=== PATIENT | male | born 1945 | race Hispanic/Latino ===

== ENCOUNTER 2019-01-31 14:12 | Outpatient (CLI) | payer MEDICARE | END 2019-01-31 14:13 | disposition home or self-care (01) | LOC: CARDIO 14:12 ==

== ENCOUNTER 2019-02-06 10:36 | Inpatient (IN) | payer MEDICARE ==
[2019-02-06 10:54] VITALS: BMI 24.0
[2019-02-06 11:20] LABS: BASO # 0.01 K/mm3 (0.0-2.0); BASO % 0.2 % (0.0-3.0); EOS # 0.1 (0.0-0.7); EOS % 1.4 % (1.5-5.0); HEMOGLOBIN 12.9 g/dL (14.0-18.0); LYMPH # 1.9 (1.2-3.4); MEAN CELL VOLUME 92.6 fl (80.0-105.0); MEAN CORPUSCULAR HGB CONC 32.4 g/dl (31.0-37.0); MEAN PLATELET VOLUME 11.6 fl (7.0-11.0); MONO # 0.7 (0.1-0.6); MONO % 11.2 % (1.0-6.0); RBC 4.3 10^6/uL (3.5-6.1); RED CELL DISTRIBUTION WIDTH 14.3 % (11.5-14.5); WHITE BLOOD COUNT 6.6 10^3/uL (4.5-11.0)
--- NOTE | 2019-02-06 11:26 | ED PDOC ---
Arrival/HPI - General Chief Complaint: Shortness Of Breath Historian: Patient - History of Present Illness Narrative History of Present Illness (Text): 02/06/19 11:26 73 y/o M, with past medical history of hypertension, CABG, Carotid endarterectomy s/p stent, and internal defibrillator, presents to the ED for medical evaluation s/p mechanical fall x2 this morning. Patient states he was walking to the bathroom with his walker when he tripped and fell backwards on his head. Patient denies any dizziness prior to the fall. Patient denies any loss of consciousness at the time and is able to recall the episode fully. Patient was later helped by his nephew to get up from the floor and was subsequently brought to the ED for evaluation. Patient denies any apparent trauma or injury but mentions chronic productive cough with yellow sputum ongoing for past 6 months. Patient reports taking Mucinex for the cough with intermittent improvement to symptoms. Patient additionally states intermittent shortness of breath and mild lower extremity swelling for past few weeks. Patient denies any fevers, chills, headache, dizziness, chest pain, shortness of breath, dyspnea on exertion, cough, abdominal pain, nausea, vomiting, diarrhea, back pain, neck pain, or any other complaints. Time/Duration: Prior to Arrival Symptom Onset: Gradual Symptom Course: Unchanged Activities at Onset: Light Context: Home Past Medical History - Provider Review Nursing Documentation Reviewed: Yes - Infectious Disease Hx of Infectious Diseases: None - Tetanus Immunization Tetanus Immunization: Unknown - Cardiac Hx Angina: Yes Hx Cardiac Arrhythmia: Yes Hx Hypertension: Yes Hx Internal Defibrillator: Yes (4 yrs ago) - Pulmonary Hx Respiratory Disorders: No Hx Asthma: No Hx Bronchitis: No Hx Chronic Obstructive Pulmonary Disease (COPD): No Hx Emphysema: No - Neurological Hx Parkinson's Disease: Yes - HEENT Hx HEENT Disorder: Yes (wears glasses) Hx Blind: No Hx Cataracts: No Hx Deafness: No Hx Difficulty Chewing: No Hx Epistaxis: No Hx Glaucoma: No Hx Macular Degeneration: No - Renal Hx Renal Disorder: No Hx Renal Failure: No - Endocrine/Metabolic Hx Diabetes Insipidus: No Hx Hyperthyroidism: No Hx Hypothyroidism: No - Hematological/Oncological Hx Anemia: No Hx Cancer: No Hx Hepatitis A: No Hx Hepatitis B: No Hx Hepatitis C: No - Integumentary Hx Dermatological Disorder: No Other/Comment: HEALING ABRASIONS POST FALL AT HOME. ON HIS RIGHT STALLINGS (2 YEARS AGO - Musculoskeletal/Rheumatological Hx Falls: Yes - Gastrointestinal Hx Gastrointestinal Disorders: No - Genitourinary/Gynecological Hx Genitourinary Disorders: No Hx Hematuria: No Hx Incontinence: No Hx Prostate Problems: No Hx Sexually Transmitted Diseases: No Hx Urinary Tract Infection: No - Psychiatric Hx Psychophysiologic Disorder: Yes Hx Depression: No Hx Emotional Abuse: No Hx Hallucinations: Yes (TO JUMP OER THE WINDOW) Hx Physical Abuse: No Hx Schizophrenia: Yes (DX AT AGE 43 YRS OLD) Hx Sexual Abuse: No Hx Substance Use: No - Surgical History Hx Carotid Endarterectomy: (STENT) Hx Coronary Artery Bypass Graft: Yes - Anesthesia Hx Anesthesia: Yes Hx Anesthesia Reactions: No Hx Malignant Hyperthermia: No - Suicidal Assessment Feels Threatened In Home Enviroment: No Family/Social History - Physician Review Nursing Documentation Reviewed: Yes Family/Social History: Unknown Family HX Smoking Status: Former Smoker Hx Alcohol Use: No Hx Substance Use: No Allergies/Home Meds Allergies/Adverse Reactions: Allergies No Known Allergies Allergy (Verified 10/10/16 13:59) Home Medications: Home Meds Medication Instructions Recorded Confirmed Amiodarone [Cordarone] 200 mg PO DAILY 06/17/14 01/06/17 Cholecalciferol (Vitamin D3) 1,000 unit PO DAILY 06/17/14 01/06/17 [Vitamin D3] Clopidogrel [Plavix] 75 mg PO DAILY 06/17/14 01/06/17 Simvastatin 40 mg PO DAILY 06/17/14 01/06/17 Aspirin [Adult Low Dose Aspirin EC] 81 mg PO DAILY 10/10/16 01/06/17 Benztropine [Cogentin] 1 mg PO BID 10/10/16 01/06/17 Carvedilol [Coreg] 3.125 mg PO BID 10/10/16 01/06/17 Enalapril Maleate [Vasotec] 2.5 mg PO DAILY 10/10/16 01/06/17 Furosemide [Lasix] 20 mg PO BID 10/10/16 01/06/17 Risperidone [Risperdal] 2 mg PO BID 10/10/16 01/06/17 Spironolactone [Aldactone] 25 mg PO DAILY 10/10/16 01/06/17 Zolpidem [Ambien] 10 mg PO HS 10/10/16 01/06/17 Review of Systems - Physician Review All systems were reviewed & negative as marked: Yes - Review of Systems Constitutional: absent: Fevers Eyes: absent: Vision Changes Respiratory: SOB, Cough, Sputum Cardiovascular: absent: Chest Pain, Palpitations Gastrointestinal: absent: Abdominal Pain, Diarrhea, Nausea, Vomiting Genitourinary Male: absent: Dysuria, Urinary Output Changes Musculoskeletal: absent: Back Pain, Neck Pain Skin: absent: Rash Neurological: absent: Headache, Dizziness Endocrine: absent: Diaphoresis Psychiatric: absent: Anxiety Physical Exam Vital Signs Reviewed: Yes Vital Signs Temp Pulse Resp BP Pulse Ox 02/06/19 10:55 97.7 F 68 18 100/67 100 Temperature: Afebrile Blood Pressure: Hypotensive Pulse: Regular Respiratory Rate: Normal Appearance: Positive for: Non-Toxic, Comfortable, Cachectic Pain Distress: None Mental Status: Positive for: Alert and Oriented X 3 - Systems Exam Head: Present: Atraumatic, Normocephalic Pupils: Present: PERRL Extroacular Muscles: Present: EOMI Conjunctiva: Present: Normal Mouth: Present: Dry Neck: Present: Normal Range of Motion. No: MIDLINE TENDERNESS, Paraspinal Tenderness Respiratory/Chest: Present: Clear to Auscultation, Good Air Exchange, Other (Coarse breath sounds bilaterally ). No: Respiratory Distress, Accessory Muscle Use, Tachypneic Cardiovascular: Present: Regular Rate and Rhythm, Normal S1, S2. No: Murmurs Abdomen: No: Tenderness, Distention, Peritoneal Signs Back: Present: Normal Inspection. No: Midline Tenderness, Paraspinal Tenderness Upper Extremity: Present: Normal Inspection. No: Cyanosis, Edema Lower Extremity: Present: Edema (+1 pitting edema bilaterally) Neurological: Present: GCS=15, Speech Normal Skin: Present: Warm, Dry, Normal Color. No: Rashes Psychiatric: Present: Alert, Oriented x 3, Normal Insight, Normal Concentration Medical Decision Making ED Course and Treatment: 02/06/19 11:10 Impression: 73 year old male presents to the ED for medical evaluation s/p mechanical fall this morning. Differential Diagnosis included but are not limited to: -- Intracranial hemorrhage -- Fracture Plan: -- CT of Cervical Spine -- CT of Head -- Labs -- CXR -- Urinalysis -- Reassess and disposition Prior Visits: Notes and results from previous visits were reviewed. Progress Notes: 02/06/19 12:33 Labs reviewed with BNP noted to be 13,500 and negative troponin. Spoke to Dr. Martinez(PCP) who accepts patient onto his service for admission. He requests for Dr. Balbuena(cardiology) to be consulted. - Lab Interpretations Lab Results: 02/06/19 11:07 02/06/19 11:07 Lab Results 02/06/19 11:07: Sodium 137, Potassium 3.5 L, Chloride 104, Carbon Dioxide 26, Anion Gap 11, BUN 13, Creatinine 1.4, Est GFR ( Amer) > 60, Est GFR (Non- Af Amer) 50, Random Glucose 121 H, Calcium 9.7, Magnesium 2.0, Total Bilirubin 1.1, AST 64 H D, ALT 62 H, Alkaline Phosphatase 71, Troponin I 0.06 D, NT-Pro-B Natriuret Pep 88394 H, Total Protein 6.6, Albumin 3.7, Globulin 2.8, Albumin/Globulin Ratio 1.3 02/06/19 11:07: PT 14.5 H, INR 1.28, APTT 42.1 H 02/06/19 11:07: WBC 6.6, RBC 4.30, Hgb 12.9 L, Hct 39.8 L, MCV 92.6, MCH 30.0, MCHC 32.4, RDW 14.3, Plt Count 188, MPV 11.6 H, Neut % (Auto) 58.2, Lymph % (Auto) 29.0, [place] % (Auto) 11.2 H, Eos % (Auto) 1.4 L, Baso % (Auto) 0.2, Lymph # (Auto) 1.9, [place] # (Auto) 0.7 H, Eos # (Auto) 0.1, Baso # (Auto) 0.01, Absolute Neuts (auto) 3.84 I have reviewed the lab results: Yes - RAD Interpretation Radiology Orders: 02/06/19 11:05 CERVICAL SPINE W/O CONTRAST [CT] Stat HEAD W/O CONTRAST [CT] Stat CHEST PORTABLE [RAD] Stat - EKG Interpretation EKG Interpretation (Text): 02/06/19 10:50 EKG reviewed, shows NSR @ 71bpm, LBBB, wide T waves in precordial leads. Interpreted by ED Physician: Yes Type: 12 lead EKG - Medication Orders Current Medication Orders: 02/06/19 12:13 Discontinued Medications Albuterol/Ipratropium (Duoneb 3 Mg/0.5 Mg (3 Ml) Ud) 3 ml IH STAT STA Stop: 02/06/19 11:41 Last Admin: 02/06/19 11:58 Dose: 3 ml Furosemide (Lasix) 60 mg IVP STAT STA Stop: 02/06/19 12:11 Methylprednisolone (Solu-Medrol) 125 mg IVP STAT STA Stop: 02/06/19 11:41 Last Admin: 02/06/19 12:02 Dose: 125 mg IVP Administration Document 02/06/19 12:02 BB (Rec: 02/06/19 12:02 BB [id number]) Charges for Administration # of IVP Administrations 1 - Scribe Statement The provider has reviewed the documentation as recorded by the Scribe Dixon Ramesh. All medical record entries made by the Scribe were at my direction and pe rsonally dictated by me. I have reviewed the chart and agree that the record accurately reflects my personal performance of the history, physical exam, medical decision making, and the department course for this patient. I have also personally directed, reviewed, and agree with the discharge instructions and disposition. Disposition/Present on Arrival - Present on Arrival Any Indicators Present on Arrival: No History of DVT/PE: No History of Uncontrolled Diabetes: No Urinary Catheter: No History of Decub. Ulcer: No History Surgical Site Infection Following: None - Disposition Have Diagnosis and Disposition been Completed?: Yes Diagnosis: CHF (congestive heart failure) Disposition: HOSPITALIZED Disposition Time: 12:35 Patient Plan: Admission Discharge Instructions (ExitCare): Heart Failure (ED) Forms: [employer] ([place])
[2019-02-06 11:28] LABS: INR 1.28; PARTIAL THROMBOPLASTIN TIME 42.1 Seconds (26.9-38.3); PROTHROMBIN TIME 14.5 SECONDS (9.4-12.5)
[2019-02-06 11:32] LABS: ALB/GLOB RATIO 1.3 (1.1-1.8); ALBUMIN 3.7 g/dL (3.0-4.8); ALT/SGPT 62 U/L (7-56); AST/SGOT 64 U/L (17-59); BLOOD UREA NITROGEN 13 mg/dL (7-21); CALCIUM 9.7 mg/dL (8.4-10.5); GFR NON-AFRICAN AMERICAN 50
[2019-02-06] MEDS ORDERED: Albuterol-Ipratrop 3 mg / 0.5 (3 ml) UD IH STA (11:40)
[2019-02-06 11:43] LABS: B-TYPE NATRIURETIC PEPTIDE 13500 pg/mL (0-450); TROPONIN I 0.06 ng/mL
--- NOTE | 2019-02-06 11:56 | CT ---
Date of service: 02/06/2019 PROCEDURE: CT HEAD WITHOUT CONTRAST. HISTORY: headache COMPARISON: 08/02/2014 TECHNIQUE: Axial computed tomography images were obtained through the head/brain without intravenous contrast. Radiation dose: Total exam DLP = 1689.92 mGy-cm. This CT exam was performed using one or more of the following dose reduction techniques: Automated exposure control, adjustment of the mA and/or kV according to patient size, and/or use of iterative reconstruction technique. FINDINGS: HEMORRHAGE: No intracranial hemorrhage. BRAIN: No mass effect or edema. Chronic microvascular changes are seen in the periventricular white matter. Moderate atrophy. VENTRICLES: Unremarkable. No hydrocephalus. CALVARIUM: Unremarkable. PARANASAL SINUSES: Unremarkable as visualized. No significant inflammatory changes. MASTOID AIR CELLS: Unremarkable as visualized. No inflammatory changes. OTHER FINDINGS: None. IMPRESSION: No acute intracranial findings
--- NOTE | 2019-02-06 11:58 | CT ---
Date of service: 02/06/2019 PROCEDURE: CT Cervical Spine without contrast HISTORY: fall COMPARISON: None available. TECHNIQUE: Axial computed tomography images were obtained of the cervical spine without the use of intravenous contrast. Coronal and sagittal reformatted images were created and reviewed. Radiation dose: Total exam DLP = 650.17 mGy-cm. This CT exam was performed using one or more of the following dose reduction techniques: Automated exposure control, adjustment of the mA and/or kV according to patient size, and/or use of iterative reconstruction technique. FINDINGS: VERTEBRAE: No fracture. Normal alignment. No destructive bony lesion. DISCS/SPINAL CANAL/NEURAL FORAMINA: There is multilevel disc degeneration with severe loss of disc height. There is no central stenosis. There is mild foraminal stenosis PARASPINAL SOFT TISSUES: Unremarkable. OTHER FINDINGS: None. IMPRESSION: No acute fracture.
--- NOTE | 2019-02-06 13:02 | RAD ---
Date of service: 02/06/2019 HISTORY: sob COMPARISON: 10/10/2016 FINDINGS: LUNGS: No active pulmonary disease. PLEURA: No significant pleural effusion identified, no pneumothorax apparent. CARDIOVASCULAR: No aortic atherosclerotic calcification present. Normal cardiac size. AICD. Sternotomy wires. No congestive change. OSSEOUS STRUCTURES: No significant abnormalities. VISUALIZED UPPER ABDOMEN: Normal. OTHER FINDINGS: None. IMPRESSION: No acute infiltrate.
--- NOTE | 2019-02-06 21:03 | CARD ---
APPROVED REPORT Date of service: 02/06/2019 EKG Measurement Heart [id number] ND [id number] <Conclusion> Sinus rhythm with 1st degree AV block Left bundle branch block Abnormal ECG
--- NOTE | 2019-02-07 07:29 | CP.PCM.PN ---
Subjective - Date & Time of Evaluation Date of Evaluation: 02/07/19 Time of Evaluation: 06:15 - Subjective Subjective: Awake, alert, mild shortness of breath at rest, on nasal cannula Reason for consultation:Cardiac evaluation of shortness of breath, post fall, history of coronary artery disease post CABG, cardiomyopathy Brief history of present illness: A 73 year old male who was brought to the ER due to mechanical fall at home. He was walking to the bathroom with a walker and tripped and fell. Denies loss of consciousness. He complains of shortness of breath on exertion and coughing. History of coronary artery disease post CABG, cardiomyopathy, carotid endarterectomy with stent, AICD. Seen and examined by me and Dr. Hall Objective - Vital Signs/Intake and Output Vital Signs (last 24 hours): Temp Pulse Resp BP Pulse Ox 98.2 F 69 18 113/74 98 02/06/19 16:24 02/06/19 22:00 02/06/19 16:24 02/06/19 17:31 02/06/19 16:24 Intake and Output: 02/07/19 02/07/19 06:59 18:59 Intake Total 1020 Output Total 450 Balance 570 - Medications Medications: Current Medications Amiodarone HCl (Cordarone) 200 mg PO DAILY [facility] Benztropine Mesylate (Cogentin) 1 mg PO BID [facility] Last Admin: 02/06/19 17:32 Dose: 1 mg Carvedilol (Coreg) 3.125 mg PO BID [facility] Last Admin: 02/06/19 17:31 Dose: 3.125 mg Clopidogrel Bisulfate (Plavix) 75 mg PO DAILY [facility] Risperidone (Risperdal Tab) 2 mg PO BID [facility]; Protocol Spironolactone (Aldactone) 25 mg PO DAILY [facility] Zolpidem Tartrate (Ambien) 5 mg PO HS PRN; Protocol PRN Reason: Insomnia Last Admin: 02/07/19 00:51 Dose: 5 mg - Labs Labs: 02/06/19 11:07 02/06/19 11:07 PT 14.5 SECONDS (9.4-12.5) H 02/06/19 11:07 INR 1.28 02/06/19 11:07 APTT 42.1 Seconds (26.9-38.3) H 02/06/19 11:07 - Constitutional Appears: Non-toxic, No Acute Distress - Head Exam Head Exam: NORMAL INSPECTION, NORMOCEPHALIC - Eye Exam Eye Exam: Normal appearance Pupil Exam: NORMAL ACCOMODATION - Respiratory Exam Respiratory Exam: Decreased Breath Sounds, Clear to Ausculation Bilateral, NORMAL BREATHING PATTERN Additional comments: mild shortness of breath - Cardiovascular Exam Cardiovascular Exam: REGULAR RHYTHM, +S1, +S2 Additional comments: AICD - GI/Abdominal Exam GI & Abdominal Exam: Soft, Normal Bowel Sounds - Extremities Exam Extremities Exam: Full ROM, Normal Capillary Refill - Neurological Exam Neurological Exam: Alert, Awake, Oriented x3 - Psychiatric Exam Psychiatric exam: Normal Affect, Normal Mood - Skin Skin Exam: Dry, Normal Color, Warm
--- NOTE | 2019-02-07 07:31 | CP.PCM.CON ---
History of Present Illness - History of Present Illness History of Present Illness: Awake, alert, mild shortness of breath at rest, on nasal cannula Reason for consultation:Cardiac evaluation of shortness of breath, post fall, history of coronary artery disease post CABG, cardiomyopathy Brief history of present illness: A 73 year old male who was brought to the ER due to mechanical fall at home. He was walking to the bathroom with a walker and tripped and fell. Denies loss of consciousness. He complains of shortness of breath on exertion and coughing. History of coronary artery disease post CABG, status post ventricular tachycardia 9 years ago, post AICD insertion. Lead malfunction of AICD 09/2016 requiring AICD to be changed. cardiomyopathy, COPD, Schizophrenia, Seen and examined by me and Dr. Hall Review of Systems - Review of Systems All systems: reviewed and no additional remarkable complaints except Review of Systems: as per HPI Past Patient History - Infectious Disease Hx of Infectious Diseases: None - Tetanus Immunizations Tetanus Immunization: Unknown - Past Social History Smoking Status: Former Smoker - CARDIAC Hx Angina: Yes Hx Cardia Arrhythmia: Yes Hx Hypertension: Yes Hx Internal Defibrillator: Yes (4 yrs ago) - PULMONARY Hx Respiratory Disorders: No Hx Asthma: No Hx Bronchitis: No Hx Chronic Obstructive Pulmonary Disease (COPD): No Hx Emphysema: No - NEUROLOGICAL Hx Parkinson's Disease: Yes - HEENT Hx HEENT Problems: Yes (wears glasses) Hx Blind: No Hx Cataracts: No Hx Deafness: No Hx Difficulty Chewing: No Hx Epistaxis: No Hx Glaucoma: No Hx Macular Degeneration: No - RENAL Hx Chronic Kidney Disease: No Hx Renal Failure: No - ENDOCRINE/METABOLIC Hx Diabetes Insipidus: No Hx Hyperthyroidism: No Hx Hypothyroidism: No - HEMATOLOGICAL/ONCOLOGICAL Hx Anemia: No Hx Cancer: No Hx Hepatitis A: No Hx Hepatitis B: No Hx Hepatitis C: No - INTEGUMENTARY Hx Dermatological Problems: No Other/Comment: HEALING ABRASIONS POST FALL AT HOME. ON HIS RIGHT STALLINGS (2 YEARS AGO - MUSCULOSKELETAL/RHEUMATOLOGICAL Hx Falls: Yes - GASTROINTESTINAL Hx Gastrointestinal Disorders: No - GENITOURINARY/GYNECOLOGICAL Hx Genitourinary Disorders: No Hx Hematuria: No Hx Incontinence: No Hx Prostate Problems: No Hx Sexually Transmitted Disorders: No Hx Urinary Tract Infection: No - PSYCHIATRIC Hx Psychophysiologic Disorder: Yes Hx Depression: No Hx Emotional Abuse: No Hx Hallucinations: Yes (TO JUMP OER THE WINDOW) Hx Physical Abuse: No Hx Schizophrenia: Yes (DX AT AGE 43 YRS OLD) Hx Sexual Abuse: No - SURGICAL HISTORY Hx Amputation: No Hx Appendectomy: Yes Hx Open Heart Surgery: Yes (quadruple bypass 8 yrs ago) Hx Orthopedic Surgery: Yes Other/Comment: AICD 4 yrs ago, left carotid stent 6 yrs go - ANESTHESIA Hx Anesthesia: Yes Hx Anesthesia Reactions: No Hx Malignant Hyperthermia: No Meds Allergies/Adverse Reactions: Allergies Allergy/AdvReac Type Severity Reaction Status Date / Time No Known Allergies Allergy Verified 10/10/16 13:59 - Medications Medications: Current Medications Amiodarone HCl (Cordarone) 200 mg PO DAILY [facility] Benztropine Mesylate (Cogentin) 1 mg PO BID [facility] Last Admin: 02/06/19 17:32 Dose: 1 mg Carvedilol (Coreg) 3.125 mg PO BID [facility] Last Admin: 02/06/19 17:31 Dose: 3.125 mg Clopidogrel Bisulfate (Plavix) 75 mg PO DAILY [facility] Risperidone (Risperdal Tab) 2 mg PO BID [facility]; Protocol Spironolactone (Aldactone) 25 mg PO DAILY [facility] Zolpidem Tartrate (Ambien) 5 mg PO HS PRN; Protocol PRN Reason: Insomnia Last Admin: 02/07/19 00:51 Dose: 5 mg Physical Exam - Constitutional Appears: Non-toxic, No Acute Distress - Head Exam Head Exam: NORMAL INSPECTION, NORMOCEPHALIC - Eye Exam Eye Exam: Normal appearance Pupil Exam: NORMAL ACCOMODATION - ENT Exam ENT Exam: Mucous Membranes Moist, Normal Exam - Respiratory Exam Respiratory Exam: Decreased Breath Sounds, Clear to Auscultation Bilateral, NORMAL BREATHING PATTERN Additional comments: mild shortness of breath - Cardiovascular Exam Cardiovascular Exam: REGULAR RHYTHM, +S1, +S2 Additional comments: AICD - GI/Abdominal Exam GI & Abdominal Exam: Normal Bowel Sounds, Soft - Neurological Exam Neurological exam: Alert, Oriented x3 - Psychiatric Exam Psychiatric exam: Normal Affect, Normal Mood - Skin Skin Exam: Dry, Normal Color, Warm Results - Vital Signs Recent Vital Signs: Last Vital Signs Temp 98.2 F 02/06/19 16:24 Pulse 69 02/06/19 22:00 Resp 18 02/06/19 16:24 BP 113/74 02/06/19 17:31 Pulse Ox 98 02/06/19 16:24 - Labs Result Diagrams: 02/06/19 11:07 02/06/19 11:07 Labs: Laboratory Results - last 24 hr 02/06/19 02/06/19 02/06/19 11:07 11:07 11:07 WBC 6.6 RBC 4.30 Hgb 12.9 L Hct 39.8 L MCV 92.6 MCH 30.0 MCHC 32.4 RDW 14.3 Plt Count 188 MPV 11.6 H Neut % (Auto) 58.2 Lymph % (Auto) 29.0 [place] % (Auto) 11.2 H Eos % (Auto) 1.4 L Baso % (Auto) 0.2 Lymph # (Auto) 1.9 [place] # (Auto) 0.7 H Eos # (Auto) 0.1 Baso # (Auto) 0.01 Absolute Neuts (auto) 3.84 PT 14.5 H INR 1.28 APTT 42.1 H Sodium 137 Potassium 3.5 L Chloride 104 Carbon Dioxide 26 Anion Gap 11 BUN 13 Creatinine 1.4 Est GFR ( Amer) > 60 Est GFR (Non-Af Amer) 50 Random Glucose 121 H Calcium 9.7 Magnesium 2.0 Total Bilirubin 1.1 AST 64 H D ALT 62 H Alkaline Phosphatase 71 Troponin I 0.06 D NT-Pro-B Natriuret Pep 30116 H Total Protein 6.6 Albumin 3.7 Globulin 2.8 Albumin/Globulin Ratio 1.3 Assessment & Plan - Assessment and Plan (Free Text) Assessment: A 73 year old male who was brought to the ER due to mechanical fall at home. He was walking to the bathroom with a walker and tripped and fell. Denies loss of consciousness. He complains of shortness of breath on exertion and coughing. History of coronary artery disease post CABG, post PTCA of the LAD, status post ventricular tachycardia 9 years ago, post AICD insertion. Lead malfunction of AICD 09/2016 requiring AICD to be changed at [facility] decreased LV function, cardiomyopathy, COPD, Schizophrenia. Echo done on showed four chamber dialtation with LVEF of 10-15%, mild to moderate MR/TR, trace to mild AR/PI, RVSP 45 mmHg. He just had a recent Echocardiogram 4 weeks ago in the office and LVEF 15-20%. Stress test on 06/19/14 showed fixed ischemia, septal,apical, inferior defects suggestive of myocardial infarction, severe LV dysfunction LVEF 10%. Refused repeat stress test.Chest X ray normal. CT of head no hemorrhage. Acute on chronic exacerbation of congestive heart failure (cardiomyopathy). Will start on Primacor drip. Plan: Mild shortness of breath Will start Primacor drip heart rate stable Blood pressure stable On Amiodarone 200 mg daily,Coreg 3.125 mg BID, Plavix 75 mg daily, Aldactone 25 mg daily Continue current treatment Continue current medications TSH, HbgA1c, Lipid panel Will follow up Further recommendations during hospital course Plan and treatment discussed with Dr. Hall Thank you Dr. Martinez for the opportunity of taking care of Eduard Gautam - Date & Time Date: 02/07/19 Time: 06:20
[2019-02-07] MEDS ORDERED: Milrinone 20mg/100ml D5W 100 ML IV PRN (08:15)
--- NOTE | 2019-02-07 10:50 | HP ---
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 The patient has a chronically low blood pressure and poor balance because of his Parkinson's disease. He has suffered multiple falls in the last 2 to 3 weeks, eventually falling in his bathroom, complaining of increased shortness of breath, increased dyspnea on exertion and weakness. The patient was brought to the emergency room and had a CT of the neck and head, which were normal and was found to have elevated BNP with evidence on chest x-ray of congestive heart failure. The patient was admitted for acute exacerbation of systolic heart failure on top of chronic systolic diastolic heart failure and multiple falls and exacerbation of Parkinson's disease. SOCIAL HISTORY: The patient is a nonsmoker and nondrinker and no recent travel history. FAMILY HISTORY: Unremarkable. REVIEW OF SYSTEMS: Central Nervous System: Positive for falls and dizziness and poor balance and tremors. The patient denies any loss of consciousness or loss of strength or sensation in the upper or lower extremities, or change in his vision. Cardiac: Positive for shortness of breath, dyspnea on exertion, negative for palpitations, chest pain or diaphoresis. Respiratory: Positive for shortness of breath. Negative for cough, sputum production or hemoptysis. Gastrointestinal: Negative for nausea, vomiting or diarrhea. Genitourinary: Negative for dysuria, hematuria or frequency. PHYSICAL EXAMINATION GENERAL: Well developed, elderly white male lying flat with some dyspnea and increased respiratory rate. There is no peripheral edema. HEART: Regular sinus rhythm with systolic ejection murmur and a positive S3, positive S4 and has minimal JVD. CHEST: Shows some decreased breath sounds, but minimal rales at the base. ABDOMEN: There is a slight positive fluid wave. There is no hepatosplenomegaly. Bowel sounds are normoactive. NEUROLOGIC: Sensation grossly intact except for bradykinesia, some tremor in the upper and lower extremities. Speech is fluent. Cranial nerves II through XII are intact. IMPRESSION AND PLAN: Acute systolic heart failure on top of chronic systolic diastolic heart failure in a patient with known ischemic cardiomyopathy, exacerbation of Parkinson's disease with increased falling and poor balance, possible ascites. Hugo Martinez MD
[2019-02-07] MEDS ORDERED: Potassium Chloride 20 mEq ER Tab PO ONE (11:00)
[2019-02-07] MEDS: Milrinone 20mg/100ml D5W 100 ML IV PRN ×2 (11:49→23:33)
[2019-02-07] MEDS: Cholecalciferol 1,000 INTLU TAB PO SCH (11:51)
[2019-02-07] MEDS: Digoxin 125 mcg (0.125 mg) Tab PO SCH (15:15)
[2019-02-07] MEDS: Albuterol-Ipratrop 3 mg / 0.5 (3 ml) UD IH SCH ×2 (16:18→19:29)
[2019-02-08] MEDS: Albuterol-Ipratrop 3 mg / 0.5 (3 ml) UD IH SCH ×6 (00:56→19:34)
[2019-02-08 07:24] LABS: BASO # 0.01 K/mm3 (0.0-2.0); BASO % 0.1 % (0.0-3.0); EOS % 0.1 % (1.5-5.0); LYMPH # 1.9 (1.2-3.4); LYMPH % 21.2 % (22.0-35.0); MEAN CELL VOLUME 91.8 fl (80.0-105.0); MEAN CORPUSCULAR HEMOGLOBIN 29.9 pg (25.0-35.0); MEAN CORPUSCULAR HGB CONC 32.5 g/dl (31.0-37.0); MEAN PLATELET VOLUME 11.4 fl (7.0-11.0); MONO # 0.9 (0.1-0.6); MONO % 9.8 % (1.0-6.0); RBC 3.68 10^6/uL (3.5-6.1); RED CELL DISTRIBUTION WIDTH 14.4 % (11.5-14.5); WHITE BLOOD COUNT 9.1 10^3/uL (4.5-11.0)
[2019-02-08 07:25] LABS: CALCIUM 9.5 mg/dL (8.4-10.5)
[2019-02-08] MEDS: SACUBITRIL 24mg/VALSARTAN 26mg tab PO SCH ×2 (09:21→17:59)
[2019-02-08] MEDS: Cholecalciferol 1,000 INTLU TAB PO SCH (09:21)
--- NOTE | 2019-02-08 10:11 | CP.PCM.PN ---
Subjective - Date & Time of Evaluation Date of Evaluation: 02/08/19 Time of Evaluation: 06:30 - Subjective Subjective: Awake, alert, no distress, feels okay Reason for consultation and follow up :Cardiac evaluation of shortness of breath, post fall, history of coronary artery disease post CABG, cardiomyopathy Seen and examined by me and Dr. Hall Objective - Vital Signs/Intake and Output Vital Signs (last 24 hours): Temp Pulse Resp BP Pulse Ox 98.2 F 65 20 94/51 L 98 02/08/19 05:45 02/08/19 09:21 02/08/19 05:45 02/08/19 09:21 02/08/19 09:21 Intake and Output: 02/08/19 02/08/19 06:59 18:59 Intake Total 820 Output Total 600 Balance 220 - Medications Medications: Current Medications Albuterol/Ipratropium (Duoneb 3 Mg/0.5 Mg (3 Ml) Ud) 3 ml IH [id number] [facility] Last Admin: 02/08/19 07:37 Dose: 3 ml Aspirin (Ecotrin) 81 mg PO DAILY [facility] Last Admin: 02/08/19 09:21 Dose: 81 mg Atorvastatin Calcium (Lipitor) 40 mg PO DIN [facility] Last Admin: 02/07/19 17:19 Dose: 40 mg Carvedilol (Coreg) 3.125 mg PO BID [facility] Last Admin: 02/08/19 09:21 Dose: 3.125 mg Cholecalciferol (Vitamin D) 1,000 intlu PO DAILY [facility] Last Admin: 02/08/19 09:21 Dose: 1,000 intlu Digoxin (Digoxin) 0.125 mg PO 1400 [facility] Last Admin: 02/07/19 15:15 Dose: 0.125 mg Furosemide (Lasix) 40 mg IV DAILY [facility] Last Admin: 02/08/19 09:21 Dose: 40 mg Milrinone Lactate/Dextrose (Primacor 20mg/100ml D5w) 100 mls @ 4.572 mls/hr IV .[id number] PRN; Protocol PRN Reason: TITRATE PER MD ORDER Last Admin: 02/07/19 23:33 Dose: 0.2 mcg/kg/min, 4.572 mls/hr Sacubitril/Valsartan (Entresto 24 Mg-26 Mg Tablet) 1 each PO BID [facility] Last Admin: 02/08/19 09:21 Dose: 1 each Spironolactone (Aldactone) 25 mg PO DAILY [facility] Last Admin: 02/08/19 09:21 Dose: 25 mg Zolpidem Tartrate (Ambien) 5 mg PO HS PRN; Protocol PRN Reason: Insomnia Last Admin: 02/07/19 23:47 Dose: 5 mg - Labs Labs: 02/08/19 06:50 02/08/19 06:50 PT 14.5 SECONDS (9.4-12.5) H 02/06/19 11:07 INR 1.28 02/06/19 11:07 APTT 42.1 Seconds (26.9-38.3) H 02/06/19 11:07 - Constitutional Appears: Non-toxic, No Acute Distress - Head Exam Head Exam: NORMAL INSPECTION, NORMOCEPHALIC - Eye Exam Eye Exam: Normal appearance Pupil Exam: NORMAL ACCOMODATION - ENT Exam ENT Exam: Mucous Membranes Moist, Normal Exam - Respiratory Exam Respiratory Exam: Decreased Breath Sounds, Clear to Ausculation Bilateral, NORMAL BREATHING PATTERN - Cardiovascular Exam Cardiovascular Exam: REGULAR RHYTHM, +S1, +S2 Additional comments: AICD - GI/Abdominal Exam GI & Abdominal Exam: Soft, Normal Bowel Sounds - Extremities Exam Extremities Exam: Full ROM, Normal Capillary Refill - Neurological Exam Neurological Exam: Alert, Awake, Oriented x3 - Psychiatric Exam Psychiatric exam: Normal Affect, Normal Mood - Skin Skin Exam: Dry, Normal Color, Warm Assessment and Plan - Assessment and Plan (Free Text) Assessment: A 73 year old male who was brought to the ER due to mechanical fall at home. He was walking to the bathroom with a walker and tripped and fell. Denies loss of consciousness. He complains of shortness of breath on exertion and coughing. History of coronary artery disease post CABG, post PTCA of the LAD, status post ventricular tachycardia 9 years ago, post AICD insertion. Lead malfunction of AICD 09/2016 requiring AICD to be changed at [facility], decreased LV function, cardiomyopathy, COPD, Schizophrenia. Echo done on 06/18/2014 showed four chamber dialtation with LVEF of 10-15%, mild to moderate MR/TR, trace to mild AR/PI, RVSP 45 mmHg. He just had a recent Echocardiogram 4 weeks ago in the office and LVEF 15-20%. Stress test on 06/19/14 showed fixed ischemia, septal,apical, inferior defects suggestive of myocardial infarction, severe LV dysfunction LVEF 10%. Refused repeat stress test.Chest X ray normal. CT of head no hemorrhage. Acute on chronic exacerbation of congestive heart failure (cardiomyopathy). Continue Primacor drip. Feels better today, less shortness of breath. Plan: Denies shortness of breath, lying flat in bed Continue Primacor drip for the next 24 hours Heart rate stable Blood pressure stable On Amiodarone 200 mg daily,Coreg 3.125 mg BID, Plavix 75 mg daily, Aldactone 25 mg daily Continue current treatment Continue current medications Discharge planning Will follow up Plan and treatment discussed with Dr. Hall
--- NOTE | 2019-02-08 10:57 | PN ---
DATE: 02/08/2019 SUBJECTIVE: A 73-year-old white male with congestive cardiomyopathy admitted to the hospital with acute congestive heart failure systolic on top of chronic systolic and diastolic heart failure. The patient also has Parkinson's disease, had multiple falls prior to the admission, it was found to be congestive heart failure with shortness of breath and weakness. The patient is doing better. He is on milrinone and seen in consultation by Dr. Hall. Vital signs are stable today. He is tolerating his diet. He had an ultrasound to rule out ascites. He is on physical therapy and occupational therapy, being treated for congestive heart failure. PHYSICAL EXAMINATION: CHEST: Chest shows decreased rales from previous. HEART: Regular sinus rhythm with systolic ejection murmur at the left sternal border . EXTREMITIES: Without cyanosis, clubbing or edema. Hugo Martinez MD
--- NOTE | 2019-02-08 11:29 | US ---
Date of service: 02/07/2019 HISTORY: ascites COMPARISON: None. TECHNIQUE: Sonographic evaluation of the abdomen. FINDINGS: LIVER: Measures cm. Heterogeneous echogenicity of the liver parenchyma. 1.5 centimeter cyst in right hepatic lobe. GALLBLADDER: Gallstones. COMMON BILE DUCT: Measures mm. No stones. No dilatation. PANCREAS: Unremarkable as visualized. No mass. No ductal dilatation. RIGHT KIDNEY: Measures cm. Mildly increased echogenicity. No calculus, mass, or hydronephrosis. LEFT KIDNEY: Measures cm. Normal echogenicity. No calculus, mass, or hydronephrosis. SPLEEN: Normal in size and contour. No mass. AORTA: No aneurysmal dilatation. IVC: Unremarkable. OTHER FINDINGS: Minimal perihepatic fluid. IMPRESSION: Heterogeneous liver suggesting fibrous/fatty infiltration. Minimal perihepatic fluid. Small right hepatic cyst. Mildly echogenic right kidney with bilateral mild cortical thinning. Cholelithiasis.
[2019-02-08] MEDS ORDERED: Potassium Chloride 20 mEq ER Tab PO ONE (12:13)
[2019-02-08] MEDS: Digoxin 125 mcg (0.125 mg) Tab PO SCH (14:25)
[2019-02-08 14:26] VITALS: PULSE 64
--- NOTE | 2019-02-08 16:56 | CP.PCM.PCO ---
Physician Communication Note - Physician Communication Note Physician Communication Note: chf exac,on Primacor drip until 02/09 per card, PT eval pending.
[2019-02-08] MEDS: Milrinone 20mg/100ml D5W 100 ML IV PRN (21:58)
[2019-02-09] MEDS: Albuterol-Ipratrop 3 mg / 0.5 (3 ml) UD IH SCH ×4 (00:14→11:30)
[2019-02-09 06:22] VITALS: RESP 22; TEMP 98; O2SAT 2
[2019-02-09 06:32] LABS: BLOOD UREA NITROGEN 22 mg/dL (7-21); CALCIUM 9.6 mg/dL (8.4-10.5); GFR NON-AFRICAN AMERICAN 50
[2019-02-09 06:36] LABS: BASO # 0.02 K/mm3 (0.0-2.0); BASO % 0.3 % (0.0-3.0); EOS # 0.1 (0.0-0.7); EOS % 1.8 % (1.5-5.0); HEMOGLOBIN 12.3 g/dL (14.0-18.0); LYMPH # 1.7 (1.2-3.4); MEAN CELL VOLUME 93.6 fl (80.0-105.0); MEAN CORPUSCULAR HEMOGLOBIN 30.2 pg (25.0-35.0); MEAN CORPUSCULAR HGB CONC 32.3 g/dl (31.0-37.0); MEAN PLATELET VOLUME 11.4 fl (7.0-11.0); MONO # 0.7 (0.1-0.6); MONO % 9.2 % (1.0-6.0); RBC 4.07 10^6/uL (3.5-6.1); RED CELL DISTRIBUTION WIDTH 14.3 % (11.5-14.5); WHITE BLOOD COUNT 7.7 10^3/uL (4.5-11.0)
--- NOTE | 2019-02-09 07:40 | CP.PCM.PN ---
Subjective - Date & Time of Evaluation Date of Evaluation: 02/09/19 Time of Evaluation: 06:35 - Subjective Subjective: Lying in bed, awake, alert, no distress, feels good Reason for consultation and follow up :Cardiac evaluation of shortness of breath, post fall, history of coronary artery disease post CABG, cardiomyopathy Seen and examined by me and Dr. Hall Objective - Vital Signs/Intake and Output Vital Signs (last 24 hours): Temp Pulse Resp BP Pulse Ox 98 F 72 22 113/64 2 L 02/09/19 06:00 02/09/19 06:00 02/09/19 06:00 02/09/19 06:00 02/09/19 06:00 Intake and Output: 02/09/19 02/09/19 06:59 18:59 Intake Total 774 Output Total 540 Balance 234 - Medications Medications: Current Medications Albuterol/Ipratropium (Duoneb 3 Mg/0.5 Mg (3 Ml) Ud) 3 ml IH [id number] [facility] Last Admin: 02/09/19 03:19 Dose: 3 ml Aspirin (Ecotrin) 81 mg PO DAILY [facility] Last Admin: 02/08/19 09:21 Dose: 81 mg Atorvastatin Calcium (Lipitor) 40 mg PO DIN [facility] Last Admin: 02/08/19 17:59 Dose: 40 mg Carvedilol (Coreg) 3.125 mg PO BID [facility] Last Admin: 02/08/19 17:59 Dose: 3.125 mg Cholecalciferol (Vitamin D) 1,000 intlu PO DAILY [facility] Last Admin: 02/08/19 09:21 Dose: 1,000 intlu Digoxin (Digoxin) 0.125 mg PO 1400 [facility] Last Admin: 02/08/19 14:25 Dose: 0.125 mg Furosemide (Lasix) 40 mg IV DAILY [facility] Last Admin: 02/08/19 09:21 Dose: 40 mg Sacubitril/Valsartan (Entresto 24 Mg-26 Mg Tablet) 1 each PO BID [facility] Last Admin: 02/08/19 17:59 Dose: 1 each Spironolactone (Aldactone) 25 mg PO DAILY [facility] Last Admin: 02/08/19 09:21 Dose: 25 mg Zolpidem Tartrate (Ambien) 5 mg PO HS PRN; Protocol PRN Reason: Insomnia Last Admin: 02/08/19 21:55 Dose: 5 mg - Labs Labs: 02/09/19 06:00 02/09/19 06:00 PT 14.5 SECONDS (9.4-12.5) H 02/06/19 11:07 INR 1.28 02/06/19 11:07 APTT 42.1 Seconds (26.9-38.3) H 02/06/19 11:07 - Constitutional Appears: Non-toxic, No Acute Distress - Head Exam Head Exam: NORMAL INSPECTION, NORMOCEPHALIC - Eye Exam Eye Exam: Normal appearance Pupil Exam: NORMAL ACCOMODATION - ENT Exam ENT Exam: Mucous Membranes Moist, Normal Exam - Respiratory Exam Respiratory Exam: Decreased Breath Sounds, Clear to Ausculation Bilateral, NORMAL BREATHING PATTERN - Cardiovascular Exam Cardiovascular Exam: REGULAR RHYTHM, +S1, +S2 Additional comments: AICD - GI/Abdominal Exam GI & Abdominal Exam: Soft, Normal Bowel Sounds - Extremities Exam Extremities Exam: Full ROM, Normal Capillary Refill - Neurological Exam Neurological Exam: Alert, Awake, Oriented x3 - Psychiatric Exam Psychiatric exam: Normal Affect, Normal Mood - Skin Skin Exam: Normal Color, Warm Assessment and Plan - Assessment and Plan (Free Text) Assessment: A 73 year old male who was brought to the ER due to mechanical fall at home. He was walking to the bathroom with a walker and tripped and fell. Denies loss of consciousness. He complains of shortness of breath on exertion and coughing. History of coronary artery disease post CABG, post PTCA of the LAD, status post ventricular tachycardia 9 years ago, post AICD insertion. Lead malfunction of AICD 09/2016 requiring AICD to be changed at [facility], decreased LV function, cardiomyopathy, COPD, Schizophrenia. Echo done on 05/22 showed four chamber dialtation with LVEF of 10-15%, mild to moderate MR/TR, trace to mild AR/PI, RVSP 45 mmHg. He just had a recent Echocardiogram 4 weeks ago in the office and LVEF 15-20%. Stress test on 06/19/14 showed fixed ischemia, septal,apical, inferior defects suggestive of myocardial infarction, severe LV dysfunction LVEF 10%. Refused repeat stress test.Chest X ray normal. CT of head no hemorrhage. Acute on chronic exacerbation of congestive heart failure (cardiomyopathy). On Primacor drip. Denies shortness of breath. Clinically improved. Will discontinue Primacor today. Discharge planning. Plan: Denies shortness of breath, lying flat in bed Discontinue Primacor drip today Heart rate stable Blood pressure stable Cardiac status stable Clinically improved Will discontinue telemetry On Amiodarone 200 mg daily,Coreg 3.125 mg BID, Plavix 75 mg daily, Aldactone 25 mg daily Continue current treatment Continue current medications May discharge from cardiac standpoint Discharge planning Will follow up Plan and treatment discussed with Dr. Hall
--- NOTE | 2019-02-09 07:59 | CP.PCM.PN ---
Subjective - Date & Time of Evaluation Date of Evaluation: 02/09/19 Time of Evaluation: 08:20 - Subjective Subjective: Aiden Cesar- Internal Medicine Resident- Progress Note on Behalf of Dr. Jose Subjective: Patient seen and examined at bedside. No acute events overnight. States baseline SOB has improved relative to baseline. Further denies fever, chills, abdominal pain, nausea, vomiting, diarrhea, and urinary symptoms. 12 point ROS negative except as indicated in the HPI Physical Examination: - Constitutional Appears: Non-toxic, No Acute Distress - Head Exam Head Exam: ATRAUMATIC, NORMOCEPHALIC - Eye Exam Eye Exam: EOMI - ENT Exam ENT Exam: Mucous Membranes Moist - Neck Exam Neck exam: Positive for: Full Rom - Respiratory Exam Respiratory Exam: CTA bilaterally - Cardiovascular Exam Cardiovascular Exam: +S1, +S2, absent: Systolic Murmur - GI/Abdominal Exam GI & Abdominal Exam: Normal Bowel Sounds, Soft. absent: Distended, Firm, Guarding, Organomegaly, Rebound, Tenderness - Extremities Exam Extremities exam: left and right hand spasm- cannot fully open; no clubbing, no cyanosis, no edema - Neurological Exam Neurological exam: Alert, Oriented x3 - Psychiatric Exam Psychiatric exam: Normal Affect, Normal Mood - Skin Skin Exam: Dry, Warm Assessment and Plan: Acute on chronic systolic congestive heart failure- Ischemic Cardiomyopathy Coronary Artery Disease Parkinsons Disease Fall Patient is s/p primacor drip treatment for 2days. Continue aspirin, statin, coreg,, entresto for managment of his CAD. Continue IV lasix and PO aldactone for treatment of his acute on chronic CHF exacerbation. Cardiology is consulted- appreciate recommendations. PT recommends TCU. TCU eval to be placed. Patient case reviewed with and plan approved by attending physician, Dr. Estela dupont. Objective - Vital Signs/Intake and Output Vital Signs (last 24 hours): Temp Pulse Resp BP Pulse Ox 98 F 72 22 113/64 2 L 02/09/19 06:00 02/09/19 06:00 02/09/19 06:00 02/09/19 06:00 02/09/19 06:00 Intake and Output: 02/09/19 02/09/19 06:59 18:59 Intake Total 774 Output Total 540 Balance 234 - Medications Medications: Current Medications Albuterol/Ipratropium (Duoneb 3 Mg/0.5 Mg (3 Ml) Ud) 3 ml IH [id number] [facility] Last Admin: 02/09/19 07:41 Dose: 3 ml Aspirin (Ecotrin) 81 mg PO DAILY [facility] Last Admin: 02/08/19 09:21 Dose: 81 mg Atorvastatin Calcium (Lipitor) 40 mg PO DIN [facility] Last Admin: 02/08/19 17:59 Dose: 40 mg Carvedilol (Coreg) 3.125 mg PO BID [facility] Last Admin: 02/08/19 17:59 Dose: 3.125 mg Cholecalciferol (Vitamin D) 1,000 intlu PO DAILY [facility] Last Admin: 02/08/19 09:21 Dose: 1,000 intlu Digoxin (Digoxin) 0.125 mg PO 1400 [facility] Last Admin: 02/08/19 14:25 Dose: 0.125 mg Furosemide (Lasix) 40 mg IV DAILY [facility] Last Admin: 02/08/19 09:21 Dose: 40 mg Sacubitril/Valsartan (Entresto 24 Mg-26 Mg Tablet) 1 each PO BID [facility] Last Admin: 02/08/19 17:59 Dose: 1 each Spironolactone (Aldactone) 25 mg PO DAILY [facility] Last Admin: 02/08/19 09:21 Dose: 25 mg Zolpidem Tartrate (Ambien) 5 mg PO HS PRN; Protocol PRN Reason: Insomnia Last Admin: 02/08/19 21:55 Dose: 5 mg - Labs Labs: 02/09/19 06:00 02/09/19 06:00 PT 14.5 SECONDS (9.4-12.5) H 02/06/19 11:07 INR 1.28 02/06/19 11:07 APTT 42.1 Seconds (26.9-38.3) H 02/06/19 11:07
[2019-02-09] MEDS: SACUBITRIL 24mg/VALSARTAN 26mg tab PO SCH (09:53)
[2019-02-09] MEDS: Cholecalciferol 1,000 INTLU TAB PO SCH (09:53)
[2019-02-09 09:56] VITALS: BP 122/78; PULSE 78
--- NOTE | 2019-02-09 11:04 | CP.PCM.DIS ---
<Aiden Cesar - Last Filed: 02/09/19 11:19> Provider - Provider Date of Admission: 02/06/19 12:32 Attending physician: Hugo Martinez MD Consults: 02/06/19 12:41 Cardiology Consult Stat Comment: Consulting Provider: Joanna Taylor Consulting Physician: Joanna Taylor Reason for Consult: cardiomyopathy 02/06/19 15:11 Social Work Referral Routine Comment: Needs assistance at home Physician Instructions: Reason For Exam: Needs assistance at home 02/06/19 15:15 Transition In Care/Readmission Reduction Routine Comment: Physician Instructions: Reason For Exam: CHF Time Spent in preparation of Discharge (in minutes): 45 Hospital Course - Lab Results Lab Results: Most Recent Lab Values WBC 7.7 10^3/uL (4.5-11.0) 02/09/19 06:00 RBC 4.07 10^6/uL (3.5-6.1) 02/09/19 06:00 Hgb 12.3 g/dL (14.0-18.0) L 02/09/19 06:00 Hct 38.1 % (42.0-52.0) L 02/09/19 06:00 MCV 93.6 fl (80.0-105.0) 02/09/19 06:00 MCH 30.2 pg (25.0-35.0) 02/09/19 06:00 MCHC 32.3 g/dl (31.0-37.0) 02/09/19 06:00 RDW 14.3 % (11.5-14.5) 02/09/19 06:00 Plt Count 177 10^3/uL (120.0-450.0) 02/09/19 06:00 MPV 11.4 fl (7.0-11.0) H 02/09/19 06:00 Neut % (Auto) 66.7 % (50.0-68.0) 02/09/19 06:00 Lymph % (Auto) 22.0 % (22.0-35.0) 02/09/19 06:00 Haakon % (Auto) 9.2 % (1.0-6.0) H 02/09/19 06:00 Eos % (Auto) 1.8 % (1.5-5.0) 02/09/19 06:00 Baso % (Auto) 0.3 % (0.0-3.0) 02/09/19 06:00 Lymph # (Auto) 1.7 (1.2-3.4) 02/09/19 06:00 Haakon # (Auto) 0.7 (0.1-0.6) H 02/09/19 06:00 Eos # (Auto) 0.1 (0.0-0.7) 02/09/19 06:00 Baso # (Auto) 0.02 K/mm3 (0.0-2.0) 02/09/19 06:00 Absolute Neuts (auto) 5.13 (1.4-6.5) 02/09/19 06:00 PT 14.5 SECONDS (9.4-12.5) H 02/06/19 11:07 INR 1.28 02/06/19 11:07 APTT 42.1 Seconds (26.9-38.3) H 02/06/19 11:07 Sodium 139 mmol/L (132-148) 02/09/19 06:00 Potassium 4.1 mmol/L (3.6-5.0) 02/09/19 06:00 Chloride 103 mmol/L (98-107) 02/09/19 06:00 Carbon Dioxide 30 mmol/L (21-33) 02/09/19 06:00 Anion Gap 10 (10-20) 02/09/19 06:00 BUN 22 mg/dL (7-21) H 02/09/19 06:00 Creatinine 1.4 mg/dl (0.8-1.5) 02/09/19 06:00 Est GFR ( Amer) > 60 02/09/19 06:00 Est GFR (Non-Af Amer) 50 02/09/19 06:00 Random Glucose 100 mg/dL (70-110) 02/09/19 06:00 Hemoglobin A1c 5.7 % (4.2-6.5) 02/08/19 06:50 Calcium 9.6 mg/dL (8.4-10.5) 02/09/19 06:00 Phosphorus 3.0 mg/dL (2.5-4.5) 02/09/19 06:00 Magnesium 2.3 mg/dL (1.7-2.2) H 02/09/19 06:00 Total Bilirubin 1.1 mg/dL (0.2-1.3) 02/06/19 11:07 AST 64 U/L (17-59) H D 02/06/19 11:07 ALT 62 U/L (7-56) H 02/06/19 11:07 Alkaline Phosphatase 71 U/L (38-126) 02/06/19 11:07 Troponin I 0.06 ng/mL D 02/06/19 11:07 NT-Pro-B Natriuret Pep 16476 pg/mL (0-450) H 02/06/19 11:07 Total Protein 6.6 g/dL (5.8-8.3) 02/06/19 11:07 Albumin 3.7 g/dL (3.0-4.8) 02/06/19 11:07 Globulin 2.8 gm/dL 02/06/19 11:07 Albumin/Globulin Ratio 1.3 (1.1-1.8) 02/06/19 11:07 Triglycerides 84 mg/dL (35-160) 02/08/19 06:50 Cholesterol 110 mg/dL (130-200) L 02/08/19 06:50 LDL Cholesterol Direct 64 mg/dL (0-129) 02/08/19 06:50 HDL Cholesterol 37 mg/dL (29-60) 02/08/19 06:50 TSH 3rd Generation 1.87 mIU/mL (0.46-4.68) 02/08/19 06:50 - Hospital Course Hospital Course: Patient is a 73 year old male with a past medical history of chronic systolic congestive heart failure, ischemic cardiomyopathy, coronary artery disease, parkinsons disease who was admitted for evaluation and treatment of increased shortness of breath and a fall. With the use of physical examinations, lab work, and imaging the patient was diagnosed with and treated for an acute exacerbation of his chronic systolic congestive heart failure, along with the patients chronic medical conditions.During their hospital stay the patient was seen by cardiology, whose recommendations were both appreciated and utilized in the care for this patient. Dr. Hall recommended completing a two day course of p rimacor. During their hospital stay the patient underwent a CT of the head without contrast, chest xray, cervical spine CT, and abdominal ultrasound which were reviewed, appreciated, and utilized in the management of the patients clinical course. The findings are listed below. Patient was treated with aspirin, statin, coreg,, entresto for management of his CAD, IV lasix and PO aldactone. At this time the patient is medically stable for discharge. Patient understands and appreciates discharge plan. Patient instructed to follow up with primary care physicians and referrals within three to five days from discharge. Furthermore, the patient is instructed to take medications as prescribed and to return to emergency room for evaluation of new or worsening symptoms including but limited to intractable headache, fever, chills, dizziness, chest pain, shortness of breath, abdominal pain, nausea, vomiting, diarrhea, constipation, and urinary symptoms. This is a brief summary of the patients hospital course. Please see patient chart for full details. Discharge Diagnoses: Acute on chronic systolic congestive heart failure Ischemic Cardiomyopathy Coronary Artery Disease Parkinsons Disease Mechanical Fall Heterogeneous liver Cervical spinemultilevel disc degeneration Small right hepatic cyst Mildly echogenic right kidney Imaging Studies: CT Cervical Spine without contrast- There is multilevel disc degeneration with severe loss of disc height. There is no central stenosis. There is mild foraminal stenosis. No acute fracture. CT of the head without contrast- No acute intracranial findings Abdominal Ultrasound- Heterogeneous liver suggesting fibrous/fatty infiltration. Minimal perihepatic fluid. Small right hepatic cyst. Mildly echogenic right kidney with bilateral mild cortical thinning. Cholelithiasis. Discharge Medications: Aspirin [Adult Low Dose Aspirin EC] 81 mg by mouth DAILY Atorvastatin [Lipitor] 40 mg by mouth daily at dinner time Carvedilol [Coreg] 3.125 mg by mouth twice daily Cholecalciferol [Vitamin D 1000 IU] 1,000 iu by mouth DAILY Digoxin 0.125 mg P by mouthO daily Furosemide [Lasix] 40 mg by mouth twice daily Sacubitril/Valsartan [Entresto 24 mg-26 mg Tablet] 1 each by mouth twice daily Spironolactone [Aldactone] 25 mg by mouth DAILY Discharge Exam - Head Exam Head Exam: NORMAL INSPECTION, NORMOCEPHALIC Discharge Plan - Discharge Medications Prescriptions: Aspirin [Adult Low Dose Aspirin EC] 81 mg PO DAILY #30 tablet. Atorvastatin [Lipitor] 40 mg PO DIN #30 tab Carvedilol [Coreg] 3.125 mg PO BID #60 tab Cholecalciferol [Vitamin D 1000 IU] 1,000 iu PO DAILY #30 tab Digoxin 0.125 mg PO 1400 #30 tab Furosemide [Lasix] 40 mg PO BID #60 tab Sacubitril/Valsartan [Entresto 24 mg-26 mg Tablet] 1 each PO BID #30 tablet Spironolactone [Aldactone] 25 mg PO DAILY #30 tab - Follow Up Plan Condition: GOOD Disposition: HOME/ ROUTINE Additional Instructions: Patient Instructions: 1. Please take the following medications at home: Aspirin [Adult Low Dose Aspirin EC] 81 mg by mouth DAILY Atorvastatin [Lipitor] 40 mg by mouth daily at dinner time Carvedilol [Coreg] 3.125 mg by mouth twice daily Cholecalciferol [Vitamin D 1000 IU] 1,000 iu by mouth DAILY Digoxin 0.125 mg P by mouthO daily Furosemide [Lasix] 40 mg by mouth twice daily Sacubitril/Valsartan [Entresto 24 mg-26 mg Tablet] 1 each by mouth twice daily Spironolactone [Aldactone] 25 mg by mouth DAILY 2. Follow up with Dr. Martinez and Dr. Hall within three to five days from discharge. 3. Please go to the nearest emergency room for evaluation of new or worsening symptoms including but limited to intractable headache, fever, chills, dizziness, chest pain, shortness of breath, abdominal pain, nausea, vomiting, diarrhea, constipation, and urinary symptoms. Referrals: Joanna Hall MD [Staff Provider] - <Clif Jose S - Last Filed: 02/09/19 12:32> Provider - Provider Date of Admission: 02/06/19 12:32 Attending physician: Hugo Martinez MD Consults: 02/06/19 12:41 Cardiology Consult Stat Comment: Consulting Provider: Joanna Taylor Consulting Physician: Joanna Taylor Reason for Consult: cardiomyopathy 02/06/19 15:11 Social Work Referral Routine Comment: Needs assistance at home Physician Instructions: Reason For Exam: Needs assistance at home 02/06/19 15:15 Transition In Care/Readmission Reduction Routine Comment: Physician Instructions: Reason For Exam: CHF Hospital Course - Lab Results Lab Results: Most Recent Lab Values WBC 7.7 10^3/uL (4.5-11.0) 02/09/19 06:00 RBC 4.07 10^6/uL (3.5-6.1) 02/09/19 06:00 Hgb 12.3 g/dL (14.0-18.0) L 02/09/19 06:00 Hct 38.1 % (42.0-52.0) L 02/09/19 06:00 MCV 93.6 fl (80.0-105.0) 02/09/19 06:00 MCH 30.2 pg (25.0-35.0) 02/09/19 06:00 MCHC 32.3 g/dl (31.0-37.0) 02/09/19 06:00 RDW 14.3 % (11.5-14.5) 02/09/19 06:00 Plt Count 177 10^3/uL (120.0-450.0) 02/09/19 06:00 MPV 11.4 fl (7.0-11.0) H 02/09/19 06:00 Neut % (Auto) 66.7 % (50.0-68.0) 02/09/19 06:00 Lymph % (Auto) 22.0 % (22.0-35.0) 02/09/19 06:00 Haakon % (Auto) 9.2 % (1.0-6.0) H 02/09/19 06:00 Eos % (Auto) 1.8 % (1.5-5.0) 02/09/19 06:00 Baso % (Auto) 0.3 % (0.0-3.0) 02/09/19 06:00 Lymph # (Auto) 1.7 (1.2-3.4) 02/09/19 06:00 Haakon # (Auto) 0.7 (0.1-0.6) H 02/09/19 06:00 Eos # (Auto) 0.1 (0.0-0.7) 02/09/19 06:00 Baso # (Auto) 0.02 K/mm3 (0.0-2.0) 02/09/19 06:00 Absolute Neuts (auto) 5.13 (1.4-6.5) 02/09/19 06:00 PT 14.5 SECONDS (9.4-12.5) H 02/06/19 11:07 INR 1.28 02/06/19 11:07 APTT 42.1 Seconds (26.9-38.3) H 02/06/19 11:07 Sodium 139 mmol/L (132-148) 02/09/19 06:00 Potassium 4.1 mmol/L (3.6-5.0) 02/09/19 06:00 Chloride 103 mmol/L (98-107) 02/09/19 06:00 Carbon Dioxide 30 mmol/L (21-33) 02/09/19 06:00 Anion Gap 10 (10-20) 02/09/19 06:00 BUN 22 mg/dL (7-21) H 02/09/19 06:00 Creatinine 1.4 mg/dl (0.8-1.5) 02/09/19 06:00 Est GFR ( Amer) > 60 02/09/19 06:00 Est GFR (Non-Af Amer) 50 02/09/19 06:00 Random Glucose 100 mg/dL (70-110) 02/09/19 06:00 Hemoglobin A1c 5.7 % (4.2-6.5) 02/08/19 06:50 Calcium 9.6 mg/dL (8.4-10.5) 02/09/19 06:00 Phosphorus 3.0 mg/dL (2.5-4.5) 02/09/19 06:00 Magnesium 2.3 mg/dL (1.7-2.2) H 02/09/19 06:00 Total Bilirubin 1.1 mg/dL (0.2-1.3) 02/06/19 11:07 AST 64 U/L (17-59) H D 02/06/19 11:07 ALT 62 U/L (7-56) H 02/06/19 11:07 Alkaline Phosphatase 71 U/L (38-126) 02/06/19 11:07 Troponin I 0.06 ng/mL D 02/06/19 11:07 NT-Pro-B Natriuret Pep 76644 pg/mL (0-450) H 02/06/19 11:07 Total Protein 6.6 g/dL (5.8-8.3) 02/06/19 11:07 Albumin 3.7 g/dL (3.0-4.8) 02/06/19 11:07 Globulin 2.8 gm/dL 02/06/19 11:07 Albumin/Globulin Ratio 1.3 (1.1-1.8) 02/06/19 11:07 Triglycerides 84 mg/dL (35-160) 02/08/19 06:50 Cholesterol 110 mg/dL (130-200) L 02/08/19 06:50 LDL Cholesterol Direct 64 mg/dL (0-129) 02/08/19 06:50 HDL Cholesterol 37 mg/dL (29-60) 02/08/19 06:50 TSH 3rd Generation 1.87 mIU/mL (0.46-4.68) 02/08/19 06:50 - Hospital Course Hospital Course: Pt seen and examined by me. I have reviewed the note of the medical physics professor and I agree with it. I have discussed the assessment and plan with the resident. I have reviewed the medications and the last labs.
--- NOTE | 2019-02-10 02:06 | DS ---
HOSPITAL COURSE: The patient was seen and examined. I do agree with the note of the biomedical equipment specialist. I was part of the plan of care. The patient was admitted to the hospital because of acute CHF secondary to systolic dysfunction from ischemic cardiomyopathy. The patient has coronary artery disease. He also has degenerative changes in his neck that cause neck pain. He had a fall. He was advised to go to the transitional care unit. Initially had agreed,but then decided that is better that he goes home. He said he is going to follow with his primary care doctor, Dr. Martinez. The patient is going to continue with Lipitor for dyslipidemia. He is on aspirin for his ischemic cardiomyopathy. He is on Lasix twice a day that he is going to be discharged home on. He is on Aldactone for his heart failure as well. He said he is not short of breath while sitting, but does get short of breath when he exerts himself. CONDITION: Stable. ACTIVITIES: Increase as tolerated. Follow up with Dr. Martinez in 1 to 2 weeks. Clif Jose MD
== END 2019-02-09 13:24 | disposition home or self-care (01) | DRG 293 ==
LOC: ED 10:36 → ERH 12:32 → 3RNO 14:57 → 2RSO 02-07 10:18
PROVIDERS: ADMIT Internal Medicine; ATTEND Internal Medicine
PROC: 3E0F7GC Introduction of Other Therapeutic Substance into Respiratory Tract, Via Natural or Artificial Opening (ICD-10-PCS; principal; 2019-02-07)
DX: I11.0 Hypertensive heart disease with heart failure (principal); I50.43 Acute on chronic combined systolic (congestive) and diastolic (congestive) heart failure; I25.5 Ischemic cardiomyopathy; I25.10 Atherosclerotic heart disease of native coronary artery without angina pectoris; G20 Parkinson's disease; F20.9 Schizophrenia, unspecified; J44.9 Chronic obstructive pulmonary disease, unspecified; E78.5 Hyperlipidemia, unspecified; I44.7 Left bundle-branch block, unspecified; R29.6 Repeated falls; Z91.81 History of falling; Z79.02 Long term (current) use of antithrombotics/antiplatelets; Z79.82 Long term (current) use of aspirin; Z95.1 Presence of aortocoronary bypass graft; Z79.899 Other long term (current) drug therapy; Z95.810 Presence of automatic (implantable) cardiac defibrillator; Z87.891 Personal history of nicotine dependence

== ENCOUNTER 2019-03-31 01:43 | Emergency (ER) | payer MEDICARE ==
[2019-03-31 01:44] VITALS: PULSE 64
[2019-03-31 02:01] VITALS: BMI 22.9
--- NOTE | 2019-03-31 02:53 | ED PDOC ---
Arrival/HPI - General Chief Complaint: Medical Clearance Historian: Patient, Family - History of Present Illness Narrative History of Present Illness (Text): 03/31/19 02:54 A 73 year old male, whose past medical history includes , presents to the emergency department complaining of trouble sleeping for the past 31 days. Patient reports he received multiple pills for sleep, one of which has proven to provided mild relief, Ambien. Per sister, patient received congentin from his bedridden sister and felt disoriented. Sister states she was afraid to carry the patient if he attempted to rise and called EMS. Patient states he just wants to rest. Patient denies any fever, chills, shortness of breath, chest pain, diarrhea, nausea, vomiting, urinary symptoms, back pain, neck pain, headache, dizziness, or any other complaints. PMD: Dr. Martinez Time/Duration: Other (earlier tonight) Symptom Onset: Gradual Symptom Course: Unchanged Activities at Onset: Light Context: Home Past Medical History - Provider Review Nursing Documentation Reviewed: Yes - Infectious Disease Hx of Infectious Diseases: None - Tetanus Immunization Tetanus Immunization: Unknown - Cardiac Hx Angina: Yes Hx Cardiac Arrhythmia: Yes Hx Hypertension: Yes Hx Internal Defibrillator: Yes (4 yrs ago) - Pulmonary Hx Respiratory Disorders: No Hx Asthma: No Hx Bronchitis: No Hx Chronic Obstructive Pulmonary Disease (COPD): No Hx Emphysema: No - Neurological Hx Parkinson's Disease: Yes - HEENT Hx HEENT Disorder: Yes (wears glasses) Hx Blind: No Hx Cataracts: No Hx Deafness: No Hx Difficulty Chewing: No Hx Epistaxis: No Hx Glaucoma: No Hx Macular Degeneration: No - Renal Hx Renal Disorder: No Hx Renal Failure: No - Endocrine/Metabolic Hx Diabetes Insipidus: No Hx Hyperthyroidism: No Hx Hypothyroidism: No - Hematological/Oncological Hx Anemia: No Hx Cancer: No Hx Hepatitis A: No Hx Hepatitis B: No Hx Hepatitis C: No - Integumentary Hx Dermatological Disorder: No Other/Comment: HEALING ABRASIONS POST FALL AT HOME. ON HIS RIGHT STALLINGS (2 YEARS AGO - Musculoskeletal/Rheumatological Hx Falls: Yes - Gastrointestinal Hx Gastrointestinal Disorders: No - Genitourinary/Gynecological Hx Genitourinary Disorders: No Hx Hematuria: No Hx Incontinence: No Hx Prostate Problems: No Hx Sexually Transmitted Diseases: No Hx Urinary Tract Infection: No - Psychiatric Hx Psychophysiologic Disorder: Yes Hx Depression: No Hx Emotional Abuse: No Hx Hallucinations: Yes Hx Physical Abuse: No Hx Schizophrenia: Yes (DX AT AGE 43 YRS OLD) Hx Sexual Abuse: No Hx Substance Use: No - Surgical History Hx Carotid Endarterectomy: (STENT) Hx Coronary Artery Bypass Graft: Yes - Anesthesia Hx Anesthesia: Yes Hx Anesthesia Reactions: No Hx Malignant Hyperthermia: No - Suicidal Assessment Feels Threatened In Home Enviroment: No Family/Social History - Physician Review Nursing Documentation Reviewed: Yes Family/Social History: No Known Family HX Smoking Status: Former Smoker Hx Alcohol Use: No Hx Substance Use: No Allergies/Home Meds Allergies/Adverse Reactions: Allergies No Known Allergies Allergy (Verified 10/10/16 13:59) Physical Exam Vital Signs Reviewed: Yes Vital Signs Temp Pulse Resp BP Pulse Ox 03/31/19 02:00 97.6 F 90 18 114/74 95 Temperature: Afebrile Blood Pressure: Normal Pulse: Regular Respiratory Rate: Normal Medical Decision Making ED Course and Treatment: 03/31/19 02:54 Impression: 73 year old male presenting to the emergency department complaining of trouble sleeping. Plan: --Ativan -- Reassess and disposition Prior Visits: Notes and results from previous visits were reviewed. Progress Notes: 03/31/19 06:21 Patient noted to be restless the entire duration of his stay in the ED, unchanged even after receiving Ativan. He vocalizes no complaints at this time, aside for insomnia. Ambulance called to transport patient back home. Disposition/Present on Arrival - Present on Arrival Any Indicators Present on Arrival: No History of DVT/PE: No History of Uncontrolled Diabetes: No Urinary Catheter: No History of Decub. Ulcer: No History Surgical Site Infection Following: None - Disposition Have Diagnosis and Disposition been Completed?: Yes Diagnosis: Insomnia Disposition: HOME/ ROUTINE Disposition Time: 06:23 Patient Plan: Discharge Condition: STABLE Discharge Instructions (ExitCare): Insomnia (DC), Tips for Getting Better Sleep Print Language: GAMBIAN Additional Instructions: All medical record entries made by the Scribe were at my direction and personally dictated by me. I have reviewed the chart and agree that the record accurately reflects my personal performance of the history, physical exam, medical decision making, and the department course for this patient. I have also personally directed, reviewed, and agree with the discharge instructions and disposition. Please follow up with your physician Forms: [employer] (Tongan)
[2019-03-31 07:53] VITALS: TEMP 98; O2SAT 96
[2019-03-31 08:30] VITALS: BP 122/59; PULSE 85; RESP 18
== END 2019-03-31 08:29 | disposition home or self-care (01) ==
LOC: ED 01:43
DX: G47.00 Insomnia, unspecified (principal); I10 Essential (primary) hypertension; Z87.891 Personal history of nicotine dependence
CPT/HCPCS: 96372; 99283; J2060

== ENCOUNTER 2019-04-01 10:18 | Inpatient (IN) | payer MEDICARE ==
[2019-04-01 10:19] VITALS: PULSE 64
[2019-04-01 10:30] VITALS: BMI 28.0
--- NOTE | 2019-04-01 10:46 | ED PDOC ---
Arrival/HPI - General Historian: Patient - History of Present Illness Narrative History of Present Illness (Text): 04/01/19 10:45 Pt is a 73 yo male with a PMH of HTN, CABG, Carotid endarterectomy s/p stenting, and AICD who presents to the ED with AMS, pt is unable to report history/ poor historian, he is able to follow only very simple commands. Time/Duration: 24 hours <Fabián Chavez - Last Filed: 04/01/19 15:28> <Jericho Zimmerman - Last Filed: 04/01/19 18:42> - General Chief Complaint: Altered Mental Status Time Seen by Provider: 04/01/19 10:22 Past Medical History - Infectious Disease Hx of Infectious Diseases: None - Tetanus Immunization Tetanus Immunization: Unknown - Cardiac Hx Angina: Yes Hx Cardiac Arrhythmia: Yes Hx Hypertension: Yes Hx Internal Defibrillator: Yes (4 yrs ago) - Pulmonary Hx Respiratory Disorders: No Hx Asthma: No Hx Bronchitis: No Hx Chronic Obstructive Pulmonary Disease (COPD): No Hx Emphysema: No - Neurological Hx Parkinson's Disease: Yes - HEENT Hx HEENT Disorder: Yes (wears glasses) Hx Blind: No Hx Cataracts: No Hx Deafness: No Hx Difficulty Chewing: No Hx Epistaxis: No Hx Glaucoma: No Hx Macular Degeneration: No - Renal Hx Renal Disorder: No Hx Renal Failure: No - Endocrine/Metabolic Hx Diabetes Insipidus: No Hx Hyperthyroidism: No Hx Hypothyroidism: No - Hematological/Oncological Hx Anemia: No Hx Cancer: No Hx Hepatitis A: No Hx Hepatitis B: No Hx Hepatitis C: No - Integumentary Hx Dermatological Disorder: No Other/Comment: HEALING ABRASIONS POST FALL AT HOME. ON HIS RIGHT STALLINGS (2 YEARS AGO - Musculoskeletal/Rheumatological Hx Falls: Yes - Gastrointestinal Hx Gastrointestinal Disorders: No - Genitourinary/Gynecological Hx Genitourinary Disorders: No Hx Hematuria: No Hx Incontinence: No Hx Prostate Problems: No Hx Sexually Transmitted Diseases: No Hx Urinary Tract Infection: No - Psychiatric Hx Psychophysiologic Disorder: Yes Hx Depression: No Hx Emotional Abuse: No Hx Hallucinations: Yes Hx Physical Abuse: No Hx Schizophrenia: Yes (DX AT AGE 43 YRS OLD) Hx Sexual Abuse: No Hx Substance Use: No - Surgical History Hx Carotid Endarterectomy: (STENT) Hx Coronary Artery Bypass Graft: Yes - Anesthesia Hx Anesthesia: Yes Hx Anesthesia Reactions: No Hx Malignant Hyperthermia: No - Suicidal Assessment Feels Threatened In Home Enviroment: No <Jess Chavezne Milad - Last Filed: 04/01/19 15:28> Family/Social History Family/Social History: Unknown Family HX Smoking Status: Former Smoker Hx Alcohol Use: No Hx Substance Use: No <Jess Chaveznela Petersonron - Last Filed: 04/01/19 15:28> Allergies/Home Meds <Jess Chavezne Milad - Last Filed: 04/01/19 15:28> <Jericho Zimmerman - Last Filed: 04/01/19 18:42> Allergies/Adverse Reactions: Allergies No Known Allergies Allergy (Verified 10/10/16 13:59) Home Medications: Home Meds Medication Instructions Recorded Confirmed Benztropine [Benztropine Mesylate] 1 mg PO BID 04/01/19 04/01/19 Carvedilol [Coreg] 3.125 mg PO BID 04/01/19 04/01/19 Clopidogrel [Plavix] 75 mg PO DAILY 04/01/19 04/01/19 Furosemide [Lasix] 20 mg PO BID 04/01/19 04/01/19 Sacubitril/Valsartan [Entresto 24 24 - 26 mg PO BID 04/01/19 04/01/19 mg-26 mg] Simvastatin [Zocor] 40 mg PO DAILY 04/01/19 04/01/19 Spironolactone [Aldactone] 25 mg PO DAILY 04/01/19 04/01/19 Zolpidem [Ambien] 10 mg PO PRN PRN 04/01/19 04/01/19 risperiDONE [RisperDAL] 2 mg PO BID 04/01/19 04/01/19 Review of Systems - Review of Systems Systems not reviewed;Unavailable: Altered Mental Status <Jess Chavezne Milad - Last Filed: 04/01/19 15:28> Physical Exam Vital Signs Reviewed: Yes Vital Signs Temp Pulse Resp BP Pulse Ox 04/01/19 10:19 97.5 F L 83 18 111/68 100 Temperature: Afebrile Blood Pressure: Normal Pulse: Regular Respiratory Rate: Normal Appearance: Positive for: Comfortable, Other (AMS) Mental Status: Positive for: other (AMS) - Systems Exam Head: Present: Atraumatic, Normocephalic Pupils: Present: PERRL Extroacular Muscles: Present: EOMI Mouth: Present: Moist Mucous Membranes. No: Normal Teeth Neck: Present: Normal Range of Motion Respiratory/Chest: Present: Clear to Auscultation, Good Air Exchange. No: Respiratory Distress, Accessory Muscle Use Cardiovascular: Present: Regular Rate and Rhythm, Normal S1, S2 Abdomen: Present: Normal Bowel Sounds. No: Tenderness, Distention Upper Extremity: Present: Normal Inspection Lower Extremity: Present: Normal Inspection Skin: Present: Warm, Dry, Normal Color Psychiatric: No: Alert, Oriented x 3, Agitated <Fabián Chavez - Last Filed: 04/01/19 15:28> Vital Signs Temp Pulse Resp BP Pulse Ox 04/01/19 12:47 91 H 21 128/71 100 04/01/19 10:19 97.5 F L 83 18 111/68 100 <Jericho Zimmerman - Last Filed: 04/01/19 18:42> Medical Decision Making ED Course and Treatment: 04/01/19 10:57 CMP T bili 3.3, [id number], [id number] CBC digoxin <0.4 Salicylates 1 VBG lactate 7.5 mg 2.3 phos 5.5 BNP 67572 Troponin 0.08 PT/PTT CXR shows no active pulmonary disease EKG NSR, no signs of ST or T wave abnormality straight cath [facility] consulted, Lynn Spoke with Dr Jose, accepts admission Pt seen, examined, assessment and plan discussed with Dr Erasmo Chavez PGY1 - RAD Interpretation Radiology Orders: 04/01/19 10:39 CHEST PORTABLE [RAD] Stat <Fabián Chavez - Last Filed: 04/01/19 15:28> ED Course and Treatment: 04/01/19 13:58 Patient Seen with Resident: In agreement with resident note which contains more details about the patient. Patient seen and evaluated with resident. Came up with plan and treatment together. PROCEDURE: INTUBATION Performed by the emergency provider Time: see nursing note for details Consent: Discussion of the risks, benefits, and alternatives to the procedure, along with implied emergent conset was precluded by the urgency of the procedure and the patient condition. Timeout: A timeout to verify the correct patient, procedure, and site was performed. Indication: airway protection and expected clinical decline Pre-oxygenation: [id number] Medications: . See MAR for details. ETT Size: 7-0 Confirmation: Cords directly visualized as tube passed, good bilateral breath sounds, positive CO2 detector color change, tube fogging, adequate chest rise, improving pulse oximetry reading, improved skin color, and absence of gastric sounds,. ETT Secured: The cuff was inflated and the tube was secured appropriately at a distance of 22 cm at the lip. Post-Procedure: There were no immediate complications. CXR Confirmation: yes 04/01/19 18:38 - Critical Care Critical Care Minutes: 60 minutes - Lab Interpretations Lab Results: pO2 55 mm/Hg (30-55) 04/01/19 11:00 VBG pH 7.28 (7.32-7.43) L 04/01/19 11:00 VBG pCO2 41.0 (40-60) 04/01/19 11:00 VBG HCO3 19.3 mmol/l (21-28) L 04/01/19 11:00 VBG Total CO2 20.6 mmol.L (22-28) L 04/01/19 11:00 VBG O2 Sat (Calc) 85.7 % (40-65) H 04/01/19 11:00 VBG Base Excess -7.1 mmol/L (0.0-2.0) L 04/01/19 11:00 VBG Potassium 4.6 mmol/L (3.6-5.2) 04/01/19 11:00 Sodium 137.0 mmol/L (132-148) 04/01/19 11:00 Chloride 103.0 mmol/L (98-107) 04/01/19 11:00 Glucose 123 mg/dl (75-110) H 04/01/19 11:00 Lactate 7.5 mmol/L (0.7-2.1) H* 04/01/19 11:00 FiO2 21.0 % 04/01/19 11:00 Crit Value Called To Gloria 04/01/19 11:00 Crit Value Called By 04/01/19 11:00 Blood Gas Notified Time 1120 04/01/19 11:00 PT 30.6 SECONDS (9.4-12.5) H 04/01/19 11:00 INR 2.71 04/01/19 11:00 APTT 44.9 Seconds (26.9-38.3) H 04/01/19 11:00 Troponin I 0.08 ng/mL D 04/01/19 11:00 NT-Pro-B Natriuret Pep 36083 pg/mL (0-450) H 04/01/19 11:00 Total Bilirubin 3.3 mg/dL (0.2-1.3) H 04/01/19 11:00 AST 1322 U/L (17-59) H 04/01/19 11:00 ALT 993 U/L (7-56) H 04/01/19 11:00 Alkaline Phosphatase 85 U/L (38-126) 04/01/19 11:00 Total Protein 6.5 g/dL (5.8-8.3) 04/01/19 11:00 Albumin 3.6 g/dL (3.0-4.8) 04/01/19 11:00 Globulin 2.9 gm/dL 04/01/19 11:00 Albumin/Globulin Ratio 1.3 (1.1-1.8) 04/01/19 11:00 Urine Color Dark yellow (YELLOW) 04/01/19 11:50 Urine Appearance Clear (CLEAR) 04/01/19 11:50 Urine pH 5.5 (4.7-8.0) 04/01/19 11:50 Ur Specific [place] >= 1.030 (1.005-1.035) 04/01/19 11:50 Urine Protein Trace mg/dL (<30 mg/dL) H 04/01/19 11:50 Urine Glucose (UA) Negative mg/dL (NEGATIVE) 04/01/19 11:50 Urine Ketones Trace mg/dL (NEGATIVE) H 04/01/19 11:50 Urine Blood Moderate (NEGATIVE) H 04/01/19 11:50 Urine Nitrate Negative (NEGATIVE) 04/01/19 11:50 Urine Bilirubin Small (NEGATIVE) H 04/01/19 11:50 Urine Urobilinogen 2.0 E.U./dL (<1 E.U./dL) H 04/01/19 11:50 Ur Leukocyte Esterase Negative Breanna/uL (NEGATIVE) 04/01/19 11:50 Urine RBC 2 - 5 /hpf (0-2) H 04/01/19 11:50 Urine WBC 0 - 2 /hpf (0-6) 04/01/19 11:50 Ur Epithelial Cells 0 - 2 /hpf (0-5) 04/01/19 11:50 Amorphous Sediment Few /hpf (NONE) 04/01/19 11:50 Urine Bacteria Small /hpf (NONE) 04/01/19 11:50 Coarse Granular Casts Trace /hpf (NONE) 04/01/19 11:50 - RAD Interpretation Radiology Orders: 04/01/19 10:39 CHEST PORTABLE [RAD] Stat 04/01/19 11:50 ABDOMEN COMPLETE [US] Stat - EKG Interpretation EKG Interpretation (Text): 04/01/19 12:51 ekg my read: sinus rhuthm at 83 bpm, 1st degree av block, nonspecific intraventricular conduction delay, nonspecific t wave abn Interpreted by ED Physician: Yes - Medication Orders Current Medication Orders: Sodium Chloride (Sodium Chloride 0.9%) 2,600 mls @ 500 mls/hr IV .Q5H12M AFSANEH Last Admin: 04/01/19 12:49 Dose: 500 mls/hr eMAR Start Stop Document 04/01/19 12:49 BB (Rec: 04/01/19 12:50 BB [id number]) Intravenous Solution Start Date 04/01/19 Start Time 12:50 <Jericho Zimmerman - Last Filed: 04/01/19 18:42> Procedures - Time-Out Type of Procedure: endotracheal intubation Correct Patient (with visual ID + MR# on ID Band): Yes Physician Name: balbina - Intubation Time of Intubation: 17:09 Intubation Method: orotracheal Tube Size (cm): 7.0 Medications: Succinylcholine (and etomidate) Breath Sounds after Intubation: equal Intubation Complications: no complications Post Intubation Xray: Yes <Jericho Zimmerman - Last Filed: 04/01/19 18:42> Disposition/Present on Arrival - Present on Arrival History of DVT/PE: No History of Uncontrolled Diabetes: No Urinary Catheter: No History of Decub. Ulcer: No History Surgical Site Infection Following: None <Fabián Chavez - Last Filed: 04/01/19 15:28> - Present on Arrival Any Indicators Present on Arrival: No - Disposition Have Diagnosis and Disposition been Completed?: Yes Disposition Time: 11:00 Patient Plan: Admission, ICU <Jericho Zimmerman - Last Filed: 04/01/19 18:42> - Disposition Diagnosis: Transaminasemia, Shock Disposition: HOSPITALIZED Patient Problems: Current Active Problems Problem Status Onset Transaminasemia Acute Condition: CRITICAL
[2019-04-01 11:20] LABS: VENOUS BLOOD GAS BASE EXCESS -7.1 mmol/L (0.0-2.0); VENOUS BLOOD GAS PO2 55 mm/Hg (30-55); VENOUS BLOOD PH 7.28 (7.32-7.43)
--- NOTE | 2019-04-01 11:20 | RAD ---
Date of service: 04/01/2019 HISTORY: CHF COMPARISON: 02/06/2019 FINDINGS: LUNGS: The lungs are well inflated. There is moderate pulmonary venous congestion. PLEURA: No pleural effusions or pneumothorax. CARDIOVASCULAR: There is moderate cardiomegaly and prominent central vasculature. Status post CABG. There is stable position of left-sided permanent pacing device. There are aortic atherosclerotic calcifications present. OSSEOUS STRUCTURES: Within normal limits for the patient's age. VISUALIZED UPPER ABDOMEN: Normal. OTHER FINDINGS: None. IMPRESSION: No active pulmonary disease. Moderate pulmonary venous congestion.
[2019-04-01 11:34] LABS: ALB/GLOB RATIO 1.3 (1.1-1.8); ALBUMIN 3.6 g/dL (3.0-4.8); CALCIUM 9.8 mg/dL (8.4-10.5)
[2019-04-01 11:38] LABS: ACETAMINOPHEN < 10.0 ug/ml (10.0-20.0); SALICYLATE 1 mg/dL (2.0-20.0)
[2019-04-01 11:45] LABS: TROPONIN I 0.08 ng/mL
[2019-04-01 12:03] LABS: BASO # 0.01 K/mm3 (0.0-2.0); BASO % 0.1 % (0.0-3.0); HEMOGLOBIN 13.6 g/dL (14.0-18.0); LYMPH # 1.6 (1.2-3.4); LYMPH % 12.2 % (22.0-35.0); MEAN CELL VOLUME 89.7 fl (80.0-105.0); MEAN CORPUSCULAR HEMOGLOBIN 28.6 pg (25.0-35.0); MEAN CORPUSCULAR HGB CONC 31.9 g/dl (31.0-37.0); MEAN PLATELET VOLUME 12.1 fl (7.0-11.0); MONO # 1.4 (0.1-0.6); MONO % 10.7 % (1.0-6.0); RBC 4.75 10^6/uL (3.5-6.1); WHITE BLOOD COUNT 13.1 10^3/uL (4.5-11.0)
[2019-04-01 12:06] LABS: INR 2.71; PARTIAL THROMBOPLASTIN TIME 44.9 Seconds (26.9-38.3); PROTHROMBIN TIME 30.6 SECONDS (9.4-12.5)
[2019-04-01 12:11] LABS: PH,URINE 5.5 (4.7-8.0); URINE BILIRUBIN SMALL (NEGATIVE); URINE BLOOD MODERATE (NEGATIVE); URINE GLUCOSE (UA) NEGATIVE (NEGATIVE); URINE LEUKOCYTE ESTERASE NEGATIVE Leu/uL (NEGATIVE); URINE PROTEIN TRACE mg/dL (<30 mg/dL)
[2019-04-01 12:12] LABS: URINE APPEARANCE CLEAR (CLEAR); URINE COLOR DARK YELLOW (YELLOW)
[2019-04-01 12:26] LABS: URINE BACTERIA SMALL /hpf; URINE EPITHELIAL CELLS 0 - 2 /hpf (0-5); URINE WBC 0 - 2 /hpf (0-6)
[2019-04-01 12:27] LABS: URINE AMORPHOUS SEDIMENT FEW /hpf; URINE COARSE GRANULAR CAST TRACE /hpf
--- NOTE | 2019-04-01 12:54 | US ---
Date of service: 04/01/2019 HISTORY: elevated LFT COMPARISON: 02/07/2019. TECHNIQUE: Grayscale imaging was performed. FINDINGS: LIVER: Measures 15.5 cm in length. There is diffuse increased echogenicity of the liver parenchyma with coarse echotexture. There is a stable 1.4 cm simple cyst in the right hepatic lobe. No intrahepatic bile duct dilatation. GALLBLADDER: There are multiple gallstones. There is diffuse gallbladder wall thickening. No pericholecystic fluid. The sonographic Xavier's sign is negative. COMMON BILE DUCT: Measures 3.7 in transverse dimension. No stones. No dilatation. PANCREAS: Unremarkable as visualized. No mass. No ductal dilatation. RIGHT KIDNEY: Measures 9.2 cm in length. There is diffuse increased echogenicity with cortical thinning. No calculus, mass, or hydronephrosis. LEFT KIDNEY: Measures 9.4cm. There is diffuse increased echogenicity with cortical thinning. No calculus, mass, or hydronephrosis. SPLEEN: Normal in size and contour. No mass. AORTA: No aneurysmal dilatation. IVC: Unremarkable. OTHER FINDINGS: There is small abdominal ascites IMPRESSION: 1. Cholelithiasis. Diffuse gallbladder wall thickening is likely secondary to systemic disease. 2. Chronic renal parenchymal disease. 3. Diffuse increased echogenicity in the liver with coarse echotexture may reflect hepatic steatosis however parenchymal infectious/ inflammatory etiologies cannot be entirely excluded. Clinical and laboratory correlation is advised.
--- NOTE | 2019-04-01 15:12 | CT ---
Date of service: 04/01/2019 PROCEDURE: CT HEAD WITHOUT CONTRAST. HISTORY: Altered mental status COMPARISON: 02/06/2019. TECHNIQUE: Axial computed tomography images were obtained through the head/brain without intravenous contrast. Radiation dose: Total exam DLP = 1021.32 mGy-cm. This CT exam was performed using one or more of the following dose reduction techniques: Automated exposure control, adjustment of the mA and/or kV according to patient size, and/or use of iterative reconstruction technique. FINDINGS: HEMORRHAGE: No intracranial hemorrhage. BRAIN: There are mild chronic microangiopathic changes. There is no mass, mass effect or abnormal extra-axial fluid collection. There is no territorial infarction. The midline sagittal structures are normal.There are coarse atherosclerotic calcifications in the cavernous carotid arteries. VENTRICLES: There is moderate age-related global parenchymal volume loss and proportionate enlargement of the ventricles and cortical sulci. CALVARIUM: There is no calvarial fracture. There is a small left frontal scalp PARANASAL SINUSES: Predominantly clear. MASTOID AIR CELLS: Predominantly clear. OTHER FINDINGS: None. IMPRESSION: No acute intracranial abnormality. Small left frontal scalp hematoma. Mild chronic microangiopathic changes and moderate age-related global parenchymal volume loss.
[2019-04-01 15:19] LABS: VENOUS BLOOD GAS BASE EXCESS -5.2 mmol/L (0.0-2.0); VENOUS BLOOD GAS PO2 41 mm/Hg (30-55); VENOUS BLOOD PH 7.38 (7.32-7.43)
[2019-04-01] MEDS ORDERED: Sodium Chloride 0.9% 1,000 ML IV STA (16:25)
[2019-04-01] MEDS ORDERED: Cefepime IV 2 gm in NS 2 GM/100 ML BAG IVPB STA (16:27)
[2019-04-01] MEDS ORDERED: Vancomycin 1gm in NS 250ml 1 GM/250 ML BAG IVPB STA (16:47)
[2019-04-01] MEDS ORDERED: WATER IV ONE ×2 (16:48→22:10)
[2019-04-01] MEDS ORDERED: DEXTROSE 5% IV ONE ×2 (16:48→22:10)
[2019-04-01] MEDS ORDERED: ACETYLCYSTEINE IV ONE ×2 (16:48→22:10)
[2019-04-01] MEDS ORDERED: Lactulose 10 gm/15 ml (Rectal Use) PR ONE (16:50)
[2019-04-01] MEDS ORDERED: Phytonadione 10 mg/ml Inj (Adult) SC STA (16:50)
[2019-04-01] MEDS ORDERED: Succinylcholine 200 mg/10 ml Inj IV ONE (16:52)
[2019-04-01] MEDS ORDERED: Etomidate 20 mg/10ml Inj IV ONE (16:53)
--- NOTE | 2019-04-01 16:56 | CP.PCM.CON ---
<Chilo Campbell - Last Filed: 04/01/19 17:10> History of Present Illness - History of Present Illness History of Present Illness: PGY4 GI fellow consult note The following obtained from chart review and hospital staff due to patient clinical condition and no family at bedside. Called phone numbers of family in chart to no avail. 73-year-old white male with a past medical history of ischemic cardiomyopathy (EF in 2014 10-15%, elevated RVSP 45, status post AICD), Parkinson's, COPD, schizophrenia who was brought in by ambulance for altered mental status. [facility] lear who called the ambulance or when patient was at his last known baseline. During my encounter patient was not following commands and moving about in the bed of restlessly upon light tactile stimulation, but was otherwise not interactive. Unable to obtain review of systems due to clinical condition Medical history: See above Surgical history: Carotid endarterectomy, stenting? Medications: Reviewed as listed in chart Family history: Unknown Social history: Negative 3 per previous notes Allergies no known drug allergies Past Patient History - Infectious Disease Hx of Infectious Diseases: None - Tetanus Immunizations Tetanus Immunization: Unknown - Past Social History Smoking Status: Former Smoker - CARDIAC Hx Angina: Yes Hx Cardia Arrhythmia: Yes Hx Hypertension: Yes Hx Internal Defibrillator: Yes (4 yrs ago) - PULMONARY Hx Respiratory Disorders: No Hx Asthma: No Hx Bronchitis: No Hx Chronic Obstructive Pulmonary Disease (COPD): No Hx Emphysema: No - NEUROLOGICAL Hx Parkinson's Disease: Yes - HEENT Hx HEENT Problems: Yes (wears glasses) Hx Blind: No Hx Cataracts: No Hx Deafness: No Hx Difficulty Chewing: No Hx Epistaxis: No Hx Glaucoma: No Hx Macular Degeneration: No - RENAL Hx Chronic Kidney Disease: No Hx Renal Failure: No - ENDOCRINE/METABOLIC Hx Diabetes Insipidus: No Hx Hyperthyroidism: No Hx Hypothyroidism: No - HEMATOLOGICAL/ONCOLOGICAL Hx Anemia: No Hx Cancer: No Hx Hepatitis A: No Hx Hepatitis B: No Hx Hepatitis C: No - INTEGUMENTARY Hx Dermatological Problems: No Other/Comment: HEALING ABRASIONS POST FALL AT HOME. ON HIS RIGHT STALLINGS (2 YEARS AGO - MUSCULOSKELETAL/RHEUMATOLOGICAL Hx Falls: Yes - GASTROINTESTINAL Hx Gastrointestinal Disorders: No - GENITOURINARY/GYNECOLOGICAL Hx Genitourinary Disorders: No Hx Hematuria: No Hx Incontinence: No Hx Prostate Problems: No Hx Sexually Transmitted Disorders: No Hx Urinary Tract Infection: No - PSYCHIATRIC Hx Psychophysiologic Disorder: Yes Hx Depression: No Hx Emotional Abuse: No Hx Hallucinations: Yes Hx Physical Abuse: No Hx Schizophrenia: Yes (DX AT AGE 43 YRS OLD) Hx Sexual Abuse: No Hx Substance Use: No - SURGICAL HISTORY Hx Carotid Endarterectomy: (STENT) Hx Coronary Artery Bypass Graft: Yes - ANESTHESIA Hx Anesthesia: Yes Hx Anesthesia Reactions: No Hx Malignant Hyperthermia: No Meds Allergies/Adverse Reactions: Allergies Allergy/AdvReac Type Severity Reaction Status Date / Time No Known Allergies Allergy Verified 10/10/16 13:59 - Medications Medications: Current Medications Sodium Chloride (Sodium Chloride 0.9%) 2,600 mls @ 500 mls/hr IV .Q5H12M [facility] Last Admin: 04/01/19 12:49 Dose: 500 mls/hr Sodium Chloride (Sodium Chloride 0.9%) 1,000 mls @ 999 mls/hr IV .Q1H1M STA Stop: 04/01/19 17:25 Last Admin: 04/01/19 16:32 Dose: 999 mls/hr Cefepime HCl (Maxipime 2gm) 2 gm in 100 mls @ 100 mls/hr IVPB STAT STA; Protocol Stop: 04/01/19 17:26 Last Admin: 04/01/19 16:33 Dose: 100 mls/hr Vancomycin HCl (Vancomycin 1gm) 1 gm in 250 mls @ 167 mls/hr IVPB STAT STA; Protocol Stop: 04/01/19 18:16 Acetylcysteine 13,000 mg/ (Dextrose) 265 mls @ 200 mls/hr IV .Q1H20M ONE Stop: 04/01/19 18:07 Acetylcysteine 4,300 mg/ (Dextrose) 521.5 mls @ 125 mls/hr IV .Q4H11M ONE Stop: 04/01/19 22:10 Lactulose (Generlac) 200 gm VT ONCE ONE Stop: 04/01/19 16:51 Phytonadione (Vitamin K Inj) 10 mg SC STAT STA Stop: 04/01/19 16:51 Physical Exam - Constitutional Appears: In Acute Distress, Chronically Ill - Head Exam Head Exam: ATRAUMATIC, NORMAL INSPECTION - Eye Exam Eye Exam: Normal appearance. absent: Scleral icterus - ENT Exam ENT Exam: Mucous Membranes Dry. absent: Mucous Membranes Moist - Respiratory Exam Respiratory Exam: Accessory Muscle Use, Wheezes - Cardiovascular Exam Cardiovascular Exam: Tachycardia. absent: Bradycardia, Irregular Rhythm - GI/Abdominal Exam GI & Abdominal Exam: Distended (mildly), Hypoactive Bowel Sounds, Soft. absent: Bruit, Diminished Bowel Sounds, Firm, Guarding, Hernia, Organomegaly, Pulsatile Mass, Tenderness - Neurological Exam Neurological exam: Altered Additional comments: moves about and mumbles to tactile stimulation, but does not follow commands and is nonverbal - Skin Skin Exam: Normal Color, Warm Results - Vital Signs Recent Vital Signs: Last Vital Signs Temp 97.5 F L 04/01/19 10:19 Pulse 91 H 04/01/19 16:27 Resp 18 04/01/19 16:27 BP 95/61 L 04/01/19 16:27 Pulse Ox 96 04/01/19 16:27 - Labs Result Diagrams: 04/01/19 11:00 04/01/19 11:00 Labs: Laboratory Results - last 24 hr 04/01/19 04/01/19 04/01/19 11:00 11:00 11:00 WBC 13.1 H D RBC 4.75 Hgb 13.6 L Hct 42.6 MCV 89.7 D MCH 28.6 MCHC 31.9 RDW 15.0 H Plt Count 191 MPV 12.1 H Neut % (Auto) 77.0 H Lymph % (Auto) 12.2 L Hoke % (Auto) 10.7 H Eos % (Auto) 0.0 L Baso % (Auto) 0.1 Lymph # (Auto) 1.6 Hoke # (Auto) 1.4 H Eos # (Auto) 0.0 Baso # (Auto) 0.01 Absolute Neuts (auto) 10.11 H PT INR APTT pO2 55 VBG pH 7.28 L VBG pCO2 41.0 VBG HCO3 19.3 L VBG Total CO2 20.6 L VBG O2 Sat (Calc) 85.7 H VBG Base Excess -7.1 L VBG Potassium 4.6 Sodium 137.0 139 Chloride 103.0 103 Glucose 123 H Lactate 7.5 H* FiO2 21.0 Crit Value Called To Gloria Crit Value Called By Ab Blood Gas Notified Time 1120 Potassium 4.7 Carbon Dioxide 19 L Anion Gap 21 H BUN 34 H Creatinine 1.8 H Est GFR ( Amer) 45 Est GFR (Non-Af Amer) 37 Random Glucose 123 H Calcium 9.8 Phosphorus 5.5 H Magnesium 2.3 H Total Bilirubin 3.3 H AST 1322 H ALT 993 H Alkaline Phosphatase 85 Lactate Dehydrogenase Troponin I 0.08 D NT-Pro-B Natriuret Pep 81499 H Total Protein 6.5 Albumin 3.6 Globulin 2.9 Albumin/Globulin Ratio 1.3 Venous Blood Potassium 4.6 Urine Color Urine Appearance Urine pH Ur Specific [place] Urine Protein Urine Glucose (UA) Urine Ketones Urine Blood Urine Nitrate Urine Bilirubin Urine Urobilinogen Ur Leukocyte Esterase Urine RBC Urine WBC Ur Epithelial Cells Amorphous Sediment Urine Bacteria Coarse Granular Casts Digoxin Salicylates Acetaminophen 04/01/19 04/01/19 04/01/19 11:00 11:00 11:00 WBC RBC Hgb Hct MCV MCH MCHC RDW Plt Count MPV Neut % (Auto) Lymph % (Auto) Hoke % (Auto) Eos % (Auto) Baso % (Auto) Lymph # (Auto) [place] # (Auto) Eos # (Auto) Baso # (Auto) Absolute Neuts (auto) PT 30.6 H INR 2.71 APTT 44.9 H pO2 VBG pH VBG pCO2 VBG HCO3 VBG Total CO2 VBG O2 Sat (Calc) VBG Base Excess VBG Potassium Sodium Chloride Glucose Lactate FiO2 Crit Value Called To Crit Value Called By Blood Gas Notified Time Potassium Carbon Dioxide Anion Gap BUN Creatinine Est GFR ( Amer) Est GFR (Non-Af Amer) Random Glucose Calcium Phosphorus Magnesium Total Bilirubin AST ALT Alkaline Phosphatase Lactate Dehydrogenase 2966 H Troponin I NT-Pro-B Natriuret Pep Total Protein Albumin Globulin Albumin/Globulin Ratio Venous Blood Potassium Urine Color Urine Appearance Urine pH Ur Specific [place] Urine Protein Urine Glucose (UA) Urine Ketones Urine Blood Urine Nitrate Urine Bilirubin Urine Urobilinogen Ur Leukocyte Esterase Urine RBC Urine WBC Ur Epithelial Cells Amorphous Sediment Urine Bacteria Coarse Granular Casts Digoxin < 0.4 L Salicylates 1 L Acetaminophen < 10.0 L 04/01/19 04/01/19 11:50 15:15 WBC RBC Hgb Hct MCV MCH MCHC RDW Plt Count MPV Neut % (Auto) Lymph % (Auto) Hoke % (Auto) Eos % (Auto) Baso % (Auto) Lymph # (Auto) [place] # (Auto) Eos # (Auto) Baso # (Auto) Absolute Neuts (auto) PT INR APTT pO2 41 VBG pH 7.38 VBG pCO2 32.0 L VBG HCO3 18.9 L VBG Total CO2 19.9 L VBG O2 Sat (Calc) 73.8 H VBG Base Excess -5.2 L VBG Potassium 4.5 Sodium 137.0 Chloride 105.0 Glucose 115 H Lactate 5.3 H* FiO2 21.0 Crit Value Called [place] [address] Blood Gas Notified Time 1519 Potassium Carbon Dioxide Anion Gap BUN Creatinine Est GFR ( Amer) Est GFR (Non-Af Amer) Random Glucose Calcium Phosphorus Magnesium Total Bilirubin AST ALT Alkaline Phosphatase Lactate Dehydrogenase Troponin I NT-Pro-B Natriuret Pep Total Protein Albumin Globulin Albumin/Globulin Ratio Venous Blood Potassium 4.5 Urine Color Dark yellow Urine Appearance Clear Urine pH 5.5 Ur Specific [place] >= 1.030 Urine Protein Trace H Urine Glucose (UA) Negative Urine Ketones Trace H Urine Blood Moderate H Urine Nitrate Negative Urine Bilirubin Small H Urine Urobilinogen 2.0 H Ur Leukocyte Esterase Negative Urine RBC 2 - 5 H Urine WBC 0 - 2 Ur Epithelial Cells 0 - 2 Amorphous Sediment Few Urine Bacteria Small Coarse Granular Casts Trace Digoxin Salicylates Acetaminophen Assessment & Plan - Assessment and Plan (Free Text) Assessment: 73-year-old white male with a past medical history of ischemic cardiomyopathy (EF in 2013 10-15%, elevated RVSP 45, status post AICD), Parkinson's, COPD, schizophrenia who was brought in by ambulance for altered mental status.GI consulted for transaminitis #Transaminitis, acute encephalopathy: Given the degree of transaminitis in the setting of altered mental status and INR elevation to 2.71 from previous values of 1.28 in January 2019, patient meets diagnostic criteria for acute liver failure. MELD-Na 29. unclear what is the precipitating event; however given significant cardiac history suspect ischemia perhaps related to cardiac event or perhaps underlying sepsis given hypotension, elevated white count, tachycardia, tachypnea. Tylenol, salicylates and alcohol level not elevated #GO: Creatinine 1.8 from previous values of 1.4 Plan: start N-acetylcysteine infusion Empiric lactulose treatment, rectal or NG Vitamin K 10 mg IV now Check viral hepatitis, LDH, NH3, urine drug screen Check abdominal Doppler Simpson culture with empiric broad-spectrum antibiotics Recommend ICU admission Spoke with [facility] (Dr. Almonte); no beds available at this time. Plan to update daily. Recommend repeat echocardiogram and cardiology consult Daily CBC, CMP and INR Patient discussed with Dr. Bailey. Please see attestation for further recommendations/changes <Kathie Bailey V - Last Filed: 04/02/19 19:38> Meds - Medications Medications: Current Medications Hydrocortisone Sodium Succinate (Solu-Cortef) 50 mg IVP Q6H [facility] Last Admin: 04/01/19 18:06 Dose: 50 mg Sodium Chloride (Sodium Chloride 0.9%) 2,600 mls @ 500 mls/hr IV .Q5H12M [facility] Last Admin: 04/01/19 17:00 Dose: 500 mls/hr Acetylcysteine 10,000 mg/ (Dextrose) 1,050 mls @ 62.5 mls/hr IV .[id number] ONE Stop: 04/02/19 14:57 Dobutamine HCl/Dextrose (Dobutamine/Dextrose 5% 500mg/250ml) 500 mg in 250 mls @ 6.464 mls/hr IV .Q24H PRN; Protocol PRN Reason: TITRATE PER PROTOCOL Last Admin: 04/01/19 18:03 Dose: 2.5 mcg/kg/min, 6.464 mls/hr NOREPINEPHRINE BIT/0.9 % NACL (Levophed 4 Mg/ 250 Ml Ns Premixed) 4 mg in 250 mls @ 15 mls/hr IV .[id number] PRN; Protocol PRN Reason: TITRATE PER MD ORDER Vasopressin 20 units/ Sodium (Chloride) 101 mls @ 9.09 mls/hr IV .Q11H7M [facility]; Protocol Last Admin: 04/01/19 18:41 Dose: Not Given Propofol (Diprivan) 1,000 mg in 100 mls @ 2.585 mls/hr IV .Q24H PRN; Protocol PRN Reason: TITRATE PER MD ORDER Pantoprazole Sodium (Protonix Inj) 40 mg IVP DAILY [facility] Last Admin: 04/01/19 18:05 Dose: 40 mg Results - Vital Signs Recent Vital Signs: Last Vital Signs Temp 98.6 F 04/01/19 22:15 Pulse 86 04/01/19 22:15 Resp 15 04/01/19 22:15 BP 115/74 04/01/19 22:15 Pulse Ox 100 04/01/19 22:15 - Labs Result Diagrams: 04/02/19 07:00 04/02/19 07:00 Labs: Laboratory Results - last 24 hr 04/01/19 04/01/19 04/01/19 10:38 11:00 11:00 WBC RBC Hgb Hct MCV MCH MCHC RDW Plt Count MPV Neut % (Auto) Lymph % (Auto) Hoke % (Auto) Eos % (Auto) Baso % (Auto) Lymph # (Auto) [place] # (Auto) Eos # (Auto) Baso # (Auto) Absolute Neuts (auto) PT INR APTT pCO2 30 L pO2 167.0 H 55 HCO3 19.0 L ABG pH 7.41 ABG Total CO2 19.9 L ABG O2 Saturation 99.9 H ABG Base Excess -4.5 L ABG Potassium 4.0 VBG pH 7.28 L VBG pCO2 41.0 VBG HCO3 19.3 L VBG Total CO2 20.6 L VBG O2 Sat (Calc) 85.7 H VBG Base Excess -7.1 L VBG Potassium 4.6 Sodium 137.0 137.0 139 Chloride 109.0 H 103.0 103 Glucose 193 H 123 H Lactate 2.2 H 7.5 H* Mechanical Rate 15 FiO2 50.0 21.0 Tidal Volume 450 PEEP 5 Crit Value Called To Gloria Crit Value Called By Ab Blood Gas Notified Time 1120 Potassium 4.7 Carbon Dioxide 19 L Anion Gap 21 H BUN 34 H Creatinine 1.8 H Est GFR ( Amer) 45 Est GFR (Non-Af Amer) 37 Random Glucose 123 H Calcium 9.8 Phosphorus 5.5 H Magnesium 2.3 H Total Bilirubin 3.3 H AST 1322 H ALT 993 H Alkaline Phosphatase 85 Ammonia Lactate Dehydrogenase Troponin I 0.08 D NT-Pro-B Natriuret Pep 90212 H Total Protein 6.5 Albumin 3.6 Globulin 2.9 Albumin/Globulin Ratio 1.3 Arterial Blood Potassium 4.0 Venous Blood Potassium 4.6 Urine Color Urine Appearance Urine pH Ur Specific [place] Urine Protein Urine Glucose (UA) Urine Ketones Urine Blood Urine Nitrate Urine Bilirubin Urine Urobilinogen Ur Leukocyte Esterase Urine RBC Urine WBC Ur Epithelial Cells Amorphous Sediment Urine Bacteria Coarse Granular Casts Digoxin Salicylates Urine Opiates Screen Urine Methadone Screen Acetaminophen Ur Barbiturates Screen Ur Phencyclidine Scrn Ur Amphetamines Screen U Benzodiazepines Scrn U Oth Cocaine Metabols U Cannabinoids Screen 04/01/19 04/01/19 04/01/19 11:00 11:00 11:00 WBC 13.1 H D RBC 4.75 Hgb 13.6 L Hct 42.6 MCV 89.7 D MCH 28.6 MCHC 31.9 RDW 15.0 H Plt Count 191 MPV 12.1 H Neut % (Auto) 77.0 H Lymph % (Auto) 12.2 L Hoke % (Auto) 10.7 H Eos % (Auto) 0.0 L Baso % (Auto) 0.1 Lymph # (Auto) 1.6 Hoke # (Auto) 1.4 H Eos # (Auto) 0.0 Baso # (Auto) 0.01 Absolute Neuts (auto) 10.11 H PT 30.6 H INR 2.71 APTT 44.9 H pCO2 pO2 HCO3 ABG pH ABG Total CO2 ABG O2 Saturation ABG Base Excess ABG Potassium VBG pH VBG pCO2 VBG HCO3 VBG Total CO2 VBG O2 Sat (Calc) VBG Base Excess VBG Potassium Sodium Chloride Glucose Lactate Mechanical Rate FiO2 Tidal Volume PEEP Crit Value Called To Crit Value Called By Blood Gas Notified Time Potassium Carbon Dioxide Anion Gap BUN Creatinine Est GFR ( Amer) Est GFR (Non-Af Amer) Random Glucose Calcium Phosphorus Magnesium Total Bilirubin AST ALT Alkaline Phosphatase Ammonia Lactate Dehydrogenase Troponin I NT-Pro-B Natriuret Pep Total Protein Albumin Globulin Albumin/Globulin Ratio Arterial Blood Potassium Venous Blood Potassium Urine Color Urine Appearance Urine pH Ur Specific [place] Urine Protein Urine Glucose (UA) Urine Ketones Urine Blood Urine Nitrate Urine Bilirubin Urine Urobilinogen Ur Leukocyte Esterase Urine RBC Urine WBC Ur Epithelial Cells Amorphous Sediment Urine Bacteria Coarse Granular Casts Digoxin < 0.4 L Salicylates 1 L Urine Opiates Screen Urine Methadone Screen Acetaminophen < 10.0 L Ur Barbiturates Screen Ur Phencyclidine Scrn Ur Amphetamines Screen U Benzodiazepines Scrn U Oth Cocaine Metabols U Cannabinoids Screen 04/01/19 04/01/19 04/01/19 11:00 11:50 15:15 WBC RBC Hgb Hct MCV MCH MCHC RDW Plt Count MPV Neut % (Auto) Lymph % (Auto) [place] % (Auto) Eos % (Auto) Baso % (Auto) Lymph # (Auto) [place] # (Auto) Eos # (Auto) Baso # (Auto) Absolute Neuts (auto) PT INR APTT pCO2 pO2 41 HCO3 ABG pH ABG Total CO2 ABG O2 Saturation ABG Base Excess ABG Potassium VBG pH 7.38 VBG pCO2 32.0 L VBG HCO3 18.9 L VBG Total CO2 19.9 L VBG O2 Sat (Calc) 73.8 H VBG Base Excess -5.2 L VBG Potassium 4.5 Sodium 137.0 Chloride 105.0 Glucose 115 H Lactate 5.3 H* Mechanical Rate FiO2 21.0 Tidal Volume PEEP Crit Value Called [place] [id number] Blood Gas Notified Time 1519 Potassium Carbon Dioxide Anion Gap BUN Creatinine Est GFR ( Amer) Est GFR (Non-Af Amer) Random Glucose Calcium Phosphorus Magnesium Total Bilirubin AST ALT Alkaline Phosphatase Ammonia Lactate Dehydrogenase 2966 H Troponin I NT-Pro-B Natriuret Pep Total Protein Albumin Globulin Albumin/Globulin Ratio Arterial Blood Potassium Venous Blood Potassium 4.5 Urine Color Dark yellow Urine Appearance Clear Urine pH 5.5 Ur Specific [place] >= 1.030 Urine Protein Trace H Urine Glucose (UA) Negative Urine Ketones Trace H Urine Blood Moderate H Urine Nitrate Negative Urine Bilirubin Small H Urine Urobilinogen 2.0 H Ur Leukocyte Esterase Negative Urine RBC 2 - 5 H Urine WBC 0 - 2 Ur Epithelial Cells 0 - 2 Amorphous Sediment Few Urine Bacteria Small Coarse Granular Casts Trace Digoxin Salicylates Urine Opiates Screen Urine Methadone Screen Acetaminophen Ur Barbiturates Screen Ur Phencyclidine Scrn Ur Amphetamines Screen U Benzodiazepines Scrn U Oth Cocaine Metabols U Cannabinoids Screen 04/01/19 04/01/19 04/01/19 16:37 18:50 20:04 WBC RBC Hgb Hct MCV MCH MCHC RDW Plt Count MPV Neut % (Auto) Lymph % (Auto) [place] % (Auto) Eos % (Auto) Baso % (Auto) Lymph # (Auto) [place] # (Auto) Eos # (Auto) Baso # (Auto) Absolute Neuts (auto) PT INR APTT pCO2 pO2 101 H HCO3 ABG pH ABG Total CO2 ABG O2 Saturation ABG Base Excess ABG Potassium VBG pH 7.02 L* VBG pCO2 17.0 L* VBG HCO3 4.4 L VBG Total CO2 4.9 L VBG O2 Sat (Calc) 99.0 H VBG Base Excess -24.9 L VBG Potassium 0.9 L* Sodium 145.0 Chloride > 170.0 H Glucose 26 L* D Lactate 1.0 Mechanical Rate FiO2 21.0 Tidal Volume PEEP Crit Value Called [place] [id number] Blood Gas Notified Time 185 Potassium Carbon Dioxide Anion Gap BUN Creatinine Est GFR ( Amer) Est GFR (Non-Af Amer) Random Glucose Calcium Phosphorus Magnesium Total Bilirubin AST ALT Alkaline Phosphatase Ammonia 13 Lactate Dehydrogenase Troponin I NT-Pro-B Natriuret Pep Total Protein Albumin Globulin Albumin/Globulin Ratio Arterial Blood Potassium Venous Blood Potassium 0.9 L* Urine Color Urine Appearance Urine pH Ur Specific [place] Urine Protein Urine Glucose (UA) Urine Ketones Urine Blood Urine Nitrate Urine Bilirubin Urine Urobilinogen Ur Leukocyte Esterase Urine RBC Urine WBC Ur Epithelial Cells Amorphous Sediment Urine Bacteria Coarse Granular Casts Digoxin Salicylates Urine Opiates Screen Negative Urine Methadone Screen Negative Acetaminophen Ur Barbiturates Screen Negative Ur Phencyclidine Scrn Negative Ur Amphetamines Screen Negative U Benzodiazepines Scrn Positive H U Oth Cocaine Metabols Negative U Cannabinoids Screen Negative Attending/Attestation - Attestation I have personally seen and examined this patient.: Yes I have fully participated in the care of the patient.: Yes I have reviewed all pertinent clinical information: Yes Notes (Text): This patient was seen and evaluated the earlier this is an addendum to the GI consultation report dictated by the fellow. Significant elevated LFTs with INR elevation change in mental status probably hepatic encephalopathy. Agree with the empirically starting the patient.N-acetylcysteine and lactulose. Requested abdominal ultrasound to evaluate the liver and also Doppler to evaluate the portal vein and hepatic veins. Acute kidney injury with the significant elevated transaminases ischemia also should be considered in the differential diagnosis. Given the [place] liver unit input noted We will continue to closely monitor his case and suggest further recommendations based on the clinical course. Thank you Dr. Pena for allowing us to participate in the care of the patient 04/02/19 00:20 04/02/19 19:36
[2019-04-01] MEDS ORDERED: DOBUTamine 500mg/250ml D5W 500 MG/250 ML BAG IV PRN (16:57)
[2019-04-01] MEDS ORDERED: NOREPINEPHRINE BIT/0.9 % NACL 4 MG/250 ML BAG IV PRN (17:16)
[2019-04-01] MEDS ORDERED: Vasopressin 20 UNITS in Dextrose 5% In Water 100 ML IV SCH (17:30)
--- NOTE | 2019-04-01 17:36 | RAD ---
Date of service: 04/01/2019 HISTORY: Tube placement COMPARISON: 04/01/2019 at 10:44 a.m. FINDINGS: Endotracheal tube terminates in the mid trachea. LUNGS: The lungs are well inflated. There is moderate pulmonary venous congestion and mild interstitial pulmonary edema. No focal consolidation. PLEURA: No pleural effusions or pneumothorax. CARDIOVASCULAR: There is moderate cardiomegaly. Status post CABG. Stable position of left-sided dual lead permanent pacing device. No aortic atherosclerotic calcifications present. OSSEOUS STRUCTURES: Within normal limits for the patient's age. VISUALIZED UPPER ABDOMEN: Normal. OTHER FINDINGS: None. IMPRESSION: Moderate cardiomegaly, mild pulmonary venous congestion and interstitial pulmonary edema.
[2019-04-01] MEDS ORDERED: Midazolam 5 MG/ML ONE ×2 (17:47→19:11)
--- NOTE | 2019-04-01 18:25 | PCM.PROC ---
Procedures Attestation:: I certify that I have explained the specified Operation(s) or Procedure(s), risks, benefits and reasonable alternatives to the Patient and/or other person responsible. The opportunity was given to ask questions and all questions answered - Central Line Placement Left Internal Jugular Triple Lumen Catheter Aseptic technique was employed throughout the procedure: Hand Hygiene done prior to procedure, Full sterile barriers (mask, hair cover, sterile gown, sterile g loves), Full body sterile drape, Chloraprep Antiseptic: 30 second prep for IJ or SC sites CVP Time Out Performed: Yes Pt. Placed on Pulse Ox Monitor: Yes Central Line Prep: Povidone-Iodine 1% Local Anesthesia Used: Lidocaine 1% Ultrasound Used for Placement: Yes Central Line Lumen Inserted: triple Central Line Length: 20 cm Post Procedure: Sutured in Place, Good Blood Return, All Ports Aspirated, Flushed, Capped, Sterile Dressing Applied Secured by: Suture Post procedure dressing: Chlorhexidine disc (Biopatch) Post Procedure X-Ray: Yes Patient Tolerated Procedure: Well Immediate Complications: None
[2019-04-01] MEDS ORDERED: Etomidate 20 mg/10ml Inj IVP STA (18:54)
[2019-04-01] MEDS ORDERED: Succinylcholine 200 mg/10 ml Inj IV STA (18:54)
[2019-04-01 18:57] LABS: VENOUS BLOOD GAS BASE EXCESS -24.9 mmol/L (0.0-2.0); VENOUS BLOOD GAS PO2 101 mm/Hg (30-55); VENOUS BLOOD PH 7.02 (7.32-7.43)
[2019-04-01] MEDS ORDERED: Midazolam 5 MG/ML IVP ONE (19:00)
[2019-04-01] MEDS ORDERED: Midazolam 2 MG/2 ML VIAL IVP ONE (19:45)
[2019-04-01] MEDS ORDERED: Propofol 10 mg/ml 1,000 MG/100 ML VIAL IV PRN (20:10)
[2019-04-01 21:05] LABS: BARBITURATES, UR NEGATIVE (NEGATIVE); BENZODIAZEPINES, UR POSITIVE (NEGATIVE); OPIATES, UR NEGATIVE (NEGATIVE); PHENCYCLIDINE, UR NEGATIVE (NEGATIVE)
--- NOTE | 2019-04-01 22:09 | CP.PCM.PN ---
Subjective - Date & Time of Evaluation Date of Evaluation: 04/01/19 Time of Evaluation: 22:07 - Subjective Subjective: Patient was evaluated in the ER after endorsement. It was requested to insert a NGT. Nasogastric tube was inserted.Position was confirmed with ingestion of air and listening to gurgling. Objective - Vital Signs/Intake and Output Vital Signs (last 24 hours): Temp Pulse Resp BP Pulse Ox 99.1 F 80 15 114/75 100 04/01/19 19:56 04/01/19 21:56 04/01/19 21:56 04/01/19 21:56 04/01/19 21:56 - Medications Medications: Current Medications Hydrocortisone Sodium Succinate (Solu-Cortef) 50 mg IVP Q6H [facility] Last Admin: 04/01/19 18:06 Dose: 50 mg Sodium Chloride (Sodium Chloride 0.9%) 2,600 mls @ 500 mls/hr IV .Q5H12M [facility] Last Admin: 04/01/19 17:00 Dose: 500 mls/hr Acetylcysteine 4,300 mg/ (Dextrose) 521.5 mls @ 125 mls/hr IV .Q4H11M ONE Stop: 04/01/19 22:10 Last Admin: 04/01/19 20:30 Dose: 125 mls/hr Acetylcysteine 10,000 mg/ (Dextrose) 1,050 mls @ 62.5 mls/hr IV .[id number] ONE Stop: 04/02/19 14:57 Dobutamine HCl/Dextrose (Dobutamine/Dextrose 5% 500mg/250ml) 500 mg in 250 mls @ 6.464 mls/hr IV .Q24H PRN; Protocol PRN Reason: TITRATE PER PROTOCOL Last Admin: 04/01/19 18:03 Dose: 2.5 mcg/kg/min, 6.464 mls/hr NOREPINEPHRINE BIT/0.9 % NACL (Levophed 4 Mg/ 250 Ml Ns Premixed) 4 mg in 250 mls @ 15 mls/hr IV .[id number] PRN; Protocol PRN Reason: TITRATE PER MD ORDER Vasopressin 20 units/ Sodium (Chloride) 101 mls @ 9.09 mls/hr IV .Q11H7M [facility]; Protocol Last Admin: 04/01/19 18:41 Dose: Not Given Propofol (Diprivan) 1,000 mg in 100 mls @ 2.585 mls/hr IV .Q24H PRN; Protocol PRN Reason: TITRATE PER MD ORDER Pantoprazole Sodium (Protonix Inj) 40 mg IVP DAILY [facility] Last Admin: 04/01/19 18:05 Dose: 40 mg - Labs Labs: 04/01/19 11:00 04/01/19 11:00 PT 30.6 SECONDS (9.4-12.5) H 04/01/19 11:00 INR 2.71 04/01/19 11:00 APTT 44.9 Seconds (26.9-38.3) H 04/01/19 11:00
--- NOTE | 2019-04-01 22:10 | CP.PCM.PN ---
Subjective - Date & Time of Evaluation Date of Evaluation: 04/01/19 Time of Evaluation: 22:09 - Subjective Subjective: CXR reviewed to confirm the position of nasogastric tube. Tip of NGT is in body of stomach below diaphragm. Objective - Vital Signs/Intake and Output Vital Signs (last 24 hours): Temp Pulse Resp BP Pulse Ox 99.1 F 80 15 114/75 100 04/01/19 19:56 04/01/19 21:56 04/01/19 21:56 04/01/19 21:56 04/01/19 21:56 - Medications Medications: Current Medications Hydrocortisone Sodium Succinate (Solu-Cortef) 50 mg IVP Q6H [facility] Last Admin: 04/01/19 18:06 Dose: 50 mg Sodium Chloride (Sodium Chloride 0.9%) 2,600 mls @ 500 mls/hr IV .Q5H12M [facility] Last Admin: 04/01/19 17:00 Dose: 500 mls/hr Acetylcysteine 4,300 mg/ (Dextrose) 521.5 mls @ 125 mls/hr IV .Q4H11M ONE Stop: 04/01/19 22:10 Last Admin: 04/01/19 20:30 Dose: 125 mls/hr Acetylcysteine 10,000 mg/ (Dextrose) 1,050 mls @ 62.5 mls/hr IV .[id number] ONE Stop: 04/02/19 14:57 Dobutamine HCl/Dextrose (Dobutamine/Dextrose 5% 500mg/250ml) 500 mg in 250 mls @ 6.464 mls/hr IV .Q24H PRN; Protocol PRN Reason: TITRATE PER PROTOCOL Last Admin: 04/01/19 18:03 Dose: 2.5 mcg/kg/min, 6.464 mls/hr NOREPINEPHRINE BIT/0.9 % NACL (Levophed 4 Mg/ 250 Ml Ns Premixed) 4 mg in 250 mls @ 15 mls/hr IV .M30F10M PRN; Protocol PRN Reason: TITRATE PER MD ORDER Vasopressin 20 units/ Sodium (Chloride) 101 mls @ 9.09 mls/hr IV .Q11H7M [facility]; Protocol Last Admin: 04/01/19 18:41 Dose: Not Given Propofol (Diprivan) 1,000 mg in 100 mls @ 2.585 mls/hr IV .Q24H PRN; Protocol PRN Reason: TITRATE PER MD ORDER Pantoprazole Sodium (Protonix Inj) 40 mg IVP DAILY [facility] Last Admin: 04/01/19 18:05 Dose: 40 mg - Labs Labs: 04/01/19 11:00 04/01/19 11:00 PT 30.6 SECONDS (9.4-12.5) H 04/01/19 11:00 INR 2.71 04/01/19 11:00 APTT 44.9 Seconds (26.9-38.3) H 04/01/19 11:00
[2019-04-01 22:42] LABS: ARTERIAL BLOOD GAS O2 SAT 99.9 % (95-98); ARTERIAL BLOOD GAS PCO2 30 mm/Hg (35-45); ARTERIAL BLOOD GAS PH 7.41 (7.35-7.45); ARTERIAL BLOOD GAS TCO2 19.9 mmol.L (22-28)
--- NOTE | 2019-04-02 01:07 | CON ---
DATE: 04/01/2019 HISTORY OF PRESENT ILLNESS: The patient is a 73-year-old male with history of hypertension, CABG, carotid endarterectomy, status post stenting, AICD, who presents to the ED with altered mental status and is unable to provide any history. He is very somnolent and lethargic and was intubated in ER for airway protection. No history of fever, chills, sweats, nausea, vomiting, diarrhea, or constipation. PAST MEDICAL HISTORY: CABG, hypertension, carotid endarterectomy, ischemic cardiomyopathy with ejection fraction of 10%-15%, AICD, Parkinson disease, COPD. SOCIAL HISTORY: The patient is former smoker. No alcohol or illicit drug abuse. MEDICATIONS AT HOME: Coreg, Ambien, spironolactone, Lasix 20 mg p.o. b.i.d., Risperdal, Plavix, Zocor, Entresto. ALLERGIES: NKDA. FAMILY HISTORY: Noncontributory. REVIEW OF SYSTEMS: Review of 12 organ systems other than mentioned in history of present illness is negative. PHYSICAL EXAMINATION: VITAL SIGNS: Temperature 97.5, blood pressure 91/66, heart rate 82, oxygen saturation 100% on 50% FIO2. The patient is on PRVC, 450/15/5/50%. ENT, HEAD AND NECK: Atraumatic. LUNGS: Decreased breath sounds bilaterally. Few crackles bibasilarly. HEART: Regular rate and rhythm. S1, S2 normal. ABDOMEN: Soft, nontender, nondistended. MUSCULOSKELETAL: No C/C/E. NEUROLOGIC: The patient was moving all extremities spontaneously, but not purposefully and not on command. SKIN: Moist. PSYCHIATRIC: The patient is very somnolent and not responding to painful or touch stimuli. LABORATORY DATA: WBC 13.1, hemoglobin 13.6, platelet count 191. Sodium 139, potassium 4.7, chloride 103, carbon dioxide 19, BUN 34, creatinine 1.8 (up from 1.4 during the last admission), glucose 123, ammonia level 13, troponin 0.08, proBNP 47,100, albumin 3.6, total bilirubin 3.3, AST 1322, ALT 993, INR 2.71. ABG showed 7.38. Lactic acid level 5.3, down from 7.5. Digoxin less than 0.4. Salicylates 1. Tylenol level less than 10. Urine is negative for leukocyte esterase and nitrites, small amount of urine bacteria. Coarse granular casts present, amorphous sediment present, wbc's 0-2. Chest x-ray showed no active pulmonary disease, moderate pulmonary venous congestion. Abdominal ultrasound showed cholelithiasis, diffuse gallbladder wall thickening is likely secondary to systemic disease, chronic renal parenchymal disease, diffuse increased echogenicity in the liver with coarse echotexture may reflect hepatic steatosis; however, parenchymal infectious, inflammatory etiologies cannot be entirely excluded. CAT scan of the head showed no acute intracranial abnormalities, small left frontal scalp hematoma, mild chronic micro angiopathic changes and moderate age-related global parenchymal volume loss. ASSESSMENT: This is a 73-year-old gentleman who presented with significantly altered mental status in the setting of multiorgan system failure of unclear etiology. What is known about the patient is that he has severe biventricular failure including left ventricular ejection fraction of 10%-15% and dilated right ventricle as well. In the setting of normal NH3 level, which makes hepatic encephalopathy less likely, h/o chronic biventricular failure, vascular congestion on CXR and pro-BNP>[id number] of acute RV failure with MODS goes on top of differential diagnosis list, which may potentially explain severe transaminitis and synthetic liver dysfunction, GO (renal venous outflow impairment) and encephalopathy. Possibility, however, of acute liver failure due to other etiologies cannot be ruled out and N-acetylcysteine will be started, as benefits of it in my opinion overweigh the risk of it (Alondra Atkinson et al, Clinics and Research in Hepatology and Gastroenterology. 2015). N-acetylcysteine was shown to be beneficial not only in Tylenol overdose/toxicity, but in acute liver failure of other etiology. As ammonia level is low, I will not continue with lactulose and even though it may not perfectly correlate, possibility of hepatic encephalopathy is less likely. The patient's metabolic acidosis substantially improved based on last VBG. We will, however, follow up on ABG and trend lactic acid as well. I will start the patient on empiric antibiotics. We will proceed with septic workup including blood culture, urine culture, and procalcitonin. I will get ID consult. As the patient is somewhat hypothermic and hypotensive, I will start the patient on stress dose steroids. Possibility of acute heart failure with hemodynamic compromise is high in differential list (congestive heart failure, pulmonary congestion, proBNP more than 40,000, known biventricular failure with ejection fraction of 10%-15%). Thus, I will start the patient on dobutamine. Once blood pressure stabilized (which might require hemodynamic support with vasopressors), I will start the patient on diuretics for conservative fluid management. As the patient is intubated in emergency room, we will proceed with protective lung ventilation strategy maintaining plateau pressure less than 30 cm of water, head of bed elevated more than 35 degrees, oral hygiene, conservative fluid and oxygen management. Once underlying diagnosis clarified and treated, we will proceed with daily weaning trials and sedation vacations. The patient does have acute kidney injury, which is most likely secondary to congestive nephropathy versus acute tubular necrosis of other etiology (infection ? other drugs). Conservative fluid management, maintaining mean arterial pressure more than 65, maintaining euvolemia and euglycemia will be indicated as well. We will proceed with stress dose steroids and maintain blood glucose within 140-180 range according to night sugar trial and avoid hypoglycemia. Addendum: discussed with GI fellow who contacted [facility]-->not a candidate for liver transplant. ccm time 40 min Jackson Denney MD [facility]
[2019-04-02] MEDS ORDERED: Propofol 10 mg/ml 1,000 MG/100 ML VIAL IV PRN ×2 (03:10→07:30)
--- NOTE | 2019-04-02 06:04 | CP.PCM.PN ---
Subjective - Date & Time of Evaluation Date of Evaluation: 04/02/19 Time of Evaluation: 06:03 - Subjective Subjective: S:It was requested to cosign the order for restraint. Patient was seen at bedside. He has been intubated. Pertinent medical records reviewed. O:Vital signs stable. HEENT: Intubated. Lungs: Normal breathing pattern A: STATUS POST INTUBATION. Intermittent agitaition 2* to intubation. P:Restraint as ordered. Objective - Vital Signs/Intake and Output Vital Signs (last 24 hours): Temp Pulse Resp BP Pulse Ox 98.6 F 86 15 115/74 100 04/01/19 22:15 04/01/19 22:15 04/01/19 22:15 04/01/19 22:15 04/01/19 22:15 - Medications Medications: Current Medications Hydrocortisone Sodium Succinate (Solu-Cortef) 50 mg IVP Q6H [facility] Last Admin: 04/02/19 01:59 Dose: 50 mg Sodium Chloride (Sodium Chloride 0.9%) 2,600 mls @ 500 mls/hr IV .Q5H12M [facility] Last Admin: 04/01/19 17:00 Dose: 500 mls/hr Acetylcysteine 10,000 mg/ (Dextrose) 1,050 mls @ 62.5 mls/hr IV .[id number] ONE Stop: 04/02/19 14:57 Last Admin: 04/02/19 01:00 Dose: 62.5 mls/hr Dobutamine HCl/Dextrose (Dobutamine/Dextrose 5% 500mg/250ml) 500 mg in 250 mls @ 6.464 mls/hr IV .Q24H PRN; Protocol PRN Reason: TITRATE PER PROTOCOL Last Admin: 04/01/19 18:03 Dose: 2.5 mcg/kg/min, 6.464 mls/hr NOREPINEPHRINE BIT/0.9 % NACL (Levophed 4 Mg/ 250 Ml Ns Premixed) 4 mg in 250 mls @ 15 mls/hr IV .[id number] PRN; Protocol PRN Reason: TITRATE PER MD ORDER Vasopressin 20 units/ Sodium (Chloride) 101 mls @ 9.09 mls/hr IV .Q11H7M [facility]; Protocol Last Admin: 04/01/19 18:41 Dose: Not Given Propofol (Diprivan) 1,000 mg in 100 mls @ 2.585 mls/hr IV .Q24H PRN; Protocol PRN Reason: TITRATE PER MD ORDER Last Admin: 04/02/19 03:00 Dose: 5 mcg/kg/min, 2.585 mls/hr Pantoprazole Sodium (Protonix Inj) 40 mg IVP DAILY [facility] Last Admin: 04/01/19 18:05 Dose: 40 mg - Labs Labs: 04/01/19 11:00 04/01/19 11:00 PT 30.6 SECONDS (9.4-12.5) H 04/01/19 11:00 INR 2.71 04/01/19 11:00 APTT 44.9 Seconds (26.9-38.3) H 04/01/19 11:00
[2019-04-02 06:21] LABS: ARTERIAL BLOOD GAS HCO3 22.1 mmol/L (21-28); ARTERIAL BLOOD GAS HEMOGLOBIN 11.3 g/dL (11.7-17.4); ARTERIAL BLOOD GAS O2 CAPACITY 15.7 mL/dl (16-24); ARTERIAL BLOOD GAS O2 CONTENT 15.7 ML/dl (15-23); ARTERIAL BLOOD GAS O2 SAT 99.9 % (95-98); ARTERIAL BLOOD GAS PCO2 34 mm/Hg (35-45); ARTERIAL BLOOD GAS PH 7.42 (7.35-7.45); ARTERIAL BLOOD GAS TCO2 23.1 mmol.L (22-28)
--- NOTE | 2019-04-02 07:25 | CARD ---
APPROVED REPORT Date of service: 04/01/2019 EKG Measurement Heart [id number] <Conclusion> Sinus rhythm with 1st degree AV block Nonspecific intraventricular block Possible Lateral infarct, age undetermined Abnormal ECG
[2019-04-02 07:29] LABS: BASO # 0.01 K/mm3 (0.0-2.0); BASO % 0.1 % (0.0-3.0); HEMOGLOBIN 12.1 g/dL (14.0-18.0); LYMPH % 8.7 % (22.0-35.0); MEAN CELL VOLUME 88.4 fl (80.0-105.0); MEAN CORPUSCULAR HEMOGLOBIN 28.1 pg (25.0-35.0); MEAN CORPUSCULAR HGB CONC 31.8 g/dl (31.0-37.0); MEAN PLATELET VOLUME 11.3 fl (7.0-11.0); MONO # 0.6 (0.1-0.6); MONO % 5.6 % (1.0-6.0); RBC 4.31 10^6/uL (3.5-6.1); RED CELL DISTRIBUTION WIDTH 15.1 % (11.5-14.5); WHITE BLOOD COUNT 11.3 10^3/uL (4.5-11.0)
[2019-04-02] MEDS: DOBUTamine 500mg/250ml D5W 500 MG/250 ML BAG IV PRN (07:30)
[2019-04-02 07:36] LABS: INR 2.56; PARTIAL THROMBOPLASTIN TIME 42.7 Seconds (26.9-38.3); PROTHROMBIN TIME 28.9 SECONDS (9.4-12.5)
[2019-04-02 07:47] LABS: ALBUMIN 2.8 g/dL (3.0-4.8); BLOOD UREA NITROGEN 40 mg/dL (7-21); CALCIUM 8.8 mg/dL (8.4-10.5); GFR NON-AFRICAN AMERICAN 50
[2019-04-02 07:53] LABS: TROPONIN I 0.09 ng/mL
[2019-04-02 07:57] LABS: ALT/SGPT 1029 U/L (7-56); AST/SGOT 960 U/L (17-59)
[2019-04-02] MEDS ORDERED: Potassium Chloride 40 mEq/30 ml LIQ UD PO STA (08:11)
[2019-04-02 08:17] LABS: HEPATITIS B SURFACE AG Negative (NEGATIVE)
[2019-04-02 08:23] LABS: HEPATITIS A IGM NEGATIVE (NEGATIVE); HEPATITIS B CORE AB NEGATIVE (NEGATIVE)
[2019-04-02 08:34] LABS: HEPATITIS C ANTIBODY NEGATIVE (NEGATIVE)
--- NOTE | 2019-04-02 09:16 | CP.CCUPN ---
CCU Subjective - Physician Review Subjective (Free Text): Tony Uribe, PGY-1 Critical Care Progress Note Patient seen and evaluated at bedside. No acute events reported overnight. Patient currently sedated on Propofol, GCS3T on mechanical ventilation. No response to painful stimuli. CCU Objective - Vital Signs / Intake & Output Vital Signs (Last 4 hours): Vital Signs Temp Pulse BP Pulse Ox 04/02/19 09:00 97.5 F L 71 103/59 L 99 04/02/19 08:50 97.2 F L 80 99 04/02/19 08:40 91.0 F L 82 99 04/02/19 08:30 97.3 F L 76 110/43 L 99 04/02/19 08:20 97.2 F L 70 98 04/02/19 08:10 97.3 F L 72 98 04/02/19 08:00 97.2 F L 73 110/66 98 04/02/19 07:50 97.2 F L 72 97 04/02/19 07:40 97.2 F L 69 96 04/02/19 07:30 97.2 F L 67 98/57 L 96 04/02/19 07:20 97.2 F L 69 96 04/02/19 07:10 97.2 F L 70 97 04/02/19 07:00 97.2 F L 72 103/59 L 97 04/02/19 06:50 97.3 F L 73 97 04/02/19 06:40 97.3 F L 78 97 04/02/19 06:30 97.7 F 85 106/77 99 04/02/19 06:20 97.7 F 88 99 04/02/19 06:10 97.7 F 87 99 04/02/19 06:04 97.7 F 87 114/76 99 04/02/19 06:00 97.5 F L 80 68/25 L 99 04/02/19 05:50 97.5 F L 99 04/02/19 05:40 97.5 F L 73 99 04/02/19 05:30 97.5 F L 71 104/67 98 04/02/19 05:20 97.5 F L 67 97 Intake and Output (Last 8hrs): Intake & Output 04/01/19 04/02/19 04/02/19 22:59 06:59 14:59 Intake Total 825 Output Total 650 Balance 175 Weight 86.183 kg 78.154 kg Intake: IV 825 Left Hand 10 Left Internal Jugular 795 Right Hand 0 Oral 0 Output: Urine 650 Urethral (Eric) 650 Other: # Bowel Movements 2 - Physical Exam Head: Positive for: Atraumatic, Normocephalic Pupils: Positive for: PERRL Extroacular Muscles: Positive for: EOMI Mouth: Positive for: Moist Mucous Membranes, Other (ETT in place). Negative for: Normal Teeth Neck: Positive for: Normal Range of Motion Respiratory/Chest: Positive for: Clear to Auscultation, Good Air Exchange. Negative for: Respiratory Distress, Accessory Muscle Use Cardiovascular: Positive for: Regular Rate and Rhythm, Normal S1, S2 Abdomen: Positive for: Normal Bowel Sounds. Negative for: Tenderness, Distention Upper Extremity: Positive for: Normal Inspection Lower Extremity: Positive for: Normal Inspection Skin: Positive for: Warm, Dry, Normal Color Psychiatric: Negative for: Alert, Oriented x 3, Agitated - Medications Active Medications: Active Medications Generic Name Dose Route Start Last Admin Trade Name Freq PRN Reason Stop Dose Admin Hydrocortisone Sodium Succinate 50 mg 04/01/19 17:30 04/02/19 08:32 Solu-Cortef IVP 50 mg Q6H AFSANEH Administration Sodium Chloride 2,600 mls @ 500 mls/hr 04/01/19 11:30 04/01/19 17:00 Sodium Chloride 0.9% IV 500 mls/hr .[id number] AFSANEH Administration Acetylcysteine 10,000 mg/ 1,050 mls @ 62.5 mls/hr 04/01/19 22:10 04/02/19 01:00 Dextrose IV 04/02/19 14:57 62.5 mls/hr .[id number] ONE Administration Dobutamine HCl/Dextrose 500 mg in 250 mls @ 6.464 mls/hr 04/01/19 16:57 04/01/19 18:03 Dobutamine/Dextrose 5% 500mg/250ml IV 2.5 mcg/kg/min .Q24H PRN 6.464 mls/hr TITRATE PER PROTOCOL Administration Protocol 2.5 MCG/KG/MIN NOREPINEPHRINE BIT/0.9 % NACL 4 mg in 250 mls @ 15 mls/hr 04/01/19 17:16 Levophed 4 Mg/ 250 Ml Ns Premixed IV .[id number] PRN TITRATE PER MD ORDER Protocol 4 MCG/MIN Vasopressin 20 units/ Sodium 101 mls @ 9.09 mls/hr 04/01/19 17:45 04/01/19 18:41 Chloride IV Not Given .[id number] AFSANEH Protocol 0.03 U/MIN Propofol 1,000 mg in 100 mls @ 2.585 mls/hr 04/01/19 20:10 04/02/19 06:00 Diprivan IV 10 mcg/kg/min .Q24H PRN 5.171 mls/hr TITRATE PER MD ORDER Titration Protocol 5 MCG/KG/MIN Pantoprazole Sodium 40 mg 04/01/19 17:00 04/01/19 18:05 Protonix Inj IVP 40 mg DAILY AFSANEH Administration - Patient Studies Lab Studies: Lab Studies 04/02/19 04/02/19 04/02/19 Range/Units 08:32 07:00 07:00 WBC (4.5-11.0) 10^3/uL RBC (3.5-6.1) 10^6/uL Hgb (14.0-18.0) g/dL Hct (42.0-52.0) % MCV (80.0-105.0) fl MCH (25.0-35.0) pg MCHC (31.0-37.0) g/dl RDW (11.5-14.5) % Plt Count (120.0-450.0) 10^3/uL MPV (7.0-11.0) fl Neut % (Auto) (50.0-68.0) % Lymph % (Auto) (22.0-35.0) % Colbert % (Auto) (1.0-6.0) % Eos % (Auto) (1.5-5.0) % Baso % (Auto) (0.0-3.0) % Lymph # (Auto) (1.2-3.4) Colbert # (Auto) (0.1-0.6) Eos # (Auto) (0.0-0.7) Baso # (Auto) (0.0-2.0) K/mm3 Absolute Neuts (auto) (1.4-6.5) PT 28.9 H (9.4-12.5) SECONDS INR 2.56 APTT 42.7 H (26.9-38.3) Seconds pCO2 (35-45) mm/Hg pO2 (80-100) mm/Hg HCO3 (21-28) mmol/L ABG pH (7.35-7.45) ABG Total CO2 (22-28) mmol.L ABG O2 Saturation (95-98) % ABG O2 Content (15-23) ML/dl ABG Base Excess (-2.0-3.0) mmol/L ABG Hemoglobin (11.7-17.4) g/dL ABG Carboxyhemoglobin (0.5-1.5) % POC ABG HHb (Measured) (0-5) % ABG Methemoglobin (0.0-3.0) % ABG O2 Capacity (16-24) mL/dl ABG Potassium (3.6-5.2) mmol/L VBG pH (7.32-7.43) VBG pCO2 (40-60) VBG HCO3 (21-28) mmol/l VBG Total CO2 (22-28) mmol.L VBG O2 Sat (Calc) (40-65) % VBG Base Excess (0.0-2.0) mmol/L VBG Potassium (3.6-5.2) mmol/L Hgb O2 Saturation (95.0-98.0) % Sodium 141 (132-148) mmol/L Chloride 108 H (98-107) mmol/L Glucose (75-110) mg/dl Lactate (0.7-2.1) mmol/L Mechanical Rate FiO2 % Tidal Volume PEEP Crit Value Called To Crit Value Called By Blood Gas Notified Time Potassium 3.5 L (3.6-5.0) mmol/L Carbon Dioxide 27 (21-33) mmol/L Anion Gap 10 (10-20) BUN 40 H (7-21) mg/dL Creatinine 1.4 (0.8-1.5) mg/dl Est GFR ( Amer) > 60 Est GFR (Non-Af Amer) 50 Random Glucose 138 H (70-110) mg/dL Calcium 8.8 (8.4-10.5) mg/dL Phosphorus 2.9 (2.5-4.5) mg/dL Magnesium 2.4 H (1.7-2.2) mg/dL Total Bilirubin 2.6 H (0.2-1.3) mg/dL Direct Bilirubin 1.4 H (0.0-0.4) mg/dL AST 960 H D (17-59) U/L ALT 1029 H (7-56) U/L Alkaline Phosphatase 61 (38-126) U/L Ammonia (9-33) umol/L Lactate Dehydrogenase (333-699) U/L Troponin I 0.09 ng/mL NT-Pro-B Natriuret Pep (0-450) pg/mL Total Protein 5.4 L (5.8-8.3) g/dL Albumin 2.8 L (3.0-4.8) g/dL Globulin 2.7 gm/dL Albumin/Globulin Ratio 1.0 L (1.1-1.8) Arterial Blood Potassium (3.6-5.2) mmol/L Venous Blood Potassium (3.6-5.2) mmol/L Urine Color (YELLOW) Urine Appearance (CLEAR) Urine pH (4.7-8.0) Ur Specific [place] (1.005-1.035) Urine Protein (<30 mg/dL) mg/dL Urine Glucose (UA) (NEGATIVE) mg/dL Urine Ketones (NEGATIVE) mg/dL Urine Blood (NEGATIVE) Urine Nitrate (NEGATIVE) Urine Bilirubin (NEGATIVE) Urine Urobilinogen (<1 E.U./dL) E.U./dL Ur Leukocyte Esterase (NEGATIVE) Breanna/uL Urine RBC (0-2) /hpf Urine WBC (0-6) /hpf Ur Epithelial Cells (0-5) /hpf Amorphous Sediment (NONE) /hpf Urine Bacteria (NONE) /hpf Coarse Granular Casts (NONE) /hpf Digoxin (0.8-2.0) ng/mL Salicylates (2.0-20.0) mg/dL Urine Opiates Screen (NEGATIVE) Urine Methadone Screen (NEGATIVE) Acetaminophen (10.0-20.0) ug/ml Ur Barbiturates Screen (NEGATIVE) Ur Phencyclidine Scrn (NEGATIVE) Ur Amphetamines Screen (NEGATIVE) U Benzodiazepines Scrn (NEGATIVE) U Oth Cocaine Metabols (NEGATIVE) U Cannabinoids Screen (NEGATIVE) Hepatitis A IgM Ab (NEGATIVE) Hep Bs Antigen (NEGATIVE) Hep B Core IgM Ab (NEGATIVE) Hepatitis C Antibody (NEGATIVE) 04/02/19 04/02/19 04/01/19 Range/Units 07:00 06:15 20:04 WBC 11.3 H (4.5-11.0) 10^3/uL RBC 4.31 (3.5-6.1) 10^6/uL Hgb 12.1 L (14.0-18.0) g/dL Hct 38.1 L (42.0-52.0) % MCV 88.4 (80.0-105.0) fl MCH 28.1 (25.0-35.0) pg MCHC 31.8 (31.0-37.0) g/dl RDW 15.1 H (11.5-14.5) % Plt Count 146 (120.0-450.0) 10^3/uL MPV 11.3 H (7.0-11.0) fl Neut % (Auto) 85.6 H (50.0-68.0) % Lymph % (Auto) 8.7 L (22.0-35.0) % Colbert % (Auto) 5.6 (1.0-6.0) % Eos % (Auto) 0.0 L (1.5-5.0) % Baso % (Auto) 0.1 (0.0-3.0) % Lymph # (Auto) 1.0 L (1.2-3.4) Colbert # (Auto) 0.6 (0.1-0.6) Eos # (Auto) 0.0 (0.0-0.7) Baso # (Auto) 0.01 (0.0-2.0) K/mm3 Absolute Neuts (auto) 9.70 H (1.4-6.5) PT (9.4-12.5) SECONDS INR APTT (26.9-38.3) Seconds pCO2 34 L (35-45) mm/Hg pO2 129.0 H (80-100) mm/Hg HCO3 22.1 (21-28) mmol/L ABG pH 7.42 (7.35-7.45) ABG Total CO2 23.1 (22-28) mmol.L ABG O2 Saturation 99.9 H (95-98) % ABG O2 Content 15.7 (15-23) ML/dl ABG Base Excess -1.9 (-2.0-3.0) mmol/L ABG Hemoglobin 11.3 L (11.7-17.4) g/dL ABG Carboxyhemoglobin 1.8 H (0.5-1.5) % POC ABG HHb (Measured) 0.1 (0-5) % ABG Methemoglobin 0.7 (0.0-3.0) % ABG O2 Capacity 15.7 L (16-24) mL/dl ABG Potassium (3.6-5.2) mmol/L VBG pH (7.32-7.43) VBG pCO2 (40-60) VBG HCO3 (21-28) mmol/l VBG Total CO2 (22-28) mmol.L VBG O2 Sat (Calc) (40-65) % VBG Base Excess (0.0-2.0) mmol/L VBG Potassium (3.6-5.2) mmol/L Hgb O2 Saturation 97.4 (95.0-98.0) % Sodium (132-148) mmol/L Chloride (98-107) mmol/L Glucose (75-110) mg/dl Lactate (0.7-2.1) mmol/L Mechanical Rate FiO2 50.0 % Tidal Volume PEEP Crit Value Called To Crit Value Called By Blood Gas Notified Time Potassium (3.6-5.0) mmol/L Carbon Dioxide (21-33) mmol/L Anion Gap (10-20) BUN (7-21) mg/dL Creatinine (0.8-1.5) mg/dl Est GFR ( Amer) Est GFR (Non-Af Amer) Random Glucose (70-110) mg/dL Calcium (8.4-10.5) mg/dL Phosphorus (2.5-4.5) mg/dL Magnesium (1.7-2.2) mg/dL Total Bilirubin (0.2-1.3) mg/dL Direct Bilirubin (0.0-0.4) mg/dL AST (17-59) U/L ALT (7-56) U/L Alkaline Phosphatase (38-126) U/L Ammonia (9-33) umol/L Lactate Dehydrogenase (333-699) U/L Troponin I ng/mL NT-Pro-B Natriuret Pep (0-450) pg/mL Total Protein (5.8-8.3) g/dL Albumin (3.0-4.8) g/dL Globulin gm/dL Albumin/Globulin Ratio (1.1-1.8) Arterial Blood Potassium (3.6-5.2) mmol/L Venous Blood Potassium (3.6-5.2) mmol/L Urine Color (YELLOW) Urine Appearance (CLEAR) Urine pH (4.7-8.0) Ur Specific [place] (1.005-1.035) Urine Protein (<30 mg/dL) mg/dL Urine Glucose (UA) (NEGATIVE) mg/dL Urine Ketones (NEGATIVE) mg/dL Urine Blood (NEGATIVE) Urine Nitrate (NEGATIVE) Urine Bilirubin (NEGATIVE) Urine Urobilinogen (<1 E.U./dL) E.U./dL Ur Leukocyte Esterase (NEGATIVE) Breanna/uL Urine RBC (0-2) /hpf Urine WBC (0-6) /hpf Ur Epithelial Cells (0-5) /hpf Amorphous Sediment (NONE) /hpf Urine Bacteria (NONE) /hpf Coarse Granular Casts (NONE) /hpf Digoxin (0.8-2.0) ng/mL Salicylates (2.0-20.0) mg/dL Urine Opiates Screen Negative (NEGATIVE) Urine Methadone Screen Negative (NEGATIVE) Acetaminophen (10.0-20.0) ug/ml Ur Barbiturates Screen Negative (NEGATIVE) Ur Phencyclidine Scrn Negative (NEGATIVE) Ur Amphetamines Screen Negative (NEGATIVE) U Benzodiazepines Scrn Positive H (NEGATIVE) U Oth Cocaine Metabols Negative (NEGATIVE) U Cannabinoids Screen Negative (NEGATIVE) Hepatitis A IgM Ab (NEGATIVE) Hep Bs Antigen (NEGATIVE) Hep B Core IgM Ab (NEGATIVE) Hepatitis C Antibody (NEGATIVE) 04/01/19 04/01/19 04/01/19 Range/Units 18:50 16:37 15:15 WBC (4.5-11.0) 10^3/uL RBC (3.5-6.1) 10^6/uL Hgb (14.0-18.0) g/dL Hct (42.0-52.0) % MCV (80.0-105.0) fl MCH (25.0-35.0) pg MCHC (31.0-37.0) g/dl RDW (11.5-14.5) % Plt Count (120.0-450.0) 10^3/uL MPV (7.0-11.0) fl Neut % (Auto) (50.0-68.0) % Lymph % (Auto) (22.0-35.0) % Colbert % (Auto) (1.0-6.0) % Eos % (Auto) (1.5-5.0) % Baso % (Auto) (0.0-3.0) % Lymph # (Auto) (1.2-3.4) Colbert # (Auto) (0.1-0.6) Eos # (Auto) (0.0-0.7) Baso # (Auto) (0.0-2.0) K/mm3 Absolute Neuts (auto) (1.4-6.5) PT (9.4-12.5) SECONDS INR APTT (26.9-38.3) Seconds pCO2 (35-45) mm/Hg pO2 101 H 41 (80-100) mm/Hg HCO3 (21-28) mmol/L ABG pH (7.35-7.45) ABG Total CO2 (22-28) mmol.L ABG O2 Saturation (95-98) % ABG O2 Content (15-23) ML/dl ABG Base Excess (-2.0-3.0) mmol/L ABG Hemoglobin (11.7-17.4) g/dL ABG Carboxyhemoglobin (0.5-1.5) % POC ABG HHb (Measured) (0-5) % ABG Methemoglobin (0.0-3.0) % ABG O2 Capacity (16-24) mL/dl ABG Potassium (3.6-5.2) mmol/L VBG pH 7.02 L* 7.38 (7.32-7.43) VBG pCO2 17.0 L* 32.0 L (40-60) VBG HCO3 4.4 L 18.9 L (21-28) mmol/l VBG Total CO2 4.9 L 19.9 L (22-28) mmol.L VBG O2 Sat (Calc) 99.0 H 73.8 H (40-65) % VBG Base Excess -24.9 L -5.2 L (0.0-2.0) mmol/L VBG Potassium 0.9 L* 4.5 (3.6-5.2) mmol/L Hgb O2 Saturation (95.0-98.0) % Sodium 145.0 137.0 (132-148) mmol/L Chloride > 170.0 H 105.0 (98-107) mmol/L Glucose 26 L* D 115 H (75-110) mg/dl Lactate 1.0 5.3 H* (0.7-2.1) mmol/L Mechanical Rate FiO2 21.0 21.0 % Tidal Volume PEEP Crit Value Called To D[place] [id number] Blood Gas Notified Time [id number] Potassium (3.6-5.0) mmol/L Carbon Dioxide (21-33) mmol/L Anion Gap (10-20) BUN (7-21) mg/dL Creatinine (0.8-1.5) mg/dl Est GFR ( Amer) Est GFR (Non-Af Amer) Random Glucose (70-110) mg/dL Calcium (8.4-10.5) mg/dL Phosphorus (2.5-4.5) mg/dL Magnesium (1.7-2.2) mg/dL Total Bilirubin (0.2-1.3) mg/dL Direct Bilirubin (0.0-0.4) mg/dL AST (17-59) U/L ALT (7-56) U/L Alkaline Phosphatase (38-126) U/L Ammonia 13 (9-33) umol/L Lactate Dehydrogenase (333-699) U/L Troponin I ng/mL NT-Pro-B Natriuret Pep (0-450) pg/mL Total Protein (5.8-8.3) g/dL Albumin (3.0-4.8) g/dL Globulin gm/dL Albumin/Globulin Ratio (1.1-1.8) Arterial Blood Potassium (3.6-5.2) mmol/L Venous Blood Potassium 0.9 L* 4.5 (3.6-5.2) mmol/L Urine Color (YELLOW) Urine Appearance (CLEAR) Urine pH (4.7-8.0) Ur Specific [place] (1.005-1.035) Urine Protein (<30 mg/dL) mg/dL Urine Glucose (UA) (NEGATIVE) mg/dL Urine Ketones (NEGATIVE) mg/dL Urine Blood (NEGATIVE) Urine Nitrate (NEGATIVE) Urine Bilirubin (NEGATIVE) Urine Urobilinogen (<1 E.U./dL) E.U./dL Ur Leukocyte Esterase (NEGATIVE) Breanna/uL Urine RBC (0-2) /hpf Urine WBC (0-6) /hpf Ur Epithelial Cells (0-5) /hpf Amorphous Sediment (NONE) /hpf Urine Bacteria (NONE) /hpf Coarse Granular Casts (NONE) /hpf Digoxin (0.8-2.0) ng/mL Salicylates (2.0-20.0) mg/dL Urine Opiates Screen (NEGATIVE) Urine Methadone Screen (NEGATIVE) Acetaminophen (10.0-20.0) ug/ml Ur Barbiturates Screen (NEGATIVE) Ur Phencyclidine Scrn (NEGATIVE) Ur Amphetamines Screen (NEGATIVE) U Benzodiazepines Scrn (NEGATIVE) U Oth Cocaine Metabols (NEGATIVE) U Cannabinoids Screen (NEGATIVE) Hepatitis A IgM Ab (NEGATIVE) Hep Bs Antigen (NEGATIVE) Hep B Core IgM Ab (NEGATIVE) Hepatitis C Antibody (NEGATIVE) 04/01/19 04/01/19 04/01/19 Range/Units 11:50 11:09 11:00 WBC (4.5-11.0) 10^3/uL RBC (3.5-6.1) 10^6/uL Hgb (14.0-18.0) g/dL Hct (42.0-52.0) % MCV (80.0-105.0) fl MCH (25.0-35.0) pg MCHC (31.0-37.0) g/dl RDW (11.5-14.5) % Plt Count (120.0-450.0) 10^3/uL MPV (7.0-11.0) fl Neut % (Auto) (50.0-68.0) % Lymph % (Auto) (22.0-35.0) % Colbert % (Auto) (1.0-6.0) % Eos % (Auto) (1.5-5.0) % Baso % (Auto) (0.0-3.0) % Lymph # (Auto) (1.2-3.4) [place] # (Auto) (0.1-0.6) Eos # (Auto) (0.0-0.7) Baso # (Auto) (0.0-2.0) K/mm3 Absolute Neuts (auto) (1.4-6.5) PT (9.4-12.5) SECONDS INR APTT (26.9-38.3) Seconds pCO2 (35-45) mm/Hg pO2 (80-100) mm/Hg HCO3 (21-28) mmol/L ABG pH (7.35-7.45) ABG Total CO2 (22-28) mmol.L ABG O2 Saturation (95-98) % ABG O2 Content (15-23) ML/dl ABG Base Excess (-2.0-3.0) mmol/L ABG Hemoglobin (11.7-17.4) g/dL ABG Carboxyhemoglobin (0.5-1.5) % POC ABG HHb (Measured) (0-5) % ABG Methemoglobin (0.0-3.0) % ABG O2 Capacity (16-24) mL/dl ABG Potassium (3.6-5.2) mmol/L VBG pH (7.32-7.43) VBG pCO2 (40-60) VBG HCO3 (21-28) mmol/l VBG Total CO2 (22-28) mmol.L VBG O2 Sat (Calc) (40-65) % VBG Base Excess (0.0-2.0) mmol/L VBG Potassium (3.6-5.2) mmol/L Hgb O2 Saturation (95.0-98.0) % Sodium (132-148) mmol/L Chloride (98-107) mmol/L Glucose (75-110) mg/dl Lactate (0.7-2.1) mmol/L Mechanical Rate FiO2 % Tidal Volume PEEP Crit Value Called To Crit Value Called By Blood Gas Notified Time Potassium (3.6-5.0) mmol/L Carbon Dioxide (21-33) mmol/L Anion Gap (10-20) BUN (7-21) mg/dL Creatinine (0.8-1.5) mg/dl Est GFR ( Amer) Est GFR (Non-Af Amer) Random Glucose (70-110) mg/dL Calcium (8.4-10.5) mg/dL Phosphorus (2.5-4.5) mg/dL Magnesium (1.7-2.2) mg/dL Total Bilirubin (0.2-1.3) mg/dL Direct Bilirubin (0.0-0.4) mg/dL AST (17-59) U/L ALT (7-56) U/L Alkaline Phosphatase (38-126) U/L Ammonia (9-33) umol/L Lactate Dehydrogenase 2966 H (333-699) U/L Troponin I ng/mL NT-Pro-B Natriuret Pep (0-450) pg/mL Total Protein (5.8-8.3) g/dL Albumin (3.0-4.8) g/dL Globulin gm/dL Albumin/Globulin Ratio (1.1-1.8) Arterial Blood Potassium (3.6-5.2) mmol/L Venous Blood Potassium (3.6-5.2) mmol/L Urine Color Dark yellow (YELLOW) Urine Appearance Clear (CLEAR) Urine pH 5.5 (4.7-8.0) Ur Specific [place] >= 1.030 (1.005-1.035) Urine Protein Trace H (<30 mg/dL) mg/dL Urine Glucose (UA) Negative (NEGATIVE) mg/dL Urine Ketones Trace H (NEGATIVE) mg/dL Urine Blood Moderate H (NEGATIVE) Urine Nitrate Negative (NEGATIVE) Urine Bilirubin Small H (NEGATIVE) Urine Urobilinogen 2.0 H (<1 E.U./dL) E.U./dL Ur Leukocyte Esterase Negative (NEGATIVE) Breanna/uL Urine RBC 2 - 5 H (0-2) /hpf Urine WBC 0 - 2 (0-6) /hpf Ur Epithelial Cells 0 - 2 (0-5) /hpf Amorphous Sediment Few (NONE) /hpf Urine Bacteria Small (NONE) /hpf Coarse Granular Casts Trace (NONE) /hpf Digoxin (0.8-2.0) ng/mL Salicylates (2.0-20.0) mg/dL Urine Opiates Screen (NEGATIVE) Urine Methadone Screen (NEGATIVE) Acetaminophen (10.0-20.0) ug/ml Ur Barbiturates Screen (NEGATIVE) Ur Phencyclidine Scrn (NEGATIVE) Ur Amphetamines Screen (NEGATIVE) U Benzodiazepines Scrn (NEGATIVE) U Oth Cocaine Metabols (NEGATIVE) U Cannabinoids Screen (NEGATIVE) Hepatitis A IgM Ab Negative (NEGATIVE) Hep Bs Antigen Negative (NEGATIVE) Hep B Core IgM Ab Negative (NEGATIVE) Hepatitis C Antibody Negative (NEGATIVE) 04/01/19 04/01/19 04/01/19 Range/Units 11:00 11:00 11:00 WBC 13.1 H D (4.5-11.0) 10^3/uL RBC 4.75 (3.5-6.1) 10^6/uL Hgb 13.6 L (14.0-18.0) g/dL Hct 42.6 (42.0-52.0) % MCV 89.7 D (80.0-105.0) fl MCH 28.6 (25.0-35.0) pg MCHC 31.9 (31.0-37.0) g/dl RDW 15.0 H (11.5-14.5) % Plt Count 191 (120.0-450.0) 10^3/uL MPV 12.1 H (7.0-11.0) fl Neut % (Auto) 77.0 H (50.0-68.0) % Lymph % (Auto) 12.2 L (22.0-35.0) % [place] % (Auto) 10.7 H (1.0-6.0) % Eos % (Auto) 0.0 L (1.5-5.0) % Baso % (Auto) 0.1 (0.0-3.0) % Lymph # (Auto) 1.6 (1.2-3.4) [place] # (Auto) 1.4 H (0.1-0.6) Eos # (Auto) 0.0 (0.0-0.7) Baso # (Auto) 0.01 (0.0-2.0) K/mm3 Absolute Neuts (auto) 10.11 H (1.4-6.5) PT 30.6 H (9.4-12.5) SECONDS INR 2.71 APTT 44.9 H (26.9-38.3) Seconds pCO2 (35-45) mm/Hg pO2 (80-100) mm/Hg HCO3 (21-28) mmol/L ABG pH (7.35-7.45) ABG Total CO2 (22-28) mmol.L ABG O2 Saturation (95-98) % ABG O2 Content (15-23) ML/dl ABG Base Excess (-2.0-3.0) mmol/L ABG Hemoglobin (11.7-17.4) g/dL ABG Carboxyhemoglobin (0.5-1.5) % POC ABG HHb (Measured) (0-5) % ABG Methemoglobin (0.0-3.0) % ABG O2 Capacity (16-24) mL/dl ABG Potassium (3.6-5.2) mmol/L VBG pH (7.32-7.43) VBG pCO2 (40-60) VBG HCO3 (21-28) mmol/l VBG Total CO2 (22-28) mmol.L VBG O2 Sat (Calc) (40-65) % VBG Base Excess (0.0-2.0) mmol/L VBG Potassium (3.6-5.2) mmol/L Hgb O2 Saturation (95.0-98.0) % Sodium (132-148) mmol/L Chloride (98-107) mmol/L Glucose (75-110) mg/dl Lactate (0.7-2.1) mmol/L Mechanical Rate FiO2 % Tidal Volume PEEP Crit Value Called To Crit Value Called By Blood Gas Notified Time Potassium (3.6-5.0) mmol/L Carbon Dioxide (21-33) mmol/L Anion Gap (10-20) BUN (7-21) mg/dL Creatinine (0.8-1.5) mg/dl Est GFR ( Amer) Est GFR (Non-Af Amer) Random Glucose (70-110) mg/dL Calcium (8.4-10.5) mg/dL Phosphorus (2.5-4.5) mg/dL Magnesium (1.7-2.2) mg/dL Total Bilirubin (0.2-1.3) mg/dL Direct Bilirubin (0.0-0.4) mg/dL AST (17-59) U/L ALT (7-56) U/L Alkaline Phosphatase (38-126) U/L Ammonia (9-33) umol/L Lactate Dehydrogenase (333-699) U/L Troponin I ng/mL NT-Pro-B Natriuret Pep (0-450) pg/mL Total Protein (5.8-8.3) g/dL Albumin (3.0-4.8) g/dL Globulin gm/dL Albumin/Globulin Ratio (1.1-1.8) Arterial Blood Potassium (3.6-5.2) mmol/L Venous Blood Potassium (3.6-5.2) mmol/L Urine Color (YELLOW) Urine Appearance (CLEAR) Urine pH (4.7-8.0) Ur Specific [place] (1.005-1.035) Urine Protein (<30 mg/dL) mg/dL Urine Glucose (UA) (NEGATIVE) mg/dL Urine Ketones (NEGATIVE) mg/dL Urine Blood (NEGATIVE) Urine Nitrate (NEGATIVE) Urine Bilirubin (NEGATIVE) Urine Urobilinogen (<1 E.U./dL) E.U./dL Ur Leukocyte Esterase (NEGATIVE) Breanna/uL Urine RBC (0-2) /hpf Urine WBC (0-6) /hpf Ur Epithelial Cells (0-5) /hpf Amorphous Sediment (NONE) /hpf Urine Bacteria (NONE) /hpf Coarse Granular Casts (NONE) /hpf Digoxin < 0.4 L (0.8-2.0) ng/mL Salicylates 1 L (2.0-20.0) mg/dL Urine Opiates Screen (NEGATIVE) Urine Methadone Screen (NEGATIVE) Acetaminophen < 10.0 L (10.0-20.0) ug/ml Ur Barbiturates Screen (NEGATIVE) Ur Phencyclidine Scrn (NEGATIVE) Ur Amphetamines Screen (NEGATIVE) U Benzodiazepines Scrn (NEGATIVE) U Oth Cocaine Metabols (NEGATIVE) U Cannabinoids Screen (NEGATIVE) Hepatitis A IgM Ab (NEGATIVE) Hep Bs Antigen (NEGATIVE) Hep B Core IgM Ab (NEGATIVE) Hepatitis C Antibody (NEGATIVE) 04/01/19 04/01/19 04/01/19 Range/Units 11:00 11:00 10:38 WBC (4.5-11.0) 10^3/uL RBC (3.5-6.1) 10^6/uL Hgb (14.0-18.0) g/dL Hct (42.0-52.0) % MCV (80.0-105.0) fl MCH (25.0-35.0) pg MCHC (31.0-37.0) g/dl RDW (11.5-14.5) % Plt Count (120.0-450.0) 10^3/uL MPV (7.0-11.0) fl Neut % (Auto) (50.0-68.0) % Lymph % (Auto) (22.0-35.0) % Colbert % (Auto) (1.0-6.0) % Eos % (Auto) (1.5-5.0) % Baso % (Auto) (0.0-3.0) % Lymph # (Auto) (1.2-3.4) Colbert # (Auto) (0.1-0.6) Eos # (Auto) (0.0-0.7) Baso # (Auto) (0.0-2.0) K/mm3 Absolute Neuts (auto) (1.4-6.5) PT (9.4-12.5) SECONDS INR APTT (26.9-38.3) Seconds pCO2 30 L (35-45) mm/Hg pO2 55 167.0 H (80-100) mm/Hg HCO3 19.0 L (21-28) mmol/L ABG pH 7.41 (7.35-7.45) ABG Total CO2 19.9 L (22-28) mmol.L ABG O2 Saturation 99.9 H (95-98) % ABG O2 Content (15-23) ML/dl ABG Base Excess -4.5 L (-2.0-3.0) mmol/L ABG Hemoglobin (11.7-17.4) g/dL ABG Carboxyhemoglobin (0.5-1.5) % POC ABG HHb (Measured) (0-5) % ABG Methemoglobin (0.0-3.0) % ABG O2 Capacity (16-24) mL/dl ABG Potassium 4.0 (3.6-5.2) mmol/L VBG pH 7.28 L (7.32-7.43) VBG pCO2 41.0 (40-60) VBG HCO3 19.3 L (21-28) mmol/l VBG Total CO2 20.6 L (22-28) mmol.L VBG O2 Sat (Calc) 85.7 H (40-65) % VBG Base Excess -7.1 L (0.0-2.0) mmol/L VBG Potassium 4.6 (3.6-5.2) mmol/L Hgb O2 Saturation (95.0-98.0) % Sodium 139 137.0 137.0 (132-148) mmol/L Chloride 103 103.0 109.0 H (98-107) mmol/L Glucose 123 H 193 H (75-110) mg/dl Lactate 7.5 H* 2.2 H (0.7-2.1) mmol/L Mechanical Rate 15 FiO2 21.0 50.0 % Tidal Volume 450 PEEP 5 Crit Value Called To Gloria Crit Value Called By Ab Blood Gas Notified Time 1120 Potassium 4.7 (3.6-5.0) mmol/L Carbon Dioxide 19 L (21-33) mmol/L Anion Gap 21 H (10-20) BUN 34 H (7-21) mg/dL Creatinine 1.8 H (0.8-1.5) mg/dl Est GFR ( Amer) 45 Est GFR (Non-Af Amer) 37 Random Glucose 123 H (70-110) mg/dL Calcium 9.8 (8.4-10.5) mg/dL Phosphorus 5.5 H (2.5-4.5) mg/dL Magnesium 2.3 H (1.7-2.2) mg/dL Total Bilirubin 3.3 H (0.2-1.3) mg/dL Direct Bilirubin (0.0-0.4) mg/dL AST 1322 H (17-59) U/L ALT 993 H (7-56) U/L Alkaline Phosphatase 85 (38-126) U/L Ammonia (9-33) umol/L Lactate Dehydrogenase (333-699) U/L Troponin I 0.08 D ng/mL NT-Pro-B Natriuret Pep 87004 H (0-450) pg/mL Total Protein 6.5 (5.8-8.3) g/dL Albumin 3.6 (3.0-4.8) g/dL Globulin 2.9 gm/dL Albumin/Globulin Ratio 1.3 (1.1-1.8) Arterial Blood Potassium 4.0 (3.6-5.2) mmol/L Venous Blood Potassium 4.6 (3.6-5.2) mmol/L Urine Color (YELLOW) Urine Appearance (CLEAR) Urine pH (4.7-8.0) Ur Specific [place] (1.005-1.035) Urine Protein (<30 mg/dL) mg/dL Urine Glucose (UA) (NEGATIVE) mg/dL Urine Ketones (NEGATIVE) mg/dL Urine Blood (NEGATIVE) Urine Nitrate (NEGATIVE) Urine Bilirubin (NEGATIVE) Urine Urobilinogen (<1 E.U./dL) E.U./dL Ur Leukocyte Esterase (NEGATIVE) Breanna/uL Urine RBC (0-2) /hpf Urine WBC (0-6) /hpf Ur Epithelial Cells (0-5) /hpf Amorphous Sediment (NONE) /hpf Urine Bacteria (NONE) /hpf Coarse Granular Casts (NONE) /hpf Digoxin (0.8-2.0) ng/mL Salicylates (2.0-20.0) mg/dL Urine Opiates Screen (NEGATIVE) Urine Methadone Screen (NEGATIVE) Acetaminophen (10.0-20.0) ug/ml Ur Barbiturates Screen (NEGATIVE) Ur Phencyclidine Scrn (NEGATIVE) Ur Amphetamines Screen (NEGATIVE) U Benzodiazepines Scrn (NEGATIVE) U Oth Cocaine Metabols (NEGATIVE) U Cannabinoids Screen (NEGATIVE) Hepatitis A IgM Ab (NEGATIVE) Hep Bs Antigen (NEGATIVE) Hep B Core IgM Ab (NEGATIVE) Hepatitis C Antibody (NEGATIVE) Laboratory Results - last 24 hr 04/01/19 04/01/19 04/01/19 10:38 11:00 11:00 WBC RBC Hgb Hct MCV MCH MCHC RDW Plt Count MPV Neut % (Auto) Lymph % (Auto) [place] % (Auto) Eos % (Auto) Baso % (Auto) Lymph # (Auto) [place] # (Auto) Eos # (Auto) Baso # (Auto) Absolute Neuts (auto) PT INR APTT pCO2 30 L pO2 167.0 H 55 HCO3 19.0 L ABG pH 7.41 ABG Total CO2 19.9 L ABG O2 Saturation 99.9 H ABG O2 Content ABG Base Excess -4.5 L ABG Hemoglobin ABG Carboxyhemoglobin POC ABG HHb (Measured) ABG Methemoglobin ABG O2 Capacity ABG Potassium 4.0 VBG pH 7.28 L VBG pCO2 41.0 VBG HCO3 19.3 L VBG Total CO2 20.6 L VBG O2 Sat (Calc) 85.7 H VBG Base Excess -7.1 L VBG Potassium 4.6 Hgb O2 Saturation Sodium 137.0 137.0 139 Chloride 109.0 H 103.0 103 Glucose 193 H 123 H Lactate 2.2 H 7.5 H* Mechanical Rate 15 FiO2 50.0 21.0 Tidal Volume 450 PEEP 5 Crit Value Called To Gloria Crit Value Called By Ab Blood Gas Notified Time 1120 Potassium 4.7 Carbon Dioxide 19 L Anion Gap 21 H BUN 34 H Creatinine 1.8 H Est GFR ( Amer) 45 Est GFR (Non-Af Amer) 37 Random Glucose 123 H Calcium 9.8 Phosphorus 5.5 H Magnesium 2.3 H Total Bilirubin 3.3 H Direct Bilirubin AST 1322 H ALT 993 H Alkaline Phosphatase 85 Ammonia Lactate Dehydrogenase Troponin I 0.08 D NT-Pro-B Natriuret Pep 36469 H Total Protein 6.5 Albumin 3.6 Globulin 2.9 Albumin/Globulin Ratio 1.3 Arterial Blood Potassium 4.0 Venous Blood Potassium 4.6 Urine Color Urine Appearance Urine pH Ur Specific [place] Urine Protein Urine Glucose (UA) Urine Ketones Urine Blood Urine Nitrate Urine Bilirubin Urine Urobilinogen Ur Leukocyte Esterase Urine RBC Urine WBC Ur Epithelial Cells Amorphous Sediment Urine Bacteria Coarse Granular Casts Digoxin Salicylates Urine Opiates Screen Urine Methadone Screen Acetaminophen Ur Barbiturates Screen Ur Phencyclidine Scrn Ur Amphetamines Screen U Benzodiazepines Scrn U Oth Cocaine Metabols U Cannabinoids Screen Hepatitis A IgM Ab Hep Bs Antigen Hep B Core IgM Ab Hepatitis C Antibody 04/01/19 04/01/19 04/01/19 11:00 11:00 11:00 WBC 13.1 H D RBC 4.75 Hgb 13.6 L Hct 42.6 MCV 89.7 D MCH 28.6 MCHC 31.9 RDW 15.0 H Plt Count 191 MPV 12.1 H Neut % (Auto) 77.0 H Lymph % (Auto) 12.2 L Colbert % (Auto) 10.7 H Eos % (Auto) 0.0 L Baso % (Auto) 0.1 Lymph # (Auto) 1.6 Colbert # (Auto) 1.4 H Eos # (Auto) 0.0 Baso # (Auto) 0.01 Absolute Neuts (auto) 10.11 H PT 30.6 H INR 2.71 APTT 44.9 H pCO2 pO2 HCO3 ABG pH ABG Total CO2 ABG O2 Saturation ABG O2 Content ABG Base Excess ABG Hemoglobin ABG Carboxyhemoglobin POC ABG HHb (Measured) ABG Methemoglobin ABG O2 Capacity ABG Potassium VBG pH VBG pCO2 VBG HCO3 VBG Total CO2 VBG O2 Sat (Calc) VBG Base Excess VBG Potassium Hgb O2 Saturation Sodium Chloride Glucose Lactate Mechanical Rate FiO2 Tidal Volume PEEP Crit Value Called To Crit Value Called By Blood Gas Notified Time Potassium Carbon Dioxide Anion Gap BUN Creatinine Est GFR ( Amer) Est GFR (Non-Af Amer) Random Glucose Calcium Phosphorus Magnesium Total Bilirubin Direct Bilirubin AST ALT Alkaline Phosphatase Ammonia Lactate Dehydrogenase Troponin I NT-Pro-B Natriuret Pep Total Protein Albumin Globulin Albumin/Globulin Ratio Arterial Blood Potassium Venous Blood Potassium Urine Color Urine Appearance Urine pH Ur Specific [place] Urine Protein Urine Glucose (UA) Urine Ketones Urine Blood Urine Nitrate Urine Bilirubin Urine Urobilinogen Ur Leukocyte Esterase Urine RBC Urine WBC Ur Epithelial Cells Amorphous Sediment Urine Bacteria Coarse Granular Casts Digoxin < 0.4 L Salicylates 1 L Urine Opiates Screen Urine Methadone Screen Acetaminophen < 10.0 L Ur Barbiturates Screen Ur Phencyclidine Scrn Ur Amphetamines Screen U Benzodiazepines Scrn U Oth Cocaine Metabols U Cannabinoids Screen Hepatitis A IgM Ab Hep Bs Antigen Hep B Core IgM Ab Hepatitis C Antibody 04/01/19 04/01/19 04/01/19 11:00 11:09 11:50 WBC RBC Hgb Hct MCV MCH MCHC RDW Plt Count MPV Neut % (Auto) Lymph % (Auto) Colbert % (Auto) Eos % (Auto) Baso % (Auto) Lymph # (Auto) Colbert # (Auto) Eos # (Auto) Baso # (Auto) Absolute Neuts (auto) PT INR APTT pCO2 pO2 HCO3 ABG pH ABG Total CO2 ABG O2 Saturation ABG O2 Content ABG Base Excess ABG Hemoglobin ABG Carboxyhemoglobin POC ABG HHb (Measured) ABG Methemoglobin ABG O2 Capacity ABG Potassium VBG pH VBG pCO2 VBG HCO3 VBG Total CO2 VBG O2 Sat (Calc) VBG Base Excess VBG Potassium Hgb O2 Saturation Sodium Chloride Glucose Lactate Mechanical Rate FiO2 Tidal Volume PEEP Crit Value Called To Crit Value Called By Blood Gas Notified Time Potassium Carbon Dioxide Anion Gap BUN Creatinine Est GFR ( Amer) Est GFR (Non-Af Amer) Random Glucose Calcium Phosphorus Magnesium Total Bilirubin Direct Bilirubin AST ALT Alkaline Phosphatase Ammonia Lactate Dehydrogenase 2966 H Troponin I NT-Pro-B Natriuret Pep Total Protein Albumin Globulin Albumin/Globulin Ratio Arterial Blood Potassium Venous Blood Potassium Urine Color Dark yellow Urine Appearance Clear Urine pH 5.5 Ur Specific [place] >= 1.030 Urine Protein Trace H Urine Glucose (UA) Negative Urine Ketones Trace H Urine Blood Moderate H Urine Nitrate Negative Urine Bilirubin Small H Urine Urobilinogen 2.0 H Ur Leukocyte Esterase Negative Urine RBC 2 - 5 H Urine WBC 0 - 2 Ur Epithelial Cells 0 - 2 Amorphous Sediment Few Urine Bacteria Small Coarse Granular Casts Trace Digoxin Salicylates Urine Opiates Screen Urine Methadone Screen Acetaminophen Ur Barbiturates Screen Ur Phencyclidine Scrn Ur Amphetamines Screen U Benzodiazepines Scrn U Oth Cocaine Metabols U Cannabinoids Screen Hepatitis A IgM Ab Negative Hep Bs Antigen Negative Hep B Core IgM Ab Negative Hepatitis C Antibody Negative 04/01/19 04/01/19 04/01/19 15:15 16:37 18:50 WBC RBC Hgb Hct MCV MCH MCHC RDW Plt Count MPV Neut % (Auto) Lymph % (Auto) Colbert % (Auto) Eos % (Auto) Baso % (Auto) Lymph # (Auto) Colbert # (Auto) Eos # (Auto) Baso # (Auto) Absolute Neuts (auto) PT INR APTT pCO2 pO2 41 101 H HCO3 ABG pH ABG Total CO2 ABG O2 Saturation ABG O2 Content ABG Base Excess ABG Hemoglobin ABG Carboxyhemoglobin POC ABG HHb (Measured) ABG Methemoglobin ABG O2 Capacity ABG Potassium VBG pH 7.38 7.02 L* VBG pCO2 32.0 L 17.0 L* VBG HCO3 18.9 L 4.4 L VBG Total CO2 19.9 L 4.9 L VBG O2 Sat (Calc) 73.8 H 99.0 H VBG Base Excess -5.2 L -24.9 L VBG Potassium 4.5 0.9 L* Hgb O2 Saturation Sodium 137.0 145.0 Chloride 105.0 > 170.0 H Glucose 115 H 26 L* D Lactate 5.3 H* 1.0 Mechanical Rate FiO2 21.0 21.0 Tidal Volume PEEP Crit Value Called To [place] [id number] Blood Gas Notified Time [id number] Potassium Carbon Dioxide Anion Gap BUN Creatinine Est GFR ( Amer) Est GFR (Non-Af Amer) Random Glucose Calcium Phosphorus Magnesium Total Bilirubin Direct Bilirubin AST ALT Alkaline Phosphatase Ammonia 13 Lactate Dehydrogenase Troponin I NT-Pro-B Natriuret Pep Total Protein Albumin Globulin Albumin/Globulin Ratio Arterial Blood Potassium Venous Blood Potassium 4.5 0.9 L* Urine Color Urine Appearance Urine pH Ur Specific [place] Urine Protein Urine Glucose (UA) Urine Ketones Urine Blood Urine Nitrate Urine Bilirubin Urine Urobilinogen Ur Leukocyte Esterase Urine RBC Urine WBC Ur Epithelial Cells Amorphous Sediment Urine Bacteria Coarse Granular Casts Digoxin Salicylates Urine Opiates Screen Urine Methadone Screen Acetaminophen Ur Barbiturates Screen Ur Phencyclidine Scrn Ur Amphetamines Screen U Benzodiazepines Scrn U Oth Cocaine Metabols U Cannabinoids Screen Hepatitis A IgM Ab Hep Bs Antigen Hep B Core IgM Ab Hepatitis C Antibody 04/01/19 04/02/19 04/02/19 20:04 06:15 07:00 WBC 11.3 H RBC 4.31 Hgb 12.1 L Hct 38.1 L MCV 88.4 MCH 28.1 MCHC 31.8 RDW 15.1 H Plt Count 146 MPV 11.3 H Neut % (Auto) 85.6 H Lymph % (Auto) 8.7 L Colbert % (Auto) 5.6 Eos % (Auto) 0.0 L Baso % (Auto) 0.1 Lymph # (Auto) 1.0 L Colbert # (Auto) 0.6 Eos # (Auto) 0.0 Baso # (Auto) 0.01 Absolute Neuts (auto) 9.70 H PT INR APTT pCO2 34 L pO2 129.0 H HCO3 22.1 ABG pH 7.42 ABG Total CO2 23.1 ABG O2 Saturation 99.9 H ABG O2 Content 15.7 ABG Base Excess -1.9 ABG Hemoglobin 11.3 L ABG Carboxyhemoglobin 1.8 H POC ABG HHb (Measured) 0.1 ABG Methemoglobin 0.7 ABG O2 Capacity 15.7 L ABG Potassium VBG pH VBG pCO2 VBG HCO3 VBG Total CO2 VBG O2 Sat (Calc) VBG Base Excess VBG Potassium Hgb O2 Saturation 97.4 Sodium Chloride Glucose Lactate Mechanical Rate FiO2 50.0 Tidal Volume PEEP Crit Value Called To Crit Value Called By Blood Gas Notified Time Potassium Carbon Dioxide Anion Gap BUN Creatinine Est GFR ( Amer) Est GFR (Non-Af Amer) Random Glucose Calcium Phosphorus Magnesium Total Bilirubin Direct Bilirubin AST ALT Alkaline Phosphatase Ammonia Lactate Dehydrogenase Troponin I NT-Pro-B Natriuret Pep Total Protein Albumin Globulin Albumin/Globulin Ratio Arterial Blood Potassium Venous Blood Potassium Urine Color Urine Appearance Urine pH Ur Specific [place] Urine Protein Urine Glucose (UA) Urine Ketones Urine Blood Urine Nitrate Urine Bilirubin Urine Urobilinogen Ur Leukocyte Esterase Urine RBC Urine WBC Ur Epithelial Cells Amorphous Sediment Urine Bacteria Coarse Granular Casts Digoxin Salicylates Urine Opiates Screen Negative Urine Methadone Screen Negative Acetaminophen Ur Barbiturates Screen Negative Ur Phencyclidine Scrn Negative Ur Amphetamines Screen Negative U Benzodiazepines Scrn Positive H U Oth Cocaine Metabols Negative U Cannabinoids Screen Negative Hepatitis A IgM Ab Hep Bs Antigen Hep B Core IgM Ab Hepatitis C Antibody 04/02/19 04/02/19 04/02/19 07:00 07:00 08:32 WBC RBC Hgb Hct MCV MCH MCHC RDW Plt Count MPV Neut % (Auto) Lymph % (Auto) Colbert % (Auto) Eos % (Auto) Baso % (Auto) Lymph # (Auto) [place]bert # (Auto) Eos # (Auto) Baso # (Auto) Absolute Neuts (auto) PT 28.9 H INR 2.56 APTT 42.7 H pCO2 pO2 HCO3 ABG pH ABG Total CO2 ABG O2 Saturation ABG O2 Content ABG Base Excess ABG Hemoglobin ABG Carboxyhemoglobin POC ABG HHb (Measured) ABG Methemoglobin ABG O2 Capacity ABG Potassium VBG pH VBG pCO2 VBG HCO3 VBG Total CO2 VBG O2 Sat (Calc) VBG Base Excess VBG Potassium Hgb O2 Saturation Sodium 141 Chloride 108 H Glucose Lactate Mechanical Rate FiO2 Tidal Volume PEEP Crit Value Called To Crit Value Called By Blood Gas Notified Time Potassium 3.5 L Carbon Dioxide 27 Anion Gap 10 BUN 40 H Creatinine 1.4 Est GFR ( Amer) > 60 Est GFR (Non-Af Amer) 50 Random Glucose 138 H Calcium 8.8 Phosphorus 2.9 Magnesium 2.4 H Total Bilirubin 2.6 H Direct Bilirubin 1.4 H AST 960 H D ALT 1029 H Alkaline Phosphatase 61 Ammonia Lactate Dehydrogenase Troponin I 0.09 NT-Pro-B Natriuret Pep Total Protein 5.4 L Albumin 2.8 L Globulin 2.7 Albumin/Globulin Ratio 1.0 L Arterial Blood Potassium Venous Blood Potassium Urine Color Urine Appearance Urine pH Ur Specific [place] Urine Protein Urine Glucose (UA) Urine Ketones Urine Blood Urine Nitrate Urine Bilirubin Urine Urobilinogen Ur Leukocyte Esterase Urine RBC Urine WBC Ur Epithelial Cells Amorphous Sediment Urine Bacteria Coarse Granular Casts Digoxin Salicylates Urine Opiates Screen Urine Methadone Screen Acetaminophen Ur Barbiturates Screen Ur Phencyclidine Scrn Ur Amphetamines Screen U Benzodiazepines Scrn U Oth Cocaine Metabols U Cannabinoids Screen Hepatitis A IgM Ab Hep Bs Antigen Hep B Core IgM Ab Hepatitis C Antibody Radiology Impressions: Radiology Impressions Chest X-Ray 04/01/19 10:39 IMPRESSION: No active pulmonary disease. Moderate pulmonary venous congestion. Abdomen Ultrasound 04/01/19 11:50 IMPRESSION: 1. Cholelithiasis. Diffuse gallbladder wall thickening is likely secondary to systemic disease. 2. Chronic renal parenchymal disease. 3. Diffuse increased echogenicity in the liver with coarse echotexture may reflect hepatic steatosis however parenchymal infectious/ inflammatory etiologies cannot be entirely excluded. Clinical and laboratory correlation is advised. Head CT 04/01/19 13:08 IMPRESSION: No acute intracranial abnormality. Small left frontal scalp hematoma. Mild chronic microangiopathic changes and moderate age-related global parenchymal volume loss. Chest X-Ray 04/01/19 17:08 IMPRESSION: Moderate cardiomegaly, mild pulmonary venous congestion and interstitial pulmonary edema. EKG/Cardiology Studies: Cardiology / EKG Studies 04/01/19 10:38 EKG [ELECTROCARDIOGRAM] Stat Comment: Reason For Exam: chest pain Review of Systems - Review of Systems Systems not reviewed;Unavailable: Intubated Critical Care Progress Note - Nutrition Nutrition: Nutrition Category Date Time Status NPO Diet [DIET] Diets 04/01/19 Breakfast Ordered Assessment/Plan - Assessment and Plan (Free Text) Assessment: 73 yo male with PMHx significant for ischemic cardiomyopathy (EF in 2014 10-15%, elevated RVSP 45, status post AICD), COPD and schizophrenia who was brought in by ambulance for altered mental status. Currently in ICU for multi system organ failure. Neuro: -GCS 3T, currently sedated on Propofol -Monitor neuro status. -Reorient patient as necessary. Cardio: -L IJ access, L sided dual lead pacemaker -Continue stress dose steroids -Continue Dobutamine drip -proBNP>40,000, EF 15% -Maintain MAP>65. -Monitor for S/S, HD compromise. -Cardiology on Consult - Dr. Taylor - recs appreciated Pulm: -PRVC 50/15/5/450 currently -Begin pressure support trial along with Lasix 40 mg IVP -F/u ABG in afternoon -Maintain O2 saturation>92%. -O2 NC PRN -Vent: protective lung ventilation strategy, aspiration precautions -CXR: proper placement of ETT, f/u official read -Elevate bed to 30 degrees GI: -NPO -Protonix -c/w hepatoprotective 3/3 dose of NAC -s/p Lactulose, possibility of congestive hepatopathy 2/2 congestive heart failure -F/U Abd U/S -GI on consult - Dr. Bailey - further recs appreciated. [facility] was notified of the patient but patient reportedly too unstable for transfer /Nephro: -GO likely 2/2 congestive nephropathy -Good urine output through Eric -Continue monitoring. -Replete electrolytes as needed. Hypokalemia repleted -Maintain euvolemia. Endocrinology: -Random glucose: 138 -Maintain euglycemia. Heme/Onc: -H/H stable -No signs of HD compromise. -Continue monitoring H/H ID: -C/w broad spectrum ABx -Follow up BCx, UCx, Procalcitonin -Monitor for signs and symptoms of infection. -ID on consult - Dr. Gavin - recs appreciated DVT prophylaxis: Heparin SC GI prophylaxis: PTX Patient seen, case reviewed and plan approved by Dr. Denney. Tony Uribe, PGY-1
--- NOTE | 2019-04-02 10:13 | RAD ---
Date of service: 04/01/2019 HISTORY: line placement COMPARISON: No prior. TECHNIQUE: Six view obtained. FINDINGS: LUNGS: Multiple films were obtained for placement of a nasogastric tube. The final film shows the tube below the diaphragm in satisfactory position. The endotracheal tube is also in satisfactory position. There is a left IJ line in the SVC with no pneumothorax PLEURA: No significant pleural effusion identified, no pneumothorax apparent. CARDIOVASCULAR: Aortic calcification Mild cardiomegaly no pulmonary vascular congestion. OSSEOUS STRUCTURES: Sternal wires VISUALIZED UPPER ABDOMEN: Normal. OTHER FINDINGS: Dual lead pacemaker IMPRESSION: Multiple films were obtained for placement of a nasogastric tube. The final film shows the tube below the diaphragm in satisfactory position. The endotracheal tube is also in satisfactory position. There is a left IJ line in the SVC with no pneumothorax
--- NOTE | 2019-04-02 10:51 | CP.PCM.PN ---
<Dimitri Gifford - Last Filed: 04/02/19 16:20> Subjective - Date & Time of Evaluation Date of Evaluation: 04/02/19 Time of Evaluation: 07:45 - Subjective Subjective: PGY6 GI Fellow Progress Note Patient seen and examined bedside this morning. The patient is intubated and sedated on propofol at this time. No further history obtained and no family has been able to be contacted thus far. 12 system ROS cannot be completed given clinical condition Objective - Vital Signs/Intake and Output Vital Signs (last 24 hours): Temp Pulse Resp BP Pulse Ox 97.5 F L 71 15 103/59 L 99 04/02/19 09:00 04/02/19 09:00 04/01/19 22:15 04/02/19 09:00 04/02/19 09:00 Intake and Output: 04/02/19 04/02/19 06:59 18:59 Intake Total 825 Output Total 650 Balance 175 - Medications Medications: Current Medications Hydrocortisone Sodium Succinate (Solu-Cortef) 50 mg IVP Q6H [facility] Last Admin: 04/02/19 08:32 Dose: 50 mg Sodium Chloride (Sodium Chloride 0.9%) 2,600 mls @ 500 mls/hr IV .Q5H12M [facility] Last Admin: 04/01/19 17:00 Dose: 500 mls/hr Acetylcysteine 10,000 mg/ (Dextrose) 1,050 mls @ 62.5 mls/hr IV .[id number] ONE Stop: 04/02/19 14:57 Last Admin: 04/02/19 01:00 Dose: 62.5 mls/hr Dobutamine HCl/Dextrose (Dobutamine/Dextrose 5% 500mg/250ml) 500 mg in 250 mls @ 6.464 mls/hr IV .Q24H PRN; Protocol PRN Reason: TITRATE PER PROTOCOL Last Admin: 04/01/19 18:03 Dose: 2.5 mcg/kg/min, 6.464 mls/hr NOREPINEPHRINE BIT/0.9 % NACL (Levophed 4 Mg/ 250 Ml Ns Premixed) 4 mg in 250 mls @ 15 mls/hr IV .[id number] PRN; Protocol PRN Reason: TITRATE PER MD ORDER Vasopressin 20 units/ Sodium (Chloride) 101 mls @ 9.09 mls/hr IV .Q11H7M AFSANEH; Protocol Last Admin: 04/01/19 18:41 Dose: Not Given Propofol (Diprivan) 1,000 mg in 100 mls @ 2.585 mls/hr IV .Q24H PRN; Protocol PRN Reason: TITRATE PER MD ORDER Last Titration: 04/02/19 06:00 Dose: 10 mcg/kg/min, 5.171 mls/hr Pantoprazole Sodium (Protonix Inj) 40 mg IVP DAILY [facility] Last Admin: 04/01/19 18:05 Dose: 40 mg - Labs Labs: 04/02/19 07:00 04/02/19 07:00 PT 28.9 SECONDS (9.4-12.5) H 04/02/19 07:00 INR 2.56 04/02/19 07:00 APTT 42.7 Seconds (26.9-38.3) H 04/02/19 07:00 - Constitutional Appears: Other (intubated, sedated) - Eye Exam Eye Exam: PERRL (sluggish) - ENT Exam ENT Exam: Mucous Membranes Moist Additional comments: ETT in place to vent - Respiratory Exam Respiratory Exam: Clear to Ausculation Bilateral. absent: Rales, Rhonchi, Wheezes - Cardiovascular Exam Cardiovascular Exam: RRR, +S1, +S2 - GI/Abdominal Exam GI & Abdominal Exam: Soft, Normal Bowel Sounds. absent: Distended, Firm, Guarding, Rigid, Tenderness, Organomegaly - Extremities Exam Extremities Exam: Normal Inspection. absent: Pedal Edema - Neurological Exam Additional comments: sedated on propofol - Skin Skin Exam: Dry, Warm Assessment and Plan - Assessment and Plan (Free Text) Assessment: Patient is a 73yo male with PMHx significant for ischemic cardiomyopathy (EF in 2014 10-15%, elevated RVSP 45, status post AICD), Parkinson's disease, COPD and schizophrenia who was brought in by ambulance for altered mental status. -Multi-organ system failure (Cardiac, liver, pulmonary) -Acute encephalopathy, elevated LFTs and coagulopathy - concern for acute liver failure -GO question of cardiorenal syndrome -Systolic congestive heart failure -Concern for drug overdose - ? Ambien overdose Plan: -In review of the chart patient had presented to the ED one day prior to presentation for this admission for difficulty sleeping and staff documenting use of medications from family without physician knowledge - patient known to be on Ambien for sleep -Intubated and sedated at present time -LFTs and PT/INR downtrending with exception for ALT which may lag behind other labs -U/S noted - GB wall thickening possibly 2/2 systemic disease, cannot exclude cholecystitis - on broad spectrum anti-infective agents -Agree with NAC therapy - currently infusing -Patient requiring Dobutamine gtt -Would encourage repeat echocardiogram - particularly given significant BNP elevation and known cardiac disease -Consideration for Ambien overdose should be taken - NAC ordered as stated -No overt bleeding noted -Viral hepatitis serologies negative -I have attempted to reach out to the patient's sister whose name is listed in the chart but she did not answer a phone call at 1047am today -[facility] was notified of the patient but patient too unstable for transfer and was not considered liver transplant candidate - clinical status relatively unchanged with exception for downtrending lab values and intubation/sedation - will continue to monitor progress and update as needed -Cardiology, neurology consults should be considered -ID following -Case discussed with ICU staff and GI attending <Kathie Bailey V - Last Filed: 04/11/19 18:45> Objective - Vital Signs/Intake and Output Vital Signs (last 24 hours): Temp Pulse Resp BP Pulse Ox 99 F 82 24 105/58 L 95 04/09/19 14:00 04/09/19 15:00 04/09/19 14:30 04/09/19 14:00 04/09/19 14:50 - Labs Labs: 04/08/19 05:30 04/08/19 05:30 PT 12.2 SECONDS (9.4-12.5) 04/06/19 08:15 INR 1.08 04/06/19 08:15 APTT 36.5 Seconds (26.9-38.3) 04/06/19 08:15 Attending/Attestation - Attestation I have personally seen and examined this patient.: Yes I have fully participated in the care of the patient.: Yes I have reviewed all pertinent clinical information, including history, physical exam and plan: Yes Notes (Text): This is a delayed addendum to the progress report dictated by the fellow. The patient was seen and evaluated along with the GI fellow earlier. Acute liver failure probably secondary to ischemia versus drug overdose to be considered. Patient has been treated with the NAC. [facility] has been contacted regarding this patient. Follow-up LFTs and INR. Continue close ICU monitoring 04/11/19 18:44
[2019-04-02] MEDS ORDERED: DOBUTamine 500mg/250ml D5W 500 MG/250 ML BAG IV PRN (11:26)
[2019-04-02] MEDS ORDERED: DEXTROSE 5% IV ONE (11:36)
[2019-04-02] MEDS ORDERED: ACETYLCYSTEINE IV ONE (11:36)
[2019-04-02] MEDS ORDERED: WATER IV ONE (11:36)
--- NOTE | 2019-04-02 11:40 | RAD ---
Date of service: 04/02/2019 HISTORY: CHF COMPARISON: 04/01/2019 FINDINGS: Endotracheal tube terminates in the mid trachea. The nasogastric tube terminates in the stomach. The left IJV line terminates in the SVC. LUNGS: The lungs are well inflated. There is moderate pulmonary venous congestion. PLEURA: No pleural effusions or pneumothorax. CARDIOVASCULAR: Persistent moderate cardiomegaly. Status post CABG. There is stable position of left-sided dual lead permanent pacing device. No aortic atherosclerotic calcifications present. OSSEOUS STRUCTURES: Within normal limits for the patient's age. VISUALIZED UPPER ABDOMEN: Normal. OTHER FINDINGS: None. IMPRESSION: No active pulmonary disease. Persistent moderate cardiomegaly and pulmonary venous congestion. Stable position of support line and tubes.
[2019-04-02 12:01] LABS: ARTERIAL BLOOD GAS HCO3 21.9 mmol/L (21-28); ARTERIAL BLOOD GAS HEMOGLOBIN 13.3 g/dL (11.7-17.4); ARTERIAL BLOOD GAS O2 CAPACITY 18.4 mL/dl (16-24); ARTERIAL BLOOD GAS O2 CONTENT 18.2 ML/dl (15-23); ARTERIAL BLOOD GAS O2 SAT 98.7 % (95-98); ARTERIAL BLOOD GAS PCO2 50 mm/Hg (35-45); ARTERIAL BLOOD GAS PH 7.25 (7.35-7.45); ARTERIAL BLOOD GAS TCO2 23.4 mmol.L (22-28)
--- NOTE | 2019-04-02 12:48 | CP.PCM.HP ---
<Sky Cavanaugh - Last Filed: 04/02/19 13:04> History of Present Illness - History of Present Illness History of Present Illness: Sky Cavanaugh D.O. PGY-3, Internal Medicine Resident, Dr. Jose's Service, H&P CC: AMS unknown duration 73-year-old male, CAD status post CABG, carotid stenosis status post CEA status post stenting, heart failure with reduced ejection fraction of 10-15%, status post AICD, Parkinson's disease, COPD, hypertension, schizophrenia who presented for altered mental status. Upon presentation to the emergency room, the patient was found to be severely altered and was intubated for airway protection. Patient further decompensation and was admitted to the ICU central line placement for which to receive pressors. Currently patient is intubated and sedated in the ICU further history cannot be obtained other than what has been seen in the chart. ROS unobtainable PMH: As above PSH: CEA, AICD insertion FH: Unobtainable SH: nonsmoker and nondrinker per chart history Allergies: NKA Meds: last known reviewed PMD: Dr. Martinez Present on Admission - Present on Admission Any Indicators Present on Admission: No Review of Systems - Review of Systems Systems not reviewed;Unavailable: Intubated Past Patient History - Infectious Disease Hx of Infectious Diseases: None - Tetanus Immunizations Tetanus Immunization: Unknown - Past Social History Smoking Status: Former Smoker - CARDIAC Hx Angina: Yes Hx Cardia Arrhythmia: Yes Hx Hypertension: Yes Hx Internal Defibrillator: Yes (4 yrs ago) - PULMONARY Hx Respiratory Disorders: No Hx Asthma: No Hx Bronchitis: No Hx Chronic Obstructive Pulmonary Disease (COPD): No Hx Emphysema: No - NEUROLOGICAL Hx Parkinson's Disease: Yes - HEENT Hx HEENT Problems: Yes (wears glasses) Hx Blind: No Hx Cataracts: No Hx Deafness: No Hx Difficulty Chewing: No Hx Epistaxis: No Hx Glaucoma: No Hx Macular Degeneration: No - RENAL Hx Chronic Kidney Disease: No Hx Renal Failure: No - ENDOCRINE/METABOLIC Hx Diabetes Insipidus: No Hx Hyperthyroidism: No Hx Hypothyroidism: No - HEMATOLOGICAL/ONCOLOGICAL Hx Anemia: No Hx Cancer: No Hx Hepatitis A: No Hx Hepatitis B: No Hx Hepatitis C: No - INTEGUMENTARY Hx Dermatological Problems: No Other/Comment: HEALING ABRASIONS POST FALL AT HOME. ON HIS RIGHT STALLINGS (2 YEARS AGO - MUSCULOSKELETAL/RHEUMATOLOGICAL Hx Falls: Yes - GASTROINTESTINAL Hx Gastrointestinal Disorders: No - GENITOURINARY/GYNECOLOGICAL Hx Genitourinary Disorders: No Hx Hematuria: No Hx Incontinence: No Hx Prostate Problems: No Hx Sexually Transmitted Disorders: No Hx Urinary Tract Infection: No - PSYCHIATRIC Hx Psychophysiologic Disorder: Yes Hx Depression: No Hx Emotional Abuse: No Hx Hallucinations: Yes Hx Physical Abuse: No Hx Schizophrenia: Yes (DX AT AGE 43 YRS OLD) Hx Sexual Abuse: No Hx Substance Use: No - SURGICAL HISTORY Hx Carotid Endarterectomy: (STENT) Hx Coronary Artery Bypass Graft: Yes - ANESTHESIA Hx Anesthesia: Yes Hx Anesthesia Reactions: No Hx Malignant Hyperthermia: No Meds Allergies/Adverse Reactions: Allergies Allergy/AdvReac Type Severity Reaction Status Date / Time No Known Allergies Allergy Verified 10/10/16 13:59 Physical Exam - Constitutional Appears: No Acute Distress, Chronically Ill - Head Exam Head Exam: ATRAUMATIC, NORMOCEPHALIC - Eye Exam Eye Exam: EOMI, PERRL. absent: Scleral icterus - ENT Exam ENT Exam: Mucous Membranes Moist Additional comments: intubated - Neck Exam Neck exam: Positive for: Normal Inspection. Negative for: Lymphadenopathy - Respiratory Exam Respiratory Exam: Clear to Auscultation Bilateral. absent: Rales, Rhonchi, Wheezes - Cardiovascular Exam Cardiovascular Exam: RRR, +S1, +S2, Systolic Murmur (2/6). absent: Gallop, Rubs - GI/Abdominal Exam GI & Abdominal Exam: Distended (mildly), Soft. absent: Tenderness - Extremities Exam Extremities exam: Positive for: normal capillary refill. Negative for: pedal edema - Neurological Exam Additional comments: sedated, withdraws all extremities to pain - Skin Skin Exam: Dry, Warm Results - Vital Signs Recent Vital Signs: Last Vital Signs Temp 97.5 F L 04/02/19 09:00 Pulse 71 04/02/19 09:00 Resp 15 04/01/19 22:15 BP 107/70 04/02/19 11:16 Pulse Ox 99 04/02/19 09:00 - Labs Result Diagrams: 04/02/19 07:00 04/02/19 07:00 Labs: Laboratory Results - last 24 hr 04/01/19 04/01/19 04/01/19 10:38 11:00 11:09 WBC RBC Hgb Hct MCV MCH MCHC RDW Plt Count MPV Neut % (Auto) Lymph % (Auto) [place] % (Auto) Eos % (Auto) Baso % (Auto) Lymph # (Auto) [place] # (Auto) Eos # (Auto) Baso # (Auto) Absolute Neuts (auto) PT INR APTT pCO2 30 L pO2 167.0 H HCO3 19.0 L ABG pH 7.41 ABG Total CO2 19.9 L ABG O2 Saturation 99.9 H ABG O2 Content ABG Base Excess -4.5 L ABG Hemoglobin ABG Carboxyhemoglobin POC ABG HHb (Measured) ABG Methemoglobin ABG O2 Capacity ABG Potassium 4.0 VBG pH VBG pCO2 VBG HCO3 VBG Total CO2 VBG O2 Sat (Calc) VBG Base Excess VBG Potassium Hgb O2 Saturation Sodium 137.0 Chloride 109.0 H Glucose 193 H Lactate 2.2 H Mechanical Rate 15 FiO2 50.0 Tidal Volume 450 PEEP 5 Crit Value Called To Crit Value Called By Blood Gas Notified Time Potassium Carbon Dioxide Anion Gap BUN Creatinine Est GFR ( Amer) Est GFR (Non-Af Amer) Random Glucose Calcium Phosphorus Magnesium Total Bilirubin Direct Bilirubin AST ALT Alkaline Phosphatase Ammonia Lactate Dehydrogenase 2966 H Troponin I NT-Pro-B Natriuret Pep Total Protein Albumin Globulin Albumin/Globulin Ratio Arterial Blood Potassium 4.0 Venous Blood Potassium Urine Opiates Screen Urine Methadone Screen Ur Barbiturates Screen Ur Phencyclidine Scrn Ur Amphetamines Screen U Benzodiazepines Scrn U Oth Cocaine Metabols U Cannabinoids Screen Hepatitis A IgM Ab Negative Hep Bs Antigen Negative Hep B Core IgM Ab Negative Hepatitis C Antibody Negative 04/01/19 04/01/19 04/01/19 15:15 16:37 18:50 WBC RBC Hgb Hct MCV MCH MCHC RDW Plt Count MPV Neut % (Auto) Lymph % (Auto) [place] % (Auto) Eos % (Auto) Baso % (Auto) Lymph # (Auto) [place] # (Auto) Eos # (Auto) Baso # (Auto) Absolute Neuts (auto) PT INR APTT pCO2 pO2 41 101 H HCO3 ABG pH ABG Total CO2 ABG O2 Saturation ABG O2 Content ABG Base Excess ABG Hemoglobin ABG Carboxyhemoglobin POC ABG HHb (Measured) ABG Methemoglobin ABG O2 Capacity ABG Potassium VBG pH 7.38 7.02 L* VBG pCO2 32.0 L 17.0 L* VBG HCO3 18.9 L 4.4 L VBG Total CO2 19.9 L 4.9 L VBG O2 Sat (Calc) 73.8 H 99.0 H VBG Base Excess -5.2 L -24.9 L VBG Potassium 4.5 0.9 L* Hgb O2 Saturation Sodium 137.0 145.0 Chloride 105.0 > 170.0 H Glucose 115 H 26 L* D Lactate 5.3 H* 1.0 Mechanical Rate FiO2 21.0 21.0 Tidal Volume PEEP Crit Value Called To [place] [id number] Blood Gas Notified Time [id number] Potassium Carbon Dioxide Anion Gap BUN Creatinine Est GFR ( Amer) Est GFR (Non-Af Amer) Random Glucose Calcium Phosphorus Magnesium Total Bilirubin Direct Bilirubin AST ALT Alkaline Phosphatase Ammonia 13 Lactate Dehydrogenase Troponin I NT-Pro-B Natriuret Pep Total Protein Albumin Globulin Albumin/Globulin Ratio Arterial Blood Potassium Venous Blood Potassium 4.5 0.9 L* Urine Opiates Screen Urine Methadone Screen Ur Barbiturates Screen Ur Phencyclidine Scrn Ur Amphetamines Screen U Benzodiazepines Scrn U Oth Cocaine Metabols U Cannabinoids Screen Hepatitis A IgM Ab Hep Bs Antigen Hep B Core IgM Ab Hepatitis C Antibody 04/01/19 04/02/19 04/02/19 20:04 06:15 07:00 WBC 11.3 H RBC 4.31 Hgb 12.1 L Hct 38.1 L MCV 88.4 MCH 28.1 MCHC 31.8 RDW 15.1 H Plt Count 146 MPV 11.3 H Neut % (Auto) 85.6 H Lymph % (Auto) 8.7 L [place] % (Auto) 5.6 Eos % (Auto) 0.0 L Baso % (Auto) 0.1 Lymph # (Auto) 1.0 L [place] # (Auto) 0.6 Eos # (Auto) 0.0 Baso # (Auto) 0.01 Absolute Neuts (auto) 9.70 H PT INR APTT pCO2 34 L pO2 129.0 H HCO3 22.1 ABG pH 7.42 ABG Total CO2 23.1 ABG O2 Saturation 99.9 H ABG O2 Content 15.7 ABG Base Excess -1.9 ABG Hemoglobin 11.3 L ABG Carboxyhemoglobin 1.8 H POC ABG HHb (Measured) 0.1 ABG Methemoglobin 0.7 ABG O2 Capacity 15.7 L ABG Potassium VBG pH VBG pCO2 VBG HCO3 VBG Total CO2 VBG O2 Sat (Calc) VBG Base Excess VBG Potassium Hgb O2 Saturation 97.4 Sodium Chloride Glucose Lactate Mechanical Rate FiO2 50.0 Tidal Volume PEEP Crit Value Called To Crit Value Called By Blood Gas Notified Time Potassium Carbon Dioxide Anion Gap BUN Creatinine Est GFR ( Amer) Est GFR (Non-Af Amer) Random Glucose Calcium Phosphorus Magnesium Total Bilirubin Direct Bilirubin AST ALT Alkaline Phosphatase Ammonia Lactate Dehydrogenase Troponin I NT-Pro-B Natriuret Pep Total Protein Albumin Globulin Albumin/Globulin Ratio Arterial Blood Potassium Venous Blood Potassium Urine Opiates Screen Negative Urine Methadone Screen Negative Ur Barbiturates Screen Negative Ur Phencyclidine Scrn Negative Ur Amphetamines Screen Negative U Benzodiazepines Scrn Positive H U Oth Cocaine Metabols Negative U Cannabinoids Screen Negative Hepatitis A IgM Ab Hep Bs Antigen Hep B Core IgM Ab Hepatitis C Antibody 04/02/19 04/02/19 04/02/19 07:00 07:00 07:00 WBC RBC Hgb Hct MCV MCH MCHC RDW Plt Count MPV Neut % (Auto) Lymph % (Auto) [place] % (Auto) Eos % (Auto) Baso % (Auto) Lymph # (Auto) [place] # (Auto) Eos # (Auto) Baso # (Auto) Absolute Neuts (auto) PT 28.9 H INR 2.56 APTT 42.7 H pCO2 pO2 HCO3 ABG pH ABG Total CO2 ABG O2 Saturation ABG O2 Content ABG Base Excess ABG Hemoglobin ABG Carboxyhemoglobin POC ABG HHb (Measured) ABG Methemoglobin ABG O2 Capacity ABG Potassium VBG pH VBG pCO2 VBG HCO3 VBG Total CO2 VBG O2 Sat (Calc) VBG Base Excess VBG Potassium Hgb O2 Saturation Sodium 141 Chloride 108 H Glucose Lactate Mechanical Rate FiO2 Tidal Volume PEEP Crit Value Called To Crit Value Called By Blood Gas Notified Time Potassium 3.5 L Carbon Dioxide 27 Anion Gap 10 BUN 40 H Creatinine 1.4 Est GFR ( Amer) > 60 Est GFR (Non-Af Amer) 50 Random Glucose 138 H Calcium 8.8 Phosphorus 2.9 Magnesium 2.4 H Total Bilirubin 2.6 H Direct Bilirubin AST 960 H D ALT 1029 H Alkaline Phosphatase 61 Ammonia Lactate Dehydrogenase Troponin I 0.09 NT-Pro-B Natriuret Pep 50880 H Total Protein 5.4 L Albumin 2.8 L Globulin 2.7 Albumin/Globulin Ratio 1.0 L Arterial Blood Potassium Venous Blood Potassium Urine Opiates Screen Urine Methadone Screen Ur Barbiturates Screen Ur Phencyclidine Scrn Ur Amphetamines Screen U Benzodiazepines Scrn U Oth Cocaine Metabols U Cannabinoids Screen Hepatitis A IgM Ab Hep Bs Antigen Hep B Core IgM Ab Hepatitis C Antibody 04/02/19 04/02/19 08:32 12:15 WBC RBC Hgb Hct MCV MCH MCHC RDW Plt Count MPV Neut % (Auto) Lymph % (Auto) [place] % (Auto) Eos % (Auto) Baso % (Auto) Lymph # (Auto) [place] # (Auto) Eos # (Auto) Baso # (Auto) Absolute Neuts (auto) PT INR APTT pCO2 50 H pO2 109.0 H HCO3 21.9 ABG pH 7.25 L ABG Total CO2 23.4 ABG O2 Saturation 98.7 H ABG O2 Content 18.2 ABG Base Excess -5.6 L ABG Hemoglobin 13.3 ABG Carboxyhemoglobin 1.5 POC ABG HHb (Measured) 1.3 ABG Methemoglobin 0.7 ABG O2 Capacity 18.4 ABG Potassium VBG pH VBG pCO2 VBG HCO3 VBG Total CO2 VBG O2 Sat (Calc) VBG Base Excess VBG Potassium Hgb O2 Saturation 96.5 Sodium Chloride Glucose Lactate Mechanical Rate FiO2 50.0 Tidal Volume PEEP Crit Value Called To Crit Value Called By Blood Gas Notified Time Potassium Carbon Dioxide Anion Gap BUN Creatinine Est GFR ( Amer) Est GFR (Non-Af Amer) Random Glucose Calcium Phosphorus Magnesium Total Bilirubin Direct Bilirubin 1.4 H AST ALT Alkaline Phosphatase Ammonia Lactate Dehydrogenase Troponin I NT-Pro-B Natriuret Pep Total Protein Albumin Globulin Albumin/Globulin Ratio Arterial Blood Potassium Venous Blood Potassium Urine Opiates Screen Urine Methadone Screen Ur Barbiturates Screen Ur Phencyclidine Scrn Ur Amphetamines Screen U Benzodiazepines Scrn U Oth Cocaine Metabols U Cannabinoids Screen Hepatitis A IgM Ab Hep Bs Antigen Hep B Core IgM Ab Hepatitis C Antibody Assessment & Plan - Assessment and Plan (Free Text) Assessment: 73-year-old male, CAD status post CABG, carotid stenosis status post CEA status post stenting, heart failure with reduced ejection fraction of 10-15%, status post AICD, Parkinson's disease, COPD, hypertension, schizophrenia who presented for altered mental status, found to be in multiorgan failure. Plan: 1. Multi-organ failure 2. Acute on chronic heart failure with reduced ejection fraction 10-15% 3. Altered mental status 4. Acute liver failure 5. GO RIFLE I on CKD IIIa 6. SIRS 2/4 with leukocytosis and tachycardia unclear source 7. Hypertension 8. CAD status post CABG 9. Carotid artery stenosis status post CEA 10. Parkinson's disease 11. COPD 12. Schizophrenia Patient is currently being managed in the ICU. Etiology of his multiorgan failure could be multifactorial at this time but most likely secondary to an acute exacerbation of his chronic heart failure with reduced ejection fraction. This also could have caused his acute liver failure from congestion hepatopathy or via ischemia from hypotension with hepatic picture with a low alk phos and increased AST and ALT. He did receive lactulose rectally but his ammonia was noted to not be increased. GI was consulted and the recommendations are appreciated. The same heart failure could also explain his acute kidney injury from decreased renal perfusion and his altered mentatl status. Creatinine is downtrending as well as transaminitis. The acute change in mental status could also be secondary to overdose on Ambien as the patient was seen 1 day prior to admission in the emergency room after having taken some from his sister. Currently he is getting a drip of NAC. Patient could also have sepsis which could have precipitated his current condition. ID has been consulted. Will order a procalcitonin. Blood cultures, sputum culture, MRSA screen all pending. Chest x-ray was reviewed and appears to just show pulmonary congestion. Head CT was negative for acute intracranial pathology. Patient on dobutamine and this does appear to have caused some improvements overall. Cardiology has been consulted. We will continue supportive care. Prognosis overall is guarded at this time. Patient was seen and examined and case discussed at length with attending physician. - Date & Time Date: 04/02/19 Time: 07:45 <Clif Jose - Last Filed: 04/02/19 15:57> Results - Vital Signs Recent Vital Signs: Last Vital Signs Temp 98.2 F 04/02/19 14:10 Pulse 62 04/02/19 14:10 Resp 15 04/01/19 22:15 BP 87/45 L 04/02/19 14:02 Pulse Ox 97 04/02/19 14:10 - Labs Result Diagrams: 04/02/19 07:00 04/02/19 07:00 Labs: Laboratory Results - last 24 hr 04/01/19 04/01/19 04/01/19 10:38 11:00 11:09 WBC RBC Hgb Hct MCV MCH MCHC RDW Plt Count MPV Neut % (Auto) Lymph % (Auto) [place] % (Auto) Eos % (Auto) Baso % (Auto) Lymph # (Auto) [place] # (Auto) Eos # (Auto) Baso # (Auto) Absolute Neuts (auto) PT INR APTT pCO2 30 L pO2 167.0 H HCO3 19.0 L ABG pH 7.41 ABG Total CO2 19.9 L ABG O2 Saturation 99.9 H ABG O2 Content ABG Base Excess -4.5 L ABG Hemoglobin ABG Carboxyhemoglobin POC ABG HHb (Measured) ABG Methemoglobin ABG O2 Capacity ABG Potassium 4.0 VBG pH VBG pCO2 VBG HCO3 VBG Total CO2 VBG O2 Sat (Calc) VBG Base Excess VBG Potassium Hgb O2 Saturation Sodium 137.0 Chloride 109.0 H Glucose 193 H Lactate 2.2 H Mechanical Rate 15 FiO2 50.0 Tidal Volume 450 PEEP 5 Crit Value Called To Crit Value Called By Blood Gas Notified Time Potassium Carbon Dioxide Anion Gap BUN Creatinine Est GFR ( Amer) Est GFR (Non-Af Amer) Random Glucose Calcium Phosphorus Magnesium Total Bilirubin Direct Bilirubin AST ALT Alkaline Phosphatase Ammonia Lactate Dehydrogenase 2966 H Troponin I NT-Pro-B Natriuret Pep Total Protein Albumin Globulin Albumin/Globulin Ratio Procalcitonin Arterial Blood Potassium 4.0 Venous Blood Potassium Urine Opiates Screen Urine Methadone Screen Ur Barbiturates Screen Ur Phencyclidine Scrn Ur Amphetamines Screen U Benzodiazepines Scrn U Oth Cocaine Metabols U Cannabinoids Screen Hepatitis A IgM Ab Negative Hep Bs Antigen Negative Hep B Core IgM Ab Negative Hepatitis C Antibody Negative 04/01/19 04/01/19 04/01/19 16:37 18:50 20:04 WBC RBC Hgb Hct MCV MCH MCHC RDW Plt Count MPV Neut % (Auto) Lymph % (Auto) [place] % (Auto) Eos % (Auto) Baso % (Auto) Lymph # (Auto) [place] # (Auto) Eos # (Auto) Baso # (Auto) Absolute Neuts (auto) PT INR APTT pCO2 pO2 101 H HCO3 ABG pH ABG Total CO2 ABG O2 Saturation ABG O2 Content ABG Base Excess ABG Hemoglobin ABG Carboxyhemoglobin POC ABG HHb (Measured) ABG Methemoglobin ABG O2 Capacity ABG Potassium VBG pH 7.02 L* VBG pCO2 17.0 L* VBG HCO3 4.4 L VBG Total CO2 4.9 L VBG O2 Sat (Calc) 99.0 H VBG Base Excess -24.9 L VBG Potassium 0.9 L* Hgb O2 Saturation Sodium 145.0 Chloride > 170.0 H Glucose 26 L* D Lactate 1.0 Mechanical Rate FiO2 21.0 Tidal Volume PEEP Crit Value Called [place] [id number] Blood Gas Notified Time 2476 Potassium Carbon Dioxide Anion Gap BUN Creatinine Est GFR ( Amer) Est GFR (Non-Af Amer) Random Glucose Calcium Phosphorus Magnesium Total Bilirubin Direct Bilirubin AST ALT Alkaline Phosphatase Ammonia 13 Lactate Dehydrogenase Troponin I NT-Pro-B Natriuret Pep Total Protein Albumin Globulin Albumin/Globulin Ratio Procalcitonin Arterial Blood Potassium Venous Blood Potassium 0.9 L* Urine Opiates Screen Negative Urine Methadone Screen Negative Ur Barbiturates Screen Negative Ur Phencyclidine Scrn Negative Ur Amphetamines Screen Negative U Benzodiazepines Scrn Positive H U Oth Cocaine Metabols Negative U Cannabinoids Screen Negative Hepatitis A IgM Ab Hep Bs Antigen Hep B Core IgM Ab Hepatitis C Antibody 04/02/19 04/02/19 04/02/19 06:15 07:00 07:00 WBC 11.3 H RBC 4.31 Hgb 12.1 L Hct 38.1 L MCV 88.4 MCH 28.1 MCHC 31.8 RDW 15.1 H Plt Count 146 MPV 11.3 H Neut % (Auto) 85.6 H Lymph % (Auto) 8.7 L [place] % (Auto) 5.6 Eos % (Auto) 0.0 L Baso % (Auto) 0.1 Lymph # (Auto) 1.0 L [place] # (Auto) 0.6 Eos # (Auto) 0.0 Baso # (Auto) 0.01 Absolute Neuts (auto) 9.70 H PT 28.9 H INR 2.56 APTT 42.7 H pCO2 34 L pO2 129.0 H HCO3 22.1 ABG pH 7.42 ABG Total CO2 23.1 ABG O2 Saturation 99.9 H ABG O2 Content 15.7 ABG Base Excess -1.9 ABG Hemoglobin 11.3 L ABG Carboxyhemoglobin 1.8 H POC ABG HHb (Measured) 0.1 ABG Methemoglobin 0.7 ABG O2 Capacity 15.7 L ABG Potassium VBG pH VBG pCO2 VBG HCO3 VBG Total CO2 VBG O2 Sat (Calc) VBG Base Excess VBG Potassium Hgb O2 Saturation 97.4 Sodium Chloride Glucose Lactate Mechanical Rate FiO2 50.0 Tidal Volume PEEP Crit Value Called To Crit Value Called By Blood Gas Notified Time Potassium Carbon Dioxide Anion Gap BUN Creatinine Est GFR ( Amer) Est GFR (Non-Af Amer) Random Glucose Calcium Phosphorus Magnesium Total Bilirubin Direct Bilirubin AST ALT Alkaline Phosphatase Ammonia Lactate Dehydrogenase Troponin I NT-Pro-B Natriuret Pep Total Protein Albumin Globulin Albumin/Globulin Ratio Procalcitonin Arterial Blood Potassium Venous Blood Potassium Urine Opiates Screen Urine Methadone Screen Ur Barbiturates Screen Ur Phencyclidine Scrn Ur Amphetamines Screen U Benzodiazepines Scrn U Oth Cocaine Metabols U Cannabinoids Screen Hepatitis A IgM Ab Hep Bs Antigen Hep B Core IgM Ab Hepatitis C Antibody 04/02/19 04/02/19 04/02/19 07:00 07:00 07:00 WBC RBC Hgb Hct MCV MCH MCHC RDW Plt Count MPV Neut % (Auto) Lymph % (Auto) [place] % (Auto) Eos % (Auto) Baso % (Auto) Lymph # (Auto) [place] # (Auto) Eos # (Auto) Baso # (Auto) Absolute Neuts (auto) PT INR APTT pCO2 pO2 HCO3 ABG pH ABG Total CO2 ABG O2 Saturation ABG O2 Content ABG Base Excess ABG Hemoglobin ABG Carboxyhemoglobin POC ABG HHb (Measured) ABG Methemoglobin ABG O2 Capacity ABG Potassium VBG pH VBG pCO2 VBG HCO3 VBG Total CO2 VBG O2 Sat (Calc) VBG Base Excess VBG Potassium Hgb O2 Saturation Sodium 141 Chloride 108 H Glucose Lactate Mechanical Rate FiO2 Tidal Volume PEEP Crit Value Called To Crit Value Called By Blood Gas Notified Time Potassium 3.5 L Carbon Dioxide 27 Anion Gap 10 BUN 40 H Creatinine 1.4 Est GFR ( Amer) > 60 Est GFR (Non-Af Amer) 50 Random Glucose 138 H Calcium 8.8 Phosphorus 2.9 Magnesium 2.4 H Total Bilirubin 2.6 H Direct Bilirubin AST 960 H D ALT 1029 H Alkaline Phosphatase 61 Ammonia Lactate Dehydrogenase Troponin I 0.09 NT-Pro-B Natriuret Pep 57544 H Total Protein 5.4 L Albumin 2.8 L Globulin 2.7 Albumin/Globulin Ratio 1.0 L Procalcitonin 0.55 H Arterial Blood Potassium Venous Blood Potassium Urine Opiates Screen Urine Methadone Screen Ur Barbiturates Screen Ur Phencyclidine Scrn Ur Amphetamines Screen U Benzodiazepines Scrn U Oth Cocaine Metabols U Cannabinoids Screen Hepatitis A IgM Ab Hep Bs Antigen Hep B Core IgM Ab Hepatitis C Antibody 04/02/19 04/02/19 04/02/19 08:32 12:15 13:20 WBC RBC Hgb Hct MCV MCH MCHC RDW Plt Count MPV Neut % (Auto) Lymph % (Auto) [place] % (Auto) Eos % (Auto) Baso % (Auto) Lymph # (Auto) [place] # (Auto) Eos # (Auto) Baso # (Auto) Absolute Neuts (auto) PT INR APTT pCO2 50 H pO2 109.0 H HCO3 21.9 ABG pH 7.25 L ABG Total CO2 23.4 ABG O2 Saturation 98.7 H ABG O2 Content 18.2 ABG Base Excess -5.6 L ABG Hemoglobin 13.3 ABG Carboxyhemoglobin 1.5 POC ABG HHb (Measured) 1.3 ABG Methemoglobin 0.7 ABG O2 Capacity 18.4 ABG Potassium VBG pH VBG pCO2 VBG HCO3 VBG Total CO2 VBG O2 Sat (Calc) VBG Base Excess VBG Potassium Hgb O2 Saturation 96.5 Sodium Chloride Glucose Lactate Mechanical Rate FiO2 50.0 Tidal Volume PEEP Crit Value Called To Crit Value Called By Blood Gas Notified Time Potassium Carbon Dioxide Anion Gap BUN Creatinine Est GFR ( Amer) Est GFR (Non-Af Amer) Random Glucose Calcium Phosphorus Magnesium Total Bilirubin Direct Bilirubin 1.4 H AST ALT Alkaline Phosphatase Ammonia Lactate Dehydrogenase Troponin I 0.06 D NT-Pro-B Natriuret Pep Total Protein Albumin Globulin Albumin/Globulin Ratio Procalcitonin Arterial Blood Potassium Venous Blood Potassium Urine Opiates Screen Urine Methadone Screen Ur Barbiturates Screen Ur Phencyclidine Scrn Ur Amphetamines Screen U Benzodiazepines Scrn U Oth Cocaine Metabols U Cannabinoids Screen Hepatitis A IgM Ab Hep Bs Antigen Hep B Core IgM Ab Hepatitis C Antibody 04/02/19 13:20 WBC RBC Hgb Hct MCV MCH MCHC RDW Plt Count MPV Neut % (Auto) Lymph % (Auto) [place] % (Auto) Eos % (Auto) Baso % (Auto) Lymph # (Auto) [place] # (Auto) Eos # (Auto) Baso # (Auto) Absolute Neuts (auto) PT INR APTT pCO2 pO2 HCO3 ABG pH ABG Total CO2 ABG O2 Saturation ABG O2 Content ABG Base Excess ABG Hemoglobin ABG Carboxyhemoglobin POC ABG HHb (Measured) ABG Methemoglobin ABG O2 Capacity ABG Potassium VBG pH VBG pCO2 VBG HCO3 VBG Total CO2 VBG O2 Sat (Calc) VBG Base Excess VBG Potassium Hgb O2 Saturation Sodium Chloride Glucose Lactate Mechanical Rate FiO2 Tidal Volume PEEP Crit Value Called To Crit Value Called By Blood Gas Notified Time Potassium Carbon Dioxide Anion Gap BUN Creatinine Est GFR ( Amer) Est GFR (Non-Af Amer) Random Glucose Calcium Phosphorus Magnesium Total Bilirubin Direct Bilirubin AST ALT Alkaline Phosphatase Ammonia < 9 L D Lactate Dehydrogenase Troponin I NT-Pro-B Natriuret Pep Total Protein Albumin Globulin Albumin/Globulin Ratio Procalcitonin Arterial Blood Potassium Venous Blood Potassium Urine Opiates Screen Urine Methadone Screen Ur Barbiturates Screen Ur Phencyclidine Scrn Ur Amphetamines Screen U Benzodiazepines Scrn U Oth Cocaine Metabols U Cannabinoids Screen Hepatitis A IgM Ab Hep Bs Antigen Hep B Core IgM Ab Hepatitis C Antibody Assessment & Plan - Assessment and Plan (Free Text) Plan: Pt seen and examined by me. I have reviewed the note of the medical editor and I agree with it. I have discussed the assessment and plan with the resident. I have reviewed the medications and the last labs.
--- NOTE | 2019-04-02 13:16 | CP.PCM.APN ---
Subjective - Date & Time of Evaluation Date of Evaluation: 04/02/19 Time of Evaluation: 10:45 - Subjective Subjective: pt seenand examined a tbedside , pt intubated, restrained , restless Review of Systems - Review of Systems Systems not reviewed;Unavailable: Intubated - Constitutional Constitutional: As Per HPI Objective - Vital Signs/Intake and Output Vital Signs (last 24 hours): Temp Pulse Resp BP Pulse Ox 97.5 F L 71 15 107/70 99 04/02/19 09:00 04/02/19 09:00 04/01/19 22:15 04/02/19 11:16 04/02/19 09:00 Intake and Output: 04/02/19 04/02/19 06:59 18:59 Intake Total 825 25 Output Total 650 Balance 175 25 - Medications Medications: Current Medications Heparin Sodium (Porcine) (Heparin) 5,000 units SC Q8 AFSANEH; Protocol Hydrocortisone Sodium Succinate (Solu-Cortef) 50 mg IVP Q6H AFSANEH Last Admin: 04/02/19 08:32 Dose: 50 mg Sodium Chloride (Sodium Chloride 0.9%) 2,600 mls @ 500 mls/hr IV .Q5H12M AFSANEH Last Admin: 04/01/19 17:00 Dose: 500 mls/hr Acetylcysteine 10,000 mg/ (Dextrose) 1,050 mls @ 62.5 mls/hr IV .[id number] ONE Stop: 04/02/19 14:57 Last Admin: 04/02/19 01:00 Dose: 62.5 mls/hr NOREPINEPHRINE BIT/0.9 % NACL (Levophed 4 Mg/ 250 Ml Ns Premixed) 4 mg in 250 mls @ 15 mls/hr IV .[id number] PRN; Protocol PRN Reason: TITRATE PER MD ORDER Vasopressin 20 units/ Sodium (Chloride) 101 mls @ 9.09 mls/hr IV .Q11H7M AFSANEH; Protocol Last Admin: 04/01/19 18:41 Dose: Not Given Propofol (Diprivan) 1,000 mg in 100 mls @ 2.345 mls/hr IV .Q24H PRN; Protocol PRN Reason: TITRATE PER MD ORDER Dobutamine HCl/Dextrose (Dobutamine/Dextrose 5% 500mg/250ml) 500 mg in 250 mls @ 5.862 mls/hr IV .Q24H PRN; Protocol PRN Reason: TITRATE PER PROTOCOL Pantoprazole Sodium (Protonix Inj) 40 mg IVP DAILY AFSANEH Last Admin: 04/01/19 18:05 Dose: 40 mg - Labs Labs: 04/02/19 07:00 04/02/19 07:00 PT 28.9 SECONDS (9.4-12.5) H 04/02/19 07:00 INR 2.56 04/02/19 07:00 APTT 42.7 Seconds (26.9-38.3) H 04/02/19 07:00 - Constitutional Appears: No Acute Distress, Agitated - Head Exam Head Exam: ATRAUMATIC - ENT Exam Additional comments: Intubated - Respiratory Exam Respiratory Exam: Decreased Breath Sounds Additional comments: intubated - Cardiovascular Exam Cardiovascular Exam: +S1, +S2 - GI/Abdominal Exam GI & Abdominal Exam: Normal Bowel Sounds - Neurological Exam Additional comments: moves all extremities - Psychiatric Exam Psychiatric exam: Agitated Additional comments: intubated Assessment and Plan - Assessment and Plan (Free Text) Plan: ITS Impressions Chest X-Ray 04/01/19 10:39 IMPRESSION: No active pulmonary disease. Moderate pulmonary venous congestion. Abdomen Ultrasound 04/01/19 11:50 IMPRESSION: 1. Cholelithiasis. Diffuse gallbladder wall thickening is likely secondary to systemic disease. 2. Chronic renal parenchymal disease. 3. Diffuse increased echogenicity in the liver with coarse echotexture may reflect hepatic steatosis however parenchymal infectious/ inflammatory etiologies cannot be entirely excluded. Clinical and laboratory correlation is advised. Head CT 04/01/19 13:08 IMPRESSION: No acute intracranial abnormality. Small left frontal scalp hematoma. Mild chronic microangiopathic changes and moderate age-related global parenchymal volume loss. Chest X-Ray 04/01/19 17:08 IMPRESSION: Moderate cardiomegaly, mild pulmonary venous congestion and interstitial pulmonary edema. Chest X-Ray 04/01/19 18:19 IMPRESSION: Multiple films were obtained for placement of a nasogastric tube. The final film shows the tube below the diaphragm in satisfactory position. The endotracheal tube is also in satisfactory position. There is a left IJ line in the SVC with no pneumothorax Chest X-Ray 04/02/19 10:23 IMPRESSION: No active pulmonary disease. Persistent moderate cardiomegaly and pulmonary venous congestion. Stable position of support line and tubes. A/P 73 yr old white male with pmgh sig for htn, cad s/p cabg, Parkinsons, Schizophrenia, AICD who presented with AMS , severe metabolic derangement and is admitted to the ICU for further mgmt of multi system organ failure, metabolic acidosis. US with severe GB wall thickening, Diffuse increased echogenicity in the liver with coarse echotexture, cxr with pul venous congestion. Pt is intubated and maintained on IV Heparin drip, Norepi, Acetylcysteine, dobutamine and Propofol drips. Labs and diagnostics noted, will continue to follow clinical course. BPCI/TIC - BPCIA/TIC Educated pt/family on BPCIA/CIR/Med to Bed Programs: N/A Flyers given, including [facility] Beneficiary letter: N/A Pt/family verbalized understanding & agreed to program: N/A
--- NOTE | 2019-04-02 14:32 | CP.PCM.CON ---
<Roe Hicks - Last Filed: 04/02/19 16:44> History of Present Illness - History of Present Illness History of Present Illness: Infectious disease consult note: 73-year-old male with past medical history of ischemic cardiomyopathy and CAD with CABG, carotid stenosis status post CEA and stenting, heart failure with ejection fraction of 10 to 15% status post AICD, Parkinson's disease, COPD, hypertension, schizophrenia who presented initially for altered mental status. Due to the patient's poor mental status he was subsequently intubated for airway protection. Infectious disease was consulted for Sirs and multiorgan dysfunction. 12 point ROS unobtainable due to intubation PMH: As above PSH: AICD placement and CEA FH: Unobtainable SH: No reported history of smoking or drinking Medications: As per EMR Allergies: No known allergies Review of Systems - Review of Systems All systems: reviewed and no additional remarkable complaints except Past Patient History - Infectious Disease Hx of Infectious Diseases: None - Tetanus Immunizations Tetanus Immunization: Unknown - Past Social History Smoking Status: Former Smoker - CARDIAC Hx Angina: Yes Hx Cardia Arrhythmia: Yes Hx Hypertension: Yes Hx Internal Defibrillator: Yes (4 yrs ago) - PULMONARY Hx Respiratory Disorders: No Hx Asthma: No Hx Bronchitis: No Hx Chronic Obstructive Pulmonary Disease (COPD): No Hx Emphysema: No - NEUROLOGICAL Hx Parkinson's Disease: Yes - HEENT Hx HEENT Problems: Yes (wears glasses) Hx Blind: No Hx Cataracts: No Hx Deafness: No Hx Difficulty Chewing: No Hx Epistaxis: No Hx Glaucoma: No Hx Macular Degeneration: No - RENAL Hx Chronic Kidney Disease: No Hx Renal Failure: No - ENDOCRINE/METABOLIC Hx Diabetes Insipidus: No Hx Hyperthyroidism: No Hx Hypothyroidism: No - HEMATOLOGICAL/ONCOLOGICAL Hx Anemia: No Hx Cancer: No Hx Hepatitis A: No Hx Hepatitis B: No Hx Hepatitis C: No - INTEGUMENTARY Hx Dermatological Problems: No Other/Comment: HEALING ABRASIONS POST FALL AT HOME. ON HIS RIGHT STALLINGS (2 YEARS AGO - MUSCULOSKELETAL/RHEUMATOLOGICAL Hx Falls: Yes - GASTROINTESTINAL Hx Gastrointestinal Disorders: No - GENITOURINARY/GYNECOLOGICAL Hx Genitourinary Disorders: No Hx Hematuria: No Hx Incontinence: No Hx Prostate Problems: No Hx Sexually Transmitted Disorders: No Hx Urinary Tract Infection: No - PSYCHIATRIC Hx Psychophysiologic Disorder: Yes Hx Depression: No Hx Emotional Abuse: No Hx Hallucinations: Yes Hx Physical Abuse: No Hx Schizophrenia: Yes (DX AT AGE 43 YRS OLD) Hx Sexual Abuse: No Hx Substance Use: No - SURGICAL HISTORY Hx Carotid Endarterectomy: (STENT) Hx Coronary Artery Bypass Graft: Yes - ANESTHESIA Hx Anesthesia: Yes Hx Anesthesia Reactions: No Hx Malignant Hyperthermia: No Meds Allergies/Adverse Reactions: Allergies Allergy/AdvReac Type Severity Reaction Status Date / Time No Known Allergies Allergy Verified 10/10/16 13:59 - Medications Medications: Current Medications Heparin Sodium (Porcine) (Heparin) 5,000 units SC Q8 AFSANEH; Protocol Last Admin: 04/02/19 14:15 Dose: 5,000 units Hydrocortisone Sodium Succinate (Solu-Cortef) 50 mg IVP Q6H AFSANEH Last Admin: 04/02/19 13:00 Dose: 50 mg Sodium Chloride (Sodium Chloride 0.9%) 2,600 mls @ 500 mls/hr IV .Q5H12M AFSANEH Last Admin: 04/01/19 17:00 Dose: 500 mls/hr Acetylcysteine 10,000 mg/ (Dextrose) 1,050 mls @ 62.5 mls/hr IV .[id number] ONE Stop: 04/02/19 14:57 Last Admin: 04/02/19 01:00 Dose: 62.5 mls/hr NOREPINEPHRINE BIT/0.9 % NACL (Levophed 4 Mg/ 250 Ml Ns Premixed) 4 mg in 250 mls @ 15 mls/hr IV .[id number] PRN; Protocol PRN Reason: TITRATE PER MD ORDER Vasopressin 20 units/ Sodium (Chloride) 101 mls @ 9.09 mls/hr IV .Q11H7M AFSANEH; Protocol Last Admin: 04/01/19 18:41 Dose: Not Given Propofol (Diprivan) 1,000 mg in 100 mls @ 2.345 mls/hr IV .Q24H PRN; Protocol PRN Reason: TITRATE PER MD ORDER Last Admin: 04/02/19 14:05 Dose: 10 mcg/kg/min, 4.689 mls/hr Dobutamine HCl/Dextrose (Dobutamine/Dextrose 5% 500mg/250ml) 500 mg in 250 mls @ 5.862 mls/hr IV .Q24H PRN; Protocol PRN Reason: TITRATE PER PROTOCOL Last Admin: 04/02/19 07:30 Dose: 2.5 mcg/kg/min, 5.862 mls/hr Pantoprazole Sodium (Protonix Inj) 40 mg IVP DAILY AFSANEH Last Admin: 04/02/19 14:15 Dose: 40 mg Physical Exam - Constitutional Appears: No Acute Distress - Head Exam Head Exam: ATRAUMATIC, NORMOCEPHALIC - Eye Exam Eye Exam: PERRL - Respiratory Exam Respiratory Exam: Clear to Auscultation Bilateral. absent: Rhonchi, Wheezes - Cardiovascular Exam Cardiovascular Exam: REGULAR RHYTHM, +S1, +S2 - GI/Abdominal Exam GI & Abdominal Exam: Normal Bowel Sounds, Soft. absent: Tenderness - Extremities Exam Extremities exam: Negative for: calf tenderness, pedal edema - Skin Skin Exam: Dry, Warm Results - Vital Signs Recent Vital Signs: Last Vital Signs Temp 98.2 F 04/02/19 14:10 Pulse 62 04/02/19 14:10 Resp 15 04/01/19 22:15 BP 87/45 L 04/02/19 14:02 Pulse Ox 97 04/02/19 14:10 - Labs Result Diagrams: 04/02/19 07:00 04/02/19 07:00 Labs: Laboratory Results - last 24 hr 04/01/19 04/01/19 04/01/19 10:38 11:00 11:09 WBC RBC Hgb Hct MCV MCH MCHC RDW Plt Count MPV Neut % (Auto) Lymph % (Auto) [place] % (Auto) Eos % (Auto) Baso % (Auto) Lymph # (Auto) [place] # (Auto) Eos # (Auto) Baso # (Auto) Absolute Neuts (auto) PT INR APTT pCO2 30 L pO2 167.0 H HCO3 19.0 L ABG pH 7.41 ABG Total CO2 19.9 L ABG O2 Saturation 99.9 H ABG O2 Content ABG Base Excess -4.5 L ABG Hemoglobin ABG Carboxyhemoglobin POC ABG HHb (Measured) ABG Methemoglobin ABG O2 Capacity ABG Potassium 4.0 VBG pH VBG pCO2 VBG HCO3 VBG Total CO2 VBG O2 Sat (Calc) VBG Base Excess VBG Potassium Hgb O2 Saturation Sodium 137.0 Chloride 109.0 H Glucose 193 H Lactate 2.2 H Mechanical Rate 15 FiO2 50.0 Tidal Volume 450 PEEP 5 Crit Value Called To Crit Value Called By Blood Gas Notified Time Potassium Carbon Dioxide Anion Gap BUN Creatinine Est GFR ( Amer) Est GFR (Non-Af Amer) Random Glucose Calcium Phosphorus Magnesium Total Bilirubin Direct Bilirubin AST ALT Alkaline Phosphatase Ammonia Lactate Dehydrogenase 2966 H Troponin I NT-Pro-B Natriuret Pep Total Protein Albumin Globulin Albumin/Globulin Ratio Procalcitonin Arterial Blood Potassium 4.0 Venous Blood Potassium Urine Opiates Screen Urine Methadone Screen Ur Barbiturates Screen Ur Phencyclidine Scrn Ur Amphetamines Screen U Benzodiazepines Scrn U Oth Cocaine Metabols U Cannabinoids Screen Hepatitis A IgM Ab Negative Hep Bs Antigen Negative Hep B Core IgM Ab Negative Hepatitis C Antibody Negative 04/01/19 04/01/19 04/01/19 15:15 16:37 18:50 WBC RBC Hgb Hct MCV MCH MCHC RDW Plt Count MPV Neut % (Auto) Lymph % (Auto) [place] % (Auto) Eos % (Auto) Baso % (Auto) Lymph # (Auto) [place] # (Auto) Eos # (Auto) Baso # (Auto) Absolute Neuts (auto) PT INR APTT pCO2 pO2 41 101 H HCO3 ABG pH ABG Total CO2 ABG O2 Saturation ABG O2 Content ABG Base Excess ABG Hemoglobin ABG Carboxyhemoglobin POC ABG HHb (Measured) ABG Methemoglobin ABG O2 Capacity ABG Potassium VBG pH 7.38 7.02 L* VBG pCO2 32.0 L 17.0 L* VBG HCO3 18.9 L 4.4 L VBG Total CO2 19.9 L 4.9 L VBG O2 Sat (Calc) 73.8 H 99.0 H VBG Base Excess -5.2 L -24.9 L VBG Potassium 4.5 0.9 L* Hgb O2 Saturation Sodium 137.0 145.0 Chloride 105.0 > 170.0 H Glucose 115 H 26 L* D Lactate 5.3 H* 1.0 Mechanical Rate FiO2 21.0 21.0 Tidal Volume PEEP Crit Value Called To [place] [id number] Blood Gas Notified Time [id number] Potassium Carbon Dioxide Anion Gap BUN Creatinine Est GFR ( Amer) Est GFR (Non-Af Amer) Random Glucose Calcium Phosphorus Magnesium Total Bilirubin Direct Bilirubin AST ALT Alkaline Phosphatase Ammonia 13 Lactate Dehydrogenase Troponin I NT-Pro-B Natriuret Pep Total Protein Albumin Globulin Albumin/Globulin Ratio Procalcitonin Arterial Blood Potassium Venous Blood Potassium 4.5 0.9 L* Urine Opiates Screen Urine Methadone Screen Ur Barbiturates Screen Ur Phencyclidine Scrn Ur Amphetamines Screen U Benzodiazepines Scrn U Oth Cocaine Metabols U Cannabinoids Screen Hepatitis A IgM Ab Hep Bs Antigen Hep B Core IgM Ab Hepatitis C Antibody 04/01/19 04/02/19 04/02/19 20:04 06:15 07:00 WBC 11.3 H RBC 4.31 Hgb 12.1 L Hct 38.1 L MCV 88.4 MCH 28.1 MCHC 31.8 RDW 15.1 H Plt Count 146 MPV 11.3 H Neut % (Auto) 85.6 H Lymph % (Auto) 8.7 L [place] % (Auto) 5.6 Eos % (Auto) 0.0 L Baso % (Auto) 0.1 Lymph # (Auto) 1.0 L [place] # (Auto) 0.6 Eos # (Auto) 0.0 Baso # (Auto) 0.01 Absolute Neuts (auto) 9.70 H PT INR APTT pCO2 34 L pO2 129.0 H HCO3 22.1 ABG pH 7.42 ABG Total CO2 23.1 ABG O2 Saturation 99.9 H ABG O2 Content 15.7 ABG Base Excess -1.9 ABG Hemoglobin 11.3 L ABG Carboxyhemoglobin 1.8 H POC ABG HHb (Measured) 0.1 ABG Methemoglobin 0.7 ABG O2 Capacity 15.7 L ABG Potassium VBG pH VBG pCO2 VBG HCO3 VBG Total CO2 VBG O2 Sat (Calc) VBG Base Excess VBG Potassium Hgb O2 Saturation 97.4 Sodium Chloride Glucose Lactate Mechanical Rate FiO2 50.0 Tidal Volume PEEP Crit Value Called To Crit Value Called By Blood Gas Notified Time Potassium Carbon Dioxide Anion Gap BUN Creatinine Est GFR ( Amer) Est GFR (Non-Af Amer) Random Glucose Calcium Phosphorus Magnesium Total Bilirubin Direct Bilirubin AST ALT Alkaline Phosphatase Ammonia Lactate Dehydrogenase Troponin I NT-Pro-B Natriuret Pep Total Protein Albumin Globulin Albumin/Globulin Ratio Procalcitonin Arterial Blood Potassium Venous Blood Potassium Urine Opiates Screen Negative Urine Methadone Screen Negative Ur Barbiturates Screen Negative Ur Phencyclidine Scrn Negative Ur Amphetamines Screen Negative U Benzodiazepines Scrn Positive H U Oth Cocaine Metabols Negative U Cannabinoids Screen Negative Hepatitis A IgM Ab Hep Bs Antigen Hep B Core IgM Ab Hepatitis C Antibody 04/02/19 04/02/19 04/02/19 07:00 07:00 07:00 WBC RBC Hgb Hct MCV MCH MCHC RDW Plt Count MPV Neut % (Auto) Lymph % (Auto) [place] % (Auto) Eos % (Auto) Baso % (Auto) Lymph # (Auto) [place] # (Auto) Eos # (Auto) Baso # (Auto) Absolute Neuts (auto) PT 28.9 H INR 2.56 APTT 42.7 H pCO2 pO2 HCO3 ABG pH ABG Total CO2 ABG O2 Saturation ABG O2 Content ABG Base Excess ABG Hemoglobin ABG Carboxyhemoglobin POC ABG HHb (Measured) ABG Methemoglobin ABG O2 Capacity ABG Potassium VBG pH VBG pCO2 VBG HCO3 VBG Total CO2 VBG O2 Sat (Calc) VBG Base Excess VBG Potassium Hgb O2 Saturation Sodium 141 Chloride 108 H Glucose Lactate Mechanical Rate FiO2 Tidal Volume PEEP Crit Value Called To Crit Value Called By Blood Gas Notified Time Potassium 3.5 L Carbon Dioxide 27 Anion Gap 10 BUN 40 H Creatinine 1.4 Est GFR ( Amer) > 60 Est GFR (Non-Af Amer) 50 Random Glucose 138 H Calcium 8.8 Phosphorus 2.9 Magnesium 2.4 H Total Bilirubin 2.6 H Direct Bilirubin AST 960 H D ALT 1029 H Alkaline Phosphatase 61 Ammonia Lactate Dehydrogenase Troponin I 0.09 NT-Pro-B Natriuret Pep Total Protein 5.4 L Albumin 2.8 L Globulin 2.7 Albumin/Globulin Ratio 1.0 L Procalcitonin 0.55 H Arterial Blood Potassium Venous Blood Potassium Urine Opiates Screen Urine Methadone Screen Ur Barbiturates Screen Ur Phencyclidine Scrn Ur Amphetamines Screen U Benzodiazepines Scrn U Oth Cocaine Metabols U Cannabinoids Screen Hepatitis A IgM Ab Hep Bs Antigen Hep B Core IgM Ab Hepatitis C Antibody 04/02/19 04/02/19 04/02/19 07:00 08:32 12:15 WBC RBC Hgb Hct MCV MCH MCHC RDW Plt Count MPV Neut % (Auto) Lymph % (Auto) [place] % (Auto) Eos % (Auto) Baso % (Auto) Lymph # (Auto) [place] # (Auto) Eos # (Auto) Baso # (Auto) Absolute Neuts (auto) PT INR APTT pCO2 50 H pO2 109.0 H HCO3 21.9 ABG pH 7.25 L ABG Total CO2 23.4 ABG O2 Saturation 98.7 H ABG O2 Content 18.2 ABG Base Excess -5.6 L ABG Hemoglobin 13.3 ABG Carboxyhemoglobin 1.5 POC ABG HHb (Measured) 1.3 ABG Methemoglobin 0.7 ABG O2 Capacity 18.4 ABG Potassium VBG pH VBG pCO2 VBG HCO3 VBG Total CO2 VBG O2 Sat (Calc) VBG Base Excess VBG Potassium Hgb O2 Saturation 96.5 Sodium Chloride Glucose Lactate Mechanical Rate FiO2 50.0 Tidal Volume PEEP Crit Value Called To Crit Value Called By Blood Gas Notified Time Potassium Carbon Dioxide Anion Gap BUN Creatinine Est GFR ( Amer) Est GFR (Non-Af Amer) Random Glucose Calcium Phosphorus Magnesium Total Bilirubin Direct Bilirubin 1.4 H AST ALT Alkaline Phosphatase Ammonia Lactate Dehydrogenase Troponin I NT-Pro-B Natriuret Pep 60330 H Total Protein Albumin Globulin Albumin/Globulin Ratio Procalcitonin Arterial Blood Potassium Venous Blood Potassium Urine Opiates Screen Urine Methadone Screen Ur Barbiturates Screen Ur Phencyclidine Scrn Ur Amphetamines Screen U Benzodiazepines Scrn U Oth Cocaine Metabols U Cannabinoids Screen Hepatitis A IgM Ab Hep Bs Antigen Hep B Core IgM Ab Hepatitis C Antibody 04/02/19 04/02/19 13:20 13:20 WBC RBC Hgb Hct MCV MCH MCHC RDW Plt Count MPV Neut % (Auto) Lymph % (Auto) [place] % (Auto) Eos % (Auto) Baso % (Auto) Lymph # (Auto) [place] # (Auto) Eos # (Auto) Baso # (Auto) Absolute Neuts (auto) PT INR APTT pCO2 pO2 HCO3 ABG pH ABG Total CO2 ABG O2 Saturation ABG O2 Content ABG Base Excess ABG Hemoglobin ABG Carboxyhemoglobin POC ABG HHb (Measured) ABG Methemoglobin ABG O2 Capacity ABG Potassium VBG pH VBG pCO2 VBG HCO3 VBG Total CO2 VBG O2 Sat (Calc) VBG Base Excess VBG Potassium Hgb O2 Saturation Sodium Chloride Glucose Lactate Mechanical Rate FiO2 Tidal Volume PEEP Crit Value Called To Crit Value Called By Blood Gas Notified Time Potassium Carbon Dioxide Anion Gap BUN Creatinine Est GFR ( Amer) Est GFR (Non-Af Amer) Random Glucose Calcium Phosphorus Magnesium Total Bilirubin Direct Bilirubin AST ALT Alkaline Phosphatase Ammonia < 9 L D Lactate Dehydrogenase Troponin I 0.06 D NT-Pro-B Natriuret Pep Total Protein Albumin Globulin Albumin/Globulin Ratio Procalcitonin Arterial Blood Potassium Venous Blood Potassium Urine Opiates Screen Urine Methadone Screen Ur Barbiturates Screen Ur Phencyclidine Scrn Ur Amphetamines Screen U Benzodiazepines Scrn U Oth Cocaine Metabols U Cannabinoids Screen Hepatitis A IgM Ab Hep Bs Antigen Hep B Core IgM Ab Hepatitis C Antibody Assessment & Plan - Assessment and Plan (Free Text) Assessment: SIRS with multiorgan failure unclear etiology Respiratory failure requiring ventilatory support Altered mental status Acute liver failure Acute on chronic kidney injury Acute on chronic heart failure with systolic dysfunction 10 to 15% Coronary artery disease status post CABG Hypertension Parkinson's disease COPD Schizophrenia Urinalysis was negative, chest x-ray showed moderate pulmonary vascular congestion Abdominal ultrasound showed cholelithiasis with diffuse gallbladder wall thickening likely secondary to systemic disease, diffuse increased echogenicity in the liver with coarse echotexture may reflect hepatic steatosis however parenchymal infectiousinflammatory etiologies cannot be entirely excluded Patient received 1 dose of vancomycin and cefepime Follow-up septic work-up including blood and urine cultures Continued management in the intensive care unit Follow-up gastroenterology recommendations -patient is currently NAC therapy Follow-up cardiology recommendations Continue to monitor for any changes Case and plan to be reviewed and discussed with Dr. Gavin. <Fredy Gavin - Last Filed: 04/02/19 16:46> Meds - Medications Medications: Current Medications Heparin Sodium (Porcine) (Heparin) 5,000 units SC Q8 AFSANEH; Protocol Last Admin: 04/02/19 14:15 Dose: 5,000 units Hydrocortisone Sodium Succinate (Solu-Cortef) 50 mg IVP Q6H AFSANEH Last Admin: 04/02/19 13:00 Dose: 50 mg Propofol (Diprivan) 1,000 mg in 100 mls @ 2.345 mls/hr IV .Q24H PRN; Protocol PRN Reason: TITRATE PER MD ORDER Last Admin: 04/02/19 14:05 Dose: 10 mcg/kg/min, 4.689 mls/hr Dobutamine HCl/Dextrose (Dobutamine/Dextrose 5% 500mg/250ml) 500 mg in 250 mls @ 5.862 mls/hr IV .Q24H PRN; Protocol PRN Reason: TITRATE PER PROTOCOL Last Admin: 04/02/19 07:30 Dose: 2.5 mcg/kg/min, 5.862 mls/hr Vancomycin HCl (Vancomycin 1gm) 1 gm in 250 mls @ 167 mls/hr IVPB DAILY AFSANEH; Protocol Cefepime HCl (Maxipime 1gm) 1 gm in 100 mls @ 25 mls/hr IVPB Q12 AFSANEH; Protocol Pantoprazole Sodium (Protonix Inj) 40 mg IVP DAILY AFSANEH Last Admin: 04/02/19 14:15 Dose: 40 mg Results - Vital Signs Recent Vital Signs: Last Vital Signs Temp 99.5 F 04/02/19 16:20 Pulse 98 H 04/02/19 16:20 Resp 15 04/01/19 22:15 BP 108/60 04/02/19 16:00 Pulse Ox 97 04/02/19 16:20 - Labs Result Diagrams: 04/02/19 07:00 04/02/19 07:00 Labs: Laboratory Results - last 24 hr 04/01/19 04/01/19 04/01/19 10:38 11:09 16:37 WBC RBC Hgb Hct MCV MCH MCHC RDW Plt Count MPV Neut % (Auto) Lymph % (Auto) [place] % (Auto) Eos % (Auto) Baso % (Auto) Lymph # (Auto) [place] # (Auto) Eos # (Auto) Baso # (Auto) Absolute Neuts (auto) PT INR APTT pCO2 30 L pO2 167.0 H HCO3 19.0 L ABG pH 7.41 ABG Total CO2 19.9 L ABG O2 Saturation 99.9 H ABG O2 Content ABG Base Excess -4.5 L ABG Hemoglobin ABG Carboxyhemoglobin POC ABG HHb (Measured) ABG Methemoglobin ABG O2 Capacity ABG Potassium 4.0 VBG pH VBG pCO2 VBG HCO3 VBG Total CO2 VBG O2 Sat (Calc) VBG Base Excess VBG Potassium Hgb O2 Saturation Sodium 137.0 Chloride 109.0 H Glucose 193 H Lactate 2.2 H Mechanical Rate 15 FiO2 50.0 Tidal Volume 450 PEEP 5 Crit Value Called To Crit Value Called By Blood Gas Notified Time Potassium Carbon Dioxide Anion Gap BUN Creatinine Est GFR ( Amer) Est GFR (Non-Af Amer) Random Glucose Calcium Phosphorus Magnesium Total Bilirubin Direct Bilirubin AST ALT Alkaline Phosphatase Ammonia 13 Troponin I NT-Pro-B Natriuret Pep Total Protein Albumin Globulin Albumin/Globulin Ratio Procalcitonin Arterial Blood Potassium 4.0 Venous Blood Potassium Urine Opiates Screen Urine Methadone Screen Ur Barbiturates Screen Ur Phencyclidine Scrn Ur Amphetamines Screen U Benzodiazepines Scrn U Oth Cocaine Metabols U Cannabinoids Screen Hepatitis A IgM Ab Negative Hep Bs Antigen Negative Hep B Core IgM Ab Negative Hepatitis C Antibody Negative 04/01/19 04/01/19 04/02/19 18:50 20:04 06:15 WBC RBC Hgb Hct MCV MCH MCHC RDW Plt Count MPV Neut % (Auto) Lymph % (Auto) [place] % (Auto) Eos % (Auto) Baso % (Auto) Lymph # (Auto) [place] # (Auto) Eos # (Auto) Baso # (Auto) Absolute Neuts (auto) PT INR APTT pCO2 34 L pO2 101 H 129.0 H HCO3 22.1 ABG pH 7.42 ABG Total CO2 23.1 ABG O2 Saturation 99.9 H ABG O2 Content 15.7 ABG Base Excess -1.9 ABG Hemoglobin 11.3 L ABG Carboxyhemoglobin 1.8 H POC ABG HHb (Measured) 0.1 ABG Methemoglobin 0.7 ABG O2 Capacity 15.7 L ABG Potassium VBG pH 7.02 L* VBG pCO2 17.0 L* VBG HCO3 4.4 L VBG Total CO2 4.9 L VBG O2 Sat (Calc) 99.0 H VBG Base Excess -24.9 L VBG Potassium 0.9 L* Hgb O2 Saturation 97.4 Sodium 145.0 Chloride > 170.0 H Glucose 26 L* D Lactate 1.0 Mechanical Rate FiO2 21.0 50.0 Tidal Volume PEEP Crit Value Called [place] [id number] Blood Gas Notified Time 185 Potassium Carbon Dioxide Anion Gap BUN Creatinine Est GFR ( Amer) Est GFR (Non-Af Amer) Random Glucose Calcium Phosphorus Magnesium Total Bilirubin Direct Bilirubin AST ALT Alkaline Phosphatase Ammonia Troponin I NT-Pro-B Natriuret Pep Total Protein Albumin Globulin Albumin/Globulin Ratio Procalcitonin Arterial Blood Potassium Venous Blood Potassium 0.9 L* Urine Opiates Screen Negative Urine Methadone Screen Negative Ur Barbiturates Screen Negative Ur Phencyclidine Scrn Negative Ur Amphetamines Screen Negative U Benzodiazepines Scrn Positive H U Oth Cocaine Metabols Negative U Cannabinoids Screen Negative Hepatitis A IgM Ab Hep Bs Antigen Hep B Core IgM Ab Hepatitis C Antibody 04/02/19 04/02/19 04/02/19 07:00 07:00 07:00 WBC 11.3 H RBC 4.31 Hgb 12.1 L Hct 38.1 L MCV 88.4 MCH 28.1 MCHC 31.8 RDW 15.1 H Plt Count 146 MPV 11.3 H Neut % (Auto) 85.6 H Lymph % (Auto) 8.7 L [place] % (Auto) 5.6 Eos % (Auto) 0.0 L Baso % (Auto) 0.1 Lymph # (Auto) 1.0 L [place] # (Auto) 0.6 Eos # (Auto) 0.0 Baso # (Auto) 0.01 Absolute Neuts (auto) 9.70 H PT 28.9 H INR 2.56 APTT 42.7 H pCO2 pO2 HCO3 ABG pH ABG Total CO2 ABG O2 Saturation ABG O2 Content ABG Base Excess ABG Hemoglobin ABG Carboxyhemoglobin POC ABG HHb (Measured) ABG Methemoglobin ABG O2 Capacity ABG Potassium VBG pH VBG pCO2 VBG HCO3 VBG Total CO2 VBG O2 Sat (Calc) VBG Base Excess VBG Potassium Hgb O2 Saturation Sodium 141 Chloride 108 H Glucose Lactate Mechanical Rate FiO2 Tidal Volume PEEP Crit Value Called To Crit Value Called By Blood Gas Notified Time Potassium 3.5 L Carbon Dioxide 27 Anion Gap 10 BUN 40 H Creatinine 1.4 Est GFR ( Amer) > 60 Est GFR (Non-Af Amer) 50 Random Glucose 138 H Calcium 8.8 Phosphorus 2.9 Magnesium 2.4 H Total Bilirubin 2.6 H Direct Bilirubin AST 960 H D ALT 1029 H Alkaline Phosphatase 61 Ammonia Troponin I 0.09 NT-Pro-B Natriuret Pep Total Protein 5.4 L Albumin 2.8 L Globulin 2.7 Albumin/Globulin Ratio 1.0 L Procalcitonin Arterial Blood Potassium Venous Blood Potassium Urine Opiates Screen Urine Methadone Screen Ur Barbiturates Screen Ur Phencyclidine Scrn Ur Amphetamines Screen U Benzodiazepines Scrn U Oth Cocaine Metabols U Cannabinoids Screen Hepatitis A IgM Ab Hep Bs Antigen Hep B Core IgM Ab Hepatitis C Antibody 04/02/19 04/02/19 04/02/19 07:00 07:00 08:32 WBC RBC Hgb Hct MCV MCH MCHC RDW Plt Count MPV Neut % (Auto) Lymph % (Auto) [place] % (Auto) Eos % (Auto) Baso % (Auto) Lymph # (Auto) [place] # (Auto) Eos # (Auto) Baso # (Auto) Absolute Neuts (auto) PT INR APTT pCO2 pO2 HCO3 ABG pH ABG Total CO2 ABG O2 Saturation ABG O2 Content ABG Base Excess ABG Hemoglobin ABG Carboxyhemoglobin POC ABG HHb (Measured) ABG Methemoglobin ABG O2 Capacity ABG Potassium VBG pH VBG pCO2 VBG HCO3 VBG Total CO2 VBG O2 Sat (Calc) VBG Base Excess VBG Potassium Hgb O2 Saturation Sodium Chloride Glucose Lactate Mechanical Rate FiO2 Tidal Volume PEEP Crit Value Called To Crit Value Called By Blood Gas Notified Time Potassium Carbon Dioxide Anion Gap BUN Creatinine Est GFR ( Amer) Est GFR (Non-Af Amer) Random Glucose Calcium Phosphorus Magnesium Total Bilirubin Direct Bilirubin 1.4 H AST ALT Alkaline Phosphatase Ammonia Troponin I NT-Pro-B Natriuret Pep 70657 H Total Protein Albumin Globulin Albumin/Globulin Ratio Procalcitonin 0.55 H Arterial Blood Potassium Venous Blood Potassium Urine Opiates Screen Urine Methadone Screen Ur Barbiturates Screen Ur Phencyclidine Scrn Ur Amphetamines Screen U Benzodiazepines Scrn U Oth Cocaine Metabols U Cannabinoids Screen Hepatitis A IgM Ab Hep Bs Antigen Hep B Core IgM Ab Hepatitis C Antibody 04/02/19 04/02/19 04/02/19 12:15 13:20 13:20 WBC RBC Hgb Hct MCV MCH MCHC RDW Plt Count MPV Neut % (Auto) Lymph % (Auto) [place] % (Auto) Eos % (Auto) Baso % (Auto) Lymph # (Auto) [place] # (Auto) Eos # (Auto) Baso # (Auto) Absolute Neuts (auto) PT INR APTT pCO2 50 H pO2 109.0 H HCO3 21.9 ABG pH 7.25 L ABG Total CO2 23.4 ABG O2 Saturation 98.7 H ABG O2 Content 18.2 ABG Base Excess -5.6 L ABG Hemoglobin 13.3 ABG Carboxyhemoglobin 1.5 POC ABG HHb (Measured) 1.3 ABG Methemoglobin 0.7 ABG O2 Capacity 18.4 ABG Potassium VBG pH VBG pCO2 VBG HCO3 VBG Total CO2 VBG O2 Sat (Calc) VBG Base Excess VBG Potassium Hgb O2 Saturation 96.5 Sodium Chloride Glucose Lactate Mechanical Rate FiO2 50.0 Tidal Volume PEEP Crit Value Called To Crit Value Called By Blood Gas Notified Time Potassium Carbon Dioxide Anion Gap BUN Creatinine Est GFR ( Amer) Est GFR (Non-Af Amer) Random Glucose Calcium Phosphorus Magnesium Total Bilirubin Direct Bilirubin AST ALT Alkaline Phosphatase Ammonia < 9 L D Troponin I 0.06 D NT-Pro-B Natriuret Pep Total Protein Albumin Globulin Albumin/Globulin Ratio Procalcitonin Arterial Blood Potassium Venous Blood Potassium Urine Opiates Screen Urine Methadone Screen Ur Barbiturates Screen Ur Phencyclidine Scrn Ur Amphetamines Screen U Benzodiazepines Scrn U Oth Cocaine Metabols U Cannabinoids Screen Hepatitis A IgM Ab Hep Bs Antigen Hep B Core IgM Ab Hepatitis C Antibody Attending/Attestation - Attestation I have personally seen and examined this patient.: Yes I have fully participated in the care of the patient.: Yes I have reviewed all pertinent clinical information: Yes
--- NOTE | 2019-04-02 14:32 | PN ---
DATE: 04/02/2019 SUBJECTIVE: The patient is seen and examined at bedside. He appears to be comfortable. He is on propofol 10 mcg/kg per minute, dobutamine 2.5 mcg/kg per minute and acetylcysteine third dose is going. He is intubated. He is on PRVC 450/15/5/50%. PHYSICAL EXAMINATION: VITAL SIGNS: On that setting, his oxygen saturation is 97%. His blood pressure is 103/59, temperature 97.2, end-tidal CO2 on the monitor 28, oxygen saturation 97%, heart rate 73, respiratory rate 21. Urine output overnight 615 mL. HEENT: Head and neck atraumatic. NECK: Text. HEART: Regular rate and rhythm. S1, S2 normal. LUNGS: Clear to auscultation bilaterally. ABDOMEN: Soft, nontender, nondistended. MUSCULOSKELETAL: No C/C/E. NEURO: The patient a sedated. SKIN: Moist site. LABORATORY DATA: WBC 11.3, down from 13.1, hemoglobin 12.1, platelet count 146. Sodium 141, potassium 3.5, chloride 108, carbon dioxide 27, BUN 40, creatinine 1.4, down from 1.8. Lactic acid level is 1 down from 5.3. Troponin level is zero. Troponin is negative x2. Sodium of 141, potassium 3.5, chloride 108, carbon dioxide 27, BUN 40, creatinine 1.4, glucose 138, direct bilirubin, total bilirubin 2.6, down from 3.3, AST 960, down from 1322, ALT 1029 up from 993, albumin 2.8. INR 2.56, down from 2.71, PTT 42.7. ABG 7.42/34/129. Urine is negative for leukocyte esterase and nitrites. U tox is positive for benzodiazepines, but negative for digoxin, salicylates and Tylenol. Hepatitis B and C serologies negative. Third dose of acetylcysteine is going, dobutamine drip, hydrocortisone 50 mg IV every 12 hours, Protonix, propofol. PLAN: This is a 73-year-old gentleman who presented with what appears to be exacerbation of right ventricular failure in the setting of biventricular CHF (ejection fraction of the left ventricle is 10% to 15%) with a subsequent multiorgan dysfunction syndrome including encephalopathy, congestive hepatopathy and acute kidney injury. The patient was started on inotropes, intubated. As possibility of other then congestive hepatopathy etiology of severe transaminitis/billirubinemia can not be ruled out and benefits/risks ratio appears to be favorable, patient is on N-AC as well Neuro: The patient is on propofol. We will stop propofol and assess the patient's mental status. The patient's ammonia level was within normal limits. Pulmonary: We will continue with protective lung ventilation strategy, conservative fluid and oxygen management, daily weaning trials and sedation vacation. Cardiovascular: The patient has biventricular failure and will be on dobutamine, Lasix for conservative fluid management. Cardiology consult is pending. GI: The patient is n.p.o. and GI prophylaxis will be instituted. The patient received three doses of acetylcysteine. His ALT is trending down. His total bilirubin is trending down. Ammonia level is within normal limits, however, we will repeat ammonia level today again. GI consult is appreciated. Possibility of congestive hepatopathy appears to be high on differential list. ID: The patient is on broad-spectrum antibiotics. Septic workup is pending. ID consult is pending. Endocrine: We will continue to maintain blood glucose within 140 to 180 range according to NICE-SUGAR trial. The patient is on stress dose steroids. Renal: The patient's acute kidney injury has substantially improved. We will continue to maintain mean arterial pressure more than 65, avoid hyperchloremia and maintain euvolemic euglycemia. ccm time 40 min Jackson Denney MD [facility]
[2019-04-02] MEDS ORDERED: NOREPINEPHRINE BIT/0.9 % NACL 4 MG/250 ML BAG IV PRN (18:03)
[2019-04-02] MEDS: Vancomycin 1gm in NS 250ml 1 GM/250 ML BAG IVPB SCH (18:03)
[2019-04-02] MEDS: Midazolam 100 mg/100ml in NS 100 MG/100 ML SOL IV PRN (18:44)
[2019-04-02] MEDS: Fentanyl 1000mcg/100ml NS 1,000 MCG/100 ML BAG IV PRN (18:45)
--- NOTE | 2019-04-02 22:02 | CON ---
DATE: 04/02/2019 CONSULT SERVICE: Cardiology. REASON FOR CONSULTATION AND FOLLOWUP: History of coronary artery disease, ischemic cardiomyopathy status post AICD, cardiac evaluation and followup, admitted with altered mental status, respiratory failure, intubated, elevated transaminases, and acute liver failure. BRIEF CLINICAL HISTORY: This is a 73-year-old male with a past medical history significant for hypertension, coronary artery disease, CABG, status post PTCA of CARUSO, ischemic cardiomyopathy, ejection fraction 15% to 20%, status post AICD, recently with a generator change, admitted with altered mental status. Patient was somnolent and lethargic, unable to give any history in the ER yesterday, requiring intubation. Now, the patient is currently in ICU being intubated and sedated. PAST MEDICAL HISTORY: Significant for coronary artery disease, CABG, hypertension, carotid endarterectomy, ischemic cardiomyopathy with ejection fraction 10% to 15% status post AICD, history of Parkinson's disease. Past history also significant as mentioned coronary artery disease, CABG status post ventricular tachycardia, history of PTCA of LAD status post AICD. SOCIAL HISTORY: Patient is a former smoker, heavy alcohol abuse in the past, also history of alcohol abuse in the past. PREVIOUS CARDIAC WORKUP: As follows; patient 6 years ago was admitted with ventricular tachycardia, 6 to 7 years ago status post PTCA of LAD was done, and recently admitted with multiple times when the defibrillator went off, interrogated last time was found to be a lead malfunction and then the patient's lead revision done. Patient's last echo showed ejection fraction 10% to 15%, was done recently echo in hospital in Dr. Taylor's office ejection fraction of 15% to 20%. CURRENT MEDICATIONS: Patient is taking at home; carvedilol 3.125 mg daily, spironolactone 25 mg daily, clopidogrel 75 mg daily, simvastatin, and Entresto was started. ALLERGIES: NO KNOWN DRUG ALLERGIES. REVIEW OF SYSTEMS: As per HPI. PHYSICAL EXAMINATION: GENERAL: Height of the patient 5 feet 9 inches, weight of the patient 172 pounds, body mass index 25.4 kg/m2. VITAL SIGNS: Temperature afebrile, heart rate 81, blood pressure 107/70. HEENT: PERRLA. Extraocular muscles intact. NECK: Supple. No carotid bruits or thyromegaly. CHEST: Clear to auscultation. HEART: S1 and S2 regular. ABDOMEN: Soft. EXTREMITIES: Clubbing and cyanosis negative. LABORATORY DATA: Blood workup as follows; WBC 11.8, hemoglobin 12, hematocrit 38.1, and platelet count 146. Chemistry shows sodium 141, potassium 3.4, chloride 108, carbon dioxide 27, anion gap of 10, BUN 40, and creatinine 1.4. Creatinine clearance 50 mL/hour, chloride 104, magnesium 2.5. Total bilirubin 2.6. AST 960. ALT 1020. BNP 35,000. Direct bilirubin 1.4. IMPRESSION AND PLAN: A 73-year-old male with past medical history significant for coronary artery disease with coronary artery bypass graft 10 to 15 years ago status post percutaneous transluminal coronary angioplasty of left anterior descending after having ventricular tachycardia 6 years ago, status post automatic implantable cardioverter-defibrillator, admitted with altered mental status, respiratory failure, multiorgan dysfunction, acute liver failure. Now, the patient is intubated with elevated BNP as well as transaminases. In view of patient's severe left ventricular dysfunction and multiorgan dysfunction, patient will get benefit from inotropes. We will start low dose of Primacor and as blood pressure tolerates. Continue diuretics. Patient has already been started on Dobutrex. So, we will hold Primacor for now and continue low dose of Dobutrex. If any further arrhythmia or atrial fibrillation occurs, then we will discontinue Dobutrex and start Primacor. We will follow closely. Definitely, patient will get the benefit from IV inotropes. We will monitor closely. Overall patient's critical long-term prognosis is guarded. Since the patient has acute liver failure, we will hold statin for now and monitor closely. We will follow with you. Thank you Dr. Martinez for providing us the opportunity in taking care of the patient, Eduard Gautam. Joanna Hall MD
--- NOTE | 2019-04-02 23:23 | HP ---
DATE OF EXAM: 04/02/2019 HISTORY OF PRESENT ILLNESS: The patient was seen and examined. I do agree with the note of the medical office technician. I was involved in the plan of care. The patient has acute liver failure. The patient also has acute kidney injury and is intubated because of respiratory failure and an echo showed that the patient had an EF of 10% to 15%, it is felt that the liver failure is secondary to the heart failure. The patient has been placed on a ventilator. The patient's score is elevated. The Tylenol level was low. He has been started on lactulose for possible cirrhosis, causing the confusion. The patient has acute kidney injury. The creatinine is improving since admission. The patient is currently on n-acetylcysteine. The patient had been on Ambien as well and there is concerns about possible overdose. The patient is to continue on dobutamine. I did speak to Dr. Hall from Cardiology regarding the case. The patient has coronary artery disease and CABG. He also has carotid artery stenosis and had a CEA in the past. The patient has Parkinson's as well as schizophrenia. The patient is currently on heparin for DVT prophylaxis. He was started on hydrocortisone for sepsis. There is an abdominal ultrasound to evaluate the IVC, but that has been ordered. I did speak to Dr. Denney, the corporate travel consultant on the case. The hepatitis A, B and C are negative. He does have benzodiazepine in his urine toxicology screen. Clif Jose MD
[2019-04-03] MEDS: Cefepime 1gm in NS 100ml 1 GM/100 ML BAG IVPB SCH ×3 (01:43→22:08)
[2019-04-03 06:35] LABS: HEMOGLOBIN 11.7 g/dL (14.0-18.0); LYMPH # 0.7 (1.2-3.4); LYMPH % 9.3 % (22.0-35.0); MEAN CELL VOLUME 88.9 fl (80.0-105.0); MEAN CORPUSCULAR HEMOGLOBIN 28.2 pg (25.0-35.0); MEAN CORPUSCULAR HGB CONC 31.7 g/dl (31.0-37.0); MEAN PLATELET VOLUME 11.5 fl (7.0-11.0); MONO # 0.4 (0.1-0.6); MONO % 5.4 % (1.0-6.0); RBC 4.15 10^6/uL (3.5-6.1); RED CELL DISTRIBUTION WIDTH 15.3 % (11.5-14.5); WHITE BLOOD COUNT 7.8 10^3/uL (4.5-11.0)
[2019-04-03 07:06] LABS: B-TYPE NATRIURETIC PEPTIDE 21100 pg/mL (0-450)
[2019-04-03 07:12] LABS: ALBUMIN 2.5 g/dL (3.0-4.8); ALT/SGPT 751 U/L (7-56); AST/SGOT 466 U/L (17-59); BLOOD UREA NITROGEN 35 mg/dL (7-21); CALCIUM 9.1 mg/dL (8.4-10.5); GFR NON-AFRICAN AMERICAN > 60; HDL CHOLESTEROL 28 mg/dL (29-60)
[2019-04-03 07:13] LABS: LDL CHOLESTEROL 71 mg/dL (0-129)
[2019-04-03] MEDS: Vancomycin 1gm in NS 250ml 1 GM/250 ML BAG IVPB SCH (08:29)
--- NOTE | 2019-04-03 08:41 | CP.CCUPN ---
<Tony Uribe - Last Filed: 04/03/19 10:49> CCU Subjective - Physician Review Subjective (Free Text): Tony Uribe PGY-1 Critical Care Progress Note Patient seen and evaluated at bedside. No acute events reported overnight. Patient currently sedated on Fentanyl and Midazolam, remains on mechanical ventilation and Dobutamine drip. No response to painful stimuli. CCU Objective - Vital Signs / Intake & Output Vital Signs (Last 4 hours): Vital Signs Temp Pulse BP Pulse Ox 04/03/19 07:00 97.3 F L 60 105/52 L 95 04/03/19 06:50 97.3 F L 60 95 04/03/19 06:40 97.3 F L 59 L 95 04/03/19 06:30 97.2 F L 58 L 102/55 L 94 L 04/03/19 06:20 97.2 F L 55 L 95 04/03/19 06:10 97.2 F L 59 L 95 04/03/19 06:00 97.2 F L 59 L 104/52 L 95 04/03/19 05:50 97.0 F L 60 95 04/03/19 05:40 97.0 F L 60 95 04/03/19 05:30 97.0 F L 60 105/54 L 95 04/03/19 05:20 96.8 F L 60 95 04/03/19 05:10 96.8 F L 60 96 04/03/19 05:00 96.8 F L 60 107/53 L 95 04/03/19 04:50 96.8 F L 60 95 04/03/19 04:40 96.6 F L 60 95 Intake and Output (Last 8hrs): Intake & Output 04/02/19 04/03/19 04/03/19 22:59 06:59 14:59 Intake Total 1246 1155 Output Total 1250 900 Balance -4 255 Intake: IV 1246 1155 Left Internal Jugular 1180 1155 Oral 0 0 Output: Urine 1250 900 Urethral (Eric) 1250 900 Other: # Bowel Movements 4 1 - Physical Exam Head: Positive for: Atraumatic, Normocephalic Pupils: Positive for: PERRL Extroacular Muscles: Positive for: EOMI Mouth: Positive for: Moist Mucous Membranes, Other (ETT in place). Negative for: Normal Teeth Nose (External): Positive for: Other (NGT in place in L nares) Neck: Positive for: Normal Range of Motion Respiratory/Chest: Positive for: Clear to Auscultation, Decreased Breath Sounds. Negative for: Respiratory Distress, Accessory Muscle Use Cardiovascular: Positive for: Regular Rate and Rhythm, Normal S1, S2 Abdomen: Positive for: Normal Bowel Sounds. Negative for: Tenderness, Distention Genitourinary Male: Positive for: Other (Eric in place) Upper Extremity: Positive for: Normal Inspection Lower Extremity: Positive for: Normal Inspection Skin: Positive for: Warm, Dry, Normal Color Psychiatric: Negative for: Alert, Oriented x 3, Agitated - Medications Active Medications: Active Medications Generic Name Dose Route Start Last Admin Trade Name Freq PRN Reason Stop Dose Admin Heparin Sodium (Porcine) 5,000 units 04/02/19 14:00 04/03/19 06:42 Heparin SC 5,000 units Q8 AFSANEH Administration Protocol Hydrocortisone Sodium Succinate 50 mg 04/03/19 12:00 Solu-Cortef IVP Q6 AFSANEH Propofol 1,000 mg in 100 mls @ 2.345 mls/hr 04/02/19 07:30 04/02/19 21:00 Diprivan IV 0 mcg/kg/min .Q24H PRN 0 mls/hr TITRATE PER MD ORDER Titration Protocol 5 MCG/KG/MIN Dobutamine HCl/Dextrose 500 mg in 250 mls @ 5.862 mls/hr 04/02/19 11:37 04/02/19 07:30 Dobutamine/Dextrose 5% 500mg/250ml IV 2.5 mcg/kg/min .Q24H PRN 5.862 mls/hr TITRATE PER PROTOCOL Administration Protocol 2.5 MCG/KG/MIN Vancomycin HCl 1 gm in 250 mls @ 167 mls/hr 04/02/19 16:45 04/03/19 08:29 Vancomycin 1gm IVPB 167 mls/hr DAILY AFSANEH Administration Protocol Cefepime HCl 1 gm in 100 mls @ 25 mls/hr 04/02/19 22:00 04/03/19 01:43 Maxipime 1gm IVPB 25 mls/hr Q12 AFSANEH Administration Protocol Fentanyl Citrate 1,000 mcg in 100 mls @ 2 mls/hr 04/02/19 18:03 04/02/19 21:41 Fentanyl Citrate/Sodium Chloride 1 Mg/100 Ml IV 40 mcg/hr .Q24H PRN 4 mls/hr TITRATE PER MD ORDER Titration Protocol 20 MCG/HR NOREPINEPHRINE BIT/0.9 % NACL 4 mg in 250 mls @ 15 mls/hr 04/02/19 18:03 Levophed 4 Mg/ 250 Ml Ns Premixed IV .[id number] PRN TITRATE PER MD ORDER Protocol 4 MCG/MIN Midazolam 100 mg/100ml in NS 100 mg in 100 mls @ 1 mls/hr 04/02/19 18:03 04/02/19 20:00 Midazolam 100 Mg/100ml In Ns IV 3 mg/hr .Q24H PRN 3 mls/hr Agitation Titration Protocol 1 MG/HR Pantoprazole Sodium 40 mg 04/01/19 17:00 04/03/19 08:28 Protonix Inj IVP 40 mg DAILY AFSANEH Administration - Patient Studies Lab Studies: Microbiology Studies 04/01/19 11:45 Urine Culture - Final Urine,Catheterized No Growth (<1,000 CFU/ML) 04/01/19 11:30 Blood Culture - Preliminary Blood-Venous NO GROWTH AFTER 24 HOURS 04/01/19 11:00 Blood Culture - Preliminary Blood-Venous NO GROWTH AFTER 24 HOURS Lab Studies 04/03/19 04/03/19 04/03/19 Range/Units 06:00 06:00 06:00 WBC 7.8 D (4.5-11.0) 10^3/uL RBC 4.15 (3.5-6.1) 10^6/uL Hgb 11.7 L (14.0-18.0) g/dL Hct 36.9 L (42.0-52.0) % MCV 88.9 (80.0-105.0) fl MCH 28.2 (25.0-35.0) pg MCHC 31.7 (31.0-37.0) g/dl RDW 15.3 H (11.5-14.5) % Plt Count 144 (120.0-450.0) 10^3/uL MPV 11.5 H (7.0-11.0) fl Neut % (Auto) 85.3 H (50.0-68.0) % Lymph % (Auto) 9.3 L (22.0-35.0) % [place] % (Auto) 5.4 (1.0-6.0) % Eos % (Auto) 0.0 L (1.5-5.0) % Baso % (Auto) 0.0 (0.0-3.0) % Lymph # (Auto) 0.7 L (1.2-3.4) [place] # (Auto) 0.4 (0.1-0.6) Eos # (Auto) 0.0 (0.0-0.7) Baso # (Auto) 0.00 (0.0-2.0) K/mm3 Absolute Neuts (auto) 6.64 H (1.4-6.5) pCO2 (35-45) mm/Hg pO2 (80-100) mm/Hg HCO3 (21-28) mmol/L ABG pH (7.35-7.45) ABG Total CO2 (22-28) mmol.L ABG O2 Saturation (95-98) % ABG O2 Content (15-23) ML/dl ABG Base Excess (-2.0-3.0) mmol/L ABG Hemoglobin (11.7-17.4) g/dL ABG Carboxyhemoglobin (0.5-1.5) % POC ABG HHb (Measured) (0-5) % ABG Methemoglobin (0.0-3.0) % ABG O2 Capacity (16-24) mL/dl Hgb O2 Saturation (95.0-98.0) % FiO2 % Sodium 143 (132-148) mmol/L Potassium 3.4 L (3.6-5.0) mmol/L Chloride 111 H (98-107) mmol/L Carbon Dioxide 28 (21-33) mmol/L Anion Gap 8 L (10-20) BUN 35 H (7-21) mg/dL Creatinine 1.1 (0.8-1.5) mg/dl Est GFR ( Amer) > 60 Est GFR (Non-Af Amer) > 60 Random Glucose 120 H (70-110) mg/dL Calcium 9.1 (8.4-10.5) mg/dL Phosphorus 2.8 (2.5-4.5) mg/dL Magnesium 2.4 H (1.7-2.2) mg/dL Total Bilirubin 2.0 H (0.2-1.3) mg/dL Direct Bilirubin (0.0-0.4) mg/dL AST 466 H D (17-59) U/L ALT 751 H (7-56) U/L Alkaline Phosphatase 64 (38-126) U/L Ammonia (9-33) umol/L Troponin I ng/mL NT-Pro-B Natriuret Pep 19260 H (0-450) pg/mL Total Protein 5.1 L (5.8-8.3) g/dL Albumin 2.5 L (3.0-4.8) g/dL Globulin 2.6 gm/dL Albumin/Globulin Ratio 1.0 L (1.1-1.8) Triglycerides 70 (35-160) mg/dL Cholesterol 114 L (130-200) mg/dL LDL Cholesterol Direct 71 (0-129) mg/dL HDL Cholesterol 28 L (29-60) mg/dL Procalcitonin (0.19-0.49) NG/ML TSH 3rd Generation 0.39 L (0.46-4.68) mIU/mL 04/02/19 04/02/19 04/02/19 Range/Units 13:20 13:20 12:15 WBC (4.5-11.0) 10^3/uL RBC (3.5-6.1) 10^6/uL Hgb (14.0-18.0) g/dL Hct (42.0-52.0) % MCV (80.0-105.0) fl MCH (25.0-35.0) pg MCHC (31.0-37.0) g/dl RDW (11.5-14.5) % Plt Count (120.0-450.0) 10^3/uL MPV (7.0-11.0) fl Neut % (Auto) (50.0-68.0) % Lymph % (Auto) (22.0-35.0) % [place] % (Auto) (1.0-6.0) % Eos % (Auto) (1.5-5.0) % Baso % (Auto) (0.0-3.0) % Lymph # (Auto) (1.2-3.4) [place] # (Auto) (0.1-0.6) Eos # (Auto) (0.0-0.7) Baso # (Auto) (0.0-2.0) K/mm3 Absolute Neuts (auto) (1.4-6.5) pCO2 50 H (35-45) mm/Hg pO2 109.0 H (80-100) mm/Hg HCO3 21.9 (21-28) mmol/L ABG pH 7.25 L (7.35-7.45) ABG Total CO2 23.4 (22-28) mmol.L ABG O2 Saturation 98.7 H (95-98) % ABG O2 Content 18.2 (15-23) ML/dl ABG Base Excess -5.6 L (-2.0-3.0) mmol/L ABG Hemoglobin 13.3 (11.7-17.4) g/dL ABG Carboxyhemoglobin 1.5 (0.5-1.5) % POC ABG HHb (Measured) 1.3 (0-5) % ABG Methemoglobin 0.7 (0.0-3.0) % ABG O2 Capacity 18.4 (16-24) mL/dl Hgb O2 Saturation 96.5 (95.0-98.0) % FiO2 50.0 % Sodium (132-148) mmol/L Potassium (3.6-5.0) mmol/L Chloride (98-107) mmol/L Carbon Dioxide (21-33) mmol/L Anion Gap (10-20) BUN (7-21) mg/dL Creatinine (0.8-1.5) mg/dl Est GFR ( Amer) Est GFR (Non-Af Amer) Random Glucose (70-110) mg/dL Calcium (8.4-10.5) mg/dL Phosphorus (2.5-4.5) mg/dL Magnesium (1.7-2.2) mg/dL Total Bilirubin (0.2-1.3) mg/dL Direct Bilirubin (0.0-0.4) mg/dL AST (17-59) U/L ALT (7-56) U/L Alkaline Phosphatase (38-126) U/L Ammonia < 9 L D (9-33) umol/L Troponin I 0.06 D ng/mL NT-Pro-B Natriuret Pep (0-450) pg/mL Total Protein (5.8-8.3) g/dL Albumin (3.0-4.8) g/dL Globulin gm/dL Albumin/Globulin Ratio (1.1-1.8) Triglycerides (35-160) mg/dL Cholesterol (130-200) mg/dL LDL Cholesterol Direct (0-129) mg/dL HDL Cholesterol (29-60) mg/dL Procalcitonin (0.19-0.49) NG/ML TSH 3rd Generation (0.46-4.68) mIU/mL 04/02/19 04/02/19 04/02/19 Range/Units 08:32 07:00 07:00 WBC (4.5-11.0) 10^3/uL RBC (3.5-6.1) 10^6/uL Hgb (14.0-18.0) g/dL Hct (42.0-52.0) % MCV (80.0-105.0) fl MCH (25.0-35.0) pg MCHC (31.0-37.0) g/dl RDW (11.5-14.5) % Plt Count (120.0-450.0) 10^3/uL MPV (7.0-11.0) fl Neut % (Auto) (50.0-68.0) % Lymph % (Auto) (22.0-35.0) % [place] % (Auto) (1.0-6.0) % Eos % (Auto) (1.5-5.0) % Baso % (Auto) (0.0-3.0) % Lymph # (Auto) (1.2-3.4) [place] # (Auto) (0.1-0.6) Eos # (Auto) (0.0-0.7) Baso # (Auto) (0.0-2.0) K/mm3 Absolute Neuts (auto) (1.4-6.5) pCO2 (35-45) mm/Hg pO2 (80-100) mm/Hg HCO3 (21-28) mmol/L ABG pH (7.35-7.45) ABG Total CO2 (22-28) mmol.L ABG O2 Saturation (95-98) % ABG O2 Content (15-23) ML/dl ABG Base Excess (-2.0-3.0) mmol/L ABG Hemoglobin (11.7-17.4) g/dL ABG Carboxyhemoglobin (0.5-1.5) % POC ABG HHb (Measured) (0-5) % ABG Methemoglobin (0.0-3.0) % ABG O2 Capacity (16-24) mL/dl Hgb O2 Saturation (95.0-98.0) % FiO2 % Sodium (132-148) mmol/L Potassium (3.6-5.0) mmol/L Chloride (98-107) mmol/L Carbon Dioxide (21-33) mmol/L Anion Gap (10-20) BUN (7-21) mg/dL Creatinine (0.8-1.5) mg/dl Est GFR ( Amer) Est GFR (Non-Af Amer) Random Glucose (70-110) mg/dL Calcium (8.4-10.5) mg/dL Phosphorus (2.5-4.5) mg/dL Magnesium (1.7-2.2) mg/dL Total Bilirubin (0.2-1.3) mg/dL Direct Bilirubin 1.4 H (0.0-0.4) mg/dL AST (17-59) U/L ALT (7-56) U/L Alkaline Phosphatase (38-126) U/L Ammonia (9-33) umol/L Troponin I ng/mL NT-Pro-B Natriuret Pep 66926 H (0-450) pg/mL Total Protein (5.8-8.3) g/dL Albumin (3.0-4.8) g/dL Globulin gm/dL Albumin/Globulin Ratio (1.1-1.8) Triglycerides (35-160) mg/dL Cholesterol (130-200) mg/dL LDL Cholesterol Direct (0-129) mg/dL HDL Cholesterol (29-60) mg/dL Procalcitonin 0.55 H (0.19-0.49) NG/ML TSH 3rd Generation (0.46-4.68) mIU/mL Laboratory Results - last 24 hr 04/02/19 04/02/19 04/02/19 07:00 07:00 08:32 WBC RBC Hgb Hct MCV MCH MCHC RDW Plt Count MPV Neut % (Auto) Lymph % (Auto) [place] % (Auto) Eos % (Auto) Baso % (Auto) Lymph # (Auto) [place] # (Auto) Eos # (Auto) Baso # (Auto) Absolute Neuts (auto) pCO2 pO2 HCO3 ABG pH ABG Total CO2 ABG O2 Saturation ABG O2 Content ABG Base Excess ABG Hemoglobin ABG Carboxyhemoglobin POC ABG HHb (Measured) ABG Methemoglobin ABG O2 Capacity Hgb O2 Saturation FiO2 Sodium Potassium Chloride Carbon Dioxide Anion Gap BUN Creatinine Est GFR ( Amer) Est GFR (Non-Af Amer) Random Glucose Calcium Phosphorus Magnesium Total Bilirubin Direct Bilirubin 1.4 H AST ALT Alkaline Phosphatase Ammonia Troponin I NT-Pro-B Natriuret Pep 53954 H Total Protein Albumin Globulin Albumin/Globulin Ratio Triglycerides Cholesterol LDL Cholesterol Direct HDL Cholesterol Procalcitonin 0.55 H TSH 3rd Generation 04/02/19 04/02/19 04/02/19 12:15 13:20 13:20 WBC RBC Hgb Hct MCV MCH MCHC RDW Plt Count MPV Neut % (Auto) Lymph % (Auto) [place] % (Auto) Eos % (Auto) Baso % (Auto) Lymph # (Auto) [place] # (Auto) Eos # (Auto) Baso # (Auto) Absolute Neuts (auto) pCO2 50 H pO2 109.0 H HCO3 21.9 ABG pH 7.25 L ABG Total CO2 23.4 ABG O2 Saturation 98.7 H ABG O2 Content 18.2 ABG Base Excess -5.6 L ABG Hemoglobin 13.3 ABG Carboxyhemoglobin 1.5 POC ABG HHb (Measured) 1.3 ABG Methemoglobin 0.7 ABG O2 Capacity 18.4 Hgb O2 Saturation 96.5 FiO2 50.0 Sodium Potassium Chloride Carbon Dioxide Anion Gap BUN Creatinine Est GFR ( Amer) Est GFR (Non-Af Amer) Random Glucose Calcium Phosphorus Magnesium Total Bilirubin Direct Bilirubin AST ALT Alkaline Phosphatase Ammonia < 9 L D Troponin I 0.06 D NT-Pro-B Natriuret Pep Total Protein Albumin Globulin Albumin/Globulin Ratio Triglycerides Cholesterol LDL Cholesterol Direct HDL Cholesterol Procalcitonin TSH 3rd Generation 04/03/19 04/03/19 04/03/19 06:00 06:00 06:00 WBC 7.8 D RBC 4.15 Hgb 11.7 L Hct 36.9 L MCV 88.9 MCH 28.2 MCHC 31.7 RDW 15.3 H Plt Count 144 MPV 11.5 H Neut % (Auto) 85.3 H Lymph % (Auto) 9.3 L [place] % (Auto) 5.4 Eos % (Auto) 0.0 L Baso % (Auto) 0.0 Lymph # (Auto) 0.7 L [place] # (Auto) 0.4 Eos # (Auto) 0.0 Baso # (Auto) 0.00 Absolute Neuts (auto) 6.64 H pCO2 pO2 HCO3 ABG pH ABG Total CO2 ABG O2 Saturation ABG O2 Content ABG Base Excess ABG Hemoglobin ABG Carboxyhemoglobin POC ABG HHb (Measured) ABG Methemoglobin ABG O2 Capacity Hgb O2 Saturation FiO2 Sodium 143 Potassium 3.4 L Chloride 111 H Carbon Dioxide 28 Anion Gap 8 L BUN 35 H Creatinine 1.1 Est GFR ( Amer) > 60 Est GFR (Non-Af Amer) > 60 Random Glucose 120 H Calcium 9.1 Phosphorus 2.8 Magnesium 2.4 H Total Bilirubin 2.0 H Direct Bilirubin AST 466 H D ALT 751 H Alkaline Phosphatase 64 Ammonia Troponin I NT-Pro-B Natriuret Pep 63949 H Total Protein 5.1 L Albumin 2.5 L Globulin 2.6 Albumin/Globulin Ratio 1.0 L Triglycerides 70 Cholesterol 114 L LDL Cholesterol Direct 71 HDL Cholesterol 28 L Procalcitonin TSH 3rd Generation 0.39 L Radiology Impressions: Radiology Impressions Chest X-Ray 04/01/19 18:19 IMPRESSION: Multiple films were obtained for placement of a nasogastric tube. The final film shows the tube below the diaphragm in satisfactory position. The endotracheal tube is also in satisfactory position. There is a left IJ line in the SVC with no pneumothorax Chest X-Ray 04/02/19 10:23 IMPRESSION: No active pulmonary disease. Persistent moderate cardiomegaly and pulmonary venous congestion. Stable position of support line and tubes. Review of Systems - Review of Systems Systems not reviewed;Unavailable: Intubated Critical Care Progress Note - Nutrition Nutrition: Nutrition Category Date Time Status NPO Diet [DIET] Diets 04/01/19 Breakfast Ordered Assessment/Plan - Assessment and Plan (Free Text) Assessment: 73 yo male with PMHx significant for ischemic cardiomyopathy (EF in 2014 10-15%, elevated RVSP 45, status post AICD), COPD and schizophrenia who was brought in by ambulance for altered mental status. Currently in ICU for multi system organ failure. Neuro: -GCS 3T, currently sedated on Fentanyl and Midazolam due to agitation -Possible overdose of Ambien as etiology of AMS, benzos in Utox -Monitor neuro status. -Reorient patient as necessary. Cardio: -L IJ access, L sided dual lead pacemaker -Continue stress dose steroids 50 q6 -Continue Dobutamine drip -proBNP>40,000, EF 15% -Maintain MAP>65. -Monitor for S/S of HD compromise. -Cardiology on Consult - Dr. Taylor - recs appreciated Pulm: -PRVC 50/5/15/450 currently -Trial pressure support, weaning trial and sedation vacation -04/02 ABG showed worsening resp acidosis on pressure support -04/03 AM ABG improved -Maintain O2 saturation >92%. -O2 NC PRN -Vent: protective lung ventilation strategy, aspiration precautions -04/03/19 CXR: proper placement of ETT and NGT -Elevate bed to 30 degrees GI: -NPO, Shrimp Picker recs appreciated to begin tube feeding -Protonix IVP daily -Completed 3 doses of NAC on 04/02/19, improving LFTs today; INR improved -s/p Lactulose, possibility of congestive hepatopathy 2/2 congestive heart failure -04/01/19 Abd U/S shows Cholelithiasis. Diffuse gallbladder wall thickening is likely secondary to systemic disease. 2. Chronic renal parenchymal disease. 3. Diffuse increased echogenicity in the liver with coarse echotexture may reflect hepatic steatosis however parenchymal infectious/ inflammatory etiologies cannot be entirely excluded. -GI on consult - Dr. Bailey - further recs appreciated. [facility] was notified of the patient but patient reportedly too unstable for transfer /Nephro: -GO likely 2/2 congestive nephropathy -Good urine output through Eric -Continue monitoring. -Replete electrolytes as needed. Hypokalemia repleted -Maintain euvolemia. Endocrinology: -Random glucose: 138 -F/U Hgb a1c -TSH 0.39, f/u T4 -Maintain euglycemia. Heme/Onc: -H/H stable -No signs of HD compromise. -Continue monitoring H/H ID: -C/w broad spectrum ABx Vanc and Cefepime -BCx neg after 24 hours, UCx negative -Procalcitonin 0.55 -Monitor for signs and symptoms of infection. -ID on consult - Dr. Gavin - recs appreciated DVT prophylaxis: Heparin SC GI prophylaxis: PTX Patient seen, case reviewed and plan approved by Dr. Mtz. Tony Uribe, PGY-1 <Simon Mtz - Last Filed: 04/03/19 12:56> CCU Objective - Vital Signs / Intake & Output Vital Signs (Last 4 hours): Vital Signs Temp Pulse BP Pulse Ox 04/03/19 12:16 63 93/45 L 04/03/19 12:15 93/45 L 04/03/19 08:40 97.9 F 58 L 94 L Intake and Output (Last 8hrs): Intake & Output 04/02/19 04/03/19 04/03/19 22:59 06:59 14:59 Intake Total 1246 1155 250 Output Total 1250 900 Balance -4 255 250 Intake: IV 1246 1155 250 Left Internal Jugular 1180 1155 Oral 0 0 Output: Urine 1250 900 Urethral (Eric) 1250 900 Other: # Bowel Movements 4 1 - Medications Active Medications: Active Medications Generic Name Dose Route Start Last Admin Trade Name Freq PRN Reason Stop Dose Admin Furosemide 40 mg 04/04/19 10:00 Lasix IV DAILY AFSANEH Heparin Sodium (Porcine) 5,000 units 04/02/19 14:00 04/03/19 06:42 Heparin SC 5,000 units Q8 AFSANEH Administration Protocol Hydrocortisone Sodium Succinate 50 mg 04/03/19 12:00 04/03/19 12:12 Solu-Cortef IVP 50 mg Q6 AFSANEH Administration Vancomycin HCl 1 gm in 250 mls @ 167 mls/hr 04/02/19 16:45 04/03/19 08:29 Vancomycin 1gm IVPB 167 mls/hr DAILY AFSANEH Administration Protocol Cefepime HCl 1 gm in 100 mls @ 25 mls/hr 04/02/19 22:00 04/03/19 10:18 Maxipime 1gm IVPB 25 mls/hr Q12 AFSANEH Administration Protocol Fentanyl Citrate 1,000 mcg in 100 mls @ 2 mls/hr 04/02/19 18:03 04/02/19 21:41 Fentanyl Citrate/Sodium Chloride 1 Mg/100 Ml IV 40 mcg/hr .Q24H PRN 4 mls/hr TITRATE PER MD ORDER Titration Protocol 20 MCG/HR Midazolam 100 mg/100ml in NS 100 mg in 100 mls @ 1 mls/hr 04/02/19 18:03 04/02/19 20:00 Midazolam 100 Mg/100ml In Ns IV 3 mg/hr .Q24H PRN 3 mls/hr Agitation Titration Protocol 1 MG/HR Milrinone Lactate/Dextrose 100 mls @ 8.792 mls/hr 04/03/19 11:11 04/03/19 12:16 Primacor 20mg/100ml D5w IV 0.375 mcg/kg/min .[id number] PRN 8.792 mls/hr TITRATE PER MD ORDER Administration Protocol 0.375 MCG/KG/MIN Potassium Chloride 20 meq in 100 mls @ 50 mls/hr 04/03/19 11:30 Potassium Chloride 20 Meq/100 Ml IVPB 04/03/19 15:29 Q2H AFSANEH Pantoprazole Sodium 40 mg 04/01/19 17:00 04/03/19 08:28 Protonix Inj IVP 40 mg DAILY AFSANEH Administration - Patient Studies Lab Studies: Microbiology Studies 04/01/19 23:32 MRSA Culture (Admit) - Final Naris MRSA NOT DETECTED 04/01/19 11:45 Urine Culture - Final Urine,Catheterized No Growth (<1,000 CFU/ML) 04/01/19 11:30 Blood Culture - Preliminary Blood-Venous NO GROWTH AFTER 24 HOURS 04/01/19 11:00 Blood Culture - Preliminary Blood-Venous NO GROWTH AFTER 24 HOURS Lab Studies 04/03/19 04/03/19 04/03/19 Range/Units 10:26 10:10 08:30 WBC (4.5-11.0) 10^3/uL RBC (3.5-6.1) 10^6/uL Hgb (14.0-18.0) g/dL Hct (42.0-52.0) % MCV (80.0-105.0) fl MCH (25.0-35.0) pg MCHC (31.0-37.0) g/dl RDW (11.5-14.5) % Plt Count (120.0-450.0) 10^3/uL MPV (7.0-11.0) fl Neut % (Auto) (50.0-68.0) % Lymph % (Auto) (22.0-35.0) % [place] % (Auto) (1.0-6.0) % Eos % (Auto) (1.5-5.0) % Baso % (Auto) (0.0-3.0) % Lymph # (Auto) (1.2-3.4) [place] # (Auto) (0.1-0.6) Eos # (Auto) (0.0-0.7) Baso # (Auto) (0.0-2.0) K/mm3 Absolute Neuts (auto) (1.4-6.5) PT 16.8 H (9.4-12.5) SECONDS INR 1.49 pCO2 41 (35-45) mm/Hg pO2 89.0 (80-100) mm/Hg HCO3 27.8 (21-28) mmol/L ABG pH 7.44 (7.35-7.45) ABG Total CO2 29.1 H (22-28) mmol.L ABG O2 Saturation 98.8 H (95-98) % ABG O2 Content 15.8 (15-23) ML/dl ABG Base Excess 3.3 H (-2.0-3.0) mmol/L ABG Hemoglobin 11.6 L (11.7-17.4) g/dL ABG Carboxyhemoglobin 1.8 H (0.5-1.5) % POC ABG HHb (Measured) 1.2 (0-5) % ABG Methemoglobin 1.0 (0.0-3.0) % ABG O2 Capacity 16.0 (16-24) mL/dl Hgb O2 Saturation 96.0 (95.0-98.0) % FiO2 50.0 % Sodium (132-148) mmol/L Potassium (3.6-5.0) mmol/L Chloride (98-107) mmol/L Carbon Dioxide (21-33) mmol/L Anion Gap (10-20) BUN (7-21) mg/dL Creatinine (0.8-1.5) mg/dl Est GFR ( Amer) Est GFR (Non-Af Amer) Random Glucose (70-110) mg/dL Hemoglobin A1c (4.2-6.5) % Calcium (8.4-10.5) mg/dL Phosphorus (2.5-4.5) mg/dL Magnesium (1.7-2.2) mg/dL Total Bilirubin (0.2-1.3) mg/dL AST (17-59) U/L ALT (7-56) U/L Alkaline Phosphatase (38-126) U/L Ammonia (9-33) umol/L Troponin I ng/mL NT-Pro-B Natriuret Pep (0-450) pg/mL Total Protein (5.8-8.3) g/dL Albumin (3.0-4.8) g/dL Globulin gm/dL Albumin/Globulin Ratio (1.1-1.8) Triglycerides (35-160) mg/dL Cholesterol (130-200) mg/dL LDL Cholesterol Direct (0-129) mg/dL HDL Cholesterol (29-60) mg/dL Procalcitonin (0.19-0.49) NG/ML Thyroxine (T4) 6.9 (5.5-11.0) ug/dL TSH 3rd Generation (0.46-4.68) mIU/mL 04/03/19 04/03/19 04/03/19 Range/Units 06:00 06:00 06:00 WBC (4.5-11.0) 10^3/uL RBC (3.5-6.1) 10^6/uL Hgb (14.0-18.0) g/dL Hct (42.0-52.0) % MCV (80.0-105.0) fl MCH (25.0-35.0) pg MCHC (31.0-37.0) g/dl RDW (11.5-14.5) % Plt Count (120.0-450.0) 10^3/uL MPV (7.0-11.0) fl Neut % (Auto) (50.0-68.0) % Lymph % (Auto) (22.0-35.0) % [place] % (Auto) (1.0-6.0) % Eos % (Auto) (1.5-5.0) % Baso % (Auto) (0.0-3.0) % Lymph # (Auto) (1.2-3.4) [place] # (Auto) (0.1-0.6) Eos # (Auto) (0.0-0.7) Baso # (Auto) (0.0-2.0) K/mm3 Absolute Neuts (auto) (1.4-6.5) PT (9.4-12.5) SECONDS INR pCO2 (35-45) mm/Hg pO2 (80-100) mm/Hg HCO3 (21-28) mmol/L ABG pH (7.35-7.45) ABG Total CO2 (22-28) mmol.L ABG O2 Saturation (95-98) % ABG O2 Content (15-23) ML/dl ABG Base Excess (-2.0-3.0) mmol/L ABG Hemoglobin (11.7-17.4) g/dL ABG Carboxyhemoglobin (0.5-1.5) % POC ABG HHb (Measured) (0-5) % ABG Methemoglobin (0.0-3.0) % ABG O2 Capacity (16-24) mL/dl Hgb O2 Saturation (95.0-98.0) % FiO2 % Sodium 143 (132-148) mmol/L Potassium 3.4 L (3.6-5.0) mmol/L Chloride 111 H (98-107) mmol/L Carbon Dioxide 28 (21-33) mmol/L Anion Gap 8 L (10-20) BUN 35 H (7-21) mg/dL Creatinine 1.1 (0.8-1.5) mg/dl Est GFR ( Amer) > 60 Est GFR (Non-Af Amer) > 60 Random Glucose 120 H (70-110) mg/dL Hemoglobin A1c 6.4 (4.2-6.5) % Calcium 9.1 (8.4-10.5) mg/dL Phosphorus 2.8 (2.5-4.5) mg/dL Magnesium 2.4 H (1.7-2.2) mg/dL Total Bilirubin 2.0 H (0.2-1.3) mg/dL AST 466 H D (17-59) U/L ALT 751 H (7-56) U/L Alkaline Phosphatase 64 (38-126) U/L Ammonia (9-33) umol/L Troponin I ng/mL NT-Pro-B Natriuret Pep 48516 H (0-450) pg/mL Total Protein 5.1 L (5.8-8.3) g/dL Albumin 2.5 L (3.0-4.8) g/dL Globulin 2.6 gm/dL Albumin/Globulin Ratio 1.0 L (1.1-1.8) Triglycerides 70 (35-160) mg/dL Cholesterol 114 L (130-200) mg/dL LDL Cholesterol Direct 71 (0-129) mg/dL HDL Cholesterol 28 L (29-60) mg/dL Procalcitonin (0.19-0.49) NG/ML Thyroxine (T4) (5.5-11.0) ug/dL TSH 3rd Generation 0.39 L (0.46-4.68) mIU/mL 04/03/19 04/02/19 04/02/19 Range/Units 06:00 13:20 13:20 WBC 7.8 D (4.5-11.0) 10^3/uL RBC 4.15 (3.5-6.1) 10^6/uL Hgb 11.7 L (14.0-18.0) g/dL Hct 36.9 L (42.0-52.0) % MCV 88.9 (80.0-105.0) fl MCH 28.2 (25.0-35.0) pg MCHC 31.7 (31.0-37.0) g/dl RDW 15.3 H (11.5-14.5) % Plt Count 144 (120.0-450.0) 10^3/uL MPV 11.5 H (7.0-11.0) fl Neut % (Auto) 85.3 H (50.0-68.0) % Lymph % (Auto) 9.3 L (22.0-35.0) % [place] % (Auto) 5.4 (1.0-6.0) % Eos % (Auto) 0.0 L (1.5-5.0) % Baso % (Auto) 0.0 (0.0-3.0) % Lymph # (Auto) 0.7 L (1.2-3.4) [place] # (Auto) 0.4 (0.1-0.6) Eos # (Auto) 0.0 (0.0-0.7) Baso # (Auto) 0.00 (0.0-2.0) K/mm3 Absolute Neuts (auto) 6.64 H (1.4-6.5) PT (9.4-12.5) SECONDS INR pCO2 (35-45) mm/Hg pO2 (80-100) mm/Hg HCO3 (21-28) mmol/L ABG pH (7.35-7.45) ABG Total CO2 (22-28) mmol.L ABG O2 Saturation (95-98) % ABG O2 Content (15-23) ML/dl ABG Base Excess (-2.0-3.0) mmol/L ABG Hemoglobin (11.7-17.4) g/dL ABG Carboxyhemoglobin (0.5-1.5) % POC ABG HHb (Measured) (0-5) % ABG Methemoglobin (0.0-3.0) % ABG O2 Capacity (16-24) mL/dl Hgb O2 Saturation (95.0-98.0) % FiO2 % Sodium (132-148) mmol/L Potassium (3.6-5.0) mmol/L Chloride (98-107) mmol/L Carbon Dioxide (21-33) mmol/L Anion Gap (10-20) BUN (7-21) mg/dL Creatinine (0.8-1.5) mg/dl Est GFR ( Amer) Est GFR (Non-Af Amer) Random Glucose (70-110) mg/dL Hemoglobin A1c (4.2-6.5) % Calcium (8.4-10.5) mg/dL Phosphorus (2.5-4.5) mg/dL Magnesium (1.7-2.2) mg/dL Total Bilirubin (0.2-1.3) mg/dL AST (17-59) U/L ALT (7-56) U/L Alkaline Phosphatase (38-126) U/L Ammonia < 9 L D (9-33) umol/L Troponin I 0.06 D ng/mL NT-Pro-B Natriuret Pep (0-450) pg/mL Total Protein (5.8-8.3) g/dL Albumin (3.0-4.8) g/dL Globulin gm/dL Albumin/Globulin Ratio (1.1-1.8) Triglycerides (35-160) mg/dL Cholesterol (130-200) mg/dL LDL Cholesterol Direct (0-129) mg/dL HDL Cholesterol (29-60) mg/dL Procalcitonin (0.19-0.49) NG/ML Thyroxine (T4) (5.5-11.0) ug/dL TSH 3rd Generation (0.46-4.68) mIU/mL 04/02/19 Range/Units 07:00 WBC (4.5-11.0) 10^3/uL RBC (3.5-6.1) 10^6/uL Hgb (14.0-18.0) g/dL Hct (42.0-52.0) % MCV (80.0-105.0) fl MCH (25.0-35.0) pg MCHC (31.0-37.0) g/dl RDW (11.5-14.5) % Plt Count (120.0-450.0) 10^3/uL MPV (7.0-11.0) fl Neut % (Auto) (50.0-68.0) % Lymph % (Auto) (22.0-35.0) % [place] % (Auto) (1.0-6.0) % Eos % (Auto) (1.5-5.0) % Baso % (Auto) (0.0-3.0) % Lymph # (Auto) (1.2-3.4) [place] # (Auto) (0.1-0.6) Eos # (Auto) (0.0-0.7) Baso # (Auto) (0.0-2.0) K/mm3 Absolute Neuts (auto) (1.4-6.5) PT (9.4-12.5) SECONDS INR pCO2 (35-45) mm/Hg pO2 (80-100) mm/Hg HCO3 (21-28) mmol/L ABG pH (7.35-7.45) ABG Total CO2 (22-28) mmol.L ABG O2 Saturation (95-98) % ABG O2 Content (15-23) ML/dl ABG Base Excess (-2.0-3.0) mmol/L ABG Hemoglobin (11.7-17.4) g/dL ABG Carboxyhemoglobin (0.5-1.5) % POC ABG HHb (Measured) (0-5) % ABG Methemoglobin (0.0-3.0) % ABG O2 Capacity (16-24) mL/dl Hgb O2 Saturation (95.0-98.0) % FiO2 % Sodium (132-148) mmol/L Potassium (3.6-5.0) mmol/L Chloride (98-107) mmol/L Carbon Dioxide (21-33) mmol/L Anion Gap (10-20) BUN (7-21) mg/dL Creatinine (0.8-1.5) mg/dl Est GFR ( Amer) Est GFR (Non-Af Amer) Random Glucose (70-110) mg/dL Hemoglobin A1c (4.2-6.5) % Calcium (8.4-10.5) mg/dL Phosphorus (2.5-4.5) mg/dL Magnesium (1.7-2.2) mg/dL Total Bilirubin (0.2-1.3) mg/dL AST (17-59) U/L ALT (7-56) U/L Alkaline Phosphatase (38-126) U/L Ammonia (9-33) umol/L Troponin I ng/mL NT-Pro-B Natriuret Pep (0-450) pg/mL Total Protein (5.8-8.3) g/dL Albumin (3.0-4.8) g/dL Globulin gm/dL Albumin/Globulin Ratio (1.1-1.8) Triglycerides (35-160) mg/dL Cholesterol (130-200) mg/dL LDL Cholesterol Direct (0-129) mg/dL HDL Cholesterol (29-60) mg/dL Procalcitonin 0.55 H (0.19-0.49) NG/ML Thyroxine (T4) (5.5-11.0) ug/dL TSH 3rd Generation (0.46-4.68) mIU/mL Laboratory Results - last 24 hr 04/02/19 04/02/19 04/02/19 07:00 13:20 13:20 WBC RBC Hgb Hct MCV MCH MCHC RDW Plt Count MPV Neut % (Auto) Lymph % (Auto) [place] % (Auto) Eos % (Auto) Baso % (Auto) Lymph # (Auto) [place] # (Auto) Eos # (Auto) Baso # (Auto) Absolute Neuts (auto) PT INR pCO2 pO2 HCO3 ABG pH ABG Total CO2 ABG O2 Saturation ABG O2 Content ABG Base Excess ABG Hemoglobin ABG Carboxyhemoglobin POC ABG HHb (Measured) ABG Methemoglobin ABG O2 Capacity Hgb O2 Saturation FiO2 Sodium Potassium Chloride Carbon Dioxide Anion Gap BUN Creatinine Est GFR ( Amer) Est GFR (Non-Af Amer) Random Glucose Hemoglobin A1c Calcium Phosphorus Magnesium Total Bilirubin AST ALT Alkaline Phosphatase Ammonia < 9 L D Troponin I 0.06 D NT-Pro-B Natriuret Pep Total Protein Albumin Globulin Albumin/Globulin Ratio Triglycerides Cholesterol LDL Cholesterol Direct HDL Cholesterol Procalcitonin 0.55 H Thyroxine (T4) TSH 3rd Generation 04/03/19 04/03/19 04/03/19 06:00 06:00 06:00 WBC 7.8 D RBC 4.15 Hgb 11.7 L Hct 36.9 L MCV 88.9 MCH 28.2 MCHC 31.7 RDW 15.3 H Plt Count 144 MPV 11.5 H Neut % (Auto) 85.3 H Lymph % (Auto) 9.3 L [place] % (Auto) 5.4 Eos % (Auto) 0.0 L Baso % (Auto) 0.0 Lymph # (Auto) 0.7 L [place] # (Auto) 0.4 Eos # (Auto) 0.0 Baso # (Auto) 0.00 Absolute Neuts (auto) 6.64 H PT INR pCO2 pO2 HCO3 ABG pH ABG Total CO2 ABG O2 Saturation ABG O2 Content ABG Base Excess ABG Hemoglobin ABG Carboxyhemoglobin POC ABG HHb (Measured) ABG Methemoglobin ABG O2 Capacity Hgb O2 Saturation FiO2 Sodium 143 Potassium 3.4 L Chloride 111 H Carbon Dioxide 28 Anion Gap 8 L BUN 35 H Creatinine 1.1 Est GFR ( Amer) > 60 Est GFR (Non-Af Amer) > 60 Random Glucose 120 H Hemoglobin A1c 6.4 Calcium 9.1 Phosphorus 2.8 Magnesium 2.4 H Total Bilirubin 2.0 H AST 466 H D ALT 751 H Alkaline Phosphatase 64 Ammonia Troponin I NT-Pro-B Natriuret Pep 47716 H Total Protein 5.1 L Albumin 2.5 L Globulin 2.6 Albumin/Globulin Ratio 1.0 L Triglycerides 70 Cholesterol 114 L LDL Cholesterol Direct 71 HDL Cholesterol 28 L Procalcitonin Thyroxine (T4) TSH 3rd Generation 04/03/19 04/03/19 04/03/19 06:00 08:30 10:10 WBC RBC Hgb Hct MCV MCH MCHC RDW Plt Count MPV Neut % (Auto) Lymph % (Auto) [place] % (Auto) Eos % (Auto) Baso % (Auto) Lymph # (Auto) [place] # (Auto) Eos # (Auto) Baso # (Auto) Absolute Neuts (auto) PT 16.8 H INR 1.49 pCO2 41 pO2 89.0 HCO3 27.8 ABG pH 7.44 ABG Total CO2 29.1 H ABG O2 Saturation 98.8 H ABG O2 Content 15.8 ABG Base Excess 3.3 H ABG Hemoglobin 11.6 L ABG Carboxyhemoglobin 1.8 H POC ABG HHb (Measured) 1.2 ABG Methemoglobin 1.0 ABG O2 Capacity 16.0 Hgb O2 Saturation 96.0 FiO2 50.0 Sodium Potassium Chloride Carbon Dioxide Anion Gap BUN Creatinine Est GFR ( Amer) Est GFR (Non-Af Amer) Random Glucose Hemoglobin A1c Calcium Phosphorus Magnesium Total Bilirubin AST ALT Alkaline Phosphatase Ammonia Troponin I NT-Pro-B Natriuret Pep Total Protein Albumin Globulin Albumin/Globulin Ratio Triglycerides Cholesterol LDL Cholesterol Direct HDL Cholesterol Procalcitonin Thyroxine (T4) TSH 3rd Generation 0.39 L 04/03/19 10:26 WBC RBC Hgb Hct MCV MCH MCHC RDW Plt Count MPV Neut % (Auto) Lymph % (Auto) [place] % (Auto) Eos % (Auto) Baso % (Auto) Lymph # (Auto) [place] # (Auto) Eos # (Auto) Baso # (Auto) Absolute Neuts (auto) PT INR pCO2 pO2 HCO3 ABG pH ABG Total CO2 ABG O2 Saturation ABG O2 Content ABG Base Excess ABG Hemoglobin ABG Carboxyhemoglobin POC ABG HHb (Measured) ABG Methemoglobin ABG O2 Capacity Hgb O2 Saturation FiO2 Sodium Potassium Chloride Carbon Dioxide Anion Gap BUN Creatinine Est GFR ( Amer) Est GFR (Non-Af Amer) Random Glucose Hemoglobin A1c Calcium Phosphorus Magnesium Total Bilirubin AST ALT Alkaline Phosphatase Ammonia Troponin I NT-Pro-B Natriuret Pep Total Protein Albumin Globulin Albumin/Globulin Ratio Triglycerides Cholesterol LDL Cholesterol Direct HDL Cholesterol Procalcitonin Thyroxine (T4) 6.9 TSH 3rd Generation Radiology Impressions: Radiology Impressions Chest X-Ray 04/03/19 10:22 IMPRESSION: The endotracheal tube and nasogastric tube are in satisfactory position. Critical Care Progress Note - Nutrition Nutrition: Nutrition Category Date Time Status NPO Diet [DIET] Diets 04/01/19 Breakfast Ordered Assessment/Plan - Assessment and Plan (Free Text) Assessment: I saw and examined the patient on rounds with resident, agree with note with following additions/exceptions: Patient is 73yo male with PMHx systolic CHF, ischemic cardiomyopathy (EF in 2014 10-15%, s/p AICD), COPD and schizophrenia who was brought in by ambulance for altered mental status, found to be in acute liver failure, with elevated LFTs, increased INR, T rip. Currently intubated sedated On Ionotropic support Quesitonable etiology of liver failure, ??medication vs hepatic congestion 2/2 Right sided CHF/systolic CHF LFTs, INR improving, TBilli downtrending Clinically currently afebrile, HD stable, comfortable in NAD Acute Liver Failure Systolic CHF Rule out Right sided heart failure Ischemic Cardiomyopathy COPD Psych Hx Acute resp failure Recommend: - cont with vent support, low tidal vol ventilation, daily sedation vacation, ABG, CXR - Broad spectrum abx as per ID - Inotropic Support, Levophed, DObutamine - Lasix 40mg IV BID - FS control - Stress dose steroids - GI follow up - ID follow up - ECHO - GI ppx - DVT ppx, HSQ - Monitor in MICU Critical care time 35 minutes
[2019-04-03] MEDS: DOBUTamine 500mg/250ml D5W 500 MG/250 ML BAG IV PRN ×2 (08:46→13:20)
[2019-04-03] MEDS ORDERED: Potassium Chloride 40 mEq/30 ml LIQ UD PO STA (08:46)
[2019-04-03 08:57] LABS: INR 1.49; PROTHROMBIN TIME 16.8 SECONDS (9.4-12.5)
--- NOTE | 2019-04-03 09:16 | CP.PCM.PN ---
<Roe Hicks - Last Filed: 04/03/19 11:49> Subjective - Date & Time of Evaluation Date of Evaluation: 04/03/19 Time of Evaluation: 08:20 - Subjective Subjective: Infectious disease progress note: Patient seen and examined at bedside. No acute events overnight.. Patient still intubated and sedated at this time. Had a temperature of 96.4F. 12 point ROS unobtainable due to intubation Objective - Vital Signs/Intake and Output Vital Signs (last 24 hours): Temp Pulse Resp BP Pulse Ox 97.9 F 58 L 15 104/54 L 94 L 04/03/19 08:40 04/03/19 08:40 04/03/19 07:19 04/03/19 08:30 04/03/19 08:40 Intake and Output: 04/03/19 04/03/19 06:59 18:59 Intake Total 1192 250 Output Total 900 Balance 292 250 - Medications Medications: Current Medications Heparin Sodium (Porcine) (Heparin) 5,000 units SC Q8 AFSANEH; Protocol Last Admin: 04/03/19 06:42 Dose: 5,000 units Hydrocortisone Sodium Succinate (Solu-Cortef) 50 mg IVP Q6 AFSANEH Dobutamine HCl/Dextrose (Dobutamine/Dextrose 5% 500mg/250ml) 500 mg in 250 mls @ 5.862 mls/hr IV .Q24H PRN; Protocol PRN Reason: TITRATE PER PROTOCOL Last Admin: 04/03/19 08:46 Dose: 2.5 mcg/kg/min, 5.862 mls/hr Vancomycin HCl (Vancomycin 1gm) 1 gm in 250 mls @ 167 mls/hr IVPB DAILY AFSANEH; Protocol Last Admin: 04/03/19 08:29 Dose: 167 mls/hr Cefepime HCl (Maxipime 1gm) 1 gm in 100 mls @ 25 mls/hr IVPB Q12 AFSANEH; Protocol Last Admin: 04/03/19 01:43 Dose: 25 mls/hr Fentanyl Citrate (Fentanyl Citrate/Sodium Chloride 1 Mg/100 Ml) 1,000 mcg in 100 mls @ 2 mls/hr IV .Q24H PRN; Protocol PRN Reason: TITRATE PER MD ORDER Last Titration: 04/02/19 21:41 Dose: 40 mcg/hr, 4 mls/hr NOREPINEPHRINE BIT/0.9 % NACL (Levophed 4 Mg/ 250 Ml Ns Premixed) 4 mg in 250 mls @ 15 mls/hr IV .[id number] PRN; Protocol PRN Reason: TITRATE PER MD ORDER Midazolam 100 mg/100ml in NS (Midazolam 100 Mg/100ml In Ns) 100 mg in 100 mls @ 1 mls/hr IV .Q24H PRN; Protocol PRN Reason: Agitation Last Titration: 04/02/19 20:00 Dose: 3 mg/hr, 3 mls/hr Pantoprazole Sodium (Protonix Inj) 40 mg IVP DAILY AFSANEH Last Admin: 04/03/19 08:28 Dose: 40 mg - Labs Labs: 04/03/19 06:00 04/03/19 06:00 PT 16.8 SECONDS (9.4-12.5) H 04/03/19 08:30 INR 1.49 04/03/19 08:30 APTT 42.7 Seconds (26.9-38.3) H 04/02/19 07:00 - Constitutional Appears: No Acute Distress - Head Exam Head Exam: ATRAUMATIC, NORMOCEPHALIC - Eye Exam Eye Exam: PERRL - ENT Exam ENT Exam: Mucous Membranes Moist - Respiratory Exam Respiratory Exam: Rhonchi. absent: Rales, Wheezes - Cardiovascular Exam Cardiovascular Exam: RRR, +S1, +S2 - GI/Abdominal Exam GI & Abdominal Exam: Soft. absent: Distended, Tenderness - Extremities Exam Extremities Exam: absent: Calf Tenderness - Skin Skin Exam: Dry, Warm Assessment and Plan - Assessment and Plan (Free Text) Assessment: SIRS with multiorgan failure unclear etiology Respiratory failure requiring ventilatory support Altered mental status Acute liver failure Acute on chronic kidney injury Acute on chronic heart failure with systolic dysfunction 10 to 15% Coronary artery disease status post CABG Hypertension Parkinson's disease COPD Schizophrenia D/c vancomycin as blood cx and MRSA is neg Cont cefepime Follow-up septic work-up - blood and urine cultures have been thus far negative, procal elevated 0.55 F/u HIV Continued management in the intensive care unit Follow-up gastroenterology recommendations -patient is currently NAC therapy Follow-up cardiology recommendations - on dobutamine F/u heme to review peripheral smear and r/o TTP as cause of AMS and GO Rec neurology for evaluation of AMS Continue to monitor for any changes Lines: Left internal jugular Case and plan to be reviewed and discussed with Dr. Gavin. <Fredy Gavin - Last Filed: 04/03/19 11:51> Objective - Vital Signs/Intake and Output Vital Signs (last 24 hours): Temp Pulse Resp BP Pulse Ox 97.9 F 58 L 15 104/54 L 94 L 04/03/19 08:40 04/03/19 08:40 04/03/19 07:19 04/03/19 08:30 04/03/19 08:40 Intake and Output: 04/03/19 04/03/19 06:59 18:59 Intake Total 1192 250 Output Total 900 Balance 292 250 - Medications Medications: Current Medications Furosemide (Lasix) 40 mg IV DAILY AFSANEH Heparin Sodium (Porcine) (Heparin) 5,000 units SC Q8 AFSANEH; Protocol Last Admin: 04/03/19 06:42 Dose: 5,000 units Hydrocortisone Sodium Succinate (Solu-Cortef) 50 mg IVP Q6 AFSANEH Vancomycin HCl (Vancomycin 1gm) 1 gm in 250 mls @ 167 mls/hr IVPB DAILY AFSANEH; Protocol Last Admin: 04/03/19 08:29 Dose: 167 mls/hr Cefepime HCl (Maxipime 1gm) 1 gm in 100 mls @ 25 mls/hr IVPB Q12 AFSANEH; Protocol Last Admin: 04/03/19 10:18 Dose: 25 mls/hr Fentanyl Citrate (Fentanyl Citrate/Sodium Chloride 1 Mg/100 Ml) 1,000 mcg in 100 mls @ 2 mls/hr IV .Q24H PRN; Protocol PRN Reason: TITRATE PER MD ORDER Last Titration: 04/02/19 21:41 Dose: 40 mcg/hr, 4 mls/hr Midazolam 100 mg/100ml in NS (Midazolam 100 Mg/100ml In Ns) 100 mg in 100 mls @ 1 mls/hr IV .Q24H PRN; Protocol PRN Reason: Agitation Last Titration: 04/02/19 20:00 Dose: 3 mg/hr, 3 mls/hr Milrinone Lactate/Dextrose (Primacor 20mg/100ml D5w) 100 mls @ 8.792 mls/hr IV .[id number] PRN; Protocol PRN Reason: TITRATE PER MD ORDER Potassium Chloride (Potassium Chloride 20 Meq/100 Ml) 20 meq in 100 mls @ 50 mls/hr IVPB Q2H AFSANEH Stop: 04/03/19 15:29 Pantoprazole Sodium (Protonix Inj) 40 mg IVP DAILY AFSANEH Last Admin: 04/03/19 08:28 Dose: 40 mg - Labs Labs: 04/03/19 06:00 04/03/19 06:00 PT 16.8 SECONDS (9.4-12.5) H 04/03/19 08:30 INR 1.49 04/03/19 08:30 APTT 42.7 Seconds (26.9-38.3) H 04/02/19 07:00 Attending/Attestation - Attestation I have personally seen and examined this patient.: Yes I have fully participated in the care of the patient.: Yes I have reviewed all pertinent clinical information, including history, physical exam and plan: Yes
[2019-04-03 10:18] LABS: ARTERIAL BLOOD GAS HCO3 27.8 mmol/L (21-28); ARTERIAL BLOOD GAS HEMOGLOBIN 11.6 g/dL (11.7-17.4); ARTERIAL BLOOD GAS O2 CONTENT 15.8 ML/dl (15-23); ARTERIAL BLOOD GAS O2 SAT 98.8 % (95-98); ARTERIAL BLOOD GAS PCO2 41 mm/Hg (35-45); ARTERIAL BLOOD GAS PH 7.44 (7.35-7.45); ARTERIAL BLOOD GAS TCO2 29.1 mmol.L (22-28)
--- NOTE | 2019-04-03 10:40 | CP.PCM.PN ---
<Dimitri Gifford - Last Filed: 04/03/19 10:41> Subjective - Date & Time of Evaluation Date of Evaluation: 04/03/19 Time of Evaluation: 07:10 - Subjective Subjective: PGY6 GI Fellow Progress Note Patient seen and examined bedside this morning. Patient is no longer agitated and seems comfortable on sedation with Versed/Fentanyl. Did have episodes of restlessness overnight per nursing. 12 system ROS performed and negative except where stated Objective - Vital Signs/Intake and Output Vital Signs (last 24 hours): Temp Pulse Resp BP Pulse Ox 97.9 F 58 L 15 104/54 L 94 L 04/03/19 08:40 04/03/19 08:40 04/03/19 07:19 04/03/19 08:30 04/03/19 08:40 Intake and Output: 04/03/19 04/03/19 06:59 18:59 Intake Total 1192 250 Output Total 900 Balance 292 250 - Medications Medications: Current Medications Heparin Sodium (Porcine) (Heparin) 5,000 units SC Q8 AFSANEH; Protocol Last Admin: 04/03/19 06:42 Dose: 5,000 units Hydrocortisone Sodium Succinate (Solu-Cortef) 50 mg IVP Q6 AFSANEH Dobutamine HCl/Dextrose (Dobutamine/Dextrose 5% 500mg/250ml) 500 mg in 250 mls @ 5.862 mls/hr IV .Q24H PRN; Protocol PRN Reason: TITRATE PER PROTOCOL Last Admin: 04/03/19 08:46 Dose: 2.5 mcg/kg/min, 5.862 mls/hr Vancomycin HCl (Vancomycin 1gm) 1 gm in 250 mls @ 167 mls/hr IVPB DAILY AFSANEH; Protocol Last Admin: 04/03/19 08:29 Dose: 167 mls/hr Cefepime HCl (Maxipime 1gm) 1 gm in 100 mls @ 25 mls/hr IVPB Q12 AFSANEH; Protocol Last Admin: 04/03/19 10:18 Dose: 25 mls/hr Fentanyl Citrate (Fentanyl Citrate/Sodium Chloride 1 Mg/100 Ml) 1,000 mcg in 100 mls @ 2 mls/hr IV .Q24H PRN; Protocol PRN Reason: TITRATE PER MD ORDER Last Titration: 04/02/19 21:41 Dose: 40 mcg/hr, 4 mls/hr Midazolam 100 mg/100ml in NS (Midazolam 100 Mg/100ml In Ns) 100 mg in 100 mls @ 1 mls/hr IV .Q24H PRN; Protocol PRN Reason: Agitation Last Titration: 04/02/19 20:00 Dose: 3 mg/hr, 3 mls/hr Pantoprazole Sodium (Protonix Inj) 40 mg IVP DAILY AFSANEH Last Admin: 04/03/19 08:28 Dose: 40 mg - Labs Labs: 04/03/19 06:00 04/03/19 06:00 PT 16.8 SECONDS (9.4-12.5) H 04/03/19 08:30 INR 1.49 04/03/19 08:30 APTT 42.7 Seconds (26.9-38.3) H 04/02/19 07:00 - Constitutional Appears: No Acute Distress, Chronically Ill - Eye Exam Eye Exam: PERRL (sluggish) - ENT Exam ENT Exam: Mucous Membranes Moist Additional comments: ETT present - Respiratory Exam Respiratory Exam: Clear to Ausculation Bilateral. absent: Rales, Rhonchi, Wheezes - Cardiovascular Exam Cardiovascular Exam: RRR, +S1, +S2 - GI/Abdominal Exam GI & Abdominal Exam: Soft, Normal Bowel Sounds. absent: Distended, Firm, Guarding, Rigid, Tenderness, Organomegaly - Extremities Exam Extremities Exam: Normal Inspection. absent: Pedal Edema - Skin Skin Exam: Dry, Warm Assessment and Plan - Assessment and Plan (Free Text) Assessment: Patient is a 73yo male with PMHx significant for ischemic cardiomyopathy (EF in 2014 10-15%, elevated RVSP 45, status post AICD), Parkinson's disease, COPD and schizophrenia who was brought in by ambulance for altered mental status. -Multi-organ system failure (Cardiac, liver, pulmonary) -Acute encephalopathy, elevated LFTs and coagulopathy - concern for acute liver failure -GO question of cardiorenal syndrome -Systolic congestive heart failure -Concern for drug overdose - ? Ambien overdose Plan: -Patient's LFTs continue to improve - would recommend completing NAC protocol -Suspect drug overdose given acute change in mentation and known history - consider Ambien overdose -Patient remains on Versed/Fentanyl/Dobutamine gtts at this time -Unable to assess mentation -Monitro CMP/INR - both improving -Wean from vent as possible -No overt bleeding noted -Viral hepatitis serologies negative -ID, cardiology following <Lynn,Kovil V - Last Filed: 04/04/19 00:24> Objective - Vital Signs/Intake and Output Vital Signs (last 24 hours): Temp Pulse Resp BP Pulse Ox 98.6 F 61 7 L 101/48 L 95 04/04/19 00:00 04/04/19 00:00 04/03/19 19:15 04/04/19 00:00 04/04/19 00:00 Intake and Output: 04/03/19 04/04/19 18:59 06:59 Intake Total 1005 Output Total 1450 Balance -445 - Medications Medications: Current Medications Famotidine (Pepcid) 20 mg IVP Q12 AFSANEH Last Admin: 04/03/19 22:09 Dose: 20 mg Furosemide (Lasix) 40 mg IV DAILY AFSANEH Heparin Sodium (Porcine) (Heparin) 5,000 units SC Q8 AFSANEH; Protocol Last Admin: 04/03/19 22:09 Dose: 5,000 units Hydrocortisone Sodium Succinate (Solu-Cortef) 50 mg IVP Q6 AFSANEH Last Admin: 04/03/19 18:07 Dose: 50 mg Vancomycin HCl (Vancomycin 1gm) 1 gm in 250 mls @ 167 mls/hr IVPB DAILY AFSANEH; Protocol Last Admin: 04/03/19 08:29 Dose: 167 mls/hr Cefepime HCl (Maxipime 1gm) 1 gm in 100 mls @ 25 mls/hr IVPB Q12 AFSANEH; Protocol Last Admin: 04/03/19 22:08 Dose: 25 mls/hr Fentanyl Citrate (Fentanyl Citrate/Sodium Chloride 1 Mg/100 Ml) 1,000 mcg in 100 mls @ 2 mls/hr IV .Q24H PRN; Protocol PRN Reason: TITRATE PER MD ORDER Last Titration: 04/02/19 21:41 Dose: 40 mcg/hr, 4 mls/hr Midazolam 100 mg/100ml in NS (Midazolam 100 Mg/100ml In Ns) 100 mg in 100 mls @ 1 mls/hr IV .Q24H PRN; Protocol PRN Reason: Agitation Last Titration: 04/02/19 20:00 Dose: 3 mg/hr, 3 mls/hr Milrinone Lactate/Dextrose (Primacor 20mg/100ml D5w) 100 mls @ 8.792 mls/hr IV .[id number] PRN; Protocol PRN Reason: TITRATE PER MD ORDER Last Titration: 04/03/19 13:10 Dose: 0 mcg/kg/min, 0 mls/hr NOREPINEPHRINE BIT/0.9 % NACL (Levophed 4 Mg/ 250 Ml Ns Premixed) 4 mg in 250 mls @ 15 mls/hr IV .[id number] PRN; Protocol PRN Reason: TITRATE PER MD ORDER Last Admin: 04/03/19 13:25 Dose: 4 mcg/min, 15 mls/hr Dobutamine HCl/Dextrose (Dobutamine/Dextrose 5% 500mg/250ml) 500 mg in 250 mls @ 4.689 mls/hr IV .Q24H PRN; Protocol PRN Reason: TITRATE PER PROTOCOL Last Admin: 04/03/19 13:20 Dose: 2 mcg/kg/min, 4.689 mls/hr - Labs Labs: 04/03/19 06:00 04/03/19 06:00 PT 16.8 SECONDS (9.4-12.5) H 04/03/19 08:30 INR 1.49 04/03/19 08:30 APTT 42.7 Seconds (26.9-38.3) H 04/02/19 07:00 Attending/Attestation - Attestation I have personally seen and examined this patient.: Yes I have fully participated in the care of the patient.: Yes I have reviewed all pertinent clinical information, including history, physical exam and plan: Yes Notes (Text): This patient was seen and evaluated earlier along with the GI fellow. Patient remains intubated. Follow-up LFTs and INR Acute liver injury with the multisystem organ failure. one of the differential diagnosis to consider is drug overdose Will continue to closely monitor his care and suggest further recommendation based on the clinical course 04/04/19 00:21
--- NOTE | 2019-04-03 11:06 | RAD ---
Date of service: 04/03/2019 HISTORY: tubes placement COMPARISON: 04/02/2019 TECHNIQUE: 1 view obtained. FINDINGS: LUNGS: No active pulmonary disease. PLEURA: Small bilateral pleural effusions CARDIOVASCULAR: Aortic calcification Moderate cardiomegaly no pulmonary vascular congestion. OSSEOUS STRUCTURES: No significant abnormalities. VISUALIZED UPPER ABDOMEN: Normal. OTHER FINDINGS: None. IMPRESSION: The endotracheal tube and nasogastric tube are in satisfactory position.
[2019-04-03] MEDS: Milrinone 20mg/100ml D5W 100 ML IV PRN (12:16)
[2019-04-03] MEDS ORDERED: NOREPINEPHRINE BIT/0.9 % NACL 4 MG/250 ML BAG IV ONE (13:22)
[2019-04-03] MEDS: NOREPINEPHRINE BIT/0.9 % NACL 4 MG/250 ML BAG IV PRN (13:25)
--- NOTE | 2019-04-03 13:36 | PN ---
DATE: 04/03/2019 REASON FOR CONSULTATION AND FOLLOWUP: History of coronary artery disease, ischemic cardiomyopathy status post AICD, cardiac evaluation and followup, admitted with acute mental status, respiratory failure, intubated, multiorgan dysfunction, acute kidney injury, acute liver failure. SUBJECTIVE: The patient remains on the vent. PHYSICAL EXAMINATION: VITAL SIGNS: Temperature afebrile, heart rate 58, blood pressure 104/54. HEENT: PERRLA. Extraocular muscles intact. NECK: Supple. No carotid bruits. No thyromegaly. CHEST: Clear to auscultation. HEART: S1 and S2 regular. ABDOMEN: Soft. EXTREMITIES: Clubbing, cyanosis negative. LABORATORY DATA: Blood workup; WBC 7.8, hemoglobin 11.3, hematocrit 36.9, platelet count 144. Chemistries show sodium 140, potassium 3.4, chloride 101, carbon dioxide 28, anion gap of 8, BUN 30, creatinine 1.1. BNP 21,100. Troponin remains 0.09, 0.06. Total bilirubin 2, AST 466, ALT 751. DIAGNOSTIC DATA: EKG showed sinus rhythm, first-degree AV block, lateral infarct, age undetermined. IMPRESSION: This is a 73-year-old male with past medical history significant for coronary artery disease, coronary artery bypass surgery several years ago, the patient had percutaneous transluminal coronary angioplasty of left anterior descending artery and the patient vented with uncontrolled VT/VF, status post automatic implantable cardioverter defibrillator, history of multiple times defibrillator vent loaded with amiodarone since the patient is stable. Admitted at this time with acute liver injury, coagulopathy as well as acute kidney injury. The patient's last echo done 10-15% ejection fraction and admitted with multiorgan dysfunction. RECOMMENDATIONS: The patient was started low-dose of Dobutrex, cannot increase because the patient went into atria fibrillation last time, so we will change Dobutrex to Primacor. Continue aggressive diuresis. Get echo to assess left ventricular function and pulmonary hypertension. Avoid nephrotoxic. Avoid hepatotoxic medication, but continue gentle diuresis and supplement electrolytes as needed. Continue broad-spectrum antibiotics and continue vent management. Wean the vent when the patient is tolerating. We will supplement again potassium today and we will give Lasix as blood pressure is tolerated. Overall, the patient's condition is critical. Prognosis is guarded. We will supplement two doses of steroid and one Lasix, now the Lasix from tomorrow for everyday. Keep negative fluid balance. So far, borderline troponin positive in face of creatinine 1.8, probably nothing significant, mostly likely its demand and supply mismatch, but we will follow closely. We will treat aggressively. Joanna Hall MD
--- NOTE | 2019-04-03 20:35 | PN ---
DATE: 04/03/2019 SUBJECTIVE: A 73-year-old white male seen in bed 1 of the intensive care unit. The patient is intubated, sedated. The patient is having decerebrate posturing on and off. The patient is difficult to wean from the respirator, had episodes of confusion, disorientation, also was hypotensive after being started on Dobutrex. The patient also has received some Lasix in the last 24 hours. The patient has a long history of a congestive cardiomyopathy. Also, drug-induced Parkinson's disease and major depression in the past and bipolar depression in the past. The patient has been having worsening shortness of breath and ambulating difficulty in walking, more shortness of breath, and dyspnea on exertion, also recently having worsening problems with sleeping, was admitted and found to have an elevated white count of 13,100 with change in mental status, confusion, disorder. The patient also was found to be mildly hypercarbic with a pCO2 of 50, pO2 of 109. He had some elevated liver enzymes with a total bilirubin of 2, AST of 466 and ALT of 751. His BNP was 21,100. His TSH was normal. Troponins were negative x2. PHYSICAL EXAMINATION: GENERAL: The patient is seen. He is intubated, mildly sedated, having episodes of decerebrate posturing without any causative agent. CHEST: Clear. HEART: Decreased heart sounds bilaterally with irregular rhythm and rate. EXTREMITIES: Without signs of edema. ABDOMEN: Somewhat nondistended, soft. No hepatosplenomegaly noted. Possibly fluid wave on examination. The patient is . VITAL SIGNS: His current vital signs show a blood pressure of 88/46 on pressors, a pulse of 56. He is on FIO2 of 50%. He is resisting the respirator. The patient did have a head CT on admission on 04/01/2019, which was a small left frontal scalp hematoma. Mild small vessel changes, otherwise unremarkable. The patient has not had a repeat CT. PLAN: Neurological consultation and possible repeat CT if stable. Pressors to remain to maintain blood pressure. Further evaluation of elevated liver enzymes. Dr. Bailey was called on consultation for GI. Dr. Hall is the patient's product support representative. We will follow along and prognosis is poor. Family will be notified. Possible drug-induced hepatitis versus a passive hepatic congestion or cardiac cirrhosis. Hugo Martinez MD
--- NOTE | 2019-04-03 20:54 | CARD ---
APPROVED REPORT Date of service: 04/03/2019 EKG Measurement Heart [id number] <Conclusion> Normal sinus rhythm Left bundle branch block Abnormal ECG
[2019-04-04] MEDS: Midazolam 100 mg/100ml in NS 100 MG/100 ML SOL IV PRN (03:29)
[2019-04-04] MEDS: Fentanyl 1000mcg/100ml NS 1,000 MCG/100 ML BAG IV PRN (05:58)
[2019-04-04 06:44] LABS: HEMOGLOBIN 13.5 g/dL (14.0-18.0); LYMPH # 1.4 (1.2-3.4); LYMPH % 14.1 % (22.0-35.0); MEAN CELL VOLUME 90.4 fl (80.0-105.0); MEAN CORPUSCULAR HEMOGLOBIN 28.2 pg (25.0-35.0); MEAN CORPUSCULAR HGB CONC 31.3 g/dl (31.0-37.0); MEAN PLATELET VOLUME 11.6 fl (7.0-11.0); MONO # 1.1 (0.1-0.6); MONO % 10.6 % (1.0-6.0); RBC 4.78 10^6/uL (3.5-6.1); RED CELL DISTRIBUTION WIDTH 15.4 % (11.5-14.5); WHITE BLOOD COUNT 10.1 10^3/uL (4.5-11.0)
[2019-04-04 06:54] LABS: ARTERIAL BLOOD GAS HCO3 29.9 mmol/L (21-28); ARTERIAL BLOOD GAS HEMOGLOBIN 12.8 g/dL (11.7-17.4); ARTERIAL BLOOD GAS O2 CAPACITY 17.6 mL/dl (16-24); ARTERIAL BLOOD GAS O2 CONTENT 17.5 ML/dl (15-23); ARTERIAL BLOOD GAS O2 SAT 99.3 % (95-98); ARTERIAL BLOOD GAS PCO2 43 mm/Hg (35-45); ARTERIAL BLOOD GAS PH 7.45 (7.35-7.45); ARTERIAL BLOOD GAS TCO2 31.2 mmol.L (22-28)
[2019-04-04 07:03] LABS: ALBUMIN 2.9 g/dL (3.0-4.8); ALT/SGPT 666 U/L (7-56); AST/SGOT 319 U/L (17-59); BLOOD UREA NITROGEN 39 mg/dL (7-21); CALCIUM 9.6 mg/dL (8.4-10.5); GFR NON-AFRICAN AMERICAN > 60
--- NOTE | 2019-04-04 07:55 | CP.CCUPN ---
<Tony Uribe - Last Filed: 04/04/19 10:47> CCU Subjective - Physician Review Subjective (Free Text): Tony Uribe PGY-1 Critical Care Progress Note Patient seen and evaluated at bedside. No acute events reported overnight. Patient remains on mechanical ventilation and Dobutamine drip. No response to painful stimuli. CCU Objective - Vital Signs / Intake & Output Intake and Output (Last 8hrs): Intake & Output 04/03/19 04/04/19 04/04/19 22:59 06:59 14:59 Intake Total 836 726 Output Total 1450 375 Balance -614 351 Intake: IV 536 326 Right Wrist 450 228 Tube Feeding 200 400 Other 100 Output: Urine 1450 375 Urethral (Eric) 1450 375 Other: # Bowel Movements 1 - Physical Exam Head: Positive for: Atraumatic, Normocephalic Pupils: Positive for: PERRL Extroacular Muscles: Positive for: EOMI Mouth: Positive for: Moist Mucous Membranes, Other (ETT in place). Negative for: Normal Teeth Nose (External): Positive for: Other (NGT in place in L nares) Neck: Positive for: Normal Range of Motion, Other (L IJ in place) Respiratory/Chest: Positive for: Clear to Auscultation, Decreased Breath Sounds. Negative for: Respiratory Distress, Accessory Muscle Use Cardiovascular: Positive for: Regular Rate and Rhythm, Normal S1, S2 Abdomen: Positive for: Normal Bowel Sounds. Negative for: Tenderness, Distention Genitourinary Male: Positive for: Other (Eric in place) Upper Extremity: Positive for: Normal Inspection, Other (L hand swollen) Lower Extremity: Positive for: Normal Inspection Skin: Positive for: Warm, Dry, Normal Color Psychiatric: Negative for: Alert, Oriented x 3, Agitated - Medications Active Medications: Active Medications Generic Name Dose Route Start Last Admin Trade Name Freq PRN Reason Stop Dose Admin Famotidine 20 mg 04/03/19 22:00 04/03/19 22:09 Pepcid IVP 20 mg Q12 AFSANEH Administration Furosemide 40 mg 04/04/19 10:00 Lasix IV DAILY AFSANEH Heparin Sodium (Porcine) 5,000 units 04/02/19 14:00 04/04/19 05:37 Heparin SC 5,000 units Q8 AFSANEH Administration Protocol Hydrocortisone Sodium Succinate 50 mg 04/03/19 12:00 04/04/19 05:37 Solu-Cortef IVP 50 mg Q6 AFSANEH Administration Vancomycin HCl 1 gm in 250 mls @ 167 mls/hr 04/02/19 16:45 04/03/19 08:29 Vancomycin 1gm IVPB 167 mls/hr DAILY AFSANEH Administration Protocol Cefepime HCl 1 gm in 100 mls @ 25 mls/hr 04/02/19 22:00 04/03/19 22:08 Maxipime 1gm IVPB 25 mls/hr Q12 AFSANEH Administration Protocol Fentanyl Citrate 1,000 mcg in 100 mls @ 2 mls/hr 04/02/19 18:03 04/04/19 05:58 Fentanyl Citrate/Sodium Chloride 1 Mg/100 Ml IV 40 mcg/hr .Q24H PRN 4 mls/hr TITRATE PER MD ORDER Administration Protocol 20 MCG/HR Midazolam 100 mg/100ml in NS 100 mg in 100 mls @ 1 mls/hr 04/02/19 18:03 04/04/19 03:33 Midazolam 100 Mg/100ml In Ns IV 2 mg/hr .Q24H PRN 2 mls/hr Agitation Titration Protocol 1 MG/HR Milrinone Lactate/Dextrose 100 mls @ 8.792 mls/hr 04/03/19 11:11 04/03/19 13:10 Primacor 20mg/100ml D5w IV 0 mcg/kg/min .[id number] PRN 0 mls/hr TITRATE PER MD ORDER Titration Protocol 0.375 MCG/KG/MIN NOREPINEPHRINE BIT/0.9 % NACL 4 mg in 250 mls @ 15 mls/hr 04/03/19 13:10 04/03/19 13:25 Levophed 4 Mg/ 250 Ml Ns Premixed IV 4 mcg/min .[id number] PRN 15 mls/hr TITRATE PER MD ORDER Administration Protocol 4 MCG/MIN Dobutamine HCl/Dextrose 500 mg in 250 mls @ 4.689 mls/hr 04/03/19 13:12 04/03/19 13:20 Dobutamine/Dextrose 5% 500mg/250ml IV 2 mcg/kg/min .Q24H PRN 4.689 mls/hr TITRATE PER PROTOCOL Administration Protocol 2 MCG/KG/MIN - Patient Studies Lab Studies: Microbiology Studies 04/01/19 11:30 Blood Culture - Preliminary Blood-Venous NO GROWTH AFTER 48 HOURS 04/01/19 11:00 Blood Culture - Preliminary Blood-Venous NO GROWTH AFTER 48 HOURS 04/01/19 23:32 MRSA Culture (Admit) - Final Naris MRSA NOT DETECTED 04/01/19 11:45 Urine Culture - Final Urine,Catheterized No Growth (<1,000 CFU/ML) Lab Studies 04/04/19 04/04/19 04/04/19 Range/Units 06:48 05:30 05:30 WBC 10.1 D (4.5-11.0) 10^3/uL RBC 4.78 (3.5-6.1) 10^6/uL Hgb 13.5 L (14.0-18.0) g/dL Hct 43.2 (42.0-52.0) % MCV 90.4 (80.0-105.0) fl MCH 28.2 (25.0-35.0) pg MCHC 31.3 (31.0-37.0) g/dl RDW 15.4 H (11.5-14.5) % Plt Count 197 (120.0-450.0) 10^3/uL MPV 11.6 H (7.0-11.0) fl Neut % (Auto) 75.3 H (50.0-68.0) % Lymph % (Auto) 14.1 L (22.0-35.0) % [place] % (Auto) 10.6 H (1.0-6.0) % Eos % (Auto) 0.0 L (1.5-5.0) % Baso % (Auto) 0.0 (0.0-3.0) % Lymph # (Auto) 1.4 (1.2-3.4) [place] # (Auto) 1.1 H (0.1-0.6) Eos # (Auto) 0.0 (0.0-0.7) Baso # (Auto) 0.00 (0.0-2.0) K/mm3 Absolute Neuts (auto) 7.60 H (1.4-6.5) Haptoglobin (30.0-200.0) mg/dL PT (9.4-12.5) SECONDS INR pCO2 43 (35-45) mm/Hg pO2 109.0 H (80-100) mm/Hg HCO3 29.9 H (21-28) mmol/L ABG pH 7.45 (7.35-7.45) ABG Total CO2 31.2 H (22-28) mmol.L ABG O2 Saturation 99.3 H (95-98) % ABG O2 Content 17.5 (15-23) ML/dl ABG Base Excess 5.3 H (-2.0-3.0) mmol/L ABG Hemoglobin 12.8 (11.7-17.4) g/dL ABG Carboxyhemoglobin 1.7 H (0.5-1.5) % POC ABG HHb (Measured) 0.7 (0-5) % ABG Methemoglobin 1.0 (0.0-3.0) % ABG O2 Capacity 17.6 (16-24) mL/dl Hgb O2 Saturation 96.6 (95.0-98.0) % FiO2 50.0 % Sodium 146 (132-148) mmol/L Potassium 4.5 (3.6-5.0) mmol/L Chloride 112 H (98-107) mmol/L Carbon Dioxide 30 (21-33) mmol/L Anion Gap 8 L (10-20) BUN 39 H (7-21) mg/dL Creatinine 1.1 (0.8-1.5) mg/dl Est GFR ( Amer) > 60 Est GFR (Non-Af Amer) > 60 Random Glucose 137 H (70-110) mg/dL Hemoglobin A1c (4.2-6.5) % Calcium 9.6 (8.4-10.5) mg/dL Phosphorus 2.5 (2.5-4.5) mg/dL Magnesium 2.6 H (1.7-2.2) mg/dL Total Bilirubin 1.7 H (0.2-1.3) mg/dL AST 319 H D (17-59) U/L ALT 666 H (7-56) U/L Alkaline Phosphatase 73 (38-126) U/L Troponin I ng/mL Total Protein 5.7 L (5.8-8.3) g/dL Albumin 2.9 L (3.0-4.8) g/dL Globulin 2.9 gm/dL Albumin/Globulin Ratio 1.0 L (1.1-1.8) Thyroxine (T4) (5.5-11.0) ug/dL HIV 1&2 Ag/Ab, 4th Gen (Nonreactive) 04/03/19 04/03/19 04/03/19 Range/Units 14:10 13:30 10:26 WBC (4.5-11.0) 10^3/uL RBC (3.5-6.1) 10^6/uL Hgb (14.0-18.0) g/dL Hct (42.0-52.0) % MCV (80.0-105.0) fl MCH (25.0-35.0) pg MCHC (31.0-37.0) g/dl RDW (11.5-14.5) % Plt Count (120.0-450.0) 10^3/uL MPV (7.0-11.0) fl Neut % (Auto) (50.0-68.0) % Lymph % (Auto) (22.0-35.0) % [place] % (Auto) (1.0-6.0) % Eos % (Auto) (1.5-5.0) % Baso % (Auto) (0.0-3.0) % Lymph # (Auto) (1.2-3.4) [place] # (Auto) (0.1-0.6) Eos # (Auto) (0.0-0.7) Baso # (Auto) (0.0-2.0) K/mm3 Absolute Neuts (auto) (1.4-6.5) Haptoglobin 82.7 (30.0-200.0) mg/dL PT (9.4-12.5) SECONDS INR pCO2 (35-45) mm/Hg pO2 (80-100) mm/Hg HCO3 (21-28) mmol/L ABG pH (7.35-7.45) ABG Total CO2 (22-28) mmol.L ABG O2 Saturation (95-98) % ABG O2 Content (15-23) ML/dl ABG Base Excess (-2.0-3.0) mmol/L ABG Hemoglobin (11.7-17.4) g/dL ABG Carboxyhemoglobin (0.5-1.5) % POC ABG HHb (Measured) (0-5) % ABG Methemoglobin (0.0-3.0) % ABG O2 Capacity (16-24) mL/dl Hgb O2 Saturation (95.0-98.0) % FiO2 % Sodium (132-148) mmol/L Potassium (3.6-5.0) mmol/L Chloride (98-107) mmol/L Carbon Dioxide (21-33) mmol/L Anion Gap (10-20) BUN (7-21) mg/dL Creatinine (0.8-1.5) mg/dl Est GFR ( Amer) Est GFR (Non-Af Amer) Random Glucose (70-110) mg/dL Hemoglobin A1c (4.2-6.5) % Calcium (8.4-10.5) mg/dL Phosphorus (2.5-4.5) mg/dL Magnesium (1.7-2.2) mg/dL Total Bilirubin (0.2-1.3) mg/dL AST (17-59) U/L ALT (7-56) U/L Alkaline Phosphatase (38-126) U/L Troponin I 0.04 D ng/mL Total Protein (5.8-8.3) g/dL Albumin (3.0-4.8) g/dL Globulin gm/dL Albumin/Globulin Ratio (1.1-1.8) Thyroxine (T4) (5.5-11.0) ug/dL HIV 1&2 Ag/Ab, 4th Gen Nonreactive (Nonreactive) 04/03/19 04/03/19 04/03/19 Range/Units 10:26 10:10 08:30 WBC (4.5-11.0) 10^3/uL RBC (3.5-6.1) 10^6/uL Hgb (14.0-18.0) g/dL Hct (42.0-52.0) % MCV (80.0-105.0) fl MCH (25.0-35.0) pg MCHC (31.0-37.0) g/dl RDW (11.5-14.5) % Plt Count (120.0-450.0) 10^3/uL MPV (7.0-11.0) fl Neut % (Auto) (50.0-68.0) % Lymph % (Auto) (22.0-35.0) % [place] % (Auto) (1.0-6.0) % Eos % (Auto) (1.5-5.0) % Baso % (Auto) (0.0-3.0) % Lymph # (Auto) (1.2-3.4) [place] # (Auto) (0.1-0.6) Eos # (Auto) (0.0-0.7) Baso # (Auto) (0.0-2.0) K/mm3 Absolute Neuts (auto) (1.4-6.5) Haptoglobin (30.0-200.0) mg/dL PT 16.8 H (9.4-12.5) SECONDS INR 1.49 pCO2 41 (35-45) mm/Hg pO2 89.0 (80-100) mm/Hg HCO3 27.8 (21-28) mmol/L ABG pH 7.44 (7.35-7.45) ABG Total CO2 29.1 H (22-28) mmol.L ABG O2 Saturation 98.8 H (95-98) % ABG O2 Content 15.8 (15-23) ML/dl ABG Base Excess 3.3 H (-2.0-3.0) mmol/L ABG Hemoglobin 11.6 L (11.7-17.4) g/dL ABG Carboxyhemoglobin 1.8 H (0.5-1.5) % POC ABG HHb (Measured) 1.2 (0-5) % ABG Methemoglobin 1.0 (0.0-3.0) % ABG O2 Capacity 16.0 (16-24) mL/dl Hgb O2 Saturation 96.0 (95.0-98.0) % FiO2 50.0 % Sodium (132-148) mmol/L Potassium (3.6-5.0) mmol/L Chloride (98-107) mmol/L Carbon Dioxide (21-33) mmol/L Anion Gap (10-20) BUN (7-21) mg/dL Creatinine (0.8-1.5) mg/dl Est GFR ( Amer) Est GFR (Non-Af Amer) Random Glucose (70-110) mg/dL Hemoglobin A1c (4.2-6.5) % Calcium (8.4-10.5) mg/dL Phosphorus (2.5-4.5) mg/dL Magnesium (1.7-2.2) mg/dL Total Bilirubin (0.2-1.3) mg/dL AST (17-59) U/L ALT (7-56) U/L Alkaline Phosphatase (38-126) U/L Troponin I ng/mL Total Protein (5.8-8.3) g/dL Albumin (3.0-4.8) g/dL Globulin gm/dL Albumin/Globulin Ratio (1.1-1.8) Thyroxine (T4) 6.9 (5.5-11.0) ug/dL HIV 1&2 Ag/Ab, 4th Gen (Nonreactive) 04/03/19 Range/Units 06:00 WBC (4.5-11.0) 10^3/uL RBC (3.5-6.1) 10^6/uL Hgb (14.0-18.0) g/dL Hct (42.0-52.0) % MCV (80.0-105.0) fl MCH (25.0-35.0) pg MCHC (31.0-37.0) g/dl RDW (11.5-14.5) % Plt Count (120.0-450.0) 10^3/uL MPV (7.0-11.0) fl Neut % (Auto) (50.0-68.0) % Lymph % (Auto) (22.0-35.0) % [place] % (Auto) (1.0-6.0) % Eos % (Auto) (1.5-5.0) % Baso % (Auto) (0.0-3.0) % Lymph # (Auto) (1.2-3.4) [place] # (Auto) (0.1-0.6) Eos # (Auto) (0.0-0.7) Baso # (Auto) (0.0-2.0) K/mm3 Absolute Neuts (auto) (1.4-6.5) Haptoglobin (30.0-200.0) mg/dL PT (9.4-12.5) SECONDS INR pCO2 (35-45) mm/Hg pO2 (80-100) mm/Hg HCO3 (21-28) mmol/L ABG pH (7.35-7.45) ABG Total CO2 (22-28) mmol.L ABG O2 Saturation (95-98) % ABG O2 Content (15-23) ML/dl ABG Base Excess (-2.0-3.0) mmol/L ABG Hemoglobin (11.7-17.4) g/dL ABG Carboxyhemoglobin (0.5-1.5) % POC ABG HHb (Measured) (0-5) % ABG Methemoglobin (0.0-3.0) % ABG O2 Capacity (16-24) mL/dl Hgb O2 Saturation (95.0-98.0) % FiO2 % Sodium (132-148) mmol/L Potassium (3.6-5.0) mmol/L Chloride (98-107) mmol/L Carbon Dioxide (21-33) mmol/L Anion Gap (10-20) BUN (7-21) mg/dL Creatinine (0.8-1.5) mg/dl Est GFR ( Amer) Est GFR (Non-Af Amer) Random Glucose (70-110) mg/dL Hemoglobin A1c 6.4 (4.2-6.5) % Calcium (8.4-10.5) mg/dL Phosphorus (2.5-4.5) mg/dL Magnesium (1.7-2.2) mg/dL Total Bilirubin (0.2-1.3) mg/dL AST (17-59) U/L ALT (7-56) U/L Alkaline Phosphatase (38-126) U/L Troponin I ng/mL Total Protein (5.8-8.3) g/dL Albumin (3.0-4.8) g/dL Globulin gm/dL Albumin/Globulin Ratio (1.1-1.8) Thyroxine (T4) (5.5-11.0) ug/dL HIV 1&2 Ag/Ab, 4th Gen (Nonreactive) Laboratory Results - last 24 hr 04/03/19 04/03/19 04/03/19 06:00 08:30 10:10 WBC RBC Hgb Hct MCV MCH MCHC RDW Plt Count MPV Neut % (Auto) Lymph % (Auto) [place] % (Auto) Eos % (Auto) Baso % (Auto) Lymph # (Auto) [place] # (Auto) Eos # (Auto) Baso # (Auto) Absolute Neuts (auto) Haptoglobin PT 16.8 H INR 1.49 pCO2 41 pO2 89.0 HCO3 27.8 ABG pH 7.44 ABG Total CO2 29.1 H ABG O2 Saturation 98.8 H ABG O2 Content 15.8 ABG Base Excess 3.3 H ABG Hemoglobin 11.6 L ABG Carboxyhemoglobin 1.8 H POC ABG HHb (Measured) 1.2 ABG Methemoglobin 1.0 ABG O2 Capacity 16.0 Hgb O2 Saturation 96.0 FiO2 50.0 Sodium Potassium Chloride Carbon Dioxide Anion Gap BUN Creatinine Est GFR ( Amer) Est GFR (Non-Af Amer) Random Glucose Hemoglobin A1c 6.4 Calcium Phosphorus Magnesium Total Bilirubin AST ALT Alkaline Phosphatase Troponin I Total Protein Albumin Globulin Albumin/Globulin Ratio Thyroxine (T4) HIV 1&2 Ag/Ab, 4th Gen 04/03/19 04/03/19 04/03/19 10:26 10:26 13:30 WBC RBC Hgb Hct MCV MCH MCHC RDW Plt Count MPV Neut % (Auto) Lymph % (Auto) [place] % (Auto) Eos % (Auto) Baso % (Auto) Lymph # (Auto) [place] # (Auto) Eos # (Auto) Baso # (Auto) Absolute Neuts (auto) Haptoglobin PT INR pCO2 pO2 HCO3 ABG pH ABG Total CO2 ABG O2 Saturation ABG O2 Content ABG Base Excess ABG Hemoglobin ABG Carboxyhemoglobin POC ABG HHb (Measured) ABG Methemoglobin ABG O2 Capacity Hgb O2 Saturation FiO2 Sodium Potassium Chloride Carbon Dioxide Anion Gap BUN Creatinine Est GFR ( Amer) Est GFR (Non-Af Amer) Random Glucose Hemoglobin A1c Calcium Phosphorus Magnesium Total Bilirubin AST ALT Alkaline Phosphatase Troponin I 0.04 D Total Protein Albumin Globulin Albumin/Globulin Ratio Thyroxine (T4) 6.9 HIV 1&2 Ag/Ab, 4th Gen Nonreactive 04/03/19 04/04/19 04/04/19 14:10 05:30 05:30 WBC 10.1 D RBC 4.78 Hgb 13.5 L Hct 43.2 MCV 90.4 MCH 28.2 MCHC 31.3 RDW 15.4 H Plt Count 197 MPV 11.6 H Neut % (Auto) 75.3 H Lymph % (Auto) 14.1 L [place] % (Auto) 10.6 H Eos % (Auto) 0.0 L Baso % (Auto) 0.0 Lymph # (Auto) 1.4 [place] # (Auto) 1.1 H Eos # (Auto) 0.0 Baso # (Auto) 0.00 Absolute Neuts (auto) 7.60 H Haptoglobin 82.7 PT INR pCO2 pO2 HCO3 ABG pH ABG Total CO2 ABG O2 Saturation ABG O2 Content ABG Base Excess ABG Hemoglobin ABG Carboxyhemoglobin POC ABG HHb (Measured) ABG Methemoglobin ABG O2 Capacity Hgb O2 Saturation FiO2 Sodium 146 Potassium 4.5 Chloride 112 H Carbon Dioxide 30 Anion Gap 8 L BUN 39 H Creatinine 1.1 Est GFR ( Amer) > 60 Est GFR (Non-Af Amer) > 60 Random Glucose 137 H Hemoglobin A1c Calcium 9.6 Phosphorus 2.5 Magnesium 2.6 H Total Bilirubin 1.7 H AST 319 H D ALT 666 H Alkaline Phosphatase 73 Troponin I Total Protein 5.7 L Albumin 2.9 L Globulin 2.9 Albumin/Globulin Ratio 1.0 L Thyroxine (T4) HIV 1&2 Ag/Ab, 4th Gen 04/04/19 06:48 WBC RBC Hgb Hct MCV MCH MCHC RDW Plt Count MPV Neut % (Auto) Lymph % (Auto) [place] % (Auto) Eos % (Auto) Baso % (Auto) Lymph # (Auto) [place] # (Auto) Eos # (Auto) Baso # (Auto) Absolute Neuts (auto) Haptoglobin PT INR pCO2 43 pO2 109.0 H HCO3 29.9 H ABG pH 7.45 ABG Total CO2 31.2 H ABG O2 Saturation 99.3 H ABG O2 Content 17.5 ABG Base Excess 5.3 H ABG Hemoglobin 12.8 ABG Carboxyhemoglobin 1.7 H POC ABG HHb (Measured) 0.7 ABG Methemoglobin 1.0 ABG O2 Capacity 17.6 Hgb O2 Saturation 96.6 FiO2 50.0 Sodium Potassium Chloride Carbon Dioxide Anion Gap BUN Creatinine Est GFR ( Amer) Est GFR (Non-Af Amer) Random Glucose Hemoglobin A1c Calcium Phosphorus Magnesium Total Bilirubin AST ALT Alkaline Phosphatase Troponin I Total Protein Albumin Globulin Albumin/Globulin Ratio Thyroxine (T4) HIV 1&2 Ag/Ab, 4th Gen Radiology Impressions: Radiology Impressions Chest X-Ray 04/03/19 10:22 IMPRESSION: The endotracheal tube and nasogastric tube are in satisfactory position. Review of Systems - Review of Systems Systems not reviewed;Unavailable: Intubated Critical Care Progress Note - Nutrition Nutrition: Nutrition Category Date Time Status NPO Diet [DIET] Diets 04/01/19 Breakfast Ordered Assessment/Plan - Assessment and Plan (Free Text) Assessment: 73 yo male with PMHx significant for ischemic cardiomyopathy (EF in 2014 10-15%, elevated RVSP 45, status post AICD), COPD and schizophrenia who was brought in by ambulance for altered mental status. Currently in ICU for multi system organ failure and respiratory distress. Neuro: -Sustained AMS -F/u repeat CT head and 24 hour vEEG -GCS 3T, discontinue sedation of Fentanyl and Midazolam -Possible overdose of Ambien as etiology of AMS, benzos in Utox -Monitor neuro status. -Neuro on consult - Dr. Gibbons- further recs appreciated Cardio: -L IJ access, L sided dual lead pacemaker -Decrease stress dose steroids 50 q12 -Continue Dobutamine drip -Lasix 40 mg IVP daily -Begin Aspirin 81 mg -Begin Lisinopril 2.5 mg -proBNP>40,000, EF 15% -Maintain MAP>65. -Monitor for S/S of HD compromise. -Cardiology on Consult - Dr. Taylor - recs appreciated Pulm: -PRVC 50/5/16/450 currently -Trial pressure support, weaning trial and sedation vacation -04/04 ABG shows improved metabolic alkalosis -Maintain O2 saturation >92%. -O2 NC PRN -Vent: protective lung ventilation strategy, aspiration precautions -04/04/19 CXR: proper placement of ETT and NGT -Elevate bed to 30 degrees GI: -NPO, tube feeding on hold -Protonix IVP daily -Completed 3 doses of NAC on 04/02/19, improving LFTs today; INR improved -s/p Lactulose, possibility of congestive hepatopathy 2/2 congestive heart failure -04/01/19 Abd U/S shows Cholelithiasis. Diffuse gallbladder wall thickening is likely secondary to systemic disease. 2. Chronic renal parenchymal disease. 3. Diffuse increased echogenicity in the liver with coarse echotexture may reflect hepatic steatosis however parenchymal infectious/ inflammatory etiologies cannot be entirely excluded. -GI on consult - Dr. Bailey - further recs appreciated. [facility] was notified of the patient but patient reportedly too unstable for transfer /Nephro: -GO likely 2/2 congestive nephropathy -Good urine output through Eric -Continue monitoring. -Replete electrolytes as needed. -Maintain euvolemia. Endocrinology: -Random glucose: 138 -Hgb a1c 6.4 -TSH 0.39, T4 6.9 -Maintain euglycemia. Heme/Onc: -H/H stable -No signs of HD compromise. -Continue monitoring H/H ID: -D/C Vanc and C/w Cefepime per ID -BCx neg after 48 hours, UCx negative -Procalcitonin 0.55 -Monitor for signs and symptoms of infection. -ID on consult - Dr. Gavin - recs appreciated DVT prophylaxis: Heparin SC GI prophylaxis: PTX Patient seen, case reviewed and plan approved by Dr. Mtz. Tony Uribe, PGY-1 <Simon Mtz - Last Filed: 04/04/19 11:24> CCU Objective - Vital Signs / Intake & Output Vital Signs (Last 4 hours): Vital Signs Temp Pulse BP Pulse Ox 04/04/19 11:00 100.2 F H 94 H 126/79 94 L 04/04/19 10:50 100.0 F H 86 94 L 04/04/19 10:40 100.0 F H 96 H 94 L 04/04/19 10:30 100.0 F H 100 H 95 04/04/19 10:28 100.0 F H 104 H 124/91 H 95 04/04/19 10:20 99.9 F H 103 H 95 04/04/19 10:10 99.7 F H 98 H 95 04/04/19 10:00 99.7 F H 93 H 132/70 95 04/04/19 09:50 99.7 F H 91 H 95 04/04/19 09:40 99.5 F 85 96 04/04/19 09:30 99.3 F 78 96 04/04/19 09:20 99.3 F 70 97 04/04/19 09:10 99.3 F 67 97 04/04/19 09:00 99.3 F 67 107/52 L 97 04/04/19 08:50 99.3 F 67 97 04/04/19 08:40 99.3 F 72 97 04/04/19 08:30 99.3 F 75 97 04/04/19 08:20 99.1 F 69 97 04/04/19 08:10 99.1 F 77 97 04/04/19 08:00 99.1 F 69 104/45 L 97 04/04/19 07:50 99.1 F 70 98 04/04/19 07:40 99.0 F 67 98 04/04/19 07:30 99.0 F 72 99 Intake and Output (Last 8hrs): Intake & Output 04/03/19 04/04/19 04/04/19 22:59 06:59 14:59 Intake Total 836 726 80 Output Total 1450 375 Balance -614 351 80 Intake: IV 536 326 80 Right Wrist 450 228 Tube Feeding 200 400 Other 100 Output: Urine 1450 375 Urethral (Eric) 1450 375 Other: # Bowel Movements 1 - Medications Active Medications: Active Medications Generic Name Dose Route Start Last Admin Trade Name Freq PRN Reason Stop Dose Admin Aspirin 81 mg 04/04/19 10:45 Aspirin Chewable PO DAILY AFSANEH Famotidine 20 mg 04/03/19 22:00 04/03/19 22:09 Pepcid IVP 20 mg Q12 AFSANEH Administration Furosemide 40 mg 04/04/19 10:00 Lasix IV DAILY AFSANEH Heparin Sodium (Porcine) 5,000 units 04/02/19 14:00 04/04/19 05:37 Heparin SC 5,000 units Q8 AFSANEH Administration Protocol Hydrocortisone Sodium Succinate 50 mg 04/04/19 10:45 Solu-Cortef IVP Q12H AFSANEH Vancomycin HCl 1 gm in 250 mls @ 167 mls/hr 04/02/19 16:45 04/03/19 08:29 Vancomycin 1gm IVPB 167 mls/hr DAILY AFSANEH Administration Protocol Cefepime HCl 1 gm in 100 mls @ 25 mls/hr 04/02/19 22:00 04/03/19 22:08 Maxipime 1gm IVPB 25 mls/hr Q12 AFSANEH Administration Protocol Fentanyl Citrate 1,000 mcg in 100 mls @ 2 mls/hr 04/02/19 18:03 04/04/19 05:58 Fentanyl Citrate/Sodium Chloride 1 Mg/100 Ml IV 40 mcg/hr .Q24H PRN 4 mls/hr TITRATE PER MD ORDER Administration Protocol 20 MCG/HR Midazolam 100 mg/100ml in NS 100 mg in 100 mls @ 1 mls/hr 04/02/19 18:03 04/04/19 08:10 Midazolam 100 Mg/100ml In Ns IV 0 mg/hr .Q24H PRN 0 mls/hr Agitation Titration Protocol 1 MG/HR Milrinone Lactate/Dextrose 100 mls @ 8.792 mls/hr 04/03/19 11:11 04/03/19 13:10 Primacor 20mg/100ml D5w IV 0 mcg/kg/min .[id number] PRN 0 mls/hr TITRATE PER MD ORDER Titration Protocol 0.375 MCG/KG/MIN NOREPINEPHRINE BIT/0.9 % NACL 4 mg in 250 mls @ 15 mls/hr 04/03/19 13:10 04/03/19 13:25 Levophed 4 Mg/ 250 Ml Ns Premixed IV 4 mcg/min .[id number] PRN 15 mls/hr TITRATE PER MD ORDER Administration Protocol 4 MCG/MIN Dobutamine HCl/Dextrose 500 mg in 250 mls @ 4.689 mls/hr 04/03/19 13:12 04/03/19 13:20 Dobutamine/Dextrose 5% 500mg/250ml IV 2 mcg/kg/min .Q24H PRN 4.689 mls/hr TITRATE PER PROTOCOL Administration Protocol 2 MCG/KG/MIN Lisinopril 2.5 mg 04/04/19 10:45 Zestril PO DAILY AFSANEH - Patient Studies Lab Studies: Microbiology Studies 04/01/19 11:30 Blood Culture - Preliminary Blood-Venous NO GROWTH AFTER 48 HOURS 04/01/19 11:00 Blood Culture - Preliminary Blood-Venous NO GROWTH AFTER 48 HOURS 04/01/19 23:32 MRSA Culture (Admit) - Final Naris MRSA NOT DETECTED 04/01/19 11:45 Urine Culture - Final Urine,Catheterized No Growth (<1,000 CFU/ML) Lab Studies 04/04/19 04/04/19 04/04/19 Range/Units 06:48 05:30 05:30 WBC 10.1 D (4.5-11.0) 10^3/uL RBC 4.78 (3.5-6.1) 10^6/uL Hgb 13.5 L (14.0-18.0) g/dL Hct 43.2 (42.0-52.0) % MCV 90.4 (80.0-105.0) fl MCH 28.2 (25.0-35.0) pg MCHC 31.3 (31.0-37.0) g/dl RDW 15.4 H (11.5-14.5) % Plt Count 197 (120.0-450.0) 10^3/uL MPV 11.6 H (7.0-11.0) fl Neut % (Auto) 75.3 H (50.0-68.0) % Lymph % (Auto) 14.1 L (22.0-35.0) % [place] % (Auto) 10.6 H (1.0-6.0) % Eos % (Auto) 0.0 L (1.5-5.0) % Baso % (Auto) 0.0 (0.0-3.0) % Lymph # (Auto) 1.4 (1.2-3.4) [place] # (Auto) 1.1 H (0.1-0.6) Eos # (Auto) 0.0 (0.0-0.7) Baso # (Auto) 0.00 (0.0-2.0) K/mm3 Absolute Neuts (auto) 7.60 H (1.4-6.5) Haptoglobin (30.0-200.0) mg/dL pCO2 43 (35-45) mm/Hg pO2 109.0 H (80-100) mm/Hg HCO3 29.9 H (21-28) mmol/L ABG pH 7.45 (7.35-7.45) ABG Total CO2 31.2 H (22-28) mmol.L ABG O2 Saturation 99.3 H (95-98) % ABG O2 Content 17.5 (15-23) ML/dl ABG Base Excess 5.3 H (-2.0-3.0) mmol/L ABG Hemoglobin 12.8 (11.7-17.4) g/dL ABG Carboxyhemoglobin 1.7 H (0.5-1.5) % POC ABG HHb (Measured) 0.7 (0-5) % ABG Methemoglobin 1.0 (0.0-3.0) % ABG O2 Capacity 17.6 (16-24) mL/dl Hgb O2 Saturation 96.6 (95.0-98.0) % FiO2 50.0 % Sodium 146 (132-148) mmol/L Potassium 4.5 (3.6-5.0) mmol/L Chloride 112 H (98-107) mmol/L Carbon Dioxide 30 (21-33) mmol/L Anion Gap 8 L (10-20) BUN 39 H (7-21) mg/dL Creatinine 1.1 (0.8-1.5) mg/dl Est GFR ( Amer) > 60 Est GFR (Non-Af Amer) > 60 Random Glucose 137 H (70-110) mg/dL Hemoglobin A1c (4.2-6.5) % Calcium 9.6 (8.4-10.5) mg/dL Phosphorus 2.5 (2.5-4.5) mg/dL Magnesium 2.6 H (1.7-2.2) mg/dL Total Bilirubin 1.7 H (0.2-1.3) mg/dL AST 319 H D (17-59) U/L ALT 666 H (7-56) U/L Alkaline Phosphatase 73 (38-126) U/L Troponin I ng/mL Total Protein 5.7 L (5.8-8.3) g/dL Albumin 2.9 L (3.0-4.8) g/dL Globulin 2.9 gm/dL Albumin/Globulin Ratio 1.0 L (1.1-1.8) HIV 1&2 Ag/Ab, 4th Gen (Nonreactive) 04/03/19 04/03/19 04/03/19 Range/Units 14:10 13:30 10:26 WBC (4.5-11.0) 10^3/uL RBC (3.5-6.1) 10^6/uL Hgb (14.0-18.0) g/dL Hct (42.0-52.0) % MCV (80.0-105.0) fl MCH (25.0-35.0) pg MCHC (31.0-37.0) g/dl RDW (11.5-14.5) % Plt Count (120.0-450.0) 10^3/uL MPV (7.0-11.0) fl Neut % (Auto) (50.0-68.0) % Lymph % (Auto) (22.0-35.0) % [place] % (Auto) (1.0-6.0) % Eos % (Auto) (1.5-5.0) % Baso % (Auto) (0.0-3.0) % Lymph # (Auto) (1.2-3.4) [place] # (Auto) (0.1-0.6) Eos # (Auto) (0.0-0.7) Baso # (Auto) (0.0-2.0) K/mm3 Absolute Neuts (auto) (1.4-6.5) Haptoglobin 82.7 (30.0-200.0) mg/dL pCO2 (35-45) mm/Hg pO2 (80-100) mm/Hg HCO3 (21-28) mmol/L ABG pH (7.35-7.45) ABG Total CO2 (22-28) mmol.L ABG O2 Saturation (95-98) % ABG O2 Content (15-23) ML/dl ABG Base Excess (-2.0-3.0) mmol/L ABG Hemoglobin (11.7-17.4) g/dL ABG Carboxyhemoglobin (0.5-1.5) % POC ABG HHb (Measured) (0-5) % ABG Methemoglobin (0.0-3.0) % ABG O2 Capacity (16-24) mL/dl Hgb O2 Saturation (95.0-98.0) % FiO2 % Sodium (132-148) mmol/L Potassium (3.6-5.0) mmol/L Chloride (98-107) mmol/L Carbon Dioxide (21-33) mmol/L Anion Gap (10-20) BUN (7-21) mg/dL Creatinine (0.8-1.5) mg/dl Est GFR ( Amer) Est GFR (Non-Af Amer) Random Glucose (70-110) mg/dL Hemoglobin A1c (4.2-6.5) % Calcium (8.4-10.5) mg/dL Phosphorus (2.5-4.5) mg/dL Magnesium (1.7-2.2) mg/dL Total Bilirubin (0.2-1.3) mg/dL AST (17-59) U/L ALT (7-56) U/L Alkaline Phosphatase (38-126) U/L Troponin I 0.04 D ng/mL Total Protein (5.8-8.3) g/dL Albumin (3.0-4.8) g/dL Globulin gm/dL Albumin/Globulin Ratio (1.1-1.8) HIV 1&2 Ag/Ab, 4th Gen Nonreactive (Nonreactive) 04/03/19 Range/Units 06:00 WBC (4.5-11.0) 10^3/uL RBC (3.5-6.1) 10^6/uL Hgb (14.0-18.0) g/dL Hct (42.0-52.0) % MCV (80.0-105.0) fl MCH (25.0-35.0) pg MCHC (31.0-37.0) g/dl RDW (11.5-14.5) % Plt Count (120.0-450.0) 10^3/uL MPV (7.0-11.0) fl Neut % (Auto) (50.0-68.0) % Lymph % (Auto) (22.0-35.0) % [place] % (Auto) (1.0-6.0) % Eos % (Auto) (1.5-5.0) % Baso % (Auto) (0.0-3.0) % Lymph # (Auto) (1.2-3.4) [place] # (Auto) (0.1-0.6) Eos # (Auto) (0.0-0.7) Baso # (Auto) (0.0-2.0) K/mm3 Absolute Neuts (auto) (1.4-6.5) Haptoglobin (30.0-200.0) mg/dL pCO2 (35-45) mm/Hg pO2 (80-100) mm/Hg HCO3 (21-28) mmol/L ABG pH (7.35-7.45) ABG Total CO2 (22-28) mmol.L ABG O2 Saturation (95-98) % ABG O2 Content (15-23) ML/dl ABG Base Excess (-2.0-3.0) mmol/L ABG Hemoglobin (11.7-17.4) g/dL ABG Carboxyhemoglobin (0.5-1.5) % POC ABG HHb (Measured) (0-5) % ABG Methemoglobin (0.0-3.0) % ABG O2 Capacity (16-24) mL/dl Hgb O2 Saturation (95.0-98.0) % FiO2 % Sodium (132-148) mmol/L Potassium (3.6-5.0) mmol/L Chloride (98-107) mmol/L Carbon Dioxide (21-33) mmol/L Anion Gap (10-20) BUN (7-21) mg/dL Creatinine (0.8-1.5) mg/dl Est GFR ( Amer) Est GFR (Non-Af Amer) Random Glucose (70-110) mg/dL Hemoglobin A1c 6.4 (4.2-6.5) % Calcium (8.4-10.5) mg/dL Phosphorus (2.5-4.5) mg/dL Magnesium (1.7-2.2) mg/dL Total Bilirubin (0.2-1.3) mg/dL AST (17-59) U/L ALT (7-56) U/L Alkaline Phosphatase (38-126) U/L Troponin I ng/mL Total Protein (5.8-8.3) g/dL Albumin (3.0-4.8) g/dL Globulin gm/dL Albumin/Globulin Ratio (1.1-1.8) HIV 1&2 Ag/Ab, 4th Gen (Nonreactive) Laboratory Results - last 24 hr 04/03/19 04/03/19 04/03/19 06:00 10:26 13:30 WBC RBC Hgb Hct MCV MCH MCHC RDW Plt Count MPV Neut % (Auto) Lymph % (Auto) [place] % (Auto) Eos % (Auto) Baso % (Auto) Lymph # (Auto) [place] # (Auto) Eos # (Auto) Baso # (Auto) Absolute Neuts (auto) Haptoglobin pCO2 pO2 HCO3 ABG pH ABG Total CO2 ABG O2 Saturation ABG O2 Content ABG Base Excess ABG Hemoglobin ABG Carboxyhemoglobin POC ABG HHb (Measured) ABG Methemoglobin ABG O2 Capacity Hgb O2 Saturation FiO2 Sodium Potassium Chloride Carbon Dioxide Anion Gap BUN Creatinine Est GFR ( Amer) Est GFR (Non-Af Amer) Random Glucose Hemoglobin A1c 6.4 Calcium Phosphorus Magnesium Total Bilirubin AST ALT Alkaline Phosphatase Troponin I 0.04 D Total Protein Albumin Globulin Albumin/Globulin Ratio HIV 1&2 Ag/Ab, 4th Gen Nonreactive 04/03/19 04/04/19 04/04/19 14:10 05:30 05:30 WBC 10.1 D RBC 4.78 Hgb 13.5 L Hct 43.2 MCV 90.4 MCH 28.2 MCHC 31.3 RDW 15.4 H Plt Count 197 MPV 11.6 H Neut % (Auto) 75.3 H Lymph % (Auto) 14.1 L [place] % (Auto) 10.6 H Eos % (Auto) 0.0 L Baso % (Auto) 0.0 Lymph # (Auto) 1.4 [place] # (Auto) 1.1 H Eos # (Auto) 0.0 Baso # (Auto) 0.00 Absolute Neuts (auto) 7.60 H Haptoglobin 82.7 pCO2 pO2 HCO3 ABG pH ABG Total CO2 ABG O2 Saturation ABG O2 Content ABG Base Excess ABG Hemoglobin ABG Carboxyhemoglobin POC ABG HHb (Measured) ABG Methemoglobin ABG O2 Capacity Hgb O2 Saturation FiO2 Sodium 146 Potassium 4.5 Chloride 112 H Carbon Dioxide 30 Anion Gap 8 L BUN 39 H Creatinine 1.1 Est GFR ( Amer) > 60 Est GFR (Non-Af Amer) > 60 Random Glucose 137 H Hemoglobin A1c Calcium 9.6 Phosphorus 2.5 Magnesium 2.6 H Total Bilirubin 1.7 H AST 319 H D ALT 666 H Alkaline Phosphatase 73 Troponin I Total Protein 5.7 L Albumin 2.9 L Globulin 2.9 Albumin/Globulin Ratio 1.0 L HIV 1&2 Ag/Ab, 4th Gen 04/04/19 06:48 WBC RBC Hgb Hct MCV MCH MCHC RDW Plt Count MPV Neut % (Auto) Lymph % (Auto) [place] % (Auto) Eos % (Auto) Baso % (Auto) Lymph # (Auto) [place] # (Auto) Eos # (Auto) Baso # (Auto) Absolute Neuts (auto) Haptoglobin pCO2 43 pO2 109.0 H HCO3 29.9 H ABG pH 7.45 ABG Total CO2 31.2 H ABG O2 Saturation 99.3 H ABG O2 Content 17.5 ABG Base Excess 5.3 H ABG Hemoglobin 12.8 ABG Carboxyhemoglobin 1.7 H POC ABG HHb (Measured) 0.7 ABG Methemoglobin 1.0 ABG O2 Capacity 17.6 Hgb O2 Saturation 96.6 FiO2 50.0 Sodium Potassium Chloride Carbon Dioxide Anion Gap BUN Creatinine Est GFR ( Amer) Est GFR (Non-Af Amer) Random Glucose Hemoglobin A1c Calcium Phosphorus Magnesium Total Bilirubin AST ALT Alkaline Phosphatase Troponin I Total Protein Albumin Globulin Albumin/Globulin Ratio HIV 1&2 Ag/Ab, 4th Gen Radiology Impressions: Radiology Impressions Chest X-Ray 04/04/19 06:00 IMPRESSION: Small pleural effusions. No change. Critical Care Progress Note - Nutrition Nutrition: Nutrition Category Date Time Status NPO Diet [DIET] Diets 04/01/19 Breakfast Ordered Assessment/Plan - Assessment and Plan (Free Text) Assessment: I saw and examined the patient on rounds with resident, agree with note with following additions/exceptions: Patient is 73yo male with PMHx systolic CHF, ischemic cardiomyopathy (EF in 2014 10-15%, s/p AICD), COPD and schizophrenia who was brought in by ambulance for altered mental status, found to be in acute liver failure, with elevated LFTs, increased INR, T rip. Currently intubated sedated On Ionotropic support Quesitonable etiology of liver failure, ??medication vs hepatic congestion 2/2 Right sided CHF/systolic CHF LFTs, INR improving, TBilli downtrending Clinically currently afebrile, HD stable, comfortable in NAD Pt still not waking up fully, despite being off heavy sedation, only on Precedex Will obtain VEEG and repeat CTH without contrast, as well neuro consult Acute Liver Failure Systolic CHF Rule out Right sided heart failure Ischemic Cardiomyopathy COPD Psych Hx Acute resp failure AMS Recommend: - cont with vent support, low tidal vol ventilation, daily sedation vacation, ABG, CXR - Broad spectrum abx as per ID - Inotropic Support, Dobutamine - Lasix 40mg IV BID - FS control - Stress dose steroids taper - CT head without contrast, VEEG, neuro eval - GI follow up - ID follow up - GI ppx - DVT ppx, HSQ - Monitor in MICU Critical care time 30 minutes
[2019-04-04] MEDS: NOREPINEPHRINE BIT/0.9 % NACL 4 MG/250 ML BAG IV PRN (08:20)
--- NOTE | 2019-04-04 09:40 | RAD ---
Date of service: 04/04/2019 HISTORY: tube placements COMPARISON: 04/03/2019 TECHNIQUE: 1 view obtained. FINDINGS: LUNGS: No active pulmonary disease. PLEURA: Small pleural effusions CARDIOVASCULAR: No aortic atherosclerotic calcification present. Normal cardiac size. No pulmonary vascular congestion. OSSEOUS STRUCTURES: No significant abnormalities. VISUALIZED UPPER ABDOMEN: Normal. OTHER FINDINGS: Endotracheal and nasogastric tubes in satisfactory position IMPRESSION: Small pleural effusions. No change.
--- NOTE | 2019-04-04 09:57 | CARD ---
APPROVED REPORT Date of service: 04/03/2019 EXAM: Two-dimensional and M-mode echocardiogram with Doppler and color Doppler. INDICATION Cardiomyopathy Congestive Heart Failure S/P AICD 2D DIMENSIONS Left Atrium (2D)4.5 (1.6-4.0cm)IVSd1.2 (0.7-1.1cm) LVDd7.4 (3.9-5.9cm)PWd1.3 (0.7-1.1cm) LVDs7.1 (2.5-4.0cm)FS (%) 4.3 % LVEF (%)9.3 (>50%) M-Mode DIMENSIONS Aortic Root3.40 (2.2-3.7cm)Aortic Cusp Exc.1.20 (1.5-2.0cm) Aortic Valve AoV Peak Cqggxiie348.0cm/Vadim Peak GR.9mmHg Mitral Valve MV E Psqdepze03.3cm/sMV A Tczviczc53.3cm/sE/A ratio1.1 TDI E/Lateral E'0.0E/Medial E'0.0 Tricuspid Valve TR Peak [id number] [id number] Peak Gr.34mmHg [id number] LEFT VENTRICLE The Left Ventricle is moderately dilated. There is mild concentric left ventricular hypertrophy. The systolic function is severely impaired.EF-15% There is severe global hypokinesis of the left ventricle. No left ventricle thrombus noted on this study. There is no ventricular septal defect visualized. There is no left ventricular aneurysm. There is no mass noted in the left ventricle. RIGHT VENTRICLE The right ventricle is mildly dilated. There is normal right ventricular wall thickness. Systolic function is mildly to moderately reduced. There is a pacemaker lead in the right ventricle. ATRIA The left atrium is moderately dilated. The right atrium is moderately dilated. There is a catheter/pacemaker lead seen in the right atrium. The interatrial septum is intact with no evidence for an atrial septal defect. AORTIC VALVE The aortic valve is thickened but opens well. The aortic valve is moderately sclerotic. No aortic regurgitation is present. There is no aortic valvular stenosis. There is no aortic valvular vegetation. MITRAL VALVE The mitral valve is thickened but opens well. Mitral regurgitation is moderate. There is no mitral valve stenosis. There is no evidence of mitral valve prolapse. TRICUSPID VALVE The tricuspid valve leaflets are thickened , but open well. There is moderate tricuspid regurgitation.RVSP-44 mmof Hg recorded RVSP is being underestimated b/c of configuration of Tr Jet. There is no tricuspid valve stenosis. There is no tricuspid valve prolapse or vegetation. PULMONIC VALVE The pulmonary valve is normal in structure. There is mild to moderate pulmonic valvular regurgitation. There is no pulmonic valvular stenosis. GREAT VESSELS The aortic root is normal in size. The ascending aorta is normal in size. The pulmonary artery is normal. The IVC is dilated. PERICARDIAL EFFUSION There is no pleural effusion. There is no pericardial effusion. <Conclusion> four chamber dilatation c/w CMP.EF-15% Mitral regurgitation is moderate. There is moderate tricuspid regurgitation.RVSP-44 mmof Hg recorded RVSP is being underestimated b/c of configuration of Tr Jet. There is mild to moderate pulmonic valvular regurgitation. The IVC is dilated. There is no pericardial effusion. AICD lead noted in RA/RV No vegetation or thrombus noted.
--- NOTE | 2019-04-04 10:58 | PN ---
DATE: 04/04/2019 SUBJECTIVE: This is a 73-year-old white male seen in bed 1. The patient is afebrile today. He is still intubated and sedated, not coming out of his semi comatose state. He has decerebrate posturing. We are awaiting for consultation with Dr. Gibbons. BUN and creatinine at 39 and 1.1. His potassium is 4.5. His white count is normal. He is afebrile with blood pressure 101/48, on pressors. The patient will try to attempt a CT of the brain to rule out acute bleed or infarction. The patient has a long history of severe congestion and cardiomyopathy and Schizoaffective disorder. PHYSICAL EXAMINATION: GENERAL: Unchanged sedated, decerebrate posturing. HEART: Irregular rhythm with controlled ventricular response. CHEST: Clear. ABDOMEN: Soft. EXTREMITIES: Without signs of edema. Hugo Martinez MD
--- NOTE | 2019-04-04 11:00 | CP.PCM.PN ---
<Dimitri Gifford - Last Filed: 04/04/19 10:56> Subjective - Date & Time of Evaluation Date of Evaluation: 04/04/19 Time of Evaluation: 07:45 - Subjective Subjective: PGY6 GI Fellow progress Note Patient seen and examined bedside this morning. The patient remains intubated/sedated on versed/fentanyl. He is not on two pressors with Dobutamine and Levophed. No events overnight. 12 system ROS cannot be completed given clinical condition Objective - Vital Signs/Intake and Output Vital Signs (last 24 hours): Temp Pulse Resp BP Pulse Ox 99.3 F 75 7 L 104/45 L 97 04/04/19 08:30 04/04/19 08:30 04/03/19 19:15 04/04/19 08:00 04/04/19 08:30 Intake and Output: 04/04/19 04/04/19 06:59 18:59 Intake Total 812 80 Output Total 375 Balance 437 80 - Medications Medications: Current Medications Aspirin (Aspirin Chewable) 81 mg PO DAILY [facility] Famotidine (Pepcid) 20 mg IVP Q12 [facility] Last Admin: 04/03/19 22:09 Dose: 20 mg Furosemide (Lasix) 40 mg IV DAILY [facility] Heparin Sodium (Porcine) (Heparin) 5,000 units SC Q8 [facility]; Protocol Last Admin: 04/04/19 05:37 Dose: 5,000 units Hydrocortisone Sodium Succinate (Solu-Cortef) 50 mg IVP Q12H [facility] Vancomycin HCl (Vancomycin 1gm) 1 gm in 250 mls @ 167 mls/hr IVPB DAILY [facility]; Protocol Last Admin: 04/03/19 08:29 Dose: 167 mls/hr Cefepime HCl (Maxipime 1gm) 1 gm in 100 mls @ 25 mls/hr IVPB Q12 [facility]; Protocol Last Admin: 04/03/19 22:08 Dose: 25 mls/hr Fentanyl Citrate (Fentanyl Citrate/Sodium Chloride 1 Mg/100 Ml) 1,000 mcg in 100 mls @ 2 mls/hr IV .Q24H PRN; Protocol PRN Reason: TITRATE PER MD ORDER Last Admin: 04/04/19 05:58 Dose: 40 mcg/hr, 4 mls/hr Midazolam 100 mg/100ml in NS (Midazolam 100 Mg/100ml In Ns) 100 mg in 100 mls @ 1 mls/hr IV .Q24H PRN; Protocol PRN Reason: Agitation Last Titration: 04/04/19 08:10 Dose: 0 mg/hr, 0 mls/hr Milrinone Lactate/Dextrose (Primacor 20mg/100ml D5w) 100 mls @ 8.792 mls/hr IV .[id number] PRN; Protocol PRN Reason: TITRATE PER MD ORDER Last Titration: 04/03/19 13:10 Dose: 0 mcg/kg/min, 0 mls/hr NOREPINEPHRINE BIT/0.9 % NACL (Levophed 4 Mg/ 250 Ml Ns Premixed) 4 mg in 250 mls @ 15 mls/hr IV .[id number] PRN; Protocol PRN Reason: TITRATE PER MD ORDER Last Admin: 04/03/19 13:25 Dose: 4 mcg/min, 15 mls/hr Dobutamine HCl/Dextrose (Dobutamine/Dextrose 5% 500mg/250ml) 500 mg in 250 mls @ 4.689 mls/hr IV .Q24H PRN; Protocol PRN Reason: TITRATE PER PROTOCOL Last Admin: 04/03/19 13:20 Dose: 2 mcg/kg/min, 4.689 mls/hr Lisinopril (Zestril) 2.5 mg PO DAILY AFSANEH - Labs Labs: 04/04/19 05:30 04/04/19 05:30 PT 16.8 SECONDS (9.4-12.5) H 04/03/19 08:30 INR 1.49 04/03/19 08:30 APTT 42.7 Seconds (26.9-38.3) H 04/02/19 07:00 - Constitutional Appears: No Acute Distress - Eye Exam Eye Exam: PERRL - ENT Exam ENT Exam: Mucous Membranes Moist Additional comments: ETT present - Respiratory Exam Respiratory Exam: Clear to Ausculation Bilateral. absent: Rales, Rhonchi, Wheezes Additional comments: on MV - Cardiovascular Exam Cardiovascular Exam: RRR, +S1, +S2 - GI/Abdominal Exam GI & Abdominal Exam: Soft, Normal Bowel Sounds. absent: Distended, Firm, Guarding, Rigid, Tenderness, Organomegaly - Extremities Exam Additional comments: Left hand more edematous today - Skin Skin Exam: Dry, Warm Assessment and Plan - Assessment and Plan (Free Text) Assessment: Patient is a 73yo male with PMHx significant for ischemic cardiomyopathy (EF in 2014 10-15%, elevated RVSP 45, status post AICD), Parkinson's disease, COPD and schizophrenia who was brought in by ambulance for altered mental status. -Less likely acute liver failure and more likely acute intoxicant effect 2/2 therapeutic misadventure -Acute encephalopathy, suspect drug induced - R/O central or other metabolic causes -Systolic congestive heart failure -GO, improved Plan: -LFTs downtrending once again today - continue to monitor periodically -S/P NAC therapy -Suspect acute intoxicant/drug overdose given known history and nature of transaminase elevation and improvement with AMS - suspect AMS 2/2 drug effect however unable to assess presently as patient remains intubated/sedated -Wean off mechanical ventilation as possible per ICU team -MRI brain may be considered to R/O underlying acute event (embolic/CVA) -Dual pressor support noted -No overt bleeding noted -Viral hepatitis serologies negative -ID, cardiology following -No further recommendations at this juncture, monitor clinical course <Kathie Bailey V - Last Filed: 04/04/19 20:13> Objective - Vital Signs/Intake and Output Vital Signs (last 24 hours): Temp Pulse Resp BP Pulse Ox 100.6 F H 100 H 7 L 129/74 93 L 04/04/19 17:20 04/04/19 17:20 04/03/19 19:15 04/04/19 17:01 04/04/19 17:20 Intake and Output: 04/04/19 04/05/19 18:59 06:59 Intake Total 499 Output Total 850 Balance -351 - Medications Medications: Current Medications Aspirin (Aspirin Chewable) 81 mg PO DAILY [facility] Last Admin: 04/04/19 12:09 Dose: 81 mg Famotidine (Pepcid) 20 mg IVP Q12 [facility] Last Admin: 04/04/19 12:10 Dose: 20 mg Furosemide (Lasix) 40 mg IV DAILY [facility] Last Admin: 04/04/19 12:08 Dose: 40 mg Heparin Sodium (Porcine) (Heparin) 5,000 units SC Q8 [facility]; Protocol Last Admin: 04/04/19 15:09 Dose: 5,000 units Hydrocortisone Sodium Succinate (Solu-Cortef) 50 mg IVP Q12H [facility] Last Admin: 04/04/19 12:09 Dose: 50 mg Cefepime HCl (Maxipime 1gm) 1 gm in 100 mls @ 25 mls/hr IVPB Q12 [facility]; Protocol Last Admin: 04/04/19 12:08 Dose: 25 mls/hr Fentanyl Citrate (Fentanyl Citrate/Sodium Chloride 1 Mg/100 Ml) 1,000 mcg in 100 mls @ 2 mls/hr IV .Q24H PRN; Protocol PRN Reason: TITRATE PER MD ORDER Last Titration: 04/04/19 15:55 Dose: 10 mcg/hr, 1 mls/hr Midazolam 100 mg/100ml in NS (Midazolam 100 Mg/100ml In Ns) 100 mg in 100 mls @ 1 mls/hr IV .Q24H PRN; Protocol PRN Reason: Agitation Last Titration: 04/04/19 08:10 Dose: 0 mg/hr, 0 mls/hr Milrinone Lactate/Dextrose (Primacor 20mg/100ml D5w) 100 mls @ 8.792 mls/hr IV .[id number] PRN; Protocol PRN Reason: TITRATE PER MD ORDER Last Titration: 04/03/19 13:10 Dose: 0 mcg/kg/min, 0 mls/hr NOREPINEPHRINE BIT/0.9 % NACL (Levophed 4 Mg/ 250 Ml Ns Premixed) 4 mg in 250 mls @ 15 mls/hr IV .[id number] PRN; Protocol PRN Reason: TITRATE PER MD ORDER Last Titration: 04/04/19 14:00 Dose: 0 mcg/min, 0 mls/hr Dobutamine HCl/Dextrose (Dobutamine/Dextrose 5% 500mg/250ml) 500 mg in 250 mls @ 4.689 mls/hr IV .Q24H PRN; Protocol PRN Reason: TITRATE PER PROTOCOL Last Admin: 04/03/19 13:20 Dose: 2 mcg/kg/min, 4.689 mls/hr Lisinopril (Zestril) 2.5 mg PO DAILY AFSANEH - Labs Labs: 04/04/19 05:30 04/04/19 05:30 PT 16.8 SECONDS (9.4-12.5) H 04/03/19 08:30 INR 1.49 04/03/19 08:30 APTT 42.7 Seconds (26.9-38.3) H 04/02/19 07:00 Attending/Attestation - Attestation I have personally seen and examined this patient.: Yes I have fully participated in the care of the patient.: Yes I have reviewed all pertinent clinical information, including history, physical exam and plan: Yes Notes (Text): This patient was seen and evaluated earlier today along with the fellow. This is an addendum to the GI progress note dictated by the fellow. Patient remains on vent. LFTs showing downward trend. Drug-induced liver injury plus hypotension should be the etiology. We will repeat the LDH close follow-up of LFT related 04/04/19 20:11
[2019-04-04] MEDS: Cefepime 1gm in NS 100ml 1 GM/100 ML BAG IVPB SCH ×2 (12:08→21:44)
--- NOTE | 2019-04-04 12:09 | CT ---
Date of service: 04/04/2019 PROCEDURE: CT HEAD WITHOUT CONTRAST. HISTORY: AMS COMPARISON: Noncontrast head CT performed 04/01/19 TECHNIQUE: Axial computed tomography images were obtained through the head/brain without intravenous contrast. Radiation dose: Total exam DLP = 968.71 mGy-cm. This CT exam was performed using one or more of the following dose reduction techniques: Automated exposure control, adjustment of the mA and/or kV according to patient size, and/or use of iterative reconstruction technique. FINDINGS: Suboptimal patient positioning. HEMORRHAGE: No intracranial hemorrhage. BRAIN: Diffuse atrophy with prominence of the ventricles and sulci noted. No mass effect or edema. Intracranial atherosclerosis. 4 mm probable lacunar type infarct within the left brainstem (series 4, image 23). Scattered periventricular and subcortical white matter hypodensities, which are nonspecific, but often seen with chronic microvascular ischemic disease. Please note that MRI with diffusion imaging is more sensitive in the detection of acute ischemic event. VENTRICLES: No hydrocephalus. CALVARIUM: Unremarkable. PARANASAL SINUSES: Unremarkable as visualized. No significant inflammatory changes. MASTOID AIR CELLS: Unremarkable as visualized. No inflammatory changes. OTHER FINDINGS: Partial opacification of the left external auditory canal, likely cerumen. IMPRESSION: Generalized atrophy. 4 mm probable lacunar type infarct within the left brainstem. Scattered periventricular and subcortical white matter hypodensities, which are nonspecific, but often seen with chronic microvascular ischemic disease.
--- NOTE | 2019-04-04 12:35 | CP.PCM.CON ---
History of Present Illness - History of Present Illness History of Present Illness: Neurology Consultation Note: consult requested by Dr. Martinez Mr. Gautam is a 73-year-old male with past medical history of ischemic cardiomyopathy and CAD with CABG, carotid stenosis status post CEA and stenting, heart failure with ejection fraction of 10 to 15% status post AICD, Parkinson's disease, COPD, hypertension, schizophrenia who presented initially for acute encephalopathy. He required intubation for airway protection. He continues to be intubated, sedated and on pressors. Review of Systems - Review of Systems Systems not reviewed;Unavailable: Intubated Past Patient History - Infectious Disease Hx of Infectious Diseases: None - Tetanus Immunizations Tetanus Immunization: Unknown - Past Social History Smoking Status: Former Smoker - CARDIAC Hx Angina: Yes Hx Cardia Arrhythmia: Yes Hx Hypertension: Yes Hx Internal Defibrillator: Yes (4 yrs ago) - PULMONARY Hx Respiratory Disorders: No Hx Asthma: No Hx Bronchitis: No Hx Chronic Obstructive Pulmonary Disease (COPD): No Hx Emphysema: No - NEUROLOGICAL Hx Parkinson's Disease: Yes - HEENT Hx HEENT Problems: Yes (wears glasses) Hx Blind: No Hx Cataracts: No Hx Deafness: No Hx Difficulty Chewing: No Hx Epistaxis: No Hx Glaucoma: No Hx Macular Degeneration: No - RENAL Hx Chronic Kidney Disease: No Hx Renal Failure: No - ENDOCRINE/METABOLIC Hx Diabetes Insipidus: No Hx Hyperthyroidism: No Hx Hypothyroidism: No - HEMATOLOGICAL/ONCOLOGICAL Hx Anemia: No Hx Cancer: No Hx Hepatitis A: No Hx Hepatitis B: No Hx Hepatitis C: No - INTEGUMENTARY Hx Dermatological Problems: No Other/Comment: HEALING ABRASIONS POST FALL AT HOME. ON HIS RIGHT STALLINGS (2 YEARS AGO - MUSCULOSKELETAL/RHEUMATOLOGICAL Hx Falls: Yes - GASTROINTESTINAL Hx Gastrointestinal Disorders: No - GENITOURINARY/GYNECOLOGICAL Hx Genitourinary Disorders: No Hx Hematuria: No Hx Incontinence: No Hx Prostate Problems: No Hx Sexually Transmitted Disorders: No Hx Urinary Tract Infection: No - PSYCHIATRIC Hx Psychophysiologic Disorder: Yes Hx Depression: No Hx Emotional Abuse: No Hx Hallucinations: Yes Hx Physical Abuse: No Hx Schizophrenia: Yes (DX AT AGE 43 YRS OLD) Hx Sexual Abuse: No Hx Substance Use: No - SURGICAL HISTORY Hx Carotid Endarterectomy: (STENT) Hx Coronary Artery Bypass Graft: Yes - ANESTHESIA Hx Anesthesia: Yes Hx Anesthesia Reactions: No Hx Malignant Hyperthermia: No Meds Allergies/Adverse Reactions: Allergies Allergy/AdvReac Type Severity Reaction Status Date / Time No Known Allergies Allergy Verified 10/10/16 13:59 - Medications Medications: Current Medications Aspirin (Aspirin Chewable) 81 mg PO DAILY [facility] Last Admin: 04/04/19 12:09 Dose: 81 mg Famotidine (Pepcid) 20 mg IVP Q12 [facility] Last Admin: 04/04/19 12:10 Dose: 20 mg Furosemide (Lasix) 40 mg IV DAILY [facility] Last Admin: 04/04/19 12:08 Dose: 40 mg Heparin Sodium (Porcine) (Heparin) 5,000 units SC Q8 [facility]; Protocol Last Admin: 04/04/19 05:37 Dose: 5,000 units Hydrocortisone Sodium Succinate (Solu-Cortef) 50 mg IVP Q12H [facility] Last Admin: 04/04/19 12:09 Dose: 50 mg Cefepime HCl (Maxipime 1gm) 1 gm in 100 mls @ 25 mls/hr IVPB Q12 [facility]; Protocol Last Admin: 04/04/19 12:08 Dose: 25 mls/hr Fentanyl Citrate (Fentanyl Citrate/Sodium Chloride 1 Mg/100 Ml) 1,000 mcg in 100 mls @ 2 mls/hr IV .Q24H PRN; Protocol PRN Reason: TITRATE PER MD ORDER Last Admin: 04/04/19 05:58 Dose: 40 mcg/hr, 4 mls/hr Midazolam 100 mg/100ml in NS (Midazolam 100 Mg/100ml In Ns) 100 mg in 100 mls @ 1 mls/hr IV .Q24H PRN; Protocol PRN Reason: Agitation Last Titration: 04/04/19 08:10 Dose: 0 mg/hr, 0 mls/hr Milrinone Lactate/Dextrose (Primacor 20mg/100ml D5w) 100 mls @ 8.792 mls/hr IV .[id number] PRN; Protocol PRN Reason: TITRATE PER MD ORDER Last Titration: 04/03/19 13:10 Dose: 0 mcg/kg/min, 0 mls/hr NOREPINEPHRINE BIT/0.9 % NACL (Levophed 4 Mg/ 250 Ml Ns Premixed) 4 mg in 250 mls @ 15 mls/hr IV .[id number] PRN; Protocol PRN Reason: TITRATE PER MD ORDER Last Admin: 04/04/19 08:20 Dose: 4 mcg/min, 15 mls/hr Dobutamine HCl/Dextrose (Dobutamine/Dextrose 5% 500mg/250ml) 500 mg in 250 mls @ 4.689 mls/hr IV .Q24H PRN; Protocol PRN Reason: TITRATE PER PROTOCOL Last Admin: 04/03/19 13:20 Dose: 2 mcg/kg/min, 4.689 mls/hr Lisinopril (Zestril) 2.5 mg PO DAILY [facility] Physical Exam - Constitutional Appears: Chronically Ill - Head Exam Head Exam: ATRAUMATIC, NORMAL INSPECTION, NORMOCEPHALIC - ENT Exam ENT Exam: Mucous Membranes Moist, Normal Exam - Neck Exam Neck exam: Positive for: Normal Inspection - Respiratory Exam Respiratory Exam: Decreased Breath Sounds - Cardiovascular Exam Cardiovascular Exam: REGULAR RHYTHM, +S1, +S2 - GI/Abdominal Exam GI & Abdominal Exam: Normal Bowel Sounds, Soft. absent: Tenderness - Extremities Exam Extremities exam: Positive for: normal inspection - Back Exam Back exam: NORMAL INSPECTION - Neurological Exam Additional comments: Intubated, moves all extremities spontaneously, but not to command, pupils are reactive to light, corneal reflexes are present, breathing over the ventilator. Does not open eyes spontaneously or to command. - Psychiatric Exam Psychiatric exam: Normal Affect, Normal Mood - Skin Skin Exam: Dry, Intact, Normal Color, Warm Results - Vital Signs Recent Vital Signs: Last Vital Signs Temp 100.2 F H 04/04/19 11:00 Pulse 94 H 04/04/19 11:00 Resp 7 L 04/03/19 19:15 BP 121/52 L 04/04/19 12:08 Pulse Ox 94 L 04/04/19 11:00 - Labs Result Diagrams: 04/04/19 05:30 04/04/19 05:30 Labs: Laboratory Results - last 24 hr 04/03/19 04/03/19 04/03/19 10:26 13:30 14:10 WBC RBC Hgb Hct MCV MCH MCHC RDW Plt Count MPV Neut % (Auto) Lymph % (Auto) Curry % (Auto) Eos % (Auto) Baso % (Auto) Lymph # (Auto) Curry # (Auto) Eos # (Auto) Baso # (Auto) Absolute Neuts (auto) Haptoglobin 82.7 pCO2 pO2 HCO3 ABG pH ABG Total CO2 ABG O2 Saturation ABG O2 Content ABG Base Excess ABG Hemoglobin ABG Carboxyhemoglobin POC ABG HHb (Measured) ABG Methemoglobin ABG O2 Capacity Hgb O2 Saturation FiO2 Sodium Potassium Chloride Carbon Dioxide Anion Gap BUN Creatinine Est GFR ( Amer) Est GFR (Non-Af Amer) Random Glucose Calcium Phosphorus Magnesium Total Bilirubin AST ALT Alkaline Phosphatase Troponin I 0.04 D Total Protein Albumin Globulin Albumin/Globulin Ratio HIV 1&2 Ag/Ab, 4th Gen Nonreactive 04/04/19 04/04/19 04/04/19 05:30 05:30 06:48 WBC 10.1 D RBC 4.78 Hgb 13.5 L Hct 43.2 MCV 90.4 MCH 28.2 MCHC 31.3 RDW 15.4 H Plt Count 197 MPV 11.6 H Neut % (Auto) 75.3 H Lymph % (Auto) 14.1 L Curry % (Auto) 10.6 H Eos % (Auto) 0.0 L Baso % (Auto) 0.0 Lymph # (Auto) 1.4 Curry # (Auto) 1.1 H Eos # (Auto) 0.0 Baso # (Auto) 0.00 Absolute Neuts (auto) 7.60 H Haptoglobin pCO2 43 pO2 109.0 H HCO3 29.9 H ABG pH 7.45 ABG Total CO2 31.2 H ABG O2 Saturation 99.3 H ABG O2 Content 17.5 ABG Base Excess 5.3 H ABG Hemoglobin 12.8 ABG Carboxyhemoglobin 1.7 H POC ABG HHb (Measured) 0.7 ABG Methemoglobin 1.0 ABG O2 Capacity 17.6 Hgb O2 Saturation 96.6 FiO2 50.0 Sodium 146 Potassium 4.5 Chloride 112 H Carbon Dioxide 30 Anion Gap 8 L BUN 39 H Creatinine 1.1 Est GFR ( Amer) > 60 Est GFR (Non-Af Amer) > 60 Random Glucose 137 H Calcium 9.6 Phosphorus 2.5 Magnesium 2.6 H Total Bilirubin 1.7 H AST 319 H D ALT 666 H Alkaline Phosphatase 73 Troponin I Total Protein 5.7 L Albumin 2.9 L Globulin 2.9 Albumin/Globulin Ratio 1.0 L HIV 1&2 Ag/Ab, 4th Gen Assessment & Plan (1) Toxic metabolic encephalopathy Assessment and Plan: Likely multi-factorial. CT head shows a very small left pontine infarct that would not cause his current presentation. Continue treatment of underlying medical conditions and re-consult if the patient does not improve after optimal medical management. Continuous Video EEG may be obtained for further evaluation and to rule out possible sub-clinical status epilepticus. Thank you for this consultation. Status: Acute
--- NOTE | 2019-04-04 13:22 | PN ---
DATE: 04/04/2019 REASON FOR CONSULTATION AND FOLLOWUP: History of coronary artery disease, ischemic cardiomyopathy, status post AICD, cardiac evaluation and followup, admitted with acute mental status, respiratory failure intubated, multiorgan dysfunction, acute kidney injury and liver failure. SUBJECTIVE: The patient remain on vent, remain on vasopressors. Not in apparent distress being fed NG tube and free fluid as well as on IV Dobutrex and dopamine. OBJECTIVE: VITAL SIGNS: Temperature 99.2, heart rate 75 and blood pressure 104/45. HEENT: PERRLA. Extraocular muscles intact. NECK: Supple. No carotid bruits. No thyromegaly. CHEST: Clear to auscultation. HEART: S1 and S2, regular. ABDOMEN: Soft. EXTREMITY: Clubbing and cyanosis, negative. LABORATORY DATA: WBC 10.1, hemoglobin 13.5 and platelet count 197. Chemistry shows sodium 145, potassium 4.5, chloride 101, carbon dioxide 30, anion gap of 8, BUN 39 and creatinine 1.1, AST 319, ALT 666 and troponin 0.04. IMPRESSION: A 73-year-old male with past medical history significant for coronary artery disease, status post coronary artery bypass graft many years ago, history of percutaneous transluminal coronary angioplasty, left anterior descending artery on 6 to 7 years ago. The patient presented with VT/VF, status post automatic implantable cardioverter defibrillator, history of multiple times defibrillator vent off loaded with amiodarone since the patient remain stable who admitted with altered mental status. Initial CAT scan was negative for intracranial pathology except scalp hematoma noted and microvascular changes noted. Recently, the patient had an echocardiography done in Dr. Taylor's office, ejection fraction 10% to 15%, admitted with multiorgan dysfunction, acute kidney injury, acute liver failure, transaminases . Started the patient on Dobutrex yesterday, switch over to Primacor because of the hypertension, but the patient dropped the blood pressure requiring IV dopamine and Dobutrex. Renal function improved. Liver function is also improving. Repeat CAT scan pending when the patient becomes stable. RECOMMENDATION: Continue NG feeding. Continue free fluid. Continue gentle diuretics as blood pressure is tolerated. Continue vasopressors. Continue vent management. Continue broad-spectrum antibiotic. Overall, the patient condition is critical. Long-term prognosis is guarded. We will follow with you. Increase free fluid to 200 mL every 6 hour. We will follow with you. Thank you Dr. Martinez for providing us the opportunity in taking care of the patient, Eduard Gautam. Joanna Hall MD
--- NOTE | 2019-04-04 13:55 | CP.PCM.PN ---
<Roe Hicks - Last Filed: 04/04/19 14:39> Subjective - Date & Time of Evaluation Date of Evaluation: 04/04/19 Time of Evaluation: 11:35 - Subjective Subjective: Infectious disease progress note: Patient seen and examined at bedside. Patient is still intubated and sedated. Febrile to 100.2 F. 12 point ROS unobtainable 2/2 intubation Objective - Vital Signs/Intake and Output Vital Signs (last 24 hours): Temp Pulse Resp BP Pulse Ox 100.2 F H 94 H 7 L 121/52 L 94 L 04/04/19 11:00 04/04/19 11:00 04/03/19 19:15 04/04/19 12:08 04/04/19 11:00 Intake and Output: 04/04/19 04/04/19 06:59 18:59 Intake Total 812 330 Output Total 375 Balance 437 330 - Medications Medications: Current Medications Aspirin (Aspirin Chewable) 81 mg PO DAILY [facility] Last Admin: 04/04/19 12:09 Dose: 81 mg Famotidine (Pepcid) 20 mg IVP Q12 [facility] Last Admin: 04/04/19 12:10 Dose: 20 mg Furosemide (Lasix) 40 mg IV DAILY [facility] Last Admin: 04/04/19 12:08 Dose: 40 mg Heparin Sodium (Porcine) (Heparin) 5,000 units SC Q8 [facility]; Protocol Last Admin: 04/04/19 05:37 Dose: 5,000 units Hydrocortisone Sodium Succinate (Solu-Cortef) 50 mg IVP Q12H [facility] Last Admin: 04/04/19 12:09 Dose: 50 mg Cefepime HCl (Maxipime 1gm) 1 gm in 100 mls @ 25 mls/hr IVPB Q12 [facility]; Protocol Last Admin: 04/04/19 12:08 Dose: 25 mls/hr Fentanyl Citrate (Fentanyl Citrate/Sodium Chloride 1 Mg/100 Ml) 1,000 mcg in 100 mls @ 2 mls/hr IV .Q24H PRN; Protocol PRN Reason: TITRATE PER MD ORDER Last Admin: 04/04/19 05:58 Dose: 40 mcg/hr, 4 mls/hr Midazolam 100 mg/100ml in NS (Midazolam 100 Mg/100ml In Ns) 100 mg in 100 mls @ 1 mls/hr IV .Q24H PRN; Protocol PRN Reason: Agitation Last Titration: 04/04/19 08:10 Dose: 0 mg/hr, 0 mls/hr Milrinone Lactate/Dextrose (Primacor 20mg/100ml D5w) 100 mls @ 8.792 mls/hr IV .[id number] PRN; Protocol PRN Reason: TITRATE PER MD ORDER Last Titration: 04/03/19 13:10 Dose: 0 mcg/kg/min, 0 mls/hr NOREPINEPHRINE BIT/0.9 % NACL (Levophed 4 Mg/ 250 Ml Ns Premixed) 4 mg in 250 mls @ 15 mls/hr IV .[id number] PRN; Protocol PRN Reason: TITRATE PER MD ORDER Last Admin: 04/04/19 08:20 Dose: 4 mcg/min, 15 mls/hr Dobutamine HCl/Dextrose (Dobutamine/Dextrose 5% 500mg/250ml) 500 mg in 250 mls @ 4.689 mls/hr IV .Q24H PRN; Protocol PRN Reason: TITRATE PER PROTOCOL Last Admin: 04/03/19 13:20 Dose: 2 mcg/kg/min, 4.689 mls/hr Lisinopril (Zestril) 2.5 mg PO DAILY [facility] - Labs Labs: 04/04/19 05:30 04/04/19 05:30 PT 16.8 SECONDS (9.4-12.5) H 04/03/19 08:30 INR 1.49 04/03/19 08:30 APTT 42.7 Seconds (26.9-38.3) H 04/02/19 07:00 - Constitutional Appears: No Acute Distress - Head Exam Head Exam: ATRAUMATIC, NORMOCEPHALIC - Eye Exam Eye Exam: PERRL - ENT Exam ENT Exam: Mucous Membranes Moist - Respiratory Exam Respiratory Exam: Clear to Ausculation Bilateral. absent: Wheezes - Cardiovascular Exam Cardiovascular Exam: REGULAR RHYTHM, +S1, +S2 - Extremities Exam Extremities Exam: absent: Calf Tenderness, Pedal Edema - Skin Skin Exam: Dry, Warm Assessment and Plan - Assessment and Plan (Free Text) Assessment: SIRS with multiorgan failure unclear etiology Respiratory failure requiring ventilatory support Altered mental status Acute liver failure Acute on chronic kidney injury Acute on chronic heart failure with systolic dysfunction 10 to 15% Coronary artery disease status post CABG Hypertension Parkinson's disease COPD Schizophrenia Cont cefepime day 2 Vanc was d/c as MRSA screen was neg CT of the head was ordered for the AMS - Small lacunar infarct Follow-up septic work-up - blood and urine cultures have been thus far nega tive, procal elevated 0.55 F/u HIV - neg Continued management in the intensive care unit Follow-up gastroenterology recommendations - NAC therapy Follow-up cardiology recommendations - on dobutamine and levophed Rec neurology for evaluation of AMS Acute liver failure - appears to be resolving Continue to monitor for any changes Lines: Left internal jugular Case and plan to be reviewed and discussed with Dr. Gavin. <Fredy Gavin - Last Filed: 04/04/19 14:40> Objective - Vital Signs/Intake and Output Vital Signs (last 24 hours): Temp Pulse Resp BP Pulse Ox 100.6 F H 109 H 7 L 125/70 94 L 04/04/19 14:00 04/04/19 14:00 04/03/19 19:15 04/04/19 14:00 04/04/19 14:00 Intake and Output: 04/04/19 04/04/19 06:59 18:59 Intake Total 812 330 Output Total 375 Balance 437 330 - Medications Medications: Current Medications Aspirin (Aspirin Chewable) 81 mg PO DAILY [facility] Last Admin: 04/04/19 12:09 Dose: 81 mg Famotidine (Pepcid) 20 mg IVP Q12 [facility] Last Admin: 04/04/19 12:10 Dose: 20 mg Furosemide (Lasix) 40 mg IV DAILY [facility] Last Admin: 04/04/19 12:08 Dose: 40 mg Heparin Sodium (Porcine) (Heparin) 5,000 units SC Q8 [facility]; Protocol Last Admin: 04/04/19 05:37 Dose: 5,000 units Hydrocortisone Sodium Succinate (Solu-Cortef) 50 mg IVP Q12H [facility] Last Admin: 04/04/19 12:09 Dose: 50 mg Cefepime HCl (Maxipime 1gm) 1 gm in 100 mls @ 25 mls/hr IVPB Q12 [facility]; Protocol Last Admin: 04/04/19 12:08 Dose: 25 mls/hr Fentanyl Citrate (Fentanyl Citrate/Sodium Chloride 1 Mg/100 Ml) 1,000 mcg in 100 mls @ 2 mls/hr IV .Q24H PRN; Protocol PRN Reason: TITRATE PER MD ORDER Last Admin: 04/04/19 05:58 Dose: 40 mcg/hr, 4 mls/hr Midazolam 100 mg/100ml in NS (Midazolam 100 Mg/100ml In Ns) 100 mg in 100 mls @ 1 mls/hr IV .Q24H PRN; Protocol PRN Reason: Agitation Last Titration: 04/04/19 08:10 Dose: 0 mg/hr, 0 mls/hr Milrinone Lactate/Dextrose (Primacor 20mg/100ml D5w) 100 mls @ 8.792 mls/hr IV .[id number] PRN; Protocol PRN Reason: TITRATE PER MD ORDER Last Titration: 04/03/19 13:10 Dose: 0 mcg/kg/min, 0 mls/hr NOREPINEPHRINE BIT/0.9 % NACL (Levophed 4 Mg/ 250 Ml Ns Premixed) 4 mg in 250 mls @ 15 mls/hr IV .[id number] PRN; Protocol PRN Reason: TITRATE PER MD ORDER Last Admin: 04/04/19 08:20 Dose: 4 mcg/min, 15 mls/hr Dobutamine HCl/Dextrose (Dobutamine/Dextrose 5% 500mg/250ml) 500 mg in 250 mls @ 4.689 mls/hr IV .Q24H PRN; Protocol PRN Reason: TITRATE PER PROTOCOL Last Admin: 04/03/19 13:20 Dose: 2 mcg/kg/min, 4.689 mls/hr Lisinopril (Zestril) 2.5 mg PO DAILY [facility] - Labs Labs: 04/04/19 05:30 04/04/19 05:30 PT 16.8 SECONDS (9.4-12.5) H 04/03/19 08:30 INR 1.49 04/03/19 08:30 APTT 42.7 Seconds (26.9-38.3) H 04/02/19 07:00 Attending/Attestation - Attestation I have personally seen and examined this patient.: Yes I have fully participated in the care of the patient.: Yes I have reviewed all pertinent clinical information, including history, physical exam and plan: Yes
--- NOTE | 2019-04-04 15:39 | CP.PCM.PCO ---
Physician Communication Note - Physician Communication Note Physician Communication Note: pt remains intubated, multiorgan failure,ct with acute lacunar infarct
[2019-04-05 05:22] LABS: ARTERIAL BLOOD GAS HCO3 29.2 mmol/L (21-28); ARTERIAL BLOOD GAS HEMOGLOBIN 12.2 g/dL (11.7-17.4); ARTERIAL BLOOD GAS O2 CAPACITY 16.9 mL/dl (16-24); ARTERIAL BLOOD GAS O2 CONTENT 16.9 ML/dl (15-23); ARTERIAL BLOOD GAS O2 SAT 99.8 % (95-98); ARTERIAL BLOOD GAS PCO2 43 mm/Hg (35-45); ARTERIAL BLOOD GAS PH 7.44 (7.35-7.45); ARTERIAL BLOOD GAS TCO2 30.5 mmol.L (22-28)
[2019-04-05 06:38] LABS: HEMOGLOBIN 13.2 g/dL (14.0-18.0); LYMPH # 0.9 (1.2-3.4); LYMPH % 11.1 % (22.0-35.0); MEAN CELL VOLUME 92.3 fl (80.0-105.0); MEAN CORPUSCULAR HEMOGLOBIN 28.1 pg (25.0-35.0); MEAN CORPUSCULAR HGB CONC 30.4 g/dl (31.0-37.0); MEAN PLATELET VOLUME 11.5 fl (7.0-11.0); MONO # 0.9 (0.1-0.6); MONO % 11.2 % (1.0-6.0); RBC 4.7 10^6/uL (3.5-6.1); RED CELL DISTRIBUTION WIDTH 15.7 % (11.5-14.5); WHITE BLOOD COUNT 7.7 10^3/uL (4.5-11.0)
[2019-04-05 07:22] LABS: ALBUMIN 2.9 g/dL (3.0-4.8); ALT/SGPT 500 U/L (7-56); AST/SGOT 172 U/L (17-59); BLOOD UREA NITROGEN 44 mg/dL (7-21); CALCIUM 9.8 mg/dL (8.4-10.5); GFR NON-AFRICAN AMERICAN > 60
--- NOTE | 2019-04-05 09:35 | CP.PCM.PN ---
<Dimitri Gifford - Last Filed: 04/05/19 11:08> Subjective - Date & Time of Evaluation Date of Evaluation: 04/05/19 Time of Evaluation: 07:45 - Subjective Subjective: PGY6 GI Fellow Progress Note Patient seen and examined bedside this morning. The patient remains intubated and is on fentanyl gtt. Currently having EEG performed. Patient restless in bed, does not respond to commands. 12 system ROS performed and negative except where stated Objective - Vital Signs/Intake and Output Vital Signs (last 24 hours): Temp Pulse Resp BP Pulse Ox 100.6 F H 98 H 16 129/74 100 04/04/19 17:20 04/05/19 06:00 04/05/19 07:19 04/04/19 17:01 04/05/19 07:19 Intake and Output: 04/05/19 04/05/19 06:59 18:59 Intake Total 104 Output Total 100 Balance 4 - Medications Medications: Current Medications Aspirin (Aspirin Chewable) 81 mg PO DAILY [facility] Last Admin: 04/04/19 12:09 Dose: 81 mg Famotidine (Pepcid) 20 mg IVP Q12 [facility] Last Admin: 04/04/19 21:44 Dose: 20 mg Heparin Sodium (Porcine) (Heparin) 5,000 units SC Q8 [facility]; Protocol Last Admin: 04/04/19 21:43 Dose: 5,000 units Hydrocortisone Sodium Succinate (Solu-Cortef) 50 mg IVP Q12H [facility] Last Admin: 04/04/19 21:44 Dose: 50 mg Cefepime HCl (Maxipime 1gm) 1 gm in 100 mls @ 25 mls/hr IVPB Q12 [facility]; Protocol Last Admin: 04/04/19 21:44 Dose: 25 mls/hr Fentanyl Citrate (Fentanyl Citrate/Sodium Chloride 1 Mg/100 Ml) 1,000 mcg in 100 mls @ 2 mls/hr IV .Q24H PRN; Protocol PRN Reason: TITRATE PER MD ORDER Last Titration: 04/04/19 15:55 Dose: 10 mcg/hr, 1 mls/hr Midazolam 100 mg/100ml in NS (Midazolam 100 Mg/100ml In Ns) 100 mg in 100 mls @ 1 mls/hr IV .Q24H PRN; Protocol PRN Reason: Agitation Last Titration: 04/04/19 08:10 Dose: 0 mg/hr, 0 mls/hr Milrinone Lactate/Dextrose (Primacor 20mg/100ml D5w) 100 mls @ 8.792 mls/hr IV .[id number] PRN; Protocol PRN Reason: TITRATE PER MD ORDER Last Titration: 04/03/19 13:10 Dose: 0 mcg/kg/min, 0 mls/hr NOREPINEPHRINE BIT/0.9 % NACL (Levophed 4 Mg/ 250 Ml Ns Premixed) 4 mg in 250 mls @ 15 mls/hr IV .[id number] PRN; Protocol PRN Reason: TITRATE PER MD ORDER Last Titration: 04/04/19 14:00 Dose: 0 mcg/min, 0 mls/hr Dobutamine HCl/Dextrose (Dobutamine/Dextrose 5% 500mg/250ml) 500 mg in 250 mls @ 4.689 mls/hr IV .Q24H PRN; Protocol PRN Reason: TITRATE PER PROTOCOL Last Admin: 04/03/19 13:20 Dose: 2 mcg/kg/min, 4.689 mls/hr Lisinopril (Zestril) 2.5 mg PO DAILY [facility] - Labs Labs: 04/05/19 05:30 04/05/19 06:50 PT 16.8 SECONDS (9.4-12.5) H 04/03/19 08:30 INR 1.49 04/03/19 08:30 APTT 42.7 Seconds (26.9-38.3) H 04/02/19 07:00 - Constitutional Appears: Agitated, Confused, Chronically Ill - Eye Exam Eye Exam: PERRL - ENT Exam ENT Exam: Mucous Membranes Moist Additional comments: ETT present - Respiratory Exam Respiratory Exam: Clear to Ausculation Bilateral. absent: Rales, Rhonchi, Wheezes - Cardiovascular Exam Cardiovascular Exam: RRR, +S1, +S2 - GI/Abdominal Exam GI & Abdominal Exam: Soft, Normal Bowel Sounds. absent: Distended, Firm, Guarding, Rigid, Tenderness, Organomegaly - Extremities Exam Extremities Exam: Normal Inspection. absent: Pedal Edema - Neurological Exam Neurological Exam: Altered, Awake - Psychiatric Exam Psychiatric exam: Agitated - Skin Skin Exam: Dry, Warm Assessment and Plan - Assessment and Plan (Free Text) Assessment: Patient is a 73yo male with PMHx significant for ischemic cardiomyopathy (EF in 2014 10-15%, elevated RVSP 45, status post AICD), Parkinson's disease, COPD and schizophrenia who was brought in by ambulance for altered mental status. -Less likely acute liver failure and more likely acute intoxicant effect/DILI 2/2 therapeutic misadventure -Acute encephalopathy, suspect drug induced - R/O central or other metabolic causes -Acute CVA -Systolic congestive heart failure -GO, improved Plan: -EEG ongoing -Acute CVA noted, neurologic w/u in progress - Dr Gibbons does not believe we can attribute symptoms to acute CVA noted on CT -Continue to monitor LFTs, improved -Wean off mechanical ventilation as possible per ICU team -MRI brain may be considered to R/O underlying acute event (embolic/CVA) -Off pressor support -No overt bleeding noted -Viral hepatitis serologies negative -ID, cardiology following -Monitor clinical course <Kathie Bailey V - Last Filed: 04/05/19 20:58> Objective - Vital Signs/Intake and Output Vital Signs (last 24 hours): Temp Pulse Resp BP Pulse Ox 98.2 F 54 L 16 99/41 L 97 04/05/19 18:20 04/05/19 18:20 04/05/19 07:19 04/05/19 18:00 04/05/19 18:20 Intake and Output: 04/05/19 04/06/19 18:59 06:59 Intake Total 1636 Output Total 300 Balance 1336 - Medications Medications: Current Medications Aspirin (Aspirin Chewable) 81 mg PO DAILY [facility] Last Admin: 04/05/19 10:33 Dose: 81 mg Famotidine (Pepcid) 20 mg IVP Q12 [facility] Last Admin: 04/05/19 10:33 Dose: 20 mg Heparin Sodium (Porcine) (Heparin) 5,000 units SC Q8 [facility]; Protocol Last Admin: 04/05/19 14:29 Dose: 5,000 units Hydrocortisone Sodium Succinate (Solu-Cortef) 25 mg IVP DAILY [facility] Last Admin: 04/05/19 10:40 Dose: 25 mg Fentanyl Citrate (Fentanyl Citrate/Sodium Chloride 1 Mg/100 Ml) 1,000 mcg in 100 mls @ 2 mls/hr IV .Q24H PRN; Protocol PRN Reason: TITRATE PER MD ORDER Last Admin: 04/05/19 16:30 Dose: 150 mcg/hr, 15 mls/hr Midazolam 100 mg/100ml in NS (Midazolam 100 Mg/100ml In Ns) 100 mg in 100 mls @ 1 mls/hr IV .Q24H PRN; Protocol PRN Reason: Agitation Last Titration: 04/04/19 08:10 Dose: 0 mg/hr, 0 mls/hr Milrinone Lactate/Dextrose (Primacor 20mg/100ml D5w) 100 mls @ 8.792 mls/hr IV .[id number] PRN; Protocol PRN Reason: TITRATE PER MD ORDER Last Titration: 04/03/19 13:10 Dose: 0 mcg/kg/min, 0 mls/hr NOREPINEPHRINE BIT/0.9 % NACL (Levophed 4 Mg/ 250 Ml Ns Premixed) 4 mg in 250 mls @ 15 mls/hr IV .[id number] PRN; Protocol PRN Reason: TITRATE PER MD ORDER Last Titration: 04/04/19 14:00 Dose: 0 mcg/min, 0 mls/hr Dobutamine HCl/Dextrose (Dobutamine/Dextrose 5% 500mg/250ml) 500 mg in 250 mls @ 4.689 mls/hr IV .Q24H PRN; Protocol PRN Reason: TITRATE PER PROTOCOL Last Admin: 04/05/19 16:10 Dose: 2 mcg/kg/min, 4.689 mls/hr Lisinopril (Zestril) 2.5 mg PO DAILY [facility] Last Admin: 04/05/19 10:40 Dose: Not Given - Labs Labs: 04/05/19 05:30 04/05/19 06:50 PT 12.6 SECONDS (9.4-12.5) H 04/05/19 13:20 INR 1.12 04/05/19 13:20 APTT 42.7 Seconds (26.9-38.3) H 04/02/19 07:00 Attending/Attestation - Attestation I have personally seen and examined this patient.: Yes I have fully participated in the care of the patient.: Yes I have reviewed all pertinent clinical information, including history, physical exam and plan: Yes Notes (Text): This is an addendum to the GI progress report dictated by the fellow. The patient was seen and evaluated along with the GI fellow earlier today. Patient remains on vent. LFTs improving. The acute liver injury is probably secondary to combination of ischemia and drug-induced. Discussed by the fellow with the PMD and GI not for transfer now in view of the improving LFTs and clinical cou rse. Follow-up LFTs and INR. 04/05/19 20:56
--- NOTE | 2019-04-05 09:39 | PCM.VEEG ---
Video EEG - Procedure Start Date: 04/04/19 Start Time: 15:15 End Date: 04/05/19 End Time: 08:00 Technical Summary: DATA ACQUISITION: This was a multichannel inpatient video-EEG, a minimum of 22 channels were uti lized, performed in accordance with recommendations specified by the [place] [employer] (Saritha Sanders et al. ACNS Guideline 1: Minimum Technical Requirements for Performing Clinical Electroencephalography. Journal of Clinical Neurophysiology 2016;33:303-7). The 10-20 electrode placement system was utilized in accordance with guidelines detailed by the International Federation of Clinical Neurophysiology (Ashley Shah et al. The Ten-Twenty Electrode System of the International Federation. Recommendations for the Practice of Clinical Neurophysiology: Guidelines of the International Federation of Clinical Physiology 1999; EEG Suppl. 52.). DATA REVIEW / SPIKE DETECTION / DIGITAL ANALYSIS: The entire EEG was scanned and reviewed. Synchronized audio and video recording were reviewed at the time of each alarm and whenever an abnormality or suspicious activity was noted. The entire recording was analyzed utilizing an automated digital spike and seizure analysis program and all automatic spike and seizure detections were manually reviewed. A compressed spectral array was displayed and reviewed alongside the raw EEG tracings. In addition, further analysis of the EEG was performed when abnormalities were identified, including montage changes, dipole source localization, and frequency band identification. Video portion of the study is necessary to correlate abnormal EEG activity with clinical behavior. This study was attended 24 hours per day. - Interpretation Description of the study: Indication; Non convulsive status epilepticus. . EEG Finding during wakefulness: There was no spontaneous awake architecture seen. There was a marked fluctuation of the EEG most of it showed nearly continuous mid amplitude bilateral, 3 Hz runs of sharp waves with triphasic morphology, these would wax and wane based on stimulation or lack of, when no triphasic were seen, when not sharps were seen, the EEG was characterized by 5 to 6 Hz activity bilaterally without organization. There were frequent inter-burst periods of relative EEG attenuation. Hyperventilation and photic stimulation were not performed. EEG Finding during sleep: There was not discernible sleep or drowsy architecture Interictal non-epileptiform abnormalities: nearly continuous generalized mainly bi-frontal, sharp waves at 1 to 2 Hz, with triphasic morphology NO organized seizure activity was seen. Interictal epileptiform abnormalities: None Ictal epileptiform abnormalities: None - Impression Impression: This is an abnormal video-EEG monitoring study due to the presence of 1) Moderate to severe diffuse background slowing. 2) Nearly continuous generalized mainly bi-frontal sharp waves with triphasic morphology No seizures, not in status epilepticus. INTERPRETATION: These findings are consistent with a moderate to severe diffuse disturbance of cortical activity, in keeping with a diffuse weber matter dysfunction; these findings do not support a specific etiology.
[2019-04-05] MEDS: Fentanyl 1000mcg/100ml NS 1,000 MCG/100 ML BAG IV PRN ×3 (10:00→22:16)
[2019-04-05] MEDS: Cefepime 1gm in NS 100ml 1 GM/100 ML BAG IVPB SCH (10:39)
--- NOTE | 2019-04-05 10:48 | PN ---
DATE: 04/05/2019 SUBJECTIVE: A 73-year-old white male seen in bed morning in the ICU. The patient is intubated not sedated. The patient is not responding to verbal or tactile stimuli. He is having multiple episodes of decerebrate posturing and agitated symptoms. The patient's pupils are dilated, but not fixed. They are in upward gaze bilaterally. His tone is normal. His reflexes are within normal limits; however, his strength is normal bilaterally, CAT scan and was found to have on CT of the head. The patient was seen Dr. Gibbons and was found to have a 4 mm lacunar type infarct in the left brain stem. There is scattered hypodensity nonspecific, microvascular disease, generalized atrophy, otherwise unremarkable. LABORATORY DATA: Showing an elevated CBC was within normal limits. He is intubated not sedated. His sodium is up to 150. We will hold his Lasix. BUN has dropped from 39 to 44, creatinine is 1.0. His liver enzymes slowly returning to baseline, it was as high as an AST of 466, now down to 172. His ALT was 751, it is down to 500. So, he returned to baseline; however, he remains intubated in an acute confused neurological state possibly with decerebrate posturing. ASSESSMENT AND PLAN: Acute lacunar infarct, history of chronic dilated cardiomyopathy, ischemic heart disease with severely low ejection fraction, history of schizophrenia, bipolar depression, insomnia. The patient's family was discussed the case yesterday. found, the patient did requested cardiac resuscitation, but did not want dialysis, did not want intubation; however, the patient is intubated on respirator at this point. Prognosis is poor. I asked to hold Lasix. Continue blood pressure, cardiac support and neurological consultation. Hugo Martinez MD
--- NOTE | 2019-04-05 11:37 | CP.CCUPN ---
<Tony Uribe - Last Filed: 04/05/19 11:42> CCU Subjective - Physician Review Subjective (Free Text): Tony Uribe PGY-1 Critical Care Progress Note Patient seen and evaluated at bedside. No acute events reported overnight. Patient remains on video EEG monitoring, mechanical ventilation as well as Fentanyl and Dobutamine drip. No response to painful stimuli. CCU Objective - Vital Signs / Intake & Output Vital Signs (Last 4 hours): Vital Signs Pulse BP 04/05/19 10:40 57 L 106/50 L Intake and Output (Last 8hrs): Intake & Output 04/04/19 04/05/19 04/05/19 22:59 06:59 14:59 Intake Total 69 104 Output Total 850 100 Balance -781 4 Intake: IV 69 104 Left Internal Jugular 69 104 Output: Urine 850 100 Urethral (Eric) 850 100 Other: # Bowel Movements 0 - Physical Exam Head: Positive for: Atraumatic, Normocephalic Pupils: Positive for: PERRL Extroacular Muscles: Positive for: EOMI Mouth: Positive for: Moist Mucous Membranes, Other (ETT in place). Negative for: Normal Teeth Nose (External): Positive for: Other (NGT in place in L nares) Neck: Positive for: Normal Range of Motion, Other (L IJ in place) Respiratory/Chest: Positive for: Clear to Auscultation, Decreased Breath Sounds. Negative for: Respiratory Distress, Accessory Muscle Use Cardiovascular: Positive for: Regular Rate and Rhythm, Normal S1, S2 Abdomen: Positive for: Normal Bowel Sounds. Negative for: Tenderness, Distention Genitourinary Male: Positive for: Other (Eric in place) Upper Extremity: Positive for: Normal Inspection, Other (L hand swollen) Lower Extremity: Positive for: Normal Inspection Skin: Positive for: Warm, Dry, Normal Color Psychiatric: Negative for: Alert, Oriented x 3, Agitated - Medications Active Medications: Active Medications Generic Name Dose Route Start Last Admin Trade Name Freq PRN Reason Stop Dose Admin Aspirin 81 mg 04/04/19 10:45 04/05/19 10:33 Aspirin Chewable PO 81 mg DAILY AFSANEH Administration Famotidine 20 mg 04/03/19 22:00 04/05/19 10:33 Pepcid IVP 20 mg Q12 AFSANEH Administration Heparin Sodium (Porcine) 5,000 units 04/02/19 14:00 04/04/19 21:43 Heparin SC 5,000 units Q8 AFSANEH Administration Protocol Hydrocortisone Sodium Succinate 25 mg 04/05/19 10:00 04/05/19 10:40 Solu-Cortef IVP 25 mg DAILY AFSANEH Administration Cefepime HCl 1 gm in 100 mls @ 25 mls/hr 04/02/19 22:00 04/05/19 10:39 Maxipime 1gm IVPB 25 mls/hr Q12 AFSANEH Administration Protocol Fentanyl Citrate 1,000 mcg in 100 mls @ 2 mls/hr 04/02/19 18:03 04/04/19 15:55 Fentanyl Citrate/Sodium Chloride 1 Mg/100 Ml IV 10 mcg/hr .Q24H PRN 1 mls/hr TITRATE PER MD ORDER Titration Protocol 20 MCG/HR Midazolam 100 mg/100ml in NS 100 mg in 100 mls @ 1 mls/hr 04/02/19 18:03 0 04/04/19 08:10 Midazolam 100 Mg/100ml In Ns IV 0 mg/hr .Q24H PRN 0 mls/hr Agitation Titration Protocol 1 MG/HR Milrinone Lactate/Dextrose 100 mls @ 8.792 mls/hr 04/03/19 11:11 04/03/19 13:10 Primacor 20mg/100ml D5w IV 0 mcg/kg/min .[id number] PRN 0 mls/hr TITRATE PER MD ORDER Titration Protocol 0.375 MCG/KG/MIN NOREPINEPHRINE BIT/0.9 % NACL 4 mg in 250 mls @ 15 mls/hr 04/03/19 13:10 04/04/19 14:00 Levophed 4 Mg/ 250 Ml Ns Premixed IV 0 mcg/min .[id number] PRN 0 mls/hr TITRATE PER MD ORDER Titration Protocol 4 MCG/MIN Dobutamine HCl/Dextrose 500 mg in 250 mls @ 4.689 mls/hr 04/03/19 13:12 04/03/19 13:20 Dobutamine/Dextrose 5% 500mg/250ml IV 2 mcg/kg/min .Q24H PRN 4.689 mls/hr TITRATE PER PROTOCOL Administration Protocol 2 MCG/KG/MIN Lisinopril 2.5 mg 04/05/19 10:00 04/05/19 10:40 Zestril PO Not Given DAILY AFSANEH - Patient Studies Lab Studies: Microbiology Studies 04/01/19 11:30 Blood Culture - Preliminary Blood-Venous NO GROWTH AFTER 3 DAYS 04/01/19 11:00 Blood Culture - Preliminary Blood-Venous NO GROWTH AFTER 3 DAYS Lab Studies 04/05/19 04/05/19 04/05/19 Range/Units 06:50 05:30 05:00 WBC 7.7 D (4.5-11.0) 10^3/uL RBC 4.70 (3.5-6.1) 10^6/uL Hgb 13.2 L (14.0-18.0) g/dL Hct 43.4 (42.0-52.0) % MCV 92.3 (80.0-105.0) fl MCH 28.1 (25.0-35.0) pg MCHC 30.4 L (31.0-37.0) g/dl RDW 15.7 H (11.5-14.5) % Plt Count 155 (120.0-450.0) 10^3/uL MPV 11.5 H (7.0-11.0) fl Neut % (Auto) 77.7 H (50.0-68.0) % Lymph % (Auto) 11.1 L (22.0-35.0) % [place] % (Auto) 11.2 H (1.0-6.0) % Eos % (Auto) 0.0 L (1.5-5.0) % Baso % (Auto) 0.0 (0.0-3.0) % Lymph # (Auto) 0.9 L (1.2-3.4) [place] # (Auto) 0.9 H (0.1-0.6) Eos # (Auto) 0.0 (0.0-0.7) Baso # (Auto) 0.00 (0.0-2.0) K/mm3 Absolute Neuts (auto) 5.94 (1.4-6.5) pCO2 43 (35-45) mm/Hg pO2 148.0 H (80-100) mm/Hg HCO3 29.2 H (21-28) mmol/L ABG pH 7.44 (7.35-7.45) ABG Total CO2 30.5 H (22-28) mmol.L ABG O2 Saturation 99.8 H (95-98) % ABG O2 Content 16.9 (15-23) ML/dl ABG Base Excess 4.5 H (-2.0-3.0) mmol/L ABG Hemoglobin 12.2 (11.7-17.4) g/dL ABG Carboxyhemoglobin 1.7 H (0.5-1.5) % POC ABG HHb (Measured) 0.2 (0-5) % ABG Methemoglobin 0.9 (0.0-3.0) % ABG O2 Capacity 16.9 (16-24) mL/dl Hgb O2 Saturation 97.2 (95.0-98.0) % FiO2 50.0 % Sodium 150 H (132-148) mmol/L Potassium 4.2 (3.6-5.0) mmol/L Chloride 111 H (98-107) mmol/L Carbon Dioxide 32 (21-33) mmol/L Anion Gap 11 (10-20) BUN 44 H (7-21) mg/dL Creatinine 1.0 (0.8-1.5) mg/dl Est GFR ( Amer) > 60 Est GFR (Non-Af Amer) > 60 Random Glucose 145 H (70-110) mg/dL Calcium 9.8 (8.4-10.5) mg/dL Phosphorus 2.7 (2.5-4.5) mg/dL Magnesium 2.7 H (1.7-2.2) mg/dL Total Bilirubin 1.9 H (0.2-1.3) mg/dL AST 172 H D (17-59) U/L ALT 500 H (7-56) U/L Alkaline Phosphatase 79 (38-126) U/L Total Protein 5.8 (5.8-8.3) g/dL Albumin 2.9 L (3.0-4.8) g/dL Globulin 2.9 gm/dL Albumin/Globulin Ratio 1.0 L (1.1-1.8) Laboratory Results - last 24 hr 04/05/19 04/05/19 04/05/19 05:00 05:30 06:50 WBC 7.7 D RBC 4.70 Hgb 13.2 L Hct 43.4 MCV 92.3 MCH 28.1 MCHC 30.4 L RDW 15.7 H Plt Count 155 MPV 11.5 H Neut % (Auto) 77.7 H Lymph % (Auto) 11.1 L [place] % (Auto) 11.2 H Eos % (Auto) 0.0 L Baso % (Auto) 0.0 Lymph # (Auto) 0.9 L [place] # (Auto) 0.9 H Eos # (Auto) 0.0 Baso # (Auto) 0.00 Absolute Neuts (auto) 5.94 pCO2 43 pO2 148.0 H HCO3 29.2 H ABG pH 7.44 ABG Total CO2 30.5 H ABG O2 Saturation 99.8 H ABG O2 Content 16.9 ABG Base Excess 4.5 H ABG Hemoglobin 12.2 ABG Carboxyhemoglobin 1.7 H POC ABG HHb (Measured) 0.2 ABG Methemoglobin 0.9 ABG O2 Capacity 16.9 Hgb O2 Saturation 97.2 FiO2 50.0 Sodium 150 H Potassium 4.2 Chloride 111 H Carbon Dioxide 32 Anion Gap 11 BUN 44 H Creatinine 1.0 Est GFR ( Amer) > 60 Est GFR (Non-Af Amer) > 60 Random Glucose 145 H Calcium 9.8 Phosphorus 2.7 Magnesium 2.7 H Total Bilirubin 1.9 H AST 172 H D ALT 500 H Alkaline Phosphatase 79 Total Protein 5.8 Albumin 2.9 L Globulin 2.9 Albumin/Globulin Ratio 1.0 L Radiology Impressions: Radiology Impressions Head CT 04/04/19 09:56 IMPRESSION: Generalized atrophy. 4 mm probable lacunar type infarct within the left brainstem. Scattered periventricular and subcortical white matter hypodensities, which are nonspecific, but often seen with chronic microvascular ischemic disease. Review of Systems - Review of Systems Systems not reviewed;Unavailable: Altered Mental Status Critical Care Progress Note - Nutrition Nutrition: Nutrition Category Date Time Status NPO Diet [DIET] Diets 04/01/19 Breakfast Ordered Assessment/Plan - Assessment and Plan (Free Text) Assessment: 73 yo male with PMHx significant for ischemic cardiomyopathy (EF in 2013 10-15%, elevated RVSP 45, status post AICD), COPD and schizophrenia who was brought in by ambulance for altered mental status. Currently in ICU for multi system organ failure and respiratory distress. Neuro: -Sustained AMS -04/04/[address] head showed small 4 mm lacunar infarct, Neuro -24 hour vEEG completed, no evidence of seizures or status, severe cortical disturbance -GCS 3T, discontinue sedation of Fentanyl and Midazolam -Possible overdose of Ambien as etiology of AMS, benzos in Utox -Monitor neuro status. -Neuro on consult - Dr. Gibbons- further recs appreciated in setting of sustained encephalopathy Cardio: -L IJ access, L sided dual lead pacemaker -Decrease stress dose steroids to 25 daily -Continue Dobutamine drip -Lasix 40 mg IVP daily -C/w Aspirin 81 mg -C/w Lisinopril 2.5 mg -proBNP>40,000, EF 15% -Maintain MAP>65. -Monitor for S/S of HD compromise. -Cardiology on Consult - Dr. Taylor - recs appreciated Pulm: -PRVC 50/04/05/450 currently -Trial pressure support, weaning trial and sedation vacation -04/05 ABG shows stable metabolic alkalosis -Maintain O2 saturation >92%. -O2 NC PRN -Vent: protective lung ventilation strategy, aspiration precautions -F/u 04/05/19 CXR for official read proper placement of ETT and NGT -Elevate bed to 30 degrees GI: -NPO, tube feeding -Pepcid IVP daily -Completed 3 doses of NAC on 04/02/19, improving LFTs; INR improved -possibility of congestive hepatopathy 2/2 congestive heart failure -04/01/19 Abd U/S shows Cholelithiasis. Diffuse gallbladder wall thickening is likely secondary to systemic disease. 2. Chronic renal parenchymal disease. 3. Diffuse increased echogenicity in the liver with coarse echotexture may reflect hepatic steatosis however parenchymal infectious/ inflammatory etiologies cannot be entirely excluded. -GI on consult - Dr. Bailey - further recs appreciated. [facility] was notified of the patient but patient reportedly too unstable for transfer /Nephro: -OG likely 2/2 congestive nephropathy -Good urine output through Eric -Continue monitoring. -Replete electrolytes as needed. -Maintain euvolemia. Endocrinology: -Random glucose: 138 -Hgb a1c 6.4 -TSH 0.39, T4 6.9 -Maintain euglycemia. Heme/Onc: -H/H stable -No signs of HD compromise. -Continue monitoring H/H ID: -C/w Cefepime per ID -BCx neg after 72 hours, UCx negative -Procalcitonin 0.55 -Monitor for signs and symptoms of infection. -ID on consult - Dr. Gavin - recs appreciated DVT prophylaxis: Heparin SC GI prophylaxis: Pepcid Patient seen, case reviewed and plan approved by Dr. Mtz. Tony Uribe, PGY-1 <Simon Mtz - Last Filed: 04/05/19 12:14> CCU Objective - Vital Signs / Intake & Output Vital Signs (Last 4 hours): Vital Signs Pulse BP 04/05/19 10:40 57 L 106/50 L Intake and Output (Last 8hrs): Intake & Output 04/04/19 04/05/19 04/05/19 22:59 06:59 14:59 Intake Total 69 104 Output Total 850 100 Balance -781 4 Intake: IV 69 104 Left Internal Jugular 69 104 Output: Urine 850 100 Urethral (Eric) 850 100 Other: # Bowel Movements 0 - Medications Active Medications: Active Medications Generic Name Dose Route Start Last Admin Trade Name Freq PRN Reason Stop Dose Admin Aspirin 81 mg 04/04/19 10:45 04/05/19 10:33 Aspirin Chewable PO 81 mg DAILY AFSANEH Administration Famotidine 20 mg 04/03/19 22:00 04/05/19 10:33 Pepcid IVP 20 mg Q12 AFSANEH Administration Heparin Sodium (Porcine) 5,000 units 04/02/19 14:00 04/04/19 21:43 Heparin SC 5,000 units Q8 AFSANEH Administration Protocol Hydrocortisone Sodium Succinate 25 mg 04/05/19 10:00 04/05/19 10:40 Solu-Cortef IVP 25 mg DAILY AFSANEH Administration Cefepime HCl 1 gm in 100 mls @ 25 mls/hr 04/02/19 22:00 04/05/19 10:39 Maxipime 1gm IVPB 25 mls/hr Q12 AFSANEH Administration Protocol Fentanyl Citrate 1,000 mcg in 100 mls @ 2 mls/hr 04/02/19 18:03 04/04/19 15:55 Fentanyl Citrate/Sodium Chloride 1 Mg/100 Ml IV 10 mcg/hr .Q24H PRN 1 mls/hr TITRATE PER MD ORDER Titration Protocol 20 MCG/HR Midazolam 100 mg/100ml in NS 100 mg in 100 mls @ 1 mls/hr 04/02/19 18:03 04/04/19 08:10 Midazolam 100 Mg/100ml In Ns IV 0 mg/hr .Q24H PRN 0 mls/hr Agitation Titration Protocol 1 MG/HR Milrinone Lactate/Dextrose 100 mls @ 8.792 mls/hr 04/03/19 11:11 04/03/19 13:10 Primacor 20mg/100ml D5w IV 0 mcg/kg/min .[id number] PRN 0 mls/hr TITRATE PER MD ORDER Titration Protocol 0.375 MCG/KG/MIN NOREPINEPHRINE BIT/0.9 % NACL 4 mg in 250 mls @ 15 mls/hr 04/03/19 13:10 04/04/19 14:00 Levophed 4 Mg/ 250 Ml Ns Premixed IV 0 mcg/min .[id number] PRN 0 mls/hr TITRATE PER MD ORDER Titration Protocol 4 MCG/MIN Dobutamine HCl/Dextrose 500 mg in 250 mls @ 4.689 mls/hr 04/03/19 13:12 04/03/19 13:20 Dobutamine/Dextrose 5% 500mg/250ml IV 2 mcg/kg/min .Q24H PRN 4.689 mls/hr TITRATE PER PROTOCOL Administration Protocol 2 MCG/KG/MIN Lisinopril 2.5 mg 04/05/19 10:00 04/05/19 10:40 Zestril PO Not Given DAILY AFSANEH - Patient Studies Lab Studies: Microbiology Studies 04/01/19 11:30 Blood Culture - Preliminary Blood-Venous NO GROWTH AFTER 3 DAYS 04/01/19 11:00 Blood Culture - Preliminary Blood-Venous NO GROWTH AFTER 3 DAYS Lab Studies 04/05/19 04/05/19 04/05/19 Range/Units 06:50 05:30 05:00 WBC 7.7 D (4.5-11.0) 10^3/uL RBC 4.70 (3.5-6.1) 10^6/uL Hgb 13.2 L (14.0-18.0) g/dL Hct 43.4 (42.0-52.0) % MCV 92.3 (80.0-105.0) fl MCH 28.1 (25.0-35.0) pg MCHC 30.4 L (31.0-37.0) g/dl RDW 15.7 H (11.5-14.5) % Plt Count 155 (120.0-450.0) 10^3/uL MPV 11.5 H (7.0-11.0) fl Neut % (Auto) 77.7 H (50.0-68.0) % Lymph % (Auto) 11.1 L (22.0-35.0) % [place] % (Auto) 11.2 H (1.0-6.0) % Eos % (Auto) 0.0 L (1.5-5.0) % Baso % (Auto) 0.0 (0.0-3.0) % Lymph # (Auto) 0.9 L (1.2-3.4) [place] # (Auto) 0.9 H (0.1-0.6) Eos # (Auto) 0.0 (0.0-0.7) Baso # (Auto) 0.00 (0.0-2.0) K/mm3 Absolute Neuts (auto) 5.94 (1.4-6.5) pCO2 43 (35-45) mm/Hg pO2 148.0 H (80-100) mm/Hg HCO3 29.2 H (21-28) mmol/L ABG pH 7.44 (7.35-7.45) ABG Total CO2 30.5 H (22-28) mmol.L ABG O2 Saturation 99.8 H (95-98) % ABG O2 Content 16.9 (15-23) ML/dl ABG Base Excess 4.5 H (-2.0-3.0) mmol/L ABG Hemoglobin 12.2 (11.7-17.4) g/dL ABG Carboxyhemoglobin 1.7 H (0.5-1.5) % POC ABG HHb (Measured) 0.2 (0-5) % ABG Methemoglobin 0.9 (0.0-3.0) % ABG O2 Capacity 16.9 (16-24) mL/dl Hgb O2 Saturation 97.2 (95.0-98.0) % FiO2 50.0 % Sodium 150 H (132-148) mmol/L Potassium 4.2 (3.6-5.0) mmol/L Chloride 111 H (98-107) mmol/L Carbon Dioxide 32 (21-33) mmol/L Anion Gap 11 (10-20) BUN 44 H (7-21) mg/dL Creatinine 1.0 (0.8-1.5) mg/dl Est GFR ( Amer) > 60 Est GFR (Non-Af Amer) > 60 Random Glucose 145 H (70-110) mg/dL Calcium 9.8 (8.4-10.5) mg/dL Phosphorus 2.7 (2.5-4.5) mg/dL Magnesium 2.7 H (1.7-2.2) mg/dL Total Bilirubin 1.9 H (0.2-1.3) mg/dL AST 172 H D (17-59) U/L ALT 500 H (7-56) U/L Alkaline Phosphatase 79 (38-126) U/L Total Protein 5.8 (5.8-8.3) g/dL Albumin 2.9 L (3.0-4.8) g/dL Globulin 2.9 gm/dL Albumin/Globulin Ratio 1.0 L (1.1-1.8) Laboratory Results - last 24 hr 04/05/19 04/05/19 04/05/19 05:00 05:30 06:50 WBC 7.7 D RBC 4.70 Hgb 13.2 L Hct 43.4 MCV 92.3 MCH 28.1 MCHC 30.4 L RDW 15.7 H Plt Count 155 MPV 11.5 H Neut % (Auto) 77.7 H Lymph % (Auto) 11.1 L [place] % (Auto) 11.2 H Eos % (Auto) 0.0 L Baso % (Auto) 0.0 Lymph # (Auto) 0.9 L [place] # (Auto) 0.9 H Eos # (Auto) 0.0 Baso # (Auto) 0.00 Absolute Neuts (auto) 5.94 pCO2 43 pO2 148.0 H HCO3 29.2 H ABG pH 7.44 ABG Total CO2 30.5 H ABG O2 Saturation 99.8 H ABG O2 Content 16.9 ABG Base Excess 4.5 H ABG Hemoglobin 12.2 ABG Carboxyhemoglobin 1.7 H POC ABG HHb (Measured) 0.2 ABG Methemoglobin 0.9 ABG O2 Capacity 16.9 Hgb O2 Saturation 97.2 FiO2 50.0 Sodium 150 H Potassium 4.2 Chloride 111 H Carbon Dioxide 32 Anion Gap 11 BUN 44 H Creatinine 1.0 Est GFR ( Amer) > 60 Est GFR (Non-Af Amer) > 60 Random Glucose 145 H Calcium 9.8 Phosphorus 2.7 Magnesium 2.7 H Total Bilirubin 1.9 H AST 172 H D ALT 500 H Alkaline Phosphatase 79 Total Protein 5.8 Albumin 2.9 L Globulin 2.9 Albumin/Globulin Ratio 1.0 L Radiology Impressions: Radiology Impressions Head CT 04/04/19 09:56 IMPRESSION: Generalized atrophy. 4 mm probable lacunar type infarct within the left brainstem. Scattered periventricular and subcortical white matter hypodensities, which are nonspecific, but often seen with chronic microvascular ischemic disease. Critical Care Progress Note - Nutrition Nutrition: Nutrition Category Date Time Status NPO Diet [DIET] Diets 04/01/19 Breakfast Ordered Assessment/Plan - Assessment and Plan (Free Text) Assessment: I saw and examined the patient on rounds with resident, agree with note with following additions/exceptions: Patient is 73yo male with PMHx systolic CHF, ischemic cardiomyopathy (EF in 2014 10-15%, s/p AICD), COPD and schizophrenia who was brought in by ambulance for altered mental status, found to be in acute liver failure, with elevated LFTs, increased INR, T rip. Currently intubated When taken off sedation, patient opens, eyes, moves all 4 ext, DOES NOT follow commands VEEG done, shows NO seizure activity, demonstrates toxic metabolic encepahlopathy Neurology following Questionable etiology of liver failure, ??medication vs hepatic congestion 2/2 Right sided CHF/systolic CHF; overall improving LFTs, INR improving, TBilli downtrending, liver function tests improving Clinically currently afebrile, HD stable, comfortable in NAD CTH done yesterday, results noted Acute Liver Failure Systolic CHF Rule out Right sided heart failure Ischemic Cardiomyopathy COPD Psych Hx Acute resp failure AMS Toxic Metabolic Encephalopathy Recommend: - cont with vent support, low tidal vol ventilation, daily sedation vacation, ABG, CXR - Broad spectrum abx as per ID - DC Inotropic Support, Dobutamine - Lasix 40mg IV BID - FS control - Stress dose steroids taper, SoluCortef 25mg BID - GI follow up - ID follow up - Neurology follow up - GI ppx - DVT ppx, HSQ - Monitor in MICU Critical care time 35 minutes
[2019-04-05 13:36] LABS: INR 1.12; PROTHROMBIN TIME 12.6 SECONDS (9.4-12.5)
--- NOTE | 2019-04-05 13:53 | CP.PCM.PCO ---
Physician Communication Note - Physician Communication Note Physician Communication Note: pt continues with ICU mgmt, mech vented, s/p video EEg,AMS, tox met enceph.
--- NOTE | 2019-04-05 14:08 | RAD ---
Date of service: 04/05/2019 HISTORY: tube placements COMPARISON: 04/04/2019 TECHNIQUE: 1 view obtained. FINDINGS: LUNGS: Bibasilar infiltrates and small effusions. Nasogastric tube and endotracheal tube in satisfactory position. PLEURA: No significant pleural effusion identified, no pneumothorax apparent. CARDIOVASCULAR: Aortic calcification Moderate cardiomegaly no pulmonary vascular congestion. OSSEOUS STRUCTURES: No significant abnormalities. VISUALIZED UPPER ABDOMEN: Normal. OTHER FINDINGS: None. IMPRESSION: Bibasilar infiltrates and small effusions. Nasogastric tube and endotracheal tube in satisfactory position.
--- NOTE | 2019-04-05 15:08 | CP.PCM.PN ---
<Roe Hicks - Last Filed: 04/05/19 15:05> Subjective - Date & Time of Evaluation Date of Evaluation: 04/05/19 Time of Evaluation: 08:00 - Subjective Subjective: Infectious disease progress note: Patient seen and examined at bedside. No acute events overnight. Patient is still intubated and sedated. fever of 100.8F. 12 point ROS limited 2/2 intubation Objective - Vital Signs/Intake and Output Vital Signs (last 24 hours): Temp Pulse Resp BP Pulse Ox 98.6 F 60 16 104/48 L 96 04/05/19 14:50 04/05/19 14:50 04/05/19 07:19 04/05/19 14:30 04/05/19 14:50 Intake and Output: 04/05/19 04/05/19 06:59 18:59 Intake Total 104 Output Total 100 Balance 4 - Medications Medications: Current Medications Aspirin (Aspirin Chewable) 81 mg PO DAILY [facility] Last Admin: 04/05/19 10:33 Dose: 81 mg Famotidine (Pepcid) 20 mg IVP Q12 [facility] Last Admin: 04/05/19 10:33 Dose: 20 mg Heparin Sodium (Porcine) (Heparin) 5,000 units SC Q8 [facility]; Protocol Last Admin: 04/05/19 14:29 Dose: 5,000 units Hydrocortisone Sodium Succinate (Solu-Cortef) 25 mg IVP DAILY [facility] Last Admin: 04/05/19 10:40 Dose: 25 mg Cefepime HCl (Maxipime 1gm) 1 gm in 100 mls @ 25 mls/hr IVPB Q12 [facility]; Protocol Last Admin: 04/05/19 10:39 Dose: 25 mls/hr Fentanyl Citrate (Fentanyl Citrate/Sodium Chloride 1 Mg/100 Ml) 1,000 mcg in 100 mls @ 2 mls/hr IV .Q24H PRN; Protocol PRN Reason: TITRATE PER MD ORDER Last Titration: 04/04/19 15:55 Dose: 10 mcg/hr, 1 mls/hr Midazolam 100 mg/100ml in NS (Midazolam 100 Mg/100ml In Ns) 100 mg in 100 mls @ 1 mls/hr IV .Q24H PRN; Protocol PRN Reason: Agitation Last Titration: 04/04/19 08:10 Dose: 0 mg/hr, 0 mls/hr Milrinone Lactate/Dextrose (Primacor 20mg/100ml D5w) 100 mls @ 8.792 mls/hr IV .[id number] PRN; Protocol PRN Reason: TITRATE PER MD ORDER Last Titration: 04/03/19 13:10 Dose: 0 mcg/kg/min, 0 mls/hr NOREPINEPHRINE BIT/0.9 % NACL (Levophed 4 Mg/ 250 Ml Ns Premixed) 4 mg in 250 mls @ 15 mls/hr IV .[id number] PRN; Protocol PRN Reason: TITRATE PER MD ORDER Last Titration: 04/04/19 14:00 Dose: 0 mcg/min, 0 mls/hr Dobutamine HCl/Dextrose (Dobutamine/Dextrose 5% 500mg/250ml) 500 mg in 250 mls @ 4.689 mls/hr IV .Q24H PRN; Protocol PRN Reason: TITRATE PER PROTOCOL Last Admin: 04/03/19 13:20 Dose: 2 mcg/kg/min, 4.689 mls/hr Lisinopril (Zestril) 2.5 mg PO DAILY [facility] Last Admin: 04/05/19 10:40 Dose: Not Given - Labs Labs: 04/05/19 05:30 04/05/19 06:50 PT 12.6 SECONDS (9.4-12.5) H 04/05/19 13:20 INR 1.12 04/05/19 13:20 APTT 42.7 Seconds (26.9-38.3) H 04/02/19 07:00 - Constitutional Appears: No Acute Distress - Head Exam Head Exam: ATRAUMATIC, NORMOCEPHALIC - Eye Exam Eye Exam: EOMI - ENT Exam ENT Exam: Mucous Membranes Moist - Respiratory Exam Respiratory Exam: Clear to Ausculation Bilateral. absent: Rales, Wheezes - Cardiovascular Exam Cardiovascular Exam: REGULAR RHYTHM, +S1, +S2 - GI/Abdominal Exam GI & Abdominal Exam: Soft. absent: Tenderness - Extremities Exam Extremities Exam: absent: Calf Tenderness, Pedal Edema - Skin Skin Exam: Dry, Warm Assessment and Plan - Assessment and Plan (Free Text) Assessment: SIRS with multiorgan failure unclear etiology Respiratory failure requiring ventilatory support Altered mental status Acute liver failure Acute on chronic kidney injury Acute on chronic heart failure with systolic dysfunction 10 to 15% Coronary artery disease status post CABG Hypertension Parkinson's disease COPD Schizophrenia Discontinue cefepime, likely SAW FILER fever F/u repeat blood cx F/u acute hepatitis work up: CMV, TB, Toxoplasma, Syphlis, leptospirosis Vanc was d/c as MRSA screen was neg CT of the head was ordered for the AMS - Small lacunar infarct Follow-up septic work-up - blood and urine cultures have been thus far negative, procal elevated 0.55 F/u HIV - neg Continued management in the intensive care unit Follow-up gastroenterology recommendations - NAC therapy Follow-up cardiology recommendations - on dobutamine and levophed Rec neurology for evaluation of AMS Acute liver failure - appears to be resolving Continue to monitor for any changes Lines: Left internal jugular Case and plan to be reviewed and discussed with Dr. Gavin. <Fredy Gavin - Last Filed: 04/05/19 15:53> Objective - Vital Signs/Intake and Output Vital Signs (last 24 hours): Temp Pulse Resp BP Pulse Ox 98.6 F 60 16 104/48 L 96 04/05/19 14:50 04/05/19 14:50 04/05/19 07:19 04/05/19 14:30 04/05/19 14:50 Intake and Output: 04/05/19 04/05/19 06:59 18:59 Intake Total 104 Output Total 100 Balance 4 - Medications Medications: Current Medications Aspirin (Aspirin Chewable) 81 mg PO DAILY [facility] Last Admin: 04/05/19 10:33 Dose: 81 mg Famotidine (Pepcid) 20 mg IVP Q12 [facility] Last Admin: 04/05/19 10:33 Dose: 20 mg Heparin Sodium (Porcine) (Heparin) 5,000 units SC Q8 [facility]; Protocol Last Admin: 04/05/19 14:29 Dose: 5,000 units Hydrocortisone Sodium Succinate (Solu-Cortef) 25 mg IVP DAILY [facility] Last Admin: 04/05/19 10:40 Dose: 25 mg Fentanyl Citrate (Fentanyl Citrate/Sodium Chloride 1 Mg/100 Ml) 1,000 mcg in 10 0 mls @ 2 mls/hr IV .Q24H PRN; Protocol PRN Reason: TITRATE PER MD ORDER Last Titration: 04/04/19 15:55 Dose: 10 mcg/hr, 1 mls/hr Midazolam 100 mg/100ml in NS (Midazolam 100 Mg/100ml In Ns) 100 mg in 100 mls @ 1 mls/hr IV .Q24H PRN; Protocol PRN Reason: Agitation Last Titration: 04/04/19 08:10 Dose: 0 mg/hr, 0 mls/hr Milrinone Lactate/Dextrose (Primacor 20mg/100ml D5w) 100 mls @ 8.792 mls/hr IV .[id number] PRN; Protocol PRN Reason: TITRATE PER MD ORDER Last Titration: 04/03/19 13:10 Dose: 0 mcg/kg/min, 0 mls/hr NOREPINEPHRINE BIT/0.9 % NACL (Levophed 4 Mg/ 250 Ml Ns Premixed) 4 mg in 250 mls @ 15 mls/hr IV .[id number] PRN; Protocol PRN Reason: TITRATE PER MD ORDER Last Titration: 04/04/19 14:00 Dose: 0 mcg/min, 0 mls/hr Dobutamine HCl/Dextrose (Dobutamine/Dextrose 5% 500mg/250ml) 500 mg in 250 mls @ 4.689 mls/hr IV .Q24H PRN; Protocol PRN Reason: TITRATE PER PROTOCOL Last Admin: 04/03/19 13:20 Dose: 2 mcg/kg/min, 4.689 mls/hr Lisinopril (Zestril) 2.5 mg PO DAILY [facility] Last Admin: 04/05/19 10:40 Dose: Not Given - Labs Labs: 04/05/19 05:30 04/05/19 06:50 PT 12.6 SECONDS (9.4-12.5) H 04/05/19 13:20 INR 1.12 04/05/19 13:20 APTT 42.7 Seconds (26.9-38.3) H 04/02/19 07:00 Attending/Attestation - Attestation I have personally seen and examined this patient.: Yes I have fully participated in the care of the patient.: Yes I have reviewed all pertinent clinical information, including history, physical exam and plan: Yes
[2019-04-05] MEDS: DOBUTamine 500mg/250ml D5W 500 MG/250 ML BAG IV PRN (16:10)
--- NOTE | 2019-04-05 17:40 | PN ---
DATE: 04/05/2019 REASON FOR CONSULTATION AND FOLLOWUP: History of coronary artery disease, ischemic cardiomyopathy status post AICD, cardiac evaluation followup, admitted with acute mental status, respiratory failure, intubated, multiorgan dysfunction, acute kidney failure, acute liver failure. SUBJECTIVE: The patient remains on vent. Not responding to painful stimuli. On Dobutrex, off Levophed. PHYSICAL EXAMINATION: GENERAL: Not responding to verbal stimuli. Not responding to painful stimuli either. Being EEG video monitored. On fentanyl infusion as well as low-dose Dobutrex . VITAL SIGNS: Temperature afebrile, heart rate 57, blood pressure 106/50. HEENT: PERRLA. Extraocular muscle intact. NECK: Supple. No carotid bruits. No thyromegaly. CHEST: Clear to auscultation. HEART: S1, S2. Regular. ABDOMEN: Soft. EXTREMITIES: Clubbing, cyanosis, negative. LABORATORY DATA: Blood work, WBC is 7.7, hemoglobin 13, hematocrit 43.4, platelet count 155. Chemistry shows sodium 150, potassium 4.2, chloride 101, carbon dioxide 32, anion gap of 11, BUN of 44, creatinine 1. Troponin 0.04. ASSESSMENT: A 73-year-old male with past medical history significant for coronary artery disease, status post coronary bypass graft many years ago, history of percutaneous transluminal coronary angioplasty of left anterior descending 6-7 years ago, where the patient presented with ventricular tachycardia. Admitted with mental status change, requiring intubation, intubated, history of paroxysmal atrial fibrillation, ischemic cardiomyopathy, last echo 10 to 15% ejection fraction. The patient had an echocardiograph done day before yesterday here in the [facility] that revealed four-chamber dilatation, ejection fraction 15%, moderate tricuspid regurgitation, RV systolic pressure 44, moderate mitral regurgitation, mild to moderate pulmonary insufficiency. He remains on vent, not responding to painful stimuli, being sedated on Dobutrex and EEG video monitored. Admitted with sepsis, possible altered mental status, acute change in mental status, acute kidney injury, and acute liver injury. RECOMMENDATIONS: Increase free fluid through the NG tube, continue NG feeding, continue low-dose of Dobutrex, continue vent management and try to wean off the vent as tolerated. Overall, the patient's condition is critical. Long-term prognosis is guarded. We will follow with you. Thank you Dr. Martinez, for providing the opportunity in taking care of the patient Eduard Gautam. Joanna Hall MD
[2019-04-06] MEDS: Fentanyl 1000mcg/100ml NS 1,000 MCG/100 ML BAG IV PRN (04:36)
[2019-04-06] MEDS: Milrinone 20mg/100ml D5W 100 ML IV PRN ×3 (06:00→15:14)
--- NOTE | 2019-04-06 06:58 | CP.CCUPN ---
<Tony Uribe - Last Filed: 04/06/19 12:06> CCU Subjective - Physician Review Subjective (Free Text): Tony Uribe PGY-1 Critical Care Progress Note Patient seen and evaluated at bedside. Patient noted to have sustained tachycardia this AM, at which time Dobutamine was discontinued and Milrinone restarted. Single dose of Amiodarone and Haldol IM was given. Patient remains on mechanical ventilation as well as Fentanyl and Milrinone drip. Patient agitation noted. CCU Objective - Vital Signs / Intake & Output Vital Signs (Last 4 hours): Vital Signs Pulse BP 04/06/19 06:06 129 H 144/64 Intake and Output (Last 8hrs): Intake & Output 04/05/19 04/05/19 04/06/19 14:59 22:59 06:59 Intake Total 50 1686 195 Output Total 300 Balance 50 1386 195 Intake: IV 50 686 195 Left Internal Jugular 180 Right Wrist 56 Tube Feeding 600 Other 400 Output: Urine 300 Urethral (Eric) 300 - Physical Exam Head: Positive for: Atraumatic, Normocephalic Pupils: Positive for: PERRL Extroacular Muscles: Positive for: EOMI Mouth: Positive for: Moist Mucous Membranes, Other (ETT in place). Negative for: Normal Teeth Nose (External): Positive for: Other (NGT in place in L nares) Neck: Positive for: Normal Range of Motion, Other (L IJ in place) Respiratory/Chest: Positive for: Decreased Breath Sounds, Rales. Negative for: Respiratory Distress, Accessory Muscle Use Cardiovascular: Positive for: Regular Rate and Rhythm, Normal S1, S2 Abdomen: Positive for: Normal Bowel Sounds. Negative for: Tenderness, Distention Genitourinary Male: Positive for: Other (Eric in place) Upper Extremity: Positive for: Normal Inspection, Other (L hand swollen) Lower Extremity: Positive for: Normal Inspection Skin: Positive for: Warm, Dry, Normal Color Psychiatric: Positive for: Agitated. Negative for: Alert, Oriented x 3 - Medications Active Medications: Active Medications Generic Name Dose Route Start Last Admin Trade Name Freq PRN Reason Stop Dose Admin Aspirin 81 mg 04/04/19 10:45 04/05/19 10:33 Aspirin Chewable PO 81 mg DAILY AFSANEH Administration Famotidine 20 mg 04/03/19 22:00 04/05/19 22:21 Pepcid IVP 20 mg Q12 AFSANEH Administration Heparin Sodium (Porcine) 5,000 units 04/02/19 14:00 04/06/19 06:43 Heparin SC 5,000 units Q8 AFSANEH Administration Protocol Hydrocortisone Sodium Succinate 25 mg 04/05/19 10:00 04/05/19 10:40 Solu-Cortef IVP 25 mg DAILY AFSANEH Administration Fentanyl Citrate 1,000 mcg in 100 mls @ 2 mls/hr 04/02/19 18:03 04/06/19 04:36 Fentanyl Citrate/Sodium Chloride 1 Mg/100 Ml IV 150 mcg/hr .Q24H PRN 15 mls/hr TITRATE PER MD ORDER Administration Protocol 20 MCG/HR Midazolam 100 mg/100ml in NS 100 mg in 100 mls @ 1 mls/hr 04/02/19 18:03 04/04/19 08:10 Midazolam 100 Mg/100ml In Ns IV 0 mg/hr .Q24H PRN 0 mls/hr Agitation Titration Protocol 1 MG/HR Milrinone Lactate/Dextrose 100 mls @ 8.792 mls/hr 04/03/19 11:11 04/06/19 06:00 Primacor 20mg/100ml D5w IV Infused .[id number] PRN Titration TITRATE PER MD ORDER Protocol 0.375 MCG/KG/MIN NOREPINEPHRINE BIT/0.9 % NACL 4 mg in 250 mls @ 15 mls/hr 04/03/19 13:10 04/04/19 14:00 Levophed 4 Mg/ 250 Ml Ns Premixed IV 0 mcg/min .[id number] PRN 0 mls/hr TITRATE PER MD ORDER Titration Protocol 4 MCG/MIN Milrinone Lactate/Dextrose 100 mls @ 8.792 mls/hr 04/06/19 05:36 04/06/19 06:06 Primacor 20mg/100ml D5w IV 0.375 mcg/kg/min .[id number] PRN 8.792 mls/hr TITRATE PER MD ORDER Administration Protocol 0.375 MCG/KG/MIN Lisinopril 2.5 mg 04/05/19 10:00 04/05/19 10:40 Zestril PO Not Given DAILY [facility] Verapamil HCl 2.5 mg 04/06/19 06:51 Verapamil Inj IVP Q6H PRN Systolic Blood Pressure - Patient Studies Lab Studies: Microbiology Studies 04/05/19 13:37 Gram Stain - Final Sputum Induced 04/01/19 11:30 Blood Culture - Preliminary Blood-Venous NO GROWTH AFTER 4 DAYS 04/01/19 11:00 Blood Culture - Preliminary Blood-Venous NO GROWTH AFTER 4 DAYS Lab Studies 04/05/19 04/05/19 04/05/19 Range/Units 16:25 13:20 13:20 PT 12.6 H (9.4-12.5) SECONDS INR 1.12 Sodium (132-148) mmol/L Potassium (3.6-5.0) mmol/L Chloride (98-107) mmol/L Carbon Dioxide (21-33) mmol/L Anion Gap (10-20) BUN (7-21) mg/dL Creatinine (0.8-1.5) mg/dl Est GFR ( Amer) Est GFR (Non-Af Amer) Random Glucose (70-110) mg/dL Calcium (8.4-10.5) mg/dL Phosphorus (2.5-4.5) mg/dL Magnesium (1.7-2.2) mg/dL Total Bilirubin (0.2-1.3) mg/dL AST (17-59) U/L ALT (7-56) U/L Alkaline Phosphatase (38-126) U/L Ammonia < 9 L (9-33) umol/L Total Protein (5.8-8.3) g/dL Albumin (3.0-4.8) g/dL Globulin gm/dL Albumin/Globulin Ratio (1.1-1.8) Leptospira Antibody TNP 04/05/19 Range/Units 06:50 PT (9.4-12.5) SECONDS INR Sodium 150 H (132-148) mmol/L Potassium 4.2 (3.6-5.0) mmol/L Chloride 111 H (98-107) mmol/L Carbon Dioxide 32 (21-33) mmol/L Anion Gap 11 (10-20) BUN 44 H (7-21) mg/dL Creatinine 1.0 (0.8-1.5) mg/dl Est GFR ( Amer) > 60 Est GFR (Non-Af Amer) > 60 Random Glucose 145 H (70-110) mg/dL Calcium 9.8 (8.4-10.5) mg/dL Phosphorus 2.7 (2.5-4.5) mg/dL Magnesium 2.7 H (1.7-2.2) mg/dL Total Bilirubin 1.9 H (0.2-1.3) mg/dL AST 172 H D (17-59) U/L ALT 500 H (7-56) U/L Alkaline Phosphatase 79 (38-126) U/L Ammonia (9-33) umol/L Total Protein 5.8 (5.8-8.3) g/dL Albumin 2.9 L (3.0-4.8) g/dL Globulin 2.9 gm/dL Albumin/Globulin Ratio 1.0 L (1.1-1.8) Leptospira Antibody Laboratory Results - last 24 hr 04/05/19 04/05/19 04/05/19 06:50 13:20 13:20 PT 12.6 H INR 1.12 Sodium 150 H Potassium 4.2 Chloride 111 H Carbon Dioxide 32 Anion Gap 11 BUN 44 H Creatinine 1.0 Est GFR ( Amer) > 60 Est GFR (Non-Af Amer) > 60 Random Glucose 145 H Calcium 9.8 Phosphorus 2.7 Magnesium 2.7 H Total Bilirubin 1.9 H AST 172 H D ALT 500 H Alkaline Phosphatase 79 Ammonia < 9 L Total Protein 5.8 Albumin 2.9 L Globulin 2.9 Albumin/Globulin Ratio 1.0 L Leptospira Antibody 04/05/19 16:25 PT INR Sodium Potassium Chloride Carbon Dioxide Anion Gap BUN Creatinine Est GFR ( Amer) Est GFR (Non-Af Amer) Random Glucose Calcium Phosphorus Magnesium Total Bilirubin AST ALT Alkaline Phosphatase Ammonia Total Protein Albumin Globulin Albumin/Globulin Ratio Leptospira Antibody TNP Radiology Impressions: Radiology Impressions Chest X-Ray 04/05/19 06:00 IMPRESSION: Bibasilar infiltrates and small effusions. Nasogastric tube and endotracheal tube in satisfactory position. Review of Systems - Review of Systems Systems not reviewed;Unavailable: Intubated Critical Care Progress Note - Nutrition Nutrition: Nutrition Category Date Time Status NPO Diet [DIET] Diets 04/01/19 Breakfast Ordered Assessment/Plan - Assessment and Plan (Free Text) Assessment: 73 yo male with PMHx significant for ischemic cardiomyopathy (EF 9%, elevated RVSP 45, status post AICD), COPD and schizophrenia who was brought in by ambulance for altered mental status. Currently in ICU for multi system organ failure and respiratory distress and sustained toxic metabolic encephalopathy. Neuro: -Sustained AMS in setting of toxic metabolic encephalopathy -04/04/[address] head showed small 4 mm lacunar infarct, Neuro on board -04/05/19 24 hour vEEG completed, no evidence of seizures or status, severe cortical disturbance -GCS 3T, agitation noted, begin Propofol and Precedex drip -Possible overdose of Ambien as etiology of AMS, benzos in Utox -Monitor neuro status. -Neuro on consult - Dr. Gibbons- nhi recs appreciated in setting of sustained encephalopathy Cardio: -L IJ access, L sided dual lead AICD AV paced -04/03/19 Echo: LVEF 9%, dilated IVC -Continue stress dose steroids at 25 mg daily -Fentanyl discontinued -Continue Milrinone drip -Verapamil 2.5 mg IVP q6h PRN with holding parameters -Lasix 40 mg IVP daily -C/w Aspirin 81 mg -C/w Lisinopril 2.5 mg -proBNP>40,000, EF 15% -Maintain MAP>65. -Monitor for S/S of HD compromise. -Cardiology on Consult - Dr. Taylor - recs appreciated Pulm: -PRVC 50/04/05/450 currently -Trial pressure support, weaning trial and sedation vacation -04/06/19 CXR shows bibasilar infiltrates and small effusions -04/06 ABG shows improved metabolic alkalosis -Maintain O2 saturation >92%. -O2 NC PRN -Vent: protective lung ventilation strategy, aspiration precautions -F/u 04/05/19 CXR for official read proper placement of ETT and NGT -Elevate bed to 30 degrees GI: -NPO, tube feeding -Pepcid IVP daily -Completed 3 doses of NAC on 04/02/19, improving LFTs; INR improved -possibility of congestive hepatopathy 2/2 congestive heart failure -04/01/19 Abd U/S shows Cholelithiasis. Diffuse gallbladder wall thickening is likely secondary to systemic disease. 2. Chronic renal parenchymal disease. 3. Diffuse increased echogenicity in the liver with coarse echotexture may reflect hepatic steatosis however parenchymal infectious/ inflammatory etiologies cannot be entirely excluded. -GI on consult - Dr. Bailey - nhi recs appreciated. [facility] in contact /Nephro: -GO likely 2/2 congestive nephropathy -Good urine output through Eric -Hypernatremic, likely 2/2 Na load in Fentanyl -Continue monitoring. -Replete electrolytes as needed. -Maintain euvolemia. Endocrinology: -Random glucose: 138 -Hgb a1c 6.4 -TSH 0.39, T4 6.9 -Maintain euglycemia. Heme/Onc: -H/H stable -No signs of HD compromise. -Continue monitoring H/H ID: -D/C Cefepime per ID, likely TILE ERECTOR fever -F/U toxo, RPR, TB, CMV, Leptospira for etiology of sustained AMS -BCx neg after 4 days, UCx negative -Gram pos cocci in new sputum cx -Procalcitonin 0.55 -Monitor for signs and symptoms of infection. -ID on consult - Dr. Gavin - recs appreciated DVT prophylaxis: Heparin SC GI prophylaxis: Pepcid Dispo: Palliative on board Patient seen, case reviewed and plan approved by Dr. Goldie Burrell. Tony Uribe, PGY-1 <Juan Burrell - Last Filed: 04/07/19 14:50> CCU Objective - Vital Signs / Intake & Output Vital Signs (Last 4 hours): Vital Signs Pulse BP 04/07/19 14:36 89 103/49 L Intake and Output (Last 8hrs): Intake & Output 04/06/19 04/07/19 04/07/19 22:59 06:59 14:59 Intake Total 150 100 200 Balance 150 100 200 Intake: IV 150 100 200 - Medications Active Medications: Active Medications Generic Name Dose Route Start Last Admin Trade Name Freq PRN Reason Stop Dose Admin Aspirin 81 mg 04/04/19 10:45 04/07/19 09:52 Aspirin Chewable PO 81 mg DAILY AFSANEH Administration Famotidine 20 mg 04/03/19 22:00 04/07/19 09:50 Pepcid IVP 20 mg Q12 AFSANEH Administration Heparin Sodium (Porcine) 5,000 units 04/02/19 14:00 04/07/19 06:10 Heparin SC 5,000 units Q8 AFSANEH Administration Protocol Hydrocortisone Sodium Succinate 25 mg 04/05/19 10:00 04/07/19 09:51 Solu-Cortef IVP 25 mg DAILY AFSANEH Administration Milrinone Lactate/Dextrose 100 mls @ 8.792 mls/hr 04/06/19 05:36 04/07/19 14:36 Primacor 20mg/100ml D5w IV 0.375 mcg/kg/min .[id number] PRN 8.792 mls/hr TITRATE PER MD ORDER Administration Protocol 0.375 MCG/KG/MIN Propofol 1,000 mg in 100 mls @ 2.345 mls/hr 04/06/19 07:35 04/06/19 15:15 Diprivan IV 10 mcg/kg/min .Q24H PRN 4.689 mls/hr TITRATE PER MD ORDER Administration Protocol 5 MCG/KG/MIN Dexmedetomidine HCl 400 mcg in 100 mls @ 3.908 mls/hr 04/06/19 10:12 04/07/19 07:18 Precedex 400mcg/100ml IV 0.2 mcg/kg/hr .Q24H PRN 3.908 mls/hr Agitation Administration Protocol 0.2 MCG/KG/HR Dextrose 1,000 mls @ 100 mls/hr 04/07/19 13:30 04/07/19 13:40 Dextrose 5% In Water 1000 Ml IV 04/07/19 23:29 100 mls/hr .Q10H AFSANEH Administration Lisinopril 2.5 mg 04/05/19 10:00 04/07/19 09:53 Zestril PO Not Given DAILY AFSANEH Metoprolol Tartrate 25 mg 04/06/19 10:00 04/07/19 09:53 Lopressor PO Not Given BID AFSANEH Verapamil HCl 2.5 mg 04/06/19 06:51 Verapamil Inj IVP Q6H PRN Systolic Blood Pressure - Patient Studies Lab Studies: Microbiology Studies 04/05/19 07:55 Blood Culture - Preliminary Blood NO GROWTH AFTER 48 HOURS 04/05/19 08:15 Blood Culture - Preliminary Blood NO GROWTH AFTER 48 HOURS 04/05/19 13:37 Gram Stain - Final Sputum Induced Sputum Culture - Final Methicillin Resistant S Aureus 04/01/19 11:30 Blood Culture - Final Blood-Venous NO GROWTH AFTER 5 DAYS Gram Stain - Final TEST NOT PERFORMED 04/01/19 11:00 Blood Culture - Final Blood-Venous NO GROWTH AFTER 5 DAYS Gram Stain - Final TEST NOT PERFORMED Lab Studies 05/04/07/19 04/07/19 Range/Units 13:50 06:00 05:00 WBC (4.5-11.0) 10^3/uL RBC (3.5-6.1) 10^6/uL Hgb (14.0-18.0) g/dL Hct (42.0-52.0) % MCV (80.0-105.0) fl MCH (25.0-35.0) pg MCHC (31.0-37.0) g/dl RDW (11.5-14.5) % Plt Count (120.0-450.0) 10^3/uL MPV (7.0-11.0) fl Neut % (Auto) (50.0-68.0) % Lymph % (Auto) (22.0-35.0) % [place] % (Auto) (1.0-6.0) % Eos % (Auto) (1.5-5.0) % Baso % (Auto) (0.0-3.0) % Lymph # (Auto) (1.2-3.4) [place] # (Auto) (0.1-0.6) Eos # (Auto) (0.0-0.7) Baso # (Auto) (0.0-2.0) K/mm3 Absolute Neuts (auto) (1.4-6.5) pCO2 44 39 (35-45) mm/Hg pO2 189.0 H 65.0 L (80-100) mm/Hg HCO3 33.5 H 30.4 H (21-28) mmol/L ABG pH 7.49 H 7.50 H (7.35-7.45) ABG Total CO2 34.9 H 31.6 H (22-28) mmol.L ABG O2 Saturation 99.8 H 96.6 (95-98) % ABG O2 Content 16.3 15.6 (15-23) ML/dl ABG Base Excess 9.1 H 6.7 H (-2.0-3.0) mmol/L ABG Hemoglobin 11.7 11.8 (11.7-17.4) g/dL ABG Carboxyhemoglobin 1.8 H 2.1 H (0.5-1.5) % POC ABG HHb (Measured) 0.2 3.3 (0-5) % ABG Methemoglobin 1.4 1.0 (0.0-3.0) % ABG O2 Capacity 16.3 16.1 (16-24) mL/dl Hgb O2 Saturation 96.6 93.7 L (95.0-98.0) % FiO2 100.0 70.0 % Sodium 152 H (132-148) mmol/L Potassium 3.8 (3.6-5.0) mmol/L Chloride 114 H (98-107) mmol/L Carbon Dioxide 35 H (21-33) mmol/L Anion Gap 7 L (10-20) BUN 43 H (7-21) mg/dL Creatinine 1.0 (0.8-1.5) mg/dl Est GFR ( Amer) > 60 Est GFR (Non-Af Amer) > 60 Random Glucose 141 H (70-110) mg/dL Calcium 10.1 (8.4-10.5) mg/dL Phosphorus 2.3 L (2.5-4.5) mg/dL Magnesium 2.7 H (1.7-2.2) mg/dL Total Bilirubin 1.9 H (0.2-1.3) mg/dL AST 143 H D (17-59) U/L ALT 262 H (7-56) U/L Alkaline Phosphatase 80 (38-126) U/L Total Protein 5.4 L (5.8-8.3) g/dL Albumin 2.7 L (3.0-4.8) g/dL Globulin 2.8 gm/dL Albumin/Globulin Ratio 1.0 L (1.1-1.8) Procalcitonin (0.19-0.49) NG/ML RPR (NONREACTIVE) CMV IgG Ab U/mL CMV IgM Ab AU/mL TB Test (QFT) Nil IU/mL TB Test Mitogen - Nil IU/mL TB Test Antigen - Nil IU/mL TB Test TB - Nil IU/mL TB Test (QFT) (Negative) 04/07/19 04/06/19 04/05/19 Range/Units 05:00 15:00 16:25 WBC 11.5 H (4.5-11.0) 10^3/uL RBC 4.39 (3.5-6.1) 10^6/uL Hgb 12.5 L (14.0-18.0) g/dL Hct 40.2 L (42.0-52.0) % MCV 91.6 (80.0-105.0) fl MCH 28.5 (25.0-35.0) pg MCHC 31.1 (31.0-37.0) g/dl RDW 15.6 H (11.5-14.5) % Plt Count 130 (120.0-450.0) 10^3/uL MPV 12.0 H (7.0-11.0) fl Neut % (Auto) 84.5 H (50.0-68.0) % Lymph % (Auto) 6.1 L (22.0-35.0) % [place] % (Auto) 9.3 H (1.0-6.0) % Eos % (Auto) 0.1 L (1.5-5.0) % Baso % (Auto) 0.0 (0.0-3.0) % Lymph # (Auto) 0.7 L (1.2-3.4) [place] # (Auto) 1.1 H (0.1-0.6) Eos # (Auto) 0.0 (0.0-0.7) Baso # (Auto) 0.00 (0.0-2.0) K/mm3 Absolute Neuts (auto) 9.68 H (1.4-6.5) pCO2 (35-45) mm/Hg pO2 (80-100) mm/Hg HCO3 (21-28) mmol/L ABG pH (7.35-7.45) ABG Total CO2 (22-28) mmol.L ABG O2 Saturation (95-98) % ABG O2 Content (15-23) ML/dl ABG Base Excess (-2.0-3.0) mmol/L ABG Hemoglobin (11.7-17.4) g/dL ABG Carboxyhemoglobin (0.5-1.5) % POC ABG HHb (Measured) (0-5) % ABG Methemoglobin (0.0-3.0) % ABG O2 Capacity (16-24) mL/dl Hgb O2 Saturation (95.0-98.0) % FiO2 % Sodium (132-148) mmol/L Potassium (3.6-5.0) mmol/L Chloride (98-107) mmol/L Carbon Dioxide (21-33) mmol/L Anion Gap (10-20) BUN (7-21) mg/dL Creatinine (0.8-1.5) mg/dl Est GFR ( Amer) Est GFR (Non-Af Amer) Random Glucose (70-110) mg/dL Calcium (8.4-10.5) mg/dL Phosphorus (2.5-4.5) mg/dL Magnesium (1.7-2.2) mg/dL Total Bilirubin (0.2-1.3) mg/dL AST (17-59) U/L ALT (7-56) U/L Alkaline Phosphatase (38-126) U/L Total Protein (5.8-8.3) g/dL Albumin (3.0-4.8) g/dL Globulin gm/dL Albumin/Globulin Ratio (1.1-1.8) Procalcitonin 0.07 L (0.19-0.49) NG/ML RPR Nonreactive (NONREACTIVE) CMV IgG Ab U/mL CMV IgM Ab AU/mL TB Test (QFT) Nil IU/mL TB Test Mitogen - Nil IU/mL TB Test Antigen - Nil IU/mL TB Test TB - Nil IU/mL TB Test (QFT) (Negative) 04/05/19 04/05/19 Range/Units 16:25 16:25 WBC (4.5-11.0) 10^3/uL RBC (3.5-6.1) 10^6/uL Hgb (14.0-18.0) g/dL Hct (42.0-52.0) % MCV (80.0-105.0) fl MCH (25.0-35.0) pg MCHC (31.0-37.0) g/dl RDW (11.5-14.5) % Plt Count (120.0-450.0) 10^3/uL MPV (7.0-11.0) fl Neut % (Auto) (50.0-68.0) % Lymph % (Auto) (22.0-35.0) % [place] % (Auto) (1.0-6.0) % Eos % (Auto) (1.5-5.0) % Baso % (Auto) (0.0-3.0) % Lymph # (Auto) (1.2-3.4) [place] # (Auto) (0.1-0.6) Eos # (Auto) (0.0-0.7) Baso # (Auto) (0.0-2.0) K/mm3 Absolute Neuts (auto) (1.4-6.5) pCO2 (35-45) mm/Hg pO2 (80-100) mm/Hg HCO3 (21-28) mmol/L ABG pH (7.35-7.45) ABG Total CO2 (22-28) mmol.L ABG O2 Saturation (95-98) % ABG O2 Content (15-23) ML/dl ABG Base Excess (-2.0-3.0) mmol/L ABG Hemoglobin (11.7-17.4) g/dL ABG Carboxyhemoglobin (0.5-1.5) % POC ABG HHb (Measured) (0-5) % ABG Methemoglobin (0.0-3.0) % ABG O2 Capacity (16-24) mL/dl Hgb O2 Saturation (95.0-98.0) % FiO2 % Sodium (132-148) mmol/L Potassium (3.6-5.0) mmol/L Chloride (98-107) mmol/L Carbon Dioxide (21-33) mmol/L Anion Gap (10-20) BUN (7-21) mg/dL Creatinine (0.8-1.5) mg/dl Est GFR ( Amer) Est GFR (Non-Af Amer) Random Glucose (70-110) mg/dL Calcium (8.4-10.5) mg/dL Phosphorus (2.5-4.5) mg/dL Magnesium (1.7-2.2) mg/dL Total Bilirubin (0.2-1.3) mg/dL AST (17-59) U/L ALT (7-56) U/L Alkaline Phosphatase (38-126) U/L Total Protein (5.8-8.3) g/dL Albumin (3.0-4.8) g/dL Globulin gm/dL Albumin/Globulin Ratio (1.1-1.8) Procalcitonin (0.19-0.49) NG/ML RPR (NONREACTIVE) CMV IgG Ab >10.00 H U/mL CMV IgM Ab <30.00 AU/mL TB Test (QFT) Nil 0.02 IU/mL TB Test Mitogen - Nil >10.00 IU/mL TB Test Antigen - Nil 0.00 IU/mL TB Test TB - Nil 0.00 IU/mL TB Test (QFT) Negative (Negative) Laboratory Results - last 24 hr 04/05/19 04/05/19 04/05/19 16:25 16:25 16:25 WBC RBC Hgb Hct MCV MCH MCHC RDW Plt Count MPV Neut % (Auto) Lymph % (Auto) [place] % (Auto) Eos % (Auto) Baso % (Auto) Lymph # (Auto) [place] # (Auto) Eos # (Auto) Baso # (Auto) Absolute Neuts (auto) pCO2 pO2 HCO3 ABG pH ABG Total CO2 ABG O2 Saturation ABG O2 Content ABG Base Excess ABG Hemoglobin ABG Carboxyhemoglobin POC ABG HHb (Measured) ABG Methemoglobin ABG O2 Capacity Hgb O2 Saturation FiO2 Sodium Potassium Chloride Carbon Dioxide Anion Gap BUN Creatinine Est GFR ( Amer) Est GFR (Non-Af Amer) Random Glucose Calcium Phosphorus Magnesium Total Bilirubin AST ALT Alkaline Phosphatase Total Protein Albumin Globulin Albumin/Globulin Ratio Procalcitonin RPR Nonreactive CMV IgG Ab >10.00 H CMV IgM Ab <30.00 TB Test (QFT) Nil 0.02 TB Test Mitogen - Nil >10.00 TB Test Antigen - Nil 0.00 TB Test TB - Nil 0.00 TB Test (QFT) Negative 04/06/19 04/07/19 04/07/19 15:00 05:00 05:00 WBC 11.5 H RBC 4.39 Hgb 12.5 L Hct 40.2 L MCV 91.6 MCH 28.5 MCHC 31.1 RDW 15.6 H Plt Count 130 MPV 12.0 H Neut % (Auto) 84.5 H Lymph % (Auto) 6.1 L [place] % (Auto) 9.3 H Eos % (Auto) 0.1 L Baso % (Auto) 0.0 Lymph # (Auto) 0.7 L [place] # (Auto) 1.1 H Eos # (Auto) 0.0 Baso # (Auto) 0.00 Absolute Neuts (auto) 9.68 H pCO2 pO2 HCO3 ABG pH ABG Total CO2 ABG O2 Saturation ABG O2 Content ABG Base Excess ABG Hemoglobin ABG Carboxyhemoglobin POC ABG HHb (Measured) ABG Methemoglobin ABG O2 Capacity Hgb O2 Saturation FiO2 Sodium 152 H Potassium 3.8 Chloride 114 H Carbon Dioxide 35 H Anion Gap 7 L BUN 43 H Creatinine 1.0 Est GFR ( Amer) > 60 Est GFR (Non-Af Amer) > 60 Random Glucose 141 H Calcium 10.1 Phosphorus 2.3 L Magnesium 2.7 H Total Bilirubin 1.9 H AST 143 H D ALT 262 H Alkaline Phosphatase 80 Total Protein 5.4 L Albumin 2.7 L Globulin 2.8 Albumin/Globulin Ratio 1.0 L Procalcitonin 0.07 L RPR CMV IgG Ab CMV IgM Ab TB Test (QFT) Nil TB Test Mitogen - Nil TB Test Antigen - Nil TB Test TB - Nil TB Test (QFT) 04/07/19 04/07/19 06:00 13:50 WBC RBC Hgb Hct MCV MCH MCHC RDW Plt Count MPV Neut % (Auto) Lymph % (Auto) [place] % (Auto) Eos % (Auto) Baso % (Auto) Lymph # (Auto) [place] # (Auto) Eos # (Auto) Baso # (Auto) Absolute Neuts (auto) pCO2 39 44 pO2 65.0 L 189.0 H HCO3 30.4 H 33.5 H ABG pH 7.50 H 7.49 H ABG Total CO2 31.6 H 34.9 H ABG O2 Saturation 96.6 99.8 H ABG O2 Content 15.6 16.3 ABG Base Excess 6.7 H 9.1 H ABG Hemoglobin 11.8 11.7 ABG Carboxyhemoglobin 2.1 H 1.8 H POC ABG HHb (Measured) 3.3 0.2 ABG Methemoglobin 1.0 1.4 ABG O2 Capacity 16.1 16.3 Hgb O2 Saturation 93.7 L 96.6 FiO2 70.0 100.0 Sodium Potassium Chloride Carbon Dioxide Anion Gap BUN Creatinine Est GFR ( Amer) Est GFR (Non-Af Amer) Random Glucose Calcium Phosphorus Magnesium Total Bilirubin AST ALT Alkaline Phosphatase Total Protein Albumin Globulin Albumin/Globulin Ratio Procalcitonin RPR CMV IgG Ab CMV IgM Ab TB Test (QFT) Nil TB Test Mitogen - Nil TB Test Antigen - Nil TB Test TB - Nil TB Test (QFT) Radiology Impressions: Radiology Impressions Chest X-Ray 04/07/19 06:00 IMPRESSION: There is now complete opacification and volume loss in the right lung consistent with atelectasis. This is most likely due to a mucus plug. Endotracheal tube and nasogastric tube are in satisfactory position Critical Care Progress Note - Nutrition Nutrition: Nutrition Category Date Time Status NPO Diet [DIET] Diets 04/01/19 Breakfast Ordered Addendum Addendum: MICU Attending addendum Patient seen and examined on 04/06 with housestaff Agree with resident note above with the follow add/exceptions 73 male with PMHx systolic CHF, ischemic cardiomyopathy (EF in 2013 10-15%, s/p AICD), COPD and schizophrenia being tx for altered mental status, toxic metabolic encephalopathy and acute liver failure, Liver failure improving Remains intubated EEG shows NO seizure activity, does show toxic metabolic encepahlopath Neurology following Cont to monitor in ICU Pal care on board cont low Vt ventilation Rest of care as per above resident note Juan Burrell MD MICU Attending
[2019-04-06] MEDS ORDERED: Amiodarone 150 mg/D5W 100 ml 150 MG/100 ML BAG IVPB ONE (07:52)
[2019-04-06] MEDS ORDERED: Metoprolol 1 mg/ml Inj IVP ONE (07:53)
[2019-04-06 08:25] LABS: EOS % 0.1 % (1.5-5.0); HEMOGLOBIN 13.2 g/dL (14.0-18.0); LYMPH # 1.3 (1.2-3.4); LYMPH % 11.9 % (22.0-35.0); MEAN CELL VOLUME 92.6 fl (80.0-105.0); MEAN CORPUSCULAR HEMOGLOBIN 27.9 pg (25.0-35.0); MEAN CORPUSCULAR HGB CONC 30.1 g/dl (31.0-37.0); MEAN PLATELET VOLUME 11.6 fl (7.0-11.0); MONO # 0.6 (0.1-0.6); MONO % 5.8 % (1.0-6.0); RBC 4.73 10^6/uL (3.5-6.1); RED CELL DISTRIBUTION WIDTH 15.7 % (11.5-14.5); WHITE BLOOD COUNT 10.7 10^3/uL (4.5-11.0)
[2019-04-06] MEDS: Propofol 10 mg/ml 1,000 MG/100 ML VIAL IV PRN ×2 (08:29→15:15)
[2019-04-06 08:30] LABS: INR 1.08; PARTIAL THROMBOPLASTIN TIME 36.5 Seconds (26.9-38.3); PROTHROMBIN TIME 12.2 SECONDS (9.4-12.5)
[2019-04-06 08:31] LABS: ALBUMIN 2.9 g/dL (3.0-4.8); ALT/SGPT 350 U/L (7-56); AST/SGOT 117 U/L (17-59); BLOOD UREA NITROGEN 49 mg/dL (7-21); CALCIUM 10.2 mg/dL (8.4-10.5); GFR NON-AFRICAN AMERICAN 60
--- NOTE | 2019-04-06 09:34 | RAD ---
Date of service: 04/06/2019 HISTORY: tube placements COMPARISON: 04/05/2019 TECHNIQUE: 1 view obtained. FINDINGS: LUNGS: Bibasilar infiltrates and small effusions PLEURA: Small effusion CARDIOVASCULAR: Aortic calcification Moderate cardiomegaly. No pulmonary vascular congestion. OSSEOUS STRUCTURES: No significant abnormalities. VISUALIZED UPPER ABDOMEN: Normal. OTHER FINDINGS: Endotracheal tube and nasogastric tube in satisfactory position IMPRESSION: Bibasilar infiltrates and small effusions
[2019-04-06] MEDS: Dexmedetomidine 400mcg/100mL 400 MCG/100 ML BOTTLE IV PRN (10:55)
--- NOTE | 2019-04-06 11:11 | PN ---
DATE: 04/06/2019 LOCATION: Seen in Bed 1, ICU. SUBJECTIVE: The patient is still intubated, and he is still on verbal stimulation. He responds with decerebrate posturing. PHYSICAL EXAMINATION: VITAL SIGNS: Temperature 98.2, his heart rate is 130, his blood pressure 144/64. LABORATORY DATA: BUN and creatinine 44 and 1. Potassium 4.2, sodium 150. His white count is normal at 7.7, his hemoglobin 13.2. Lasix is on hold. He has not been able to be started because of the high heart rate and the semiconscious state. He is currently on small amounts of propofol and fentanyl, heparin, norepinephrine, famotidine, milrinone, hydrocortisone, verapamil, and Zestril. He had a repeat chest x-ray this morning. He had an EEG finished yesterday, awaiting results. The CT of the head did show a brainstem infarct. His dobutamine drip was discontinued due to tachycardia. The milrinone drip was recently started. Plan is to continue to access his neurological status, hopefully wean him over the several days. We will check the report from his EEG. Interpretation was consistent with moderate to severe diffuse disturbance of the cortical activity with diffuse weber matter dysfunction. No specific etiology. There were no seizures, and there was no evidence of . Chest was unclear. Heart examination is sinus tachycardia. Extremities without cyanosis, clubbing, or edema. Abdomen is soft. IMPRESSION: Recent cerebrovascular accident, cortical dysfunction, possible toxic metabolic encephalopathy, long history of congestive cardiomyopathy, history of schizophrenia, bipolar disorder, respiratory failure with mechanical ventilation, and intractable heart failure. Hugo Martinez MD
--- NOTE | 2019-04-06 11:35 | PCM.PCON ---
History of Present Illness - History of Present Illness History of Present Illness: Consult requested by Dr Alyssa Jose Reason: Goals of care This is 73 year old male with history of ischemic cardiomyopathy,EF 10%, CAD,CABG, CHF, Parkinson's disease, COPD, who presented on 04/02 with altered mental status. Due to the patient's poor mental status he was intubated for airway protection. Inilat CT of ahead showed no acute abnormalities. Tox screen positive for benzodiazipines. EEG: No evidence of seizures or status, severe cortical disturbance Head CT 04/04: 4mmproabale lacunar infarcts within left brainstem. Scattered crescencio ventricular and subcortical white matter hypodensities which are non specific Labs: Wbc 10, Hgb 13.1, Plt 152, Na 153, K 4.1, Bun 9, Home Health Caregiver 1.2, glucose 119, Mg 2.8, T Bili 1.9, AST 117, ALT 350,TP 5.7, Alb 2.9. Sputum gram+ cocci PMH:ischemic cardiomyopathy, CAD,CHF, Parkinson's disease, COPD, schizophrenia PSH: AICD, CABG, CEA Family History: Schizophrenia Social History: Obtained from reviewing chart- former smoker, no alcohol or drug use. Advance Care Planning:The patient does not have an Advanced Directive Review of Systems: Unable to obtain,intubated Physical Exam - Constitutional Appears: Agitated, Chronically Ill Additional comments: T 98, BP 150/80, P 90, intubated - Eye Exam Eye Exam: Normal appearance, PERRL - ENT Exam ENT Exam: Mucous Membranes Moist - Respiratory Exam Respiratory Exam: Rhonchi Additional comments: intubated - Cardiovascular Exam Cardiovascular Exam: +S1, +S2 - GI/Abdominal Exam GI & Abdominal Exam: Distended, Hypoactive Bowel Sounds, Soft - Extremities Exam Extremities exam: Positive for: pedal edema, pedal pulses present - Neurological Exam Neurological exam: Altered - Skin Skin Exam: Dry, Pallor - Additional Findings Additional findings: Palliative performance scale rating 30% Palliative Care Assessment - Chris Scale Sensory Perception: Very Limited Moisture: Occasionally Moist Activity: Bedfast Mobility: Completely Immobile Nutrition: Very Poor Friction & Shear: Problem Total Score - Skin Risk Assessment: 9 - Psychosocial Distress Patient screened for psychosocial distress: No Palliative Care - Goals Treatment Goal(s): Alleviate symptoms, Improve quality of life End of life care discussed: Yes - Plan Interdisciplinary involved: timber mill worker, Physician Assessment & Plan - Assessment and Plan (Free Text) Assessment: Patient is a 73 year old male with a PMHx significant for ischemic cardiomyopathy, EF 10-15%, AICD, Parkinson's disease, COPD and schizophrenia who was admitted with altered mental status,GO,ALI,CHF. Remains intubated,sedated. I spoke with patient's sister Criss Garza via phone. Criss was recently discharged from the hospital herself and hasn't seen her brother. She is aware that he is critically ill in the ICU. She states she is his next of kin and that he has an advanced directive and thinks" he is DNR". When I asked her to clarify his wishes regarding resuscitation, she stated that he doesn't want to be kept on machines if his condition is irreversible. I explained that he was receiving aggressive medical treatment but that his condition may not improve. I encouraged her to bring his advanced directive and to start thinking about what he would want if his condition did not improve. Criss states she will come in over the weekend. Psychosocial support provided, spiritual care declined. Time spent in goals of carer discussion with family, 20 minutes Plan: Goals of care and advance care planning Continue to monitor LFTs Intubated, weaning trials in progress GI prophylaxis
--- NOTE | 2019-04-06 12:54 | PN ---
DATE: 04/06/2019 REASON FOR CONSULTATION AND FOLLOWUP: History of coronary artery disease, ischemic cardiomyopathy, status post AICD, status post open heart surgery, past history of PTCA of LAD 7 to 8 years ago, admitted with acute mental status changes, multiorgan dysfunction, intubated, respiratory failure, acute kidney failure, acute liver failure. SUBJECTIVE: The patient remained on the vent, tachycardiac, hypotensive, requiring inotropes. The patient was started on Primacor but later was changed to dopamine and Dobutrex. Heart rate was fast, so changed back to Dobutrex. Now, the patient is tachycardiac. PHYSICAL EXAMINATION: VITAL SIGNS: Temperature afebrile, heart rate 129, blood pressure 144/64. HEENT: PERRLA. Extraocular muscles intact. NECK: Supple. No carotid bruits. No thyromegaly. CHEST: Clear to auscultation. HEART: S1 and S2. Regular. ABDOMEN: Soft. EXTREMITIES: Clubbing, cyanosis negative. LABORATORY DATA: Blood workup as follow, WBC 7.7, hemoglobin 13.8, hematocrit 43.4, platelet count 155. Chemistry show sodium 150, potassium 4.2, chloride 111, carbon dioxide 32, anion gap of 11, BUN 44, creatinine 1, random sugar 145. IMPRESSION: This is a 73-year-old male with past medical history significant for coronary artery disease, status post coronary artery bypass graft many years ago, history of percutaneous transfemoral angioplasty six to seven years ago, presents with ventricular tachycardia, status post automatic implantable cardioverter-defibrillator, admitted with altered mental status, multiorgan dysfunction requiring intubation. The patient with acute liver failure and acute kidney injury, improving. He is still being intubated, hypertensive, on vasopressors. The patient yesterday underwent an echocardiography that showed ejection fraction 15%, four-chamber dilatation, moderate tricuspid regurgitation, right ventricular systolic pressure 44, moderate mitral regurgitation, [id number] pulmonary insufficiency, remained on vent, tachycardiac. RECOMMENDATIONS: Start verapamil 2.5 mg IV every 6 hours p.r.n. if heart rate more than 130, change to Primacor, avoid sympathomimetic inotropes for tachycardia, start intravenous Lopressor and we will put through the NG tube amiodarone after giving intravenous loading amiodarone. Since the abnormal liver function and acute kidney injury, we will give the one dose of intravenous amiodarone and beta-tushar because of the acute liver failure, which is now recovering, so we will get only one dose of intravenous amiodarone and then through the patient's NG tube, we will put p.o. Lopressor 25 mg orally twice a day first dose now. Once the liver function improved, then we will consider starting back amiodarone. Continue deep vein thrombosis prophylaxis. TSH 0.39. Overall, the patient's condition is critical. Long-term prognosis is guarded. Thank you Dr. Martinez for providing us the opportunity in taking care of this patient, Eduard Castrokatelynflorentin. Joanna Hall MD
--- NOTE | 2019-04-06 12:55 | CP.PCM.PN ---
<Aiden Csear - Last Filed: 04/06/19 12:37> Subjective - Date & Time of Evaluation Date of Evaluation: 03/30/19 Time of Evaluation: 10:30 - Subjective Subjective: Aiden Cesar Internal Medicine Resident- Progress Note on Behalf of Dr. Bailey Subjective: Patient seen and examined at bedside. As per staff, the patient was agitated overnight and was given haldol and started on fentanyl. Further subjective data cannot be ascertained at this time due to patients altered mental status. 12-point review of systems cannot be ascertained at this time due to altered mental status Physical Examination: - Constitutional Appears: Chronically Ill - Eye Exam Eye Exam: PERRL - ENT Exam ENT Exam: Mucous Membranes Moist, ETT present - Respiratory Exam Respiratory Exam: Clear to Ausculation Bilateral. absent: Rales, Rhonchi, W heezes - Cardiovascular Exam Cardiovascular Exam: RRR, +S1, +S2 - GI/Abdominal Exam GI & Abdominal Exam: Soft, Normal Bowel Sounds. absent: Distended, Firm, Guarding, Rigid, Tenderness, Organomegaly - Extremities Exam Extremities Exam: Normal Inspection. absent: Pedal Edema - Neurological Exam Neurological Exam: Altered, sedated - Skin Skin Exam: Dry, Warm Assessment and Plan: Patient is a 73 year old male with a PMHx significant for ischemic cardiomyopathy (EF in 2014 10-15%, elevated RVSP 45, status post AICD), Parkinson's disease, COPD and schizophrenia who was admitted for evaluation and treatment of altered mental status. - Acute liver injury/Elevated Liver Enzymes- likely 2/2 ischemia and drug- induced - Acute encephalopathy - Acute CVA - Systolic congestive heart failure - GO - Continue to monitor LFTs - Sedation vacation and wean off mechanical ventilation per ICU team - Continue famotidine 20mg IV q12 - As per records- after discussion of case with [facility] Hepatology team - Dr Posada there are no plans for transfer in the setting of rapidly improving LFTs and coagulopathy Patient case discussed with and plan approved by attending physician, Dr. Bailey. Objective - Vital Signs/Intake and Output Vital Signs (last 24 hours): Temp Pulse Resp BP Pulse Ox 98.2 F 85 20 111/56 L 90 L 04/05/19 18:20 04/06/19 09:46 04/06/19 07:18 04/06/19 09:46 04/06/19 07:18 Intake and Output: 04/06/19 04/06/19 06:59 18:59 Intake Total 295 30 Balance 295 30 - Medications Medications: Current Medications Aspirin (Aspirin Chewable) 81 mg PO DAILY [facility] Last Admin: 04/06/19 09:47 Dose: 81 mg Famotidine (Pepcid) 20 mg IVP Q12 [facility] Last Admin: 04/06/19 09:47 Dose: 20 mg Heparin Sodium (Porcine) (Heparin) 5,000 units SC Q8 [facility]; Protocol Last Admin: 04/06/19 06:43 Dose: 5,000 units Hydrocortisone Sodium Succinate (Solu-Cortef) 25 mg IVP DAILY [facility] Last Admin: 04/06/19 09:47 Dose: 25 mg Milrinone Lactate/Dextrose (Primacor 20mg/100ml D5w) 100 mls @ 8.792 mls/hr IV .[id number] PRN; Protocol PRN Reason: TITRATE PER MD ORDER Last Admin: 04/06/19 06:06 Dose: 0.375 mcg/kg/min, 8.792 mls/hr Propofol (Diprivan) 1,000 mg in 100 mls @ 2.345 mls/hr IV .Q24H PRN; Protocol PRN Reason: TITRATE PER MD ORDER Last Titration: 04/06/19 11:00 Dose: 30 mcg/kg/min, 14.068 mls/hr Dexmedetomidine HCl (Precedex 400mcg/100ml) 400 mcg in 100 mls @ 3.908 mls/hr IV .Q24H PRN; Protocol PRN Reason: Agitation Last Admin: 04/06/19 10:55 Dose: 0.2 mcg/kg/hr, 3.908 mls/hr Lisinopril (Zestril) 2.5 mg PO DAILY [facility] Last Admin: 04/06/19 09:46 Dose: 2.5 mg Metoprolol Tartrate (Lopressor) 25 mg PO BID [facility] Last Admin: 04/06/19 09:46 Dose: 25 mg Verapamil HCl (Verapamil Inj) 2.5 mg IVP Q6H PRN PRN Reason: Systolic Blood Pressure - Labs Labs: 04/06/19 08:15 04/06/19 08:15 PT 12.2 SECONDS (9.4-12.5) 04/06/19 08:15 INR 1.08 04/06/19 08:15 APTT 36.5 Seconds (26.9-38.3) 04/06/19 08:15 <Kathie Bailey V - Last Filed: 04/07/19 00:04> Objective - Vital Signs/Intake and Output Vital Signs (last 24 hours): Temp Pulse Resp BP Pulse Ox 98.2 F 88 20 111/56 L 90 L 04/05/19 18:20 04/06/19 22:00 04/06/19 07:18 04/06/19 09:46 04/06/19 07:18 Intake and Output: 04/06/19 04/07/19 18:59 06:59 Intake Total 200 Balance 200 - Medications Medications: Current Medications Aspirin (Aspirin Chewable) 81 mg PO DAILY [facility] Last Admin: 04/06/19 09:47 Dose: 81 mg Famotidine (Pepcid) 20 mg IVP Q12 [facility] Last Admin: 04/06/19 21:33 Dose: 20 mg Heparin Sodium (Porcine) (Heparin) 5,000 units SC Q8 [facility]; Protocol Last Admin: 04/06/19 21:32 Dose: 5,000 units Hydrocortisone Sodium Succinate (Solu-Cortef) 25 mg IVP DAILY [facility] Last Admin: 04/06/19 09:47 Dose: 25 mg Milrinone Lactate/Dextrose (Primacor 20mg/100ml D5w) 100 mls @ 8.792 mls/hr IV .[id number] PRN; Protocol PRN Reason: TITRATE PER MD ORDER Last Admin: 04/06/19 15:14 Dose: 0.375 mcg/kg/min, 8.792 mls/hr Propofol (Diprivan) 1,000 mg in 100 mls @ 2.345 mls/hr IV .Q24H PRN; Protocol PRN Reason: TITRATE PER MD ORDER Last Admin: 04/06/19 15:15 Dose: 10 mcg/kg/min, 4.689 mls/hr Dexmedetomidine HCl (Precedex 400mcg/100ml) 400 mcg in 100 mls @ 3.908 mls/hr IV .Q24H PRN; Protocol PRN Reason: Agitation Last Admin: 04/06/19 10:55 Dose: 0.2 mcg/kg/hr, 3.908 mls/hr Lisinopril (Zestril) 2.5 mg PO DAILY [facility] Last Admin: 04/06/19 11:00 Dose: Not Given Metoprolol Tartrate (Lopressor) 25 mg PO BID [facility] Last Admin: 04/06/19 09:46 Dose: 25 mg Verapamil HCl (Verapamil Inj) 2.5 mg IVP Q6H PRN PRN Reason: Systolic Blood Pressure - Labs Labs: 04/06/19 08:15 04/06/19 08:15 PT 12.2 SECONDS (9.4-12.5) 04/06/19 08:15 INR 1.08 04/06/19 08:15 APTT 36.5 Seconds (26.9-38.3) 04/06/19 08:15 Attending/Attestation - Attestation I have personally seen and examined this patient.: Yes I have fully participated in the care of the patient.: Yes I have reviewed all pertinent clinical information, including history, physical exam and plan: Yes Notes (Text): This patient was seen and evaluated here earlier today. Is an addendum to the GI progress note dictated by the resident. Patient remains on vent. Follow-up with LFTs. Follow-up of CBC. 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
--- NOTE | 2019-04-06 13:48 | CP.PCM.PN ---
<Roe Hicks - Last Filed: 04/06/19 16:04> Subjective - Date & Time of Evaluation Date of Evaluation: 04/06/19 Time of Evaluation: 07:30 - Subjective Subjective: Infectious disease progress note: Patient seen and examined at bedside. Fevers have subsided. Pt still sedated and intubated. No other complaints. 12 point ROS unobtainable 2/2 intubation Objective - Vital Signs/Intake and Output Vital Signs (last 24 hours): Temp Pulse Resp BP Pulse Ox 98.2 F 85 20 111/56 L 90 L 04/05/19 18:20 04/06/19 09:46 04/06/19 07:18 04/06/19 09:46 04/06/19 07:18 Intake and Output: 04/06/19 04/06/19 06:59 18:59 Intake Total 295 50 Balance 295 50 - Medications Medications: Current Medications Aspirin (Aspirin Chewable) 81 mg PO DAILY [facility] Last Admin: 04/06/19 09:47 Dose: 81 mg Famotidine (Pepcid) 20 mg IVP Q12 [facility] Last Admin: 04/06/19 09:47 Dose: 20 mg Heparin Sodium (Porcine) (Heparin) 5,000 units SC Q8 [facility]; Protocol Last Admin: 04/06/19 06:43 Dose: 5,000 units Hydrocortisone Sodium Succinate (Solu-Cortef) 25 mg IVP DAILY [facility] Last Admin: 04/06/19 09:47 Dose: 25 mg Milrinone Lactate/Dextrose (Primacor 20mg/100ml D5w) 100 mls @ 8.792 mls/hr IV .[id number] PRN; Protocol PRN Reason: TITRATE PER MD ORDER Last Admin: 04/06/19 06:06 Dose: 0.375 mcg/kg/min, 8.792 mls/hr Propofol (Diprivan) 1,000 mg in 100 mls @ 2.345 mls/hr IV .Q24H PRN; Protocol PRN Reason: TITRATE PER MD ORDER Last Titration: 04/06/19 12:39 Dose: 10 mcg/kg/min, 4.689 mls/hr Dexmedetomidine HCl (Precedex 400mcg/100ml) 400 mcg in 100 mls @ 3.908 mls/hr IV .Q24H PRN; Protocol PRN Reason: Agitation Last Admin: 04/06/19 10:55 Dose: 0.2 mcg/kg/hr, 3.908 mls/hr Lisinopril (Zestril) 2.5 mg PO DAILY [facility] Last Admin: 04/06/19 09:46 Dose: 2.5 mg Metoprolol Tartrate (Lopressor) 25 mg PO BID [facility] Last Admin: 04/06/19 09:46 Dose: 25 mg Verapamil HCl (Verapamil Inj) 2.5 mg IVP Q6H PRN PRN Reason: Systolic Blood Pressure - Labs Labs: 04/06/19 08:15 04/06/19 08:15 PT 12.2 SECONDS (9.4-12.5) 04/06/19 08:15 INR 1.08 04/06/19 08:15 APTT 36.5 Seconds (26.9-38.3) 04/06/19 08:15 - Constitutional Appears: No Acute Distress - Head Exam Head Exam: ATRAUMATIC - Eye Exam Eye Exam: PERRL - ENT Exam ENT Exam: Mucous Membranes Moist - Cardiovascular Exam Cardiovascular Exam: REGULAR RHYTHM, +S1, +S2 - GI/Abdominal Exam GI & Abdominal Exam: Soft. 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 Gavin. <Fredy Gavin - Last Filed: 04/06/19 16:06> Objective - Vital Signs/Intake and Output Vital Signs (last 24 hours): Temp Pulse Resp BP Pulse Ox 98.2 F 68 20 111/56 L 90 L 04/05/19 18:20 04/06/19 14:00 04/06/19 07:18 04/06/19 09:46 04/06/19 07:18 Intake and Output: 04/06/19 04/06/19 06:59 18:59 Intake Total 295 200 Balance 295 200 - Medications Medications: Current Medications Aspirin (Aspirin Chewable) 81 mg PO DAILY [facility] Last Admin: 04/06/19 09:47 Dose: 81 mg Famotidine (Pepcid) 20 mg IVP Q12 [facility] Last Admin: 04/06/19 09:47 Dose: 20 mg Heparin Sodium (Porcine) (Heparin) 5,000 units SC Q8 [facility]; Protocol Last Admin: 04/06/19 15:13 Dose: 5,000 units Hydrocortisone Sodium Succinate (Solu-Cortef) 25 mg IVP DAILY [facility] Last Admin: 04/06/19 09:47 Dose: 25 mg Milrinone Lactate/Dextrose (Primacor 20mg/100ml D5w) 100 mls @ 8.792 mls/hr IV .[id number] PRN; Protocol PRN Reason: TITRATE PER MD ORDER Last Admin: 04/06/19 15:14 Dose: 0.375 mcg/kg/min, 8.792 mls/hr Propofol (Diprivan) 1,000 mg in 100 mls @ 2.345 mls/hr IV .Q24H PRN; Protocol PRN Reason: TITRATE PER MD ORDER Last Admin: 04/06/19 15:15 Dose: 10 mcg/kg/min, 4.689 mls/hr Dexmedetomidine HCl (Precedex 400mcg/100ml) 400 mcg in 100 mls @ 3.908 mls/hr IV .Q24H PRN; Protocol PRN Reason: Agitation Last Admin: 04/06/19 10:55 Dose: 0.2 mcg/kg/hr, 3.908 mls/hr Linezolid (Zyvox 600mg/300ml D5w) 600 mg in 300 mls @ 200 mls/hr IVPB Q12 [facility]; Protocol Stop: 04/06/19 23:29 Lisinopril (Zestril) 2.5 mg PO DAILY [facility] Last Admin: 04/06/19 09:46 Dose: 2.5 mg Metoprolol Tartrate (Lopressor) 25 mg PO BID [facility] Last Admin: 04/06/19 09:46 Dose: 25 mg Verapamil HCl (Verapamil Inj) 2.5 mg IVP Q6H PRN PRN Reason: Systolic Blood Pressure - Labs Labs: 04/06/19 08:15 04/06/19 08:15 PT 12.2 SECONDS (9.4-12.5) 04/06/19 08:15 INR 1.08 04/06/19 08:15 APTT 36.5 Seconds (26.9-38.3) 04/06/19 08:15 Attending/Attestation - Attestation I have personally seen and examined this patient.: Yes I have fully participated in the care of the patient.: Yes I have reviewed all pertinent clinical information, including history, physical exam and plan: Yes
--- NOTE | 2019-04-06 15:12 | CP.PCM.PCO ---
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
[2019-04-06] MEDS ORDERED: Linezolid 600 mg in D5W 300 ml 600 MG/300 ML BAG IVPB SCH (22:00)
[2019-04-07] MEDS: Milrinone 20mg/100ml D5W 100 ML IV PRN ×2 (02:38→14:36)
[2019-04-07 05:50] LABS: EOS % 0.1 % (1.5-5.0); HEMOGLOBIN 12.5 g/dL (14.0-18.0); LYMPH # 0.7 (1.2-3.4); LYMPH % 6.1 % (22.0-35.0); MEAN CELL VOLUME 91.6 fl (80.0-105.0); MEAN CORPUSCULAR HEMOGLOBIN 28.5 pg (25.0-35.0); MEAN CORPUSCULAR HGB CONC 31.1 g/dl (31.0-37.0); MONO # 1.1 (0.1-0.6); MONO % 9.3 % (1.0-6.0); RBC 4.39 10^6/uL (3.5-6.1); RED CELL DISTRIBUTION WIDTH 15.6 % (11.5-14.5); WHITE BLOOD COUNT 11.5 10^3/uL (4.5-11.0)
[2019-04-07 06:12] LABS: ALBUMIN 2.7 g/dL (3.0-4.8); ALT/SGPT 262 U/L (7-56); AST/SGOT 143 U/L (17-59); BLOOD UREA NITROGEN 43 mg/dL (7-21); CALCIUM 10.1 mg/dL (8.4-10.5); GFR NON-AFRICAN AMERICAN > 60
[2019-04-07 06:19] LABS: ARTERIAL BLOOD GAS HCO3 30.4 mmol/L (21-28); ARTERIAL BLOOD GAS HEMOGLOBIN 11.8 g/dL (11.7-17.4); ARTERIAL BLOOD GAS O2 CAPACITY 16.1 mL/dl (16-24); ARTERIAL BLOOD GAS O2 CONTENT 15.6 ML/dl (15-23); ARTERIAL BLOOD GAS O2 SAT 96.6 % (95-98); ARTERIAL BLOOD GAS PCO2 39 mm/Hg (35-45); ARTERIAL BLOOD GAS TCO2 31.6 mmol.L (22-28)
--- NOTE | 2019-04-07 07:12 | CP.CCUPN ---
<Tony Uribe - Last Filed: 04/07/19 13:25> CCU Subjective - Physician Review Subjective (Free Text): Tony Uribe PGY-1 Critical Care Progress Note Patient seen and evaluated at bedside. No acute events reported overnight. Patient currently on Milrinone, Propofol and Precedex drips. Patient remains on mechanical ventilation. Further ROS unobtainable 2/2 clinical condition. CCU Objective - Vital Signs / Intake & Output Vital Signs (Last 4 hours): Vital Signs Pulse 04/07/19 06:00 94 H Intake and Output (Last 8hrs): Intake & Output 04/06/19 04/07/19 04/07/19 22:59 06:59 14:59 Intake Total 150 100 Balance 150 100 Intake: IV 150 100 - Physical Exam Head: Positive for: Atraumatic, Normocephalic Pupils: Positive for: PERRL Extroacular Muscles: Positive for: EOMI Mouth: Positive for: Dry, Other (ETT in place). Negative for: Normal Teeth Nose (External): Positive for: Other (NGT in place in L nares) Neck: Positive for: Normal Range of Motion, Other (L IJ in place) Respiratory/Chest: Positive for: Decreased Breath Sounds, Rales. Negative for: Respiratory Distress, Accessory Muscle Use Cardiovascular: Positive for: Regular Rate and Rhythm, Normal S1, S2 Abdomen: Positive for: Normal Bowel Sounds. Negative for: Tenderness, Distention Genitourinary Male: Positive for: Other (Eric in place) Upper Extremity: Positive for: Normal Inspection, Other (L hand swelling decreased) Lower Extremity: Positive for: Normal Inspection Skin: Positive for: Warm, Dry, Normal Color Psychiatric: Negative for: Alert, Oriented x 3 - Medications Active Medications: Active Medications Generic Name Dose Route Start Last Admin Trade Name Freq PRN Reason Stop Dose Admin Aspirin 81 mg 04/04/19 10:45 04/06/19 09:47 Aspirin Chewable PO 81 mg DAILY AFSANEH Administration Famotidine 20 mg 04/03/19 22:00 04/06/19 21:33 Pepcid IVP 20 mg Q12 AFSANEH Administration Heparin Sodium (Porcine) 5,000 units 04/02/19 14:00 04/07/19 06:10 Heparin SC 5,000 units Q8 AFSANEH Administration Protocol Hydrocortisone Sodium Succinate 25 mg 04/05/19 10:00 04/06/19 09:47 Solu-Cortef IVP 25 mg DAILY AFSANEH Administration Milrinone Lactate/Dextrose 100 mls @ 8.792 mls/hr 04/06/19 05:36 04/07/19 02:38 Primacor 20mg/100ml D5w IV 0.375 mcg/kg/min .[id number] PRN 8.792 mls/hr TITRATE PER MD ORDER Administration Protocol 0.375 MCG/KG/MIN Propofol 1,000 mg in 100 mls @ 2.345 mls/hr 04/06/19 07:35 04/06/19 15:15 Diprivan IV 10 mcg/kg/min .Q24H PRN 4.689 mls/hr TITRATE PER MD ORDER Administration Protocol 5 MCG/KG/MIN Dexmedetomidine HCl 400 mcg in 100 mls @ 3.908 mls/hr 04/06/19 10:12 04/06/19 10:55 Precedex 400mcg/100ml IV 0.2 mcg/kg/hr .Q24H PRN 3.908 mls/hr Agitation Administration Protocol 0.2 MCG/KG/HR Lisinopril 2.5 mg 04/05/19 10:00 04/06/19 11:00 Zestril PO Not Given DAILY [facility] Metoprolol Tartrate 25 mg 04/06/19 10:00 04/06/19 18:00 Lopressor PO Not Given BID [facility] Verapamil HCl 2.5 mg 04/06/19 06:51 Verapamil Inj IVP Q6H PRN Systolic Blood Pressure - Patient Studies Lab Studies: Microbiology Studies 04/01/19 11:30 Blood Culture - Final Blood-Venous NO GROWTH AFTER 5 DAYS Gram Stain - Final TEST NOT PERFORMED 04/01/19 11:00 Blood Culture - Final Blood-Venous NO GROWTH AFTER 5 DAYS Gram Stain - Final TEST NOT PERFORMED 04/05/19 13:37 Gram Stain - Final Sputum Induced Sputum Culture - Preliminary Gram Positive Cocci 04/05/19 13:30 Urine Culture - Final Urine,Eric No Growth (<1,000 CFU/ML) 04/05/19 07:55 Blood Culture - Preliminary Blood NO GROWTH AFTER 24 HOURS 04/05/19 08:15 Blood Culture - Preliminary Blood NO GROWTH AFTER 24 HOURS Lab Studies 04/07/19 04/07/1919 Range/Units 06:00 05:00 05:00 WBC 11.5 H (4.5-11.0) 10^3/uL RBC 4.39 (3.5-6.1) 10^6/uL Hgb 12.5 L (14.0-18.0) g/dL Hct 40.2 L (42.0-52.0) % MCV 91.6 (80.0-105.0) fl MCH 28.5 (25.0-35.0) pg MCHC 31.1 (31.0-37.0) g/dl RDW 15.6 H (11.5-14.5) % Plt Count 130 (120.0-450.0) 10^3/uL MPV 12.0 H (7.0-11.0) fl Neut % (Auto) 84.5 H (50.0-68.0) % Lymph % (Auto) 6.1 L (22.0-35.0) % [place] % (Auto) 9.3 H (1.0-6.0) % Eos % (Auto) 0.1 L (1.5-5.0) % Baso % (Auto) 0.0 (0.0-3.0) % Lymph # (Auto) 0.7 L (1.2-3.4) [place] # (Auto) 1.1 H (0.1-0.6) Eos # (Auto) 0.0 (0.0-0.7) Baso # (Auto) 0.00 (0.0-2.0) K/mm3 Absolute Neuts (auto) 9.68 H (1.4-6.5) PT (9.4-12.5) SECONDS INR APTT (26.9-38.3) Seconds pCO2 39 (35-45) mm/Hg pO2 65.0 L (80-100) mm/Hg HCO3 30.4 H (21-28) mmol/L ABG pH 7.50 H (7.35-7.45) ABG Total CO2 31.6 H (22-28) mmol.L ABG O2 Saturation 96.6 (95-98) % ABG O2 Content 15.6 (15-23) ML/dl ABG Base Excess 6.7 H (-2.0-3.0) mmol/L ABG Hemoglobin 11.8 (11.7-17.4) g/dL ABG Carboxyhemoglobin 2.1 H (0.5-1.5) % POC ABG HHb (Measured) 3.3 (0-5) % ABG Methemoglobin 1.0 (0.0-3.0) % ABG O2 Capacity 16.1 (16-24) mL/dl Hgb O2 Saturation 93.7 L (95.0-98.0) % FiO2 70.0 % Sodium 152 H (132-148) mmol/L Potassium 3.8 (3.6-5.0) mmol/L Chloride 114 H (98-107) mmol/L Carbon Dioxide 35 H (21-33) mmol/L Anion Gap 7 L (10-20) BUN 43 H (7-21) mg/dL Creatinine 1.0 (0.8-1.5) mg/dl Est GFR ( Amer) > 60 Est GFR (Non-Af Amer) > 60 Random Glucose 141 H (70-110) mg/dL Calcium 10.1 (8.4-10.5) mg/dL Phosphorus 2.3 L (2.5-4.5) mg/dL Magnesium 2.7 H (1.7-2.2) mg/dL Total Bilirubin 1.9 H (0.2-1.3) mg/dL AST 143 H D (17-59) U/L ALT 262 H (7-56) U/L Alkaline Phosphatase 80 (38-126) U/L Total Protein 5.4 L (5.8-8.3) g/dL Albumin 2.7 L (3.0-4.8) g/dL Globulin 2.8 gm/dL Albumin/Globulin Ratio 1.0 L (1.1-1.8) Procalcitonin (0.19-0.49) NG/ML RPR (NONREACTIVE) CMV IgG Ab U/mL CMV IgM Ab AU/mL 04/06/19 04/06/19 04/06/19 Range/Units 15:00 08:15 08:15 WBC (4.5-11.0) 10^3/uL RBC (3.5-6.1) 10^6/uL Hgb (14.0-18.0) g/dL Hct (42.0-52.0) % MCV (80.0-105.0) fl MCH (25.0-35.0) pg MCHC (31.0-37.0) g/dl RDW (11.5-14.5) % Plt Count (120.0-450.0) 10^3/uL MPV (7.0-11.0) fl Neut % (Auto) (50.0-68.0) % Lymph % (Auto) (22.0-35.0) % [place] % (Auto) (1.0-6.0) % Eos % (Auto) (1.5-5.0) % Baso % (Auto) (0.0-3.0) % Lymph # (Auto) (1.2-3.4) [place] # (Auto) (0.1-0.6) Eos # (Auto) (0.0-0.7) Baso # (Auto) (0.0-2.0) K/mm3 Absolute Neuts (auto) (1.4-6.5) PT 12.2 (9.4-12.5) SECONDS INR 1.08 APTT 36.5 (26.9-38.3) Seconds pCO2 (35-45) mm/Hg pO2 (80-100) mm/Hg HCO3 (21-28) mmol/L ABG pH (7.35-7.45) ABG Total CO2 (22-28) mmol.L ABG O2 Saturation (95-98) % ABG O2 Content (15-23) ML/dl ABG Base Excess (-2.0-3.0) mmol/L ABG Hemoglobin (11.7-17.4) g/dL ABG Carboxyhemoglobin (0.5-1.5) % POC ABG HHb (Measured) (0-5) % ABG Methemoglobin (0.0-3.0) % ABG O2 Capacity (16-24) mL/dl Hgb O2 Saturation (95.0-98.0) % FiO2 % Sodium 153 H (132-148) mmol/L Potassium 4.1 (3.6-5.0) mmol/L Chloride 117 H (98-107) mmol/L Carbon Dioxide 32 (21-33) mmol/L Anion Gap 9 L (10-20) BUN 49 H (7-21) mg/dL Creatinine 1.2 (0.8-1.5) mg/dl Est GFR ( Amer) > 60 Est GFR (Non-Af Amer) 60 Random Glucose 119 H (70-110) mg/dL Calcium 10.2 (8.4-10.5) mg/dL Phosphorus 3.6 (2.5-4.5) mg/dL Magnesium 2.8 H (1.7-2.2) mg/dL Total Bilirubin 1.9 H (0.2-1.3) mg/dL AST 117 H D (17-59) U/L ALT 350 H (7-56) U/L Alkaline Phosphatase 74 (38-126) U/L Total Protein 5.7 L (5.8-8.3) g/dL Albumin 2.9 L (3.0-4.8) g/dL Globulin 2.8 gm/dL Albumin/Globulin Ratio 1.0 L (1.1-1.8) Procalcitonin 0.07 L (0.19-0.49) NG/ML RPR (NONREACTIVE) CMV IgG Ab U/mL CMV IgM Ab AU/mL 04/06/19 04/05/19 04/05/19 Range/Units 08:15 16:25 16:25 WBC 10.7 D (4.5-11.0) 10^3/uL RBC 4.73 (3.5-6.1) 10^6/uL Hgb 13.2 L (14.0-18.0) g/dL Hct 43.8 (42.0-52.0) % MCV 92.6 (80.0-105.0) fl MCH 27.9 (25.0-35.0) pg MCHC 30.1 L (31.0-37.0) g/dl RDW 15.7 H (11.5-14.5) % Plt Count 172 (120.0-450.0) 10^3/uL MPV 11.6 H (7.0-11.0) fl Neut % (Auto) 82.2 H (50.0-68.0) % Lymph % (Auto) 11.9 L (22.0-35.0) % [place] % (Auto) 5.8 (1.0-6.0) % Eos % (Auto) 0.1 L (1.5-5.0) % Baso % (Auto) 0.0 (0.0-3.0) % Lymph # (Auto) 1.3 (1.2-3.4) [place] # (Auto) 0.6 (0.1-0.6) Eos # (Auto) 0.0 (0.0-0.7) Baso # (Auto) 0.00 (0.0-2.0) K/mm3 Absolute Neuts (auto) 8.82 H (1.4-6.5) PT (9.4-12.5) SECONDS INR APTT (26.9-38.3) Seconds pCO2 (35-45) mm/Hg pO2 (80-100) mm/Hg HCO3 (21-28) mmol/L ABG pH (7.35-7.45) ABG Total CO2 (22-28) mmol.L ABG O2 Saturation (95-98) % ABG O2 Content (15-23) ML/dl ABG Base Excess (-2.0-3.0) mmol/L ABG Hemoglobin (11.7-17.4) g/dL ABG Carboxyhemoglobin (0.5-1.5) % POC ABG HHb (Measured) (0-5) % ABG Methemoglobin (0.0-3.0) % ABG O2 Capacity (16-24) mL/dl Hgb O2 Saturation (95.0-98.0) % FiO2 % Sodium (132-148) mmol/L Potassium (3.6-5.0) mmol/L Chloride (98-107) mmol/L Carbon Dioxide (21-33) mmol/L Anion Gap (10-20) BUN (7-21) mg/dL Creatinine (0.8-1.5) mg/dl Est GFR ( Amer) Est GFR (Non-Af Amer) Random Glucose (70-110) mg/dL Calcium (8.4-10.5) mg/dL Phosphorus (2.5-4.5) mg/dL Magnesium (1.7-2.2) mg/dL Total Bilirubin (0.2-1.3) mg/dL AST (17-59) U/L ALT (7-56) U/L Alkaline Phosphatase (38-126) U/L Total Protein (5.8-8.3) g/dL Albumin (3.0-4.8) g/dL Globulin gm/dL Albumin/Globulin Ratio (1.1-1.8) Procalcitonin (0.19-0.49) NG/ML RPR Nonreactive (NONREACTIVE) CMV IgG Ab >10.00 H U/mL CMV IgM Ab <30.00 AU/mL Laboratory Results - last 24 hr 04/05/19 04/05/19 04/06/19 16:25 16:25 08:15 WBC 10.7 D RBC 4.73 Hgb 13.2 L Hct 43.8 MCV 92.6 MCH 27.9 MCHC 30.1 L RDW 15.7 H Plt Count 172 MPV 11.6 H Neut % (Auto) 82.2 H Lymph % (Auto) 11.9 L [place] % (Auto) 5.8 Eos % (Auto) 0.1 L Baso % (Auto) 0.0 Lymph # (Auto) 1.3 [place] # (Auto) 0.6 Eos # (Auto) 0.0 Baso # (Auto) 0.00 Absolute Neuts (auto) 8.82 H PT INR APTT pCO2 pO2 HCO3 ABG pH ABG Total CO2 ABG O2 Saturation ABG O2 Content ABG Base Excess ABG Hemoglobin ABG Carboxyhemoglobin POC ABG HHb (Measured) ABG Methemoglobin ABG O2 Capacity Hgb O2 Saturation FiO2 Sodium Potassium Chloride Carbon Dioxide Anion Gap BUN Creatinine Est GFR ( Amer) Est GFR (Non-Af Amer) Random Glucose Calcium Phosphorus Magnesium Total Bilirubin AST ALT Alkaline Phosphatase Total Protein Albumin Globulin Albumin/Globulin Ratio Procalcitonin RPR Nonreactive CMV IgG Ab >10.00 H CMV IgM Ab <30.00 04/06/19 04/06/19 04/06/19 08:15 08:15 15:00 WBC RBC Hgb Hct MCV MCH MCHC RDW Plt Count MPV Neut % (Auto) Lymph % (Auto) [place] % (Auto) Eos % (Auto) Baso % (Auto) Lymph # (Auto) [place] # (Auto) Eos # (Auto) Baso # (Auto) Absolute Neuts (auto) PT 12.2 INR 1.08 APTT 36.5 pCO2 pO2 HCO3 ABG pH ABG Total CO2 ABG O2 Saturation ABG O2 Content ABG Base Excess ABG Hemoglobin ABG Carboxyhemoglobin POC ABG HHb (Measured) ABG Methemoglobin ABG O2 Capacity Hgb O2 Saturation FiO2 Sodium 153 H Potassium 4.1 Chloride 117 H Carbon Dioxide 32 Anion Gap 9 L BUN 49 H Creatinine 1.2 Est GFR ( Amer) > 60 Est GFR (Non-Af Amer) 60 Random Glucose 119 H Calcium 10.2 Phosphorus 3.6 Magnesium 2.8 H Total Bilirubin 1.9 H AST 117 H D ALT 350 H Alkaline Phosphatase 74 Total Protein 5.7 L Albumin 2.9 L Globulin 2.8 Albumin/Globulin Ratio 1.0 L Procalcitonin 0.07 L RPR CMV IgG Ab CMV IgM Ab 04/07/19 04/07/19 04/07/19 05:00 05:00 06:00 WBC 11.5 H RBC 4.39 Hgb 12.5 L Hct 40.2 L MCV 91.6 MCH 28.5 MCHC 31.1 RDW 15.6 H Plt Count 130 MPV 12.0 H Neut % (Auto) 84.5 H Lymph % (Auto) 6.1 L [place] % (Auto) 9.3 H Eos % (Auto) 0.1 L Baso % (Auto) 0.0 Lymph # (Auto) 0.7 L [place] # (Auto) 1.1 H Eos # (Auto) 0.0 Baso # (Auto) 0.00 Absolute Neuts (auto) 9.68 H PT INR APTT pCO2 39 pO2 65.0 L HCO3 30.4 H ABG pH 7.50 H ABG Total CO2 31.6 H ABG O2 Saturation 96.6 ABG O2 Content 15.6 ABG Base Excess 6.7 H ABG Hemoglobin 11.8 ABG Carboxyhemoglobin 2.1 H POC ABG HHb (Measured) 3.3 ABG Methemoglobin 1.0 ABG O2 Capacity 16.1 Hgb O2 Saturation 93.7 L FiO2 70.0 Sodium 152 H Potassium 3.8 Chloride 114 H Carbon Dioxide 35 H Anion Gap 7 L BUN 43 H Creatinine 1.0 Est GFR ( Amer) > 60 Est GFR (Non-Af Amer) > 60 Random Glucose 141 H Calcium 10.1 Phosphorus 2.3 L Magnesium 2.7 H Total Bilirubin 1.9 H AST 143 H D ALT 262 H Alkaline Phosphatase 80 Total Protein 5.4 L Albumin 2.7 L Globulin 2.8 Albumin/Globulin Ratio 1.0 L Procalcitonin RPR CMV IgG Ab CMV IgM Ab Radiology Impressions: Radiology Impressions Chest X-Ray 04/06/19 06:00 IMPRESSION: Bibasilar infiltrates and small effusions Review of Systems - Review of Systems Systems not reviewed;Unavailable: Altered Mental Status Critical Care Progress Note - Nutrition Nutrition: Nutrition Category Date Time Status NPO Diet [DIET] Diets 04/01/19 Breakfast Ordered Assessment/Plan - Assessment and Plan (Free Text) Assessment: 73 yo male with PMHx significant for ischemic cardiomyopathy (EF 9%, elevated RVSP 45, status post AICD), COPD and schizophrenia who was brought in by ambulance for altered mental status. Currently in ICU for multi system organ failure and respiratory distress and sustained toxic metabolic encephalopathy. Neuro: -Sustained AMS in setting of toxic metabolic encephalopathy -04/04/[address] head showed small 4 mm lacunar infarct, Neuro on board -04/05/19 24 hour vEEG completed, no evidence of seizures or status, severe cortical disturbance -GCS 3T, agitation noted, continue Propofol and Precedex drip -Possible overdose of Ambien as etiology of AMS, benzos in Utox -Monitor neuro status. -Neuro on consult - Dr. Gibbons- further recs appreciated in setting of sustained encephalopathy Cardio: -L IJ access, L sided dual lead AICD AV paced -04/03/19 Echo: LVEF 9%, dilated IVC -Continue stress dose steroids at 25 mg daily -Continue Milrinone drip -Continue Verapamil 2.5 mg IVP q6h PRN with holding parameters and Lopressor 25 mg BID -Lasix 40 mg IVP daily -C/w Aspirin 81 mg -C/w Lisinopril 2.5 mg -proBNP>40,000, EF 15% -Maintain MAP>65. -Monitor for S/S of HD compromise. -Cardiology on Consult - Dr. Taylor - recs appreciated Pulm: -PRVC 70///450 currently, increase FiO2 to 80% 2/2 alkalosis, currently overbreathing the vent -Trial pressure support, weaning trial and sedation vacation -04/07/19 CXR shows R sided consolidation -04/07 ABG shows metabolic alkalosis, plan to repeat ABG in afternoon after planned endobronch to remove likely R sided plug -Maintain O2 saturation >92%. -O2 NC PRN -Vent: protective lung ventilation strategy, aspiration precautions -Elevate bed to 30 degrees GI: -NPO, tube feeding -Pepcid IVP daily -Completed 3 doses of NAC on 04/02/19, improving LFTs; INR improved -possibility of congestive hepatopathy 2/2 congestive heart failure -04/01/19 Abd U/S shows Cholelithiasis. Diffuse gallbladder wall thickening is likely secondary to systemic disease. 2. Chronic renal parenchymal disease. 3. Diffuse increased echogenicity in the liver with coarse echotexture may reflect hepatic steatosis however parenchymal infectious/ inflammatory etiologies cannot be entirely excluded. -GI on consult - Dr. Bailey - further recs appreciated. [facility] in contact /Nephro: -GO likely 2/2 congestive nephropathy -Good urine output through Eric -Hypernatremic, likely 2/2 Na load in Fentanyl -Continue monitoring. -Replete electrolytes as needed. -Maintain euvolemia. Endocrinology: -Random glucose: 138 -Hgb a1c 6.4 -TSH 0.39, T4 6.9 -Maintain euglycemia. Heme/Onc: -H/H stable -No signs of HD compromise. -Continue monitoring H/H ID: -Leukocytosis, likely 2/2 steroids vs R sided consolidation -Off antibiotics per ID, likely [employer] fever. Consider restarting in light of MRSA from sputum cx -CMV IgG positive -Negative toxo, RPR, TB, Leptospira for etiology of sustained AMS -BCx neg after 5 days, UCx negative -Repeat bcx neg after 24 hours, repeat urine cx neg -MRSA in new sputum cx -Procalcitonin 0.55 -Monitor for signs and symptoms of infection. -ID on consult - Dr. Gavin - recs appreciated DVT prophylaxis: Heparin SC GI prophylaxis: Pepcid Dispo: Palliative on board Patient seen, case reviewed and plan approved by Dr. Goldie Burrell. Tony Uribe, PGY-1 <Juan Burrell - Last Filed: 04/07/19 14:52> CCU Objective - Vital Signs / Intake & Output Vital Signs (Last 4 hours): Vital Signs Pulse BP 04/07/19 14:36 89 103/49 L Intake and Output (Last 8hrs): Intake & Output 04/06/19 04/07/19 04/07/19 22:59 06:59 14:59 Intake Total 150 100 200 Balance 150 100 200 Intake: IV 150 100 200 - Medications Active Medications: Active Medications Generic Name Dose Route Start Last Admin Trade Name Freq PRN Reason Stop Dose Admin Aspirin 81 mg 04/04/19 10:45 04/07/19 09:52 Aspirin Chewable PO 81 mg DAILY AFSANEH Administration Famotidine 20 mg 04/03/19 22:00 04/07/19 09:50 Pepcid IVP 20 mg Q12 AFSANEH Administration Heparin Sodium (Porcine) 5,000 units 04/02/19 14:00 04/07/19 06:10 Heparin SC 5,000 units Q8 AFSANEH Administration Protocol Hydrocortisone Sodium Succinate 25 mg 04/05/19 10:00 04/07/19 09:51 Solu-Cortef IVP 25 mg DAILY AFSANEH Administration Milrinone Lactate/Dextrose 100 mls @ 8.792 mls/hr 04/06/19 05:36 04/07/19 14:36 Primacor 20mg/100ml D5w IV 0.375 mcg/kg/min .[id number] PRN 8.792 mls/hr TITRATE PER MD ORDER Administration Protocol 0.375 MCG/KG/MIN Propofol 1,000 mg in 100 mls @ 2.345 mls/hr 04/06/19 07:35 04/06/19 15:15 Diprivan IV 10 mcg/kg/min .Q24H PRN 4.689 mls/hr TITRATE PER MD ORDER Administration Protocol 5 MCG/KG/MIN Dexmedetomidine HCl 400 mcg in 100 mls @ 3.908 mls/hr 04/06/19 10:12 04/07/19 07:18 Precedex 400mcg/100ml IV 0.2 mcg/kg/hr .Q24H PRN 3.908 mls/hr Agitation Administration Protocol 0.2 MCG/KG/HR Dextrose 1,000 mls @ 100 mls/hr 04/07/19 13:30 04/07/19 13:40 Dextrose 5% In Water 1000 Ml IV 04/07/19 23:29 100 mls/hr .Q10H AFSANEH Administration Lisinopril 2.5 mg 04/05/19 10:00 04/07/19 09:53 Zestril PO Not Given DAILY [facility] Metoprolol Tartrate 25 mg 04/06/19 10:00 04/07/19 09:53 Lopressor PO Not Given BID [facility] Verapamil HCl 2.5 mg 04/06/19 06:51 Verapamil Inj IVP Q6H PRN Systolic Blood Pressure - Patient Studies Lab Studies: Microbiology Studies 04/05/19 07:55 Blood Culture - Preliminary Blood NO GROWTH AFTER 48 HOURS 04/05/19 08:15 Blood Culture - Preliminary Blood NO GROWTH AFTER 48 HOURS 04/05/19 13:37 Gram Stain - Final Sputum Induced Sputum Culture - Final Methicillin Resistant S Aureus 04/01/19 11:30 Blood Culture - Final Blood-Venous NO GROWTH AFTER 5 DAYS Gram Stain - Final TEST NOT PERFORMED 04/01/19 11:00 Blood Culture - Final Blood-Venous NO GROWTH AFTER 5 DAYS Gram Stain - Final TEST NOT PERFORMED Lab Studies 04/07/19 04/07/19 04/07/19 Range/Units 13:50 06:00 05:00 WBC (4.5-11.0) 10^3/uL RBC (3.5-6.1) 10^6/uL Hgb (14.0-18.0) g/dL Hct (42.0-52.0) % MCV (80.0-105.0) fl MCH (25.0-35.0) pg MCHC (31.0-37.0) g/dl RDW (11.5-14.5) % Plt Count (120.0-450.0) 10^3/uL MPV (7.0-11.0) fl Neut % (Auto) (50.0-68.0) % Lymph % (Auto) (22.0-35.0) % [place] % (Auto) (1.0-6.0) % Eos % (Auto) (1.5-5.0) % Baso % (Auto) (0.0-3.0) % Lymph # (Auto) (1.2-3.4) [place] # (Auto) (0.1-0.6) Eos # (Auto) (0.0-0.7) Baso # (Auto) (0.0-2.0) K/mm3 Absolute Neuts (auto) (1.4-6.5) pCO2 44 39 (35-45) mm/Hg pO2 189.0 H 65.0 L (80-100) mm/Hg HCO3 33.5 H 30.4 H (21-28) mmol/L ABG pH 7.49 H 7.50 H (7.35-7.45) ABG Total CO2 34.9 H 31.6 H (22-28) mmol.L ABG O2 Saturation 99.8 H 96.6 (95-98) % ABG O2 Content 16.3 15.6 (15-23) ML/dl ABG Base Excess 9.1 H 6.7 H (-2.0-3.0) mmol/L ABG Hemoglobin 11.7 11.8 (11.7-17.4) g/dL ABG Carboxyhemoglobin 1.8 H 2.1 H (0.5-1.5) % POC ABG HHb (Measured) 0.2 3.3 (0-5) % ABG Methemoglobin 1.4 1.0 (0.0-3.0) % ABG O2 Capacity 16.3 16.1 (16-24) mL/dl Hgb O2 Saturation 96.6 93.7 L (95.0-98.0) % FiO2 100.0 70.0 % Sodium 152 H (132-148) mmol/L Potassium 3.8 (3.6-5.0) mmol/L Chloride 114 H (98-107) mmol/L Carbon Dioxide 35 H (21-33) mmol/L Anion Gap 7 L (10-20) BUN 43 H (7-21) mg/dL Creatinine 1.0 (0.8-1.5) mg/dl Est GFR ( Amer) > 60 Est GFR (Non-Af Amer) > 60 Random Glucose 141 H (70-110) mg/dL Calcium 10.1 (8.4-10.5) mg/dL Phosphorus 2.3 L (2.5-4.5) mg/dL Magnesium 2.7 H (1.7-2.2) mg/dL Total Bilirubin 1.9 H (0.2-1.3) mg/dL AST 143 H D (17-59) U/L ALT 262 H (7-56) U/L Alkaline Phosphatase 80 (38-126) U/L Total Protein 5.4 L (5.8-8.3) g/dL Albumin 2.7 L (3.0-4.8) g/dL Globulin 2.8 gm/dL Albumin/Globulin Ratio 1.0 L (1.1-1.8) Procalcitonin (0.19-0.49) NG/ML RPR (NONREACTIVE) CMV IgG Ab U/mL CMV IgM Ab AU/mL TB Test (QFT) Nil IU/mL TB Test Mitogen - Nil IU/mL TB Test Antigen - Nil IU/mL TB Test TB - Nil IU/mL TB Test (QFT) (Negative) 04/07/19 04/06/19 04/05/19 Range/Units 05:00 15:00 16:25 WBC 11.5 H (4.5-11.0) 10^3/uL RBC 4.39 (3.5-6.1) 10^6/uL Hgb 12.5 L (14.0-18.0) g/dL Hct 40.2 L (42.0-52.0) % MCV 91.6 (80.0-105.0) fl MCH 28.5 (25.0-35.0) pg MCHC 31.1 (31.0-37.0) g/dl RDW 15.6 H (11.5-14.5) % Plt Count 130 (120.0-450.0) 10^3/uL MPV 12.0 H (7.0-11.0) fl Neut % (Auto) 84.5 H (50.0-68.0) % Lymph % (Auto) 6.1 L (22.0-35.0) % [place] % (Auto) 9.3 H (1.0-6.0) % Eos % (Auto) 0.1 L (1.5-5.0) % Baso % (Auto) 0.0 (0.0-3.0) % Lymph # (Auto) 0.7 L (1.2-3.4) [place] # (Auto) 1.1 H (0.1-0.6) Eos # (Auto) 0.0 (0.0-0.7) Baso # (Auto) 0.00 (0.0-2.0) K/mm3 Absolute Neuts (auto) 9.68 H (1.4-6.5) pCO2 (35-45) mm/Hg pO2 (80-100) mm/Hg HCO3 (21-28) mmol/L ABG pH (7.35-7.45) ABG Total CO2 (22-28) mmol.L ABG O2 Saturation (95-98) % ABG O2 Content (15-23) ML/dl ABG Base Excess (-2.0-3.0) mmol/L ABG Hemoglobin (11.7-17.4) g/dL ABG Carboxyhemoglobin (0.5-1.5) % POC ABG HHb (Measured) (0-5) % ABG Methemoglobin (0.0-3.0) % ABG O2 Capacity (16-24) mL/dl Hgb O2 Saturation (95.0-98.0) % FiO2 % Sodium (132-148) mmol/L Potassium (3.6-5.0) mmol/L Chloride (98-107) mmol/L Carbon Dioxide (21-33) mmol/L Anion Gap (10-20) BUN (7-21) mg/dL Creatinine (0.8-1.5) mg/dl Est GFR ( Amer) Est GFR (Non-Af Amer) Random Glucose (70-110) mg/dL Calcium (8.4-10.5) mg/dL Phosphorus (2.5-4.5) mg/dL Magnesium (1.7-2.2) mg/dL Total Bilirubin (0.2-1.3) mg/dL AST (17-59) U/L ALT (7-56) U/L Alkaline Phosphatase (38-126) U/L Total Protein (5.8-8.3) g/dL Albumin (3.0-4.8) g/dL Globulin gm/dL Albumin/Globulin Ratio (1.1-1.8) Procalcitonin 0.07 L (0.19-0.49) NG/ML RPR Nonreactive (NONREACTIVE) CMV IgG Ab U/mL CMV IgM Ab AU/mL TB Test (QFT) Nil IU/mL TB Test Mitogen - Nil IU/mL TB Test Antigen - Nil IU/mL TB Test TB - Nil IU/mL TB Test (QFT) (Negative) 04/05/19 04/05/19 Range/Units 16:25 16:25 WBC (4.5-11.0) 10^3/uL RBC (3.5-6.1) 10^6/uL Hgb (14.0-18.0) g/dL Hct (42.0-52.0) % MCV (80.0-105.0) fl MCH (25.0-35.0) pg MCHC (31.0-37.0) g/dl RDW (11.5-14.5) % Plt Count (120.0-450.0) 10^3/uL MPV (7.0-11.0) fl Neut % (Auto) (50.0-68.0) % Lymph % (Auto) (22.0-35.0) % [place] % (Auto) (1.0-6.0) % Eos % (Auto) (1.5-5.0) % Baso % (Auto) (0.0-3.0) % Lymph # (Auto) (1.2-3.4) [place] # (Auto) (0.1-0.6) Eos # (Auto) (0.0-0.7) Baso # (Auto) (0.0-2.0) K/mm3 Absolute Neuts (auto) (1.4-6.5) pCO2 (35-45) mm/Hg pO2 (80-100) mm/Hg HCO3 (21-28) mmol/L ABG pH (7.35-7.45) ABG Total CO2 (22-28) mmol.L ABG O2 Saturation (95-98) % ABG O2 Content (15-23) ML/dl ABG Base Excess (-2.0-3.0) mmol/L ABG Hemoglobin (11.7-17.4) g/dL ABG Carboxyhemoglobin (0.5-1.5) % POC ABG HHb (Measured) (0-5) % ABG Methemoglobin (0.0-3.0) % ABG O2 Capacity (16-24) mL/dl Hgb O2 Saturation (95.0-98.0) % FiO2 % Sodium (132-148) mmol/L Potassium (3.6-5.0) mmol/L Chloride (98-107) mmol/L Carbon Dioxide (21-33) mmol/L Anion Gap (10-20) BUN (7-21) mg/dL Creatinine (0.8-1.5) mg/dl Est GFR ( Amer) Est GFR (Non-Af Amer) Random Glucose (70-110) mg/dL Calcium (8.4-10.5) mg/dL Phosphorus (2.5-4.5) mg/dL Magnesium (1.7-2.2) mg/dL Total Bilirubin (0.2-1.3) mg/dL AST (17-59) U/L ALT (7-56) U/L Alkaline Phosphatase (38-126) U/L Total Protein (5.8-8.3) g/dL Albumin (3.0-4.8) g/dL Globulin gm/dL Albumin/Globulin Ratio (1.1-1.8) Procalcitonin (0.19-0.49) NG/ML RPR (NONREACTIVE) CMV IgG Ab >10.00 H U/mL CMV IgM Ab <30.00 AU/mL TB Test (QFT) Nil 0.02 IU/mL TB Test Mitogen - Nil >10.00 IU/mL TB Test Antigen - Nil 0.00 IU/mL TB Test TB - Nil 0.00 IU/mL TB Test (QFT) Negative (Negative) Laboratory Results - last 24 hr 04/05/19 04/05/19 04/05/19 16:25 16:25 16:25 WBC RBC Hgb Hct MCV MCH MCHC RDW Plt Count MPV Neut % (Auto) Lymph % (Auto) [place] % (Auto) Eos % (Auto) Baso % (Auto) Lymph # (Auto) [place] # (Auto) Eos # (Auto) Baso # (Auto) Absolute Neuts (auto) pCO2 pO2 HCO3 ABG pH ABG Total CO2 ABG O2 Saturation ABG O2 Content ABG Base Excess ABG Hemoglobin ABG Carboxyhemoglobin POC ABG HHb (Measured) ABG Methemoglobin ABG O2 Capacity Hgb O2 Saturation FiO2 Sodium Potassium Chloride Carbon Dioxide Anion Gap BUN Creatinine Est GFR ( Amer) Est GFR (Non-Af Amer) Random Glucose Calcium Phosphorus Magnesium Total Bilirubin AST ALT Alkaline Phosphatase Total Protein Albumin Globulin Albumin/Globulin Ratio Procalcitonin RPR Nonreactive CMV IgG Ab >10.00 H CMV IgM Ab <30.00 TB Test (QFT) Nil 0.02 TB Test Mitogen - Nil >10.00 TB Test Antigen - Nil 0.00 TB Test TB - Nil 0.00 TB Test (QFT) Negative 04/06/19 04/07/19 04/07/19 15:00 05:00 05:00 WBC 11.5 H RBC 4.39 Hgb 12.5 L Hct 40.2 L MCV 91.6 MCH 28.5 MCHC 31.1 RDW 15.6 H Plt Count 130 MPV 12.0 H Neut % (Auto) 84.5 H Lymph % (Auto) 6.1 L [place] % (Auto) 9.3 H Eos % (Auto) 0.1 L Baso % (Auto) 0.0 Lymph # (Auto) 0.7 L [place] # (Auto) 1.1 H Eos # (Auto) 0.0 Baso # (Auto) 0.00 Absolute Neuts (auto) 9.68 H pCO2 pO2 HCO3 ABG pH ABG Total CO2 ABG O2 Saturation ABG O2 Content ABG Base Excess ABG Hemoglobin ABG Carboxyhemoglobin POC ABG HHb (Measured) ABG Methemoglobin ABG O2 Capacity Hgb O2 Saturation FiO2 Sodium 152 H Potassium 3.8 Chloride 114 H Carbon Dioxide 35 H Anion Gap 7 L BUN 43 H Creatinine 1.0 Est GFR ( Amer) > 60 Est GFR (Non-Af Amer) > 60 Random Glucose 141 H Calcium 10.1 Phosphorus 2.3 L Magnesium 2.7 H Total Bilirubin 1.9 H AST 143 H D ALT 262 H Alkaline Phosphatase 80 Total Protein 5.4 L Albumin 2.7 L Globulin 2.8 Albumin/Globulin Ratio 1.0 L Procalcitonin 0.07 L RPR CMV IgG Ab CMV IgM Ab TB Test (QFT) Nil TB Test Mitogen - Nil TB Test Antigen - Nil TB Test TB - Nil TB Test (QFT) 04/07/19 04/07/19 06:00 13:50 WBC RBC Hgb Hct MCV MCH MCHC RDW Plt Count MPV Neut % (Auto) Lymph % (Auto) [place] % (Auto) Eos % (Auto) Baso % (Auto) Lymph # (Auto) [place] # (Auto) Eos # (Auto) Baso # (Auto) Absolute Neuts (auto) pCO2 39 44 pO2 65.0 L 189.0 H HCO3 30.4 H 33.5 H ABG pH 7.50 H 7.49 H ABG Total CO2 31.6 H 34.9 H ABG O2 Saturation 96.6 99.8 H ABG O2 Content 15.6 16.3 ABG Base Excess 6.7 H 9.1 H ABG Hemoglobin 11.8 11.7 ABG Carboxyhemoglobin 2.1 H 1.8 H POC ABG HHb (Measured) 3.3 0.2 ABG Methemoglobin 1.0 1.4 ABG O2 Capacity 16.1 16.3 Hgb O2 Saturation 93.7 L 96.6 FiO2 70.0 100.0 Sodium Potassium Chloride Carbon Dioxide Anion Gap BUN Creatinine Est GFR ( Amer) Est GFR (Non-Af Amer) Random Glucose Calcium Phosphorus Magnesium Total Bilirubin AST ALT Alkaline Phosphatase Total Protein Albumin Globulin Albumin/Globulin Ratio Procalcitonin RPR CMV IgG Ab CMV IgM Ab TB Test (QFT) Nil TB Test Mitogen - Nil TB Test Antigen - Nil TB Test TB - Nil TB Test (QFT) Radiology Impressions: Radiology Impressions Chest X-Ray 04/07/19 06:00 IMPRESSION: There is now complete opacification and volume loss in the right lung consistent with atelectasis. This is most likely due to a mucus plug. Endotracheal tube and nasogastric tube are in satisfactory position Critical Care Progress Note - Nutrition Nutrition: Nutrition Category Date Time Status NPO Diet [DIET] Diets 04/01/19 Breakfast Ordered Addendum Addendum: 04/07/19 14:50 MICU Attending addendum Patient seen and examined with housestaff Agree with resident note above with the follow add/exceptions: 73 male with PMHx systolic CHF, ischemic cardiomyopathy (EF in 2014 10-15%, s/p AICD), COPD and schizophrenia being tx for altered mental status, toxic metabolic encephalopathy and acute liver failure. Liver failure improving based on LFTs and INR trend down. Eito possbile hepatic congestion. Remains intubated, very agitated when weaned off sedeation. Unable to extubate at this time. More hypxic today, CXR shows white out of right lung will get consent for bronch today EEG shows NO seizure activity, does show toxic metabolic encepahlopath Neurology following Cont to monitor in ICU Pal care on board Rest of care as per above resident note Juan Burrell MD MICU Attending
[2019-04-07] MEDS: Dexmedetomidine 400mcg/100mL 400 MCG/100 ML BOTTLE IV PRN (07:18)
--- NOTE | 2019-04-07 08:40 | PN ---
DATE: 04/07/2019 SUBJECTIVE: The patient is in bed, in no acute distress, nontoxic, remains intubated on a ventilator. PHYSICAL EXAMINATION: VITAL SIGNS: Temperature is 98, T-max was 100.6. HEENT: Unremarkable. NECK: Supple. ET tube is in place. LUNGS: Have decreased breath sounds. HEART: Normal S1, S2. ABDOMEN: Soft, nontender. LABORATORY DATA: Laboratory examination reveals a white count of 11,500, hemoglobin of 12, platelets of 130, BUN of 43, creatinine of 1. Procalcitonin 0.07. Urinalysis is noted. Toxicology is noted. Sputum cultures, gram-positive cocci, moderate growth, on a Gram stain no organism was seen. Nasal MRSA screen is negative. This morning's chest x-ray results are pending. Yesterday's x-ray showed bibasilar infiltrates and small effusions. ASSESSMENT AND PLAN: This is a 73-year-old with systemic inflammatory response syndrome, multiorgan failure, source not clear, now with respiratory failure, intubated on a ventilator with healthcare-associated pneumonia, altered mental status and acute liver failure, acute kidney injury on top of chronic kidney disease, acute congestive heart failure which is systolic congestive heart failure on top of chronic congestive heart failure in a patient with coronary artery disease and history of coronary bypass graft. The patient developed sepsis with severe sepsis now with respiratory failure and healthcare-associated pneumonia, did have fevers 3 to 4 days after admission. We will check on the identification and see if it is not positive cocci in the sputum and follow closely with you. Fredy Gavin MD
--- NOTE | 2019-04-07 08:49 | RAD ---
Date of service: 04/07/2019 HISTORY: tube placements COMPARISON: 04/06/2019 TECHNIQUE: 1 view obtained. FINDINGS: LUNGS: There is now complete opacification and volume loss in the right lung consistent with atelectasis. This is most likely due to a mucus plug. Endotracheal tube and nasogastric tube are in satisfactory position PLEURA: No significant pleural effusion identified, no pneumothorax apparent. CARDIOVASCULAR: No aortic atherosclerotic calcification present. Normal cardiac size. No pulmonary vascular congestion. OSSEOUS STRUCTURES: No significant abnormalities. VISUALIZED UPPER ABDOMEN: Normal. OTHER FINDINGS: None. IMPRESSION: There is now complete opacification and volume loss in the right lung consistent with atelectasis. This is most likely due to a mucus plug. Endotracheal tube and nasogastric tube are in satisfactory position
--- NOTE | 2019-04-07 10:57 | CP.PCM.PN ---
<Shannen Cesar - Last Filed: 04/07/19 10:59> Subjective - Date & Time of Evaluation Date of Evaluation: 04/07/19 Time of Evaluation: 10:00 - Subjective Subjective: PGY5 GI Follow-up Pt was intubated and moving grossly all limbs opens eyes spontaneously as per RN no overnight events ROS: could not be conducted 2/2 intubation and sedation Objective - Vital Signs/Intake and Output Vital Signs (last 24 hours): Temp Pulse Resp BP Pulse Ox 98.2 F 94 H 20 125/53 L 90 L 04/05/19 18:20 04/07/19 06:00 04/06/19 07:18 04/07/19 02:38 04/06/19 07:18 Intake and Output: 04/07/19 04/07/19 06:59 18:59 Intake Total 100 100 Balance 100 100 - Medications Medications: Current Medications Aspirin (Aspirin Chewable) 81 mg PO DAILY [facility] Last Admin: 04/07/19 09:52 Dose: 81 mg Famotidine (Pepcid) 20 mg IVP Q12 [facility] Last Admin: 04/07/19 09:50 Dose: 20 mg Heparin Sodium (Porcine) (Heparin) 5,000 units SC Q8 [facility]; Protocol Last Admin: 04/07/19 06:10 Dose: 5,000 units Hydrocortisone Sodium Succinate (Solu-Cortef) 25 mg IVP DAILY [facility] Last Admin: 04/07/19 09:51 Dose: 25 mg Milrinone Lactate/Dextrose (Primacor 20mg/100ml D5w) 100 mls @ 8.792 mls/hr IV .[id number] PRN; Protocol PRN Reason: TITRATE PER MD ORDER Last Admin: 04/07/19 02:38 Dose: 0.375 mcg/kg/min, 8.792 mls/hr Propofol (Diprivan) 1,000 mg in 100 mls @ 2.345 mls/hr IV .Q24H PRN; Protocol PRN Reason: TITRATE PER MD ORDER Last Admin: 04/06/19 15:15 Dose: 10 mcg/kg/min, 4.689 mls/hr Dexmedetomidine HCl (Precedex 400mcg/100ml) 400 mcg in 100 mls @ 3.908 mls/hr IV .Q24H PRN; Protocol PRN Reason: Agitation Last Admin: 04/07/19 07:18 Dose: 0.2 mcg/kg/hr, 3.908 mls/hr Lisinopril (Zestril) 2.5 mg PO DAILY [facility] Last Admin: 04/07/19 09:53 Dose: Not Given Metoprolol Tartrate (Lopressor) 25 mg PO BID [facility] Last Admin: 04/07/19 09:53 Dose: Not Given Verapamil HCl (Verapamil Inj) 2.5 mg IVP Q6H PRN PRN Reason: Systolic Blood Pressure - Labs Labs: 04/07/19 05:00 04/07/19 05:00 PT 12.2 SECONDS (9.4-12.5) 04/06/19 08:15 INR 1.08 04/06/19 08:15 APTT 36.5 Seconds (26.9-38.3) 04/06/19 08:15 - Constitutional Appears: No Acute Distress, Chronically Ill - Head Exam Head Exam: ATRAUMATIC, NORMOCEPHALIC - Eye Exam Eye Exam: Normal appearance - ENT Exam ENT Exam: Mucous Membranes Moist Additional comments: ET tube in place - Neck Exam Neck Exam: Normal Inspection - Respiratory Exam Respiratory Exam: Clear to Ausculation Bilateral, NORMAL BREATHING PATTERN. absent: Rales, Rhonchi, Wheezes, Respiratory Distress - Cardiovascular Exam Cardiovascular Exam: REGULAR RHYTHM, +S1, +S2 - GI/Abdominal Exam GI & Abdominal Exam: Soft, Normal Bowel Sounds. absent: Distended, Guarding, Rigid, Tenderness, Organomegaly, Rebound - Extremities Exam Extremities Exam: absent: Joint Swelling, Pedal Edema - Neurological Exam Neurological Exam: Altered - Psychiatric Exam Additional comments: cannot assess - Skin Skin Exam: Dry, Intact, Normal Color, Warm Additional comments: cannot assess Assessment and Plan - Assessment and Plan (Free Text) Assessment: Patient is a 73 year old male with a PMHx significant for ischemic cardiomyopathy (EF in 2014 10-15%, elevated RVSP 45, status post AICD), Parkinson's disease, COPD and schizophrenia who was admitted for evaluation and treatment of altered mental status. - Acute liver injury/Elevated Liver Enzymes- likely 2/2 ischemia and drug- induced, (lfts plateauing) - Acute encephalopathy - Acute CVA - Systolic congestive heart failure - GO - Continue to monitor LFTs - Sedation vacation and wean off mechanical ventilation per ICU team - Continue famotidine 20mg IV q12 - As per records- after discussion of case with [facility] Hepatology team - Dr Posada there are no plans for transfer in the setting of rapidly improving LFTs and coagulopathy -Daily MELD labs including: CMP and INR Will d/w, Dr. Bailey. <Kathie Bailey V - Last Filed: 04/07/19 23:09> Objective - Vital Signs/Intake and Output Vital Signs (last 24 hours): Temp Pulse Resp BP Pulse Ox 98.2 F 83 20 103/49 L 90 L 04/05/19 18:20 04/07/19 17:56 04/06/19 07:18 04/07/19 14:36 04/06/19 07:18 Intake and Output: 04/07/19 04/08/19 18:59 06:59 Intake Total 200 Balance 200 - Medications Medications: Current Medications Aspirin (Aspirin Chewable) 81 mg PO DAILY [facility] Last Admin: 04/07/19 09:52 Dose: 81 mg Famotidine (Pepcid) 20 mg IVP Q12 [facility] Last Admin: 04/07/19 22:44 Dose: 20 mg Heparin Sodium (Porcine) (Heparin) 5,000 units SC Q8 [facility]; Protocol Last Admin: 04/07/19 22:43 Dose: 5,000 units Hydrocortisone Sodium Succinate (Solu-Cortef) 25 mg IVP DAILY [facility] Last Admin: 04/07/19 09:51 Dose: 25 mg Milrinone Lactate/Dextrose (Primacor 20mg/100ml D5w) 100 mls @ 8.792 mls/hr IV .[id number] PRN; Protocol PRN Reason: TITRATE PER MD ORDER Last Admin: 04/07/19 14:36 Dose: 0.375 mcg/kg/min, 8.792 mls/hr Propofol (Diprivan) 1,000 mg in 100 mls @ 2.345 mls/hr IV .Q24H PRN; Protocol PRN Reason: TITRATE PER MD ORDER Last Admin: 04/06/19 15:15 Dose: 10 mcg/kg/min, 4.689 mls/hr Dexmedetomidine HCl (Precedex 400mcg/100ml) 400 mcg in 100 mls @ 3.908 mls/hr IV .Q24H PRN; Protocol PRN Reason: Agitation Last Admin: 04/07/19 07:18 Dose: 0.2 mcg/kg/hr, 3.908 mls/hr Dextrose (Dextrose 5% In Water 1000 Ml) 1,000 mls @ 100 mls/hr IV .Q10H [facility] Stop: 04/07/19 23:29 Last Admin: 04/07/19 13:40 Dose: 100 mls/hr Lisinopril (Zestril) 2.5 mg PO DAILY [facility] Last Admin: 04/07/19 09:53 Dose: Not Given Metoprolol Tartrate (Lopressor) 25 mg PO BID [facility] Last Admin: 04/07/19 17:55 Dose: Not Given Verapamil HCl (Verapamil Inj) 2.5 mg IVP Q6H PRN PRN Reason: Systolic Blood Pressure - Labs Labs: 04/07/19 05:00 04/07/19 05:00 PT 12.2 SECONDS (9.4-12.5) 04/06/19 08:15 INR 1.08 04/06/19 08:15 APTT 36.5 Seconds (26.9-38.3) 04/06/19 08:15 Attending/Attestation - Attestation I have personally seen and examined this patient.: Yes I have fully participated in the care of the patient.: Yes I have reviewed all pertinent clinical information, including history, physical exam and plan: Yes Notes (Text): This patient was seen and evaluated the earlier this is an addendum to the GI progress report dictated by the fellow. Patient remains on vent. Acute liver injury improving probably secondary to drug-induced plus ischemia Follow-up with LFTs and INR 04/07/19 23:07
[2019-04-07 13:58] LABS: ARTERIAL BLOOD GAS HCO3 33.5 mmol/L (21-28); ARTERIAL BLOOD GAS HEMOGLOBIN 11.7 g/dL (11.7-17.4); ARTERIAL BLOOD GAS O2 CAPACITY 16.3 mL/dl (16-24); ARTERIAL BLOOD GAS O2 CONTENT 16.3 ML/dl (15-23); ARTERIAL BLOOD GAS O2 SAT 99.8 % (95-98); ARTERIAL BLOOD GAS PCO2 44 mm/Hg (35-45); ARTERIAL BLOOD GAS PH 7.49 (7.35-7.45); ARTERIAL BLOOD GAS TCO2 34.9 mmol.L (22-28)
--- NOTE | 2019-04-07 14:38 | PN ---
DATE: 04/07/[address] Hall. SUBJECTIVE: The patient remains intubated on a ventilator and sedated. PHYSICAL EXAMINATION: VITAL SIGNS: Blood pressure is 104 systolic, heart rates in the 90s, sinus rhythm. NECK: Negative JVD. LUNGS: Bilateral rhonchi. HEART: Reveals S1 and S2. EXTREMITIES: Without change. LABORATORY DATA: Hemoglobin is 12.5. Chemistries, BUN and creatinine are 43 and 1.0 with a sodium of 152. IMPRESSION: 1. Respiratory failure. 2. End-stage ischemic dilated cardiomyopathy. 3. History of coronary artery bypass surgery. 4. Coronary artery disease. 5. Right heart failure. 6. Liver failure. PLAN: Given these findings, the patient is currently tolerating IV inotropic therapy. We will continue his current supportive care at this time. poor heart and is multiorgan failure, and his prognosis is poor. Amrit Jones MD
--- NOTE | 2019-04-07 18:30 | PN ---
DATE: 04/07/2019 SUBJECTIVE: The patient is intubated. He is not able to respond. PHYSICAL EXAMINATION: VITAL SIGNS: Temperature is 98.2, pulse of 94, blood pressure is 125/63, respirations 20. GENERAL: The patient is lying in bed, flat, comfortable. HEENT: No oral lesion. Anicteric sclerae. Moist mucosa. NECK: No JVD, adenopathy, or thyromegaly. CARDIOVASCULAR: S1 and S2, regular. No murmurs, rubs, or gallops. LUNGS: Clear to auscultation bilaterally. No wheeze, rales, or rhonchi. ABDOMEN: Bowel sounds are positive, soft, nontender and nondistended. EXTREMITIES: no cyanosis, clubbing or edema. LABS: White count of 11.5, hemoglobin 12.5, sodium is 152, creatinine is 1. ASSESSMENT: 1. Acute liver injury. 2. Hepatic encephalopathy. 3. Ischemic cardiomyopathy with ejection fraction of 15%. 4. Hypernatremia. 5. Chronic obstructive pulmonary disease. 6. Respiratory failure, on ventilator. 7. Coronary artery disease. 8. Hypertension. PLAN: The patient is currently comfortable, will need increase in free water. The patient's phosphorus is low, will need phosphorus replacement. He remains critically ill. He is on Haldol for his DVT prophylaxis. He is using metoprolol daily for his coronary artery disease. He is on Zestril for his hypertension and for his CHF. He is on hydrocortisone for his sepsis. Continue with supportive care. Overall prognosis is guarded. Clif Jose MD
[2019-04-08] MEDS: Dexmedetomidine 400mcg/100mL 400 MCG/100 ML BOTTLE IV PRN (02:17)
[2019-04-08] MEDS: Milrinone 20mg/100ml D5W 100 ML IV PRN ×2 (02:30→15:00)
[2019-04-08] MEDS: Propofol 10 mg/ml 1,000 MG/100 ML VIAL IV PRN ×2 (03:18→14:59)
[2019-04-08 05:13] LABS: ARTERIAL BLOOD GAS HCO3 33.5 mmol/L (21-28); ARTERIAL BLOOD GAS HEMOGLOBIN 11.4 g/dL (11.7-17.4); ARTERIAL BLOOD GAS O2 CAPACITY 15.9 mL/dl (16-24); ARTERIAL BLOOD GAS O2 CONTENT 15.9 ML/dl (15-23); ARTERIAL BLOOD GAS PCO2 42 mm/Hg (35-45); ARTERIAL BLOOD GAS PH 7.51 (7.35-7.45); ARTERIAL BLOOD GAS TCO2 34.8 mmol.L (22-28)
[2019-04-08 05:52] LABS: EOS # 0.1 (0.0-0.7); EOS % 1.3 % (1.5-5.0); HEMOGLOBIN 11.1 g/dL (14.0-18.0); LYMPH # 1.4 (1.2-3.4); LYMPH % 16.5 % (22.0-35.0); MEAN CELL VOLUME 90.3 fl (80.0-105.0); MEAN CORPUSCULAR HEMOGLOBIN 27.7 pg (25.0-35.0); MEAN CORPUSCULAR HGB CONC 30.7 g/dl (31.0-37.0); MEAN PLATELET VOLUME 12.1 fl (7.0-11.0); MONO # 0.7 (0.1-0.6); MONO % 8.6 % (1.0-6.0); RBC 4.01 10^6/uL (3.5-6.1); RED CELL DISTRIBUTION WIDTH 15.5 % (11.5-14.5); WHITE BLOOD COUNT 8.7 10^3/uL (4.5-11.0)
[2019-04-08 06:23] LABS: ALB/GLOB RATIO 0.9 (1.1-1.8); ALBUMIN 2.3 g/dL (3.0-4.8); ALT/SGPT 161 U/L (7-56); AST/SGOT 69 U/L (17-59); BLOOD UREA NITROGEN 38 mg/dL (7-21); CALCIUM 9.6 mg/dL (8.4-10.5); GFR NON-AFRICAN AMERICAN > 60
[2019-04-08] MEDS ORDERED: Potassium Chloride 40 mEq/30 ml LIQ UD PO STA (08:13)
--- NOTE | 2019-04-08 09:19 | CP.CCUPN ---
<Tony Uribe - Last Filed: 04/08/19 12:56> CCU Subjective - Physician Review Subjective (Free Text): Tony Uribe PGY-1 Critical Care Progress Note Patient seen and evaluated at bedside. No acute events reported overnight. Patient currently on Milrinone, Propofol and Precedex drips. Patient remains on mechanical ventilation. Further ROS unobtainable 2/2 clinical condition. CCU Objective - Vital Signs / Intake & Output Vital Signs (Last 4 hours): Vital Signs Pulse BP 04/08/19 06:21 59 L 04/08/19 06:20 52 L 04/08/19 06:19 52 L 04/08/19 06:18 56 L 04/08/19 06:17 50 L 04/08/19 06:16 51 L 04/08/19 06:15 50 L 04/08/19 06:14 51 L 04/08/19 06:13 51 L 04/08/19 06:12 53 L 04/08/19 06:11 56 L 04/08/19 06:10 59 L 04/08/19 06:09 61 04/08/19 06:08 62 04/08/19 06:07 63 04/08/19 06:06 58 L 04/08/19 06:05 61 04/08/19 06:04 57 L 04/08/19 06:03 57 L 04/08/19 06:02 51 L 04/08/19 06:01 51 L 04/08/19 06:00 50 L 101/49 L 04/08/19 05:59 51 L 04/08/19 05:58 52 L 04/08/19 05:57 51 L 04/08/19 05:56 53 L 04/08/19 05:55 53 L 04/08/19 05:54 55 L 04/08/19 05:53 51 L 04/08/19 05:52 51 L 04/08/19 05:51 52 L 04/08/19 05:50 57 L 04/08/19 05:49 50 L 04/08/19 05:48 52 L 04/08/19 05:47 51 L 04/08/19 05:46 51 L 04/08/19 05:45 51 L 04/08/19 05:44 51 L 04/08/19 05:43 52 L 04/08/19 05:42 50 L 04/08/19 05:41 50 L 04/08/19 05:40 53 L 04/08/19 05:39 51 L 04/08/19 05:38 51 L 04/08/19 05:37 53 L 04/08/19 05:36 56 L 04/08/19 05:35 56 L 04/08/19 05:34 58 L 04/08/19 05:33 55 L 04/08/19 05:32 52 L Intake and Output (Last 8hrs): Intake & Output 04/07/19 04/08/19 04/08/19 22:59 06:59 14:59 Intake Total 210 Balance 210 Intake: IV 210 - Physical Exam Head: Positive for: Atraumatic, Normocephalic Pupils: Positive for: PERRL Extroacular Muscles: Positive for: EOMI Mouth: Positive for: Dry, Other (ETT in place). Negative for: Normal Teeth Nose (External): Positive for: Other (NGT in place in L nares) Neck: Positive for: Normal Range of Motion, Other (L IJ in place) Respiratory/Chest: Positive for: Decreased Breath Sounds, Rales. Negative for: Respiratory Distress, Accessory Muscle Use Cardiovascular: Positive for: Regular Rate and Rhythm, Normal S1, S2 Abdomen: Positive for: Normal Bowel Sounds. Negative for: Tenderness, Distention Genitourinary Male: Positive for: Other (Eric in place) Upper Extremity: Positive for: Normal Inspection, Other (L hand swelling decreased) Lower Extremity: Positive for: Normal Inspection Skin: Positive for: Warm, Dry, Normal Color Psychiatric: Negative for: Alert, Oriented x 3 - Medications Active Medications: Active Medications Generic Name Dose Route Start Last Admin Trade Name Freq PRN Reason Stop Dose Admin Aspirin 81 mg 04/04/19 10:45 04/07/19 09:52 Aspirin Chewable PO 81 mg DAILY AFSANEH Administration Famotidine 20 mg 04/03/19 22:00 04/07/19 22:44 Pepcid IVP 20 mg Q12 AFSANEH Administration Heparin Sodium (Porcine) 5,000 units 04/02/19 14:00 04/08/19 05:12 Heparin SC 5,000 units Q8 AFSANEH Administration Protocol Hydrocortisone Sodium Succinate 25 mg 04/05/19 10:00 04/07/19 09:51 Solu-Cortef IVP 25 mg DAILY AFSANEH Administration Milrinone Lactate/Dextrose 100 mls @ 8.792 mls/hr 04/06/19 05:36 04/08/19 02:30 Primacor 20mg/100ml D5w IV 0.375 mcg/kg/min .[id number] PRN 8.792 mls/hr TITRATE PER MD ORDER Administration Protocol 0.375 MCG/KG/MIN Propofol 1,000 mg in 100 mls @ 2.345 mls/hr 04/06/19 07:35 04/08/19 03:18 Diprivan IV 10 mcg/kg/min .Q24H PRN 4.689 mls/hr TITRATE PER MD ORDER Administration Protocol 5 MCG/KG/MIN Dexmedetomidine HCl 400 mcg in 100 mls @ 3.908 mls/hr 04/06/19 10:12 04/08/19 04:00 Precedex 400mcg/100ml IV 0 mcg/kg/hr .Q24H PRN 0 mls/hr Agitation Titration Protocol 0.2 MCG/KG/HR Linezolid 600 mg in 300 mls @ 200 mls/hr 04/08/19 10:00 Zyvox 600mg/300ml D5w IVPB 04/16/19 10:01 Q12 [facility] Protocol Lisinopril 2.5 mg 04/05/19 10:00 04/07/19 09:53 Zestril PO Not Given DAILY [facility] Metoprolol Tartrate 25 mg 04/06/19 10:00 04/07/19 17:55 Lopressor PO Not Given BID [facility] Verapamil HCl 2.5 mg 04/06/19 06:51 Verapamil Inj IVP Q6H PRN Systolic Blood Pressure - Patient Studies Lab Studies: Microbiology Studies 04/05/19 07:55 Blood Culture - Preliminary Blood NO GROWTH AFTER 3 DAYS 04/05/19 08:15 Blood Culture - Preliminary Blood NO GROWTH AFTER 3 DAYS 04/05/19 13:37 Gram Stain - Final Sputum Induced Sputum Culture - Final Methicillin Resistant S Aureus Lab Studies 04/08/19 04/08/19 04/08/19 Range/Units 05:30 05:30 05:00 WBC 8.7 D (4.5-11.0) 10^3/uL RBC 4.01 (3.5-6.1) 10^6/uL Hgb 11.1 L (14.0-18.0) g/dL Hct 36.2 L (42.0-52.0) % MCV 90.3 (80.0-105.0) fl MCH 27.7 (25.0-35.0) pg MCHC 30.7 L (31.0-37.0) g/dl RDW 15.5 H (11.5-14.5) % Plt Count 120 (120.0-450.0) 10^3/uL MPV 12.1 H (7.0-11.0) fl Neut % (Auto) 73.6 H (50.0-68.0) % Lymph % (Auto) 16.5 L (22.0-35.0) % [place] % (Auto) 8.6 H (1.0-6.0) % Eos % (Auto) 1.3 L (1.5-5.0) % Baso % (Auto) 0.0 (0.0-3.0) % Lymph # (Auto) 1.4 (1.2-3.4) [place] # (Auto) 0.7 H (0.1-0.6) Eos # (Auto) 0.1 (0.0-0.7) Baso # (Auto) 0.00 (0.0-2.0) K/mm3 Absolute Neuts (auto) 6.37 (1.4-6.5) pCO2 42 (35-45) mm/Hg pO2 165.0 H (80-100) mm/Hg HCO3 33.5 H (21-28) mmol/L ABG pH 7.51 H (7.35-7.45) ABG Total CO2 34.8 H (22-28) mmol.L ABG O2 Saturation 100.0 H (95-98) % ABG O2 Content 15.9 (15-23) ML/dl ABG Base Excess 9.5 H (-2.0-3.0) mmol/L ABG Hemoglobin 11.4 L (11.7-17.4) g/dL ABG Carboxyhemoglobin 2.1 H (0.5-1.5) % POC ABG HHb (Measured) 0 (0-5) % ABG Methemoglobin 1.1 (0.0-3.0) % ABG O2 Capacity 15.9 L (16-24) mL/dl Hgb O2 Saturation 96.8 (95.0-98.0) % FiO2 80.0 % Sodium 146 (132-148) mmol/L Potassium 3.7 (3.6-5.0) mmol/L Chloride 110 H (98-107) mmol/L Carbon Dioxide 35 H (21-33) mmol/L Anion Gap 5 L (10-20) BUN 38 H (7-21) mg/dL Creatinine 0.8 (0.8-1.5) mg/dl Est GFR ( Amer) > 60 Est GFR (Non-Af Amer) > 60 Random Glucose 142 H (70-110) mg/dL Calcium 9.6 (8.4-10.5) mg/dL Phosphorus 2.5 (2.5-4.5) mg/dL Magnesium 2.7 H (1.7-2.2) mg/dL Total Bilirubin 1.9 H (0.2-1.3) mg/dL AST 69 H D (17-59) U/L ALT 161 H (7-56) U/L Alkaline Phosphatase 59 (38-126) U/L Total Protein 4.9 L (5.8-8.3) g/dL Albumin 2.3 L (3.0-4.8) g/dL Globulin 2.6 gm/dL Albumin/Globulin Ratio 0.9 L (1.1-1.8) TB Test (QFT) Nil IU/mL TB Test Mitogen - Nil IU/mL TB Test Antigen - Nil IU/mL TB Test TB - Nil IU/mL TB Test (QFT) (Negative) 04/07/19 04/05/19 Range/Units 13:50 16:25 WBC (4.5-11.0) 10^3/uL RBC (3.5-6.1) 10^6/uL Hgb (14.0-18.0) g/dL Hct (42.0-52.0) % MCV (80.0-105.0) fl MCH (25.0-35.0) pg MCHC (31.0-37.0) g/dl RDW (11.5-14.5) % Plt Count (120.0-450.0) 10^3/uL MPV (7.0-11.0) fl Neut % (Auto) (50.0-68.0) % Lymph % (Auto) (22.0-35.0) % [place] % (Auto) (1.0-6.0) % Eos % (Auto) (1.5-5.0) % Baso % (Auto) (0.0-3.0) % Lymph # (Auto) (1.2-3.4) [place] # (Auto) (0.1-0.6) Eos # (Auto) (0.0-0.7) Baso # (Auto) (0.0-2.0) K/mm3 Absolute Neuts (auto) (1.4-6.5) pCO2 44 (35-45) mm/Hg pO2 189.0 H (80-100) mm/Hg HCO3 33.5 H (21-28) mmol/L ABG pH 7.49 H (7.35-7.45) ABG Total CO2 34.9 H (22-28) mmol.L ABG O2 Saturation 99.8 H (95-98) % ABG O2 Content 16.3 (15-23) ML/dl ABG Base Excess 9.1 H (-2.0-3.0) mmol/L ABG Hemoglobin 11.7 (11.7-17.4) g/dL ABG Carboxyhemoglobin 1.8 H (0.5-1.5) % POC ABG HHb (Measured) 0.2 (0-5) % ABG Methemoglobin 1.4 (0.0-3.0) % ABG O2 Capacity 16.3 (16-24) mL/dl Hgb O2 Saturation 96.6 (95.0-98.0) % FiO2 100.0 % Sodium (132-148) mmol/L Potassium (3.6-5.0) mmol/L Chloride (98-107) mmol/L Carbon Dioxide (21-33) mmol/L Anion Gap (10-20) BUN (7-21) mg/dL Creatinine (0.8-1.5) mg/dl Est GFR ( Amer) Est GFR (Non-Af Amer) Random Glucose (70-110) mg/dL Calcium (8.4-10.5) mg/dL Phosphorus (2.5-4.5) mg/dL Magnesium (1.7-2.2) mg/dL Total Bilirubin (0.2-1.3) mg/dL AST (17-59) U/L ALT (7-56) U/L Alkaline Phosphatase (38-126) U/L Total Protein (5.8-8.3) g/dL Albumin (3.0-4.8) g/dL Globulin gm/dL Albumin/Globulin Ratio (1.1-1.8) TB Test (QFT) Nil 0.02 IU/mL TB Test Mitogen - Nil >10.00 IU/mL TB Test Antigen - Nil 0.00 IU/mL TB Test TB - Nil 0.00 IU/mL TB Test (QFT) Negative (Negative) Laboratory Results - last 24 hr 04/05/19 04/07/19 04/08/19 16:25 13:50 05:00 WBC RBC Hgb Hct MCV MCH MCHC RDW Plt Count MPV Neut % (Auto) Lymph % (Auto) [place] % (Auto) Eos % (Auto) Baso % (Auto) Lymph # (Auto) [place] # (Auto) Eos # (Auto) Baso # (Auto) Absolute Neuts (auto) pCO2 44 42 pO2 189.0 H 165.0 H HCO3 33.5 H 33.5 H ABG pH 7.49 H 7.51 H ABG Total CO2 34.9 H 34.8 H ABG O2 Saturation 99.8 H 100.0 H ABG O2 Content 16.3 15.9 ABG Base Excess 9.1 H 9.5 H ABG Hemoglobin 11.7 11.4 L ABG Carboxyhemoglobin 1.8 H 2.1 H POC ABG HHb (Measured) 0.2 0 ABG Methemoglobin 1.4 1.1 ABG O2 Capacity 16.3 15.9 L Hgb O2 Saturation 96.6 96.8 FiO2 100.0 80.0 Sodium Potassium Chloride Carbon Dioxide Anion Gap BUN Creatinine Est GFR ( Amer) Est GFR (Non-Af Amer) Random Glucose Calcium Phosphorus Magnesium Total Bilirubin AST ALT Alkaline Phosphatase Total Protein Albumin Globulin Albumin/Globulin Ratio TB Test (QFT) Nil 0.02 TB Test Mitogen - Nil >10.00 TB Test Antigen - Nil 0.00 TB Test TB - Nil 0.00 TB Test (QFT) Negative 04/08/19 04/08/19 05:30 05:30 WBC 8.7 D RBC 4.01 Hgb 11.1 L Hct 36.2 L MCV 90.3 MCH 27.7 MCHC 30.7 L RDW 15.5 H Plt Count 120 MPV 12.1 H Neut % (Auto) 73.6 H Lymph % (Auto) 16.5 L [place] % (Auto) 8.6 H Eos % (Auto) 1.3 L Baso % (Auto) 0.0 Lymph # (Auto) 1.4 [place] # (Auto) 0.7 H Eos # (Auto) 0.1 Baso # (Auto) 0.00 Absolute Neuts (auto) 6.37 pCO2 pO2 HCO3 ABG pH ABG Total CO2 ABG O2 Saturation ABG O2 Content ABG Base Excess ABG Hemoglobin ABG Carboxyhemoglobin POC ABG HHb (Measured) ABG Methemoglobin ABG O2 Capacity Hgb O2 Saturation FiO2 Sodium 146 Potassium 3.7 Chloride 110 H Carbon Dioxide 35 H Anion Gap 5 L BUN 38 H Creatinine 0.8 Est GFR ( Amer) > 60 Est GFR (Non-Af Amer) > 60 Random Glucose 142 H Calcium 9.6 Phosphorus 2.5 Magnesium 2.7 H Total Bilirubin 1.9 H AST 69 H D ALT 161 H Alkaline Phosphatase 59 Total Protein 4.9 L Albumin 2.3 L Globulin 2.6 Albumin/Globulin Ratio 0.9 L TB Test (QFT) Nil TB Test Mitogen - Nil TB Test Antigen - Nil TB Test TB - Nil TB Test (QFT) Review of Systems - Review of Systems Systems not reviewed;Unavailable: Intubated Critical Care Progress Note - Nutrition Nutrition: Nutrition Category Date Time Status NPO Diet [DIET] Diets 04/01/19 Breakfast Ordered Assessment/Plan - Assessment and Plan (Free Text) Assessment: 73 yo male with PMHx significant for ischemic cardiomyopathy (EF 9%, elevated RVSP 45, status post AICD), COPD and schizophrenia who was brought in by ambulance for altered mental status. Currently in ICU for multi system organ failure and respiratory distress and sustained toxic metabolic encephalopathy. Neuro: -Sustained AMS in setting of toxic metabolic encephalopathy -04/04/[address] head showed small 4 mm lacunar infarct, Neuro on board -04/05/19 24 hour vEEG completed, no evidence of seizures or status, severe cortical disturbance -GCS 3T, agitation noted, continue Propofol and Precedex drip -Possible overdose of Ambien as etiology of AMS, benzos in Utox -Monitor neuro status. -Neuro on consult - Dr. Gibbons Cardio: -L IJ access, L sided dual lead AICD AV paced -04/03/19 Echo: LVEF 9%, dilated IVC -Continue stress dose steroids at 25 mg daily -Continue Milrinone drip -Continue Verapamil 2.5 mg IVP q6h PRN with holding parameters and Lopressor 25 mg BID -Lasix 40 mg IVP daily -C/w Aspirin 81 mg -C/w Lisinopril 2.5 mg -proBNP>40,000, EF 15% -Maintain MAP>65. -Monitor for S/S of HD compromise. -Cardiology on Consult - Dr. Taylor - recs appreciated Pulm: -PRVC 80//16/450, currently overbreathing the vent -04/08/19 CXR shows resolution of R sided consolidation -04/08 ABG shows sustained metabolic alkalosis -Maintain O2 saturation >92%. -O2 NC PRN -Vent: protective lung ventilation strategy, aspiration precautions -Elevate bed to 30 degrees GI: -NPO, tube feeding -Pepcid IVP daily -Completed 3 doses of NAC on 04/02/19, improving LFTs; INR improved -possibility of congestive hepatopathy 2/2 congestive heart failure -04/01/19 Abd U/S shows Cholelithiasis. Diffuse gallbladder wall thickening is likely secondary to systemic disease. 2. Chronic renal parenchymal disease. 3. Diffuse increased echogenicity in the liver with coarse echotexture may reflect hepatic steatosis however parenchymal infectious/ inflammatory etiologies cannot be entirely excluded. -GI on consult - Dr. Bailey - further recs appreciated. [facility] in contact /Nephro: -GO likely 2/2 congestive nephropathy -Good urine output through Eric -Hypernatremic resolved -Continue monitoring. -Replete electrolytes as needed. K repleted. -Maintain euvolemia. Endocrinology: -Random glucose: 142 -Hgb a1c 6.4 -TSH 0.39, T4 6.9 -Maintain euglycemia. Heme/Onc: -H/H stable -No signs of HD compromise. -Continue monitoring H/H ID: -No leukocytosis -Start on Linezolid per ID -CMV IgG positive -Negative toxo, RPR, TB, Leptospira for etiology of sustained AMS -BCx neg after 5 days, UCx negative -Repeat bcx neg after 3 days, repeat urine cx neg -MRSA in new sputum cx -Procalcitonin 0.55 -Monitor for signs and symptoms of infection. -ID on consult - Dr. Gavin - recs appreciated DVT prophylaxis: Heparin SC GI prophylaxis: Pepcid Code status: DNR as confirmed by POA sister Criss Garza Dispo: Palliative on board- family discussion regarding terminal extubation likely tomorrow after defibrillator magnetized. Interest in hospice. Patient seen, case reviewed and plan approved by Dr. Goldie Uribe, PGY-1 <Juan Burrell - Last Filed: 04/08/19 16:31> CCU Objective - Vital Signs / Intake & Output Vital Signs (Last 4 hours): Vital Signs Pulse BP 04/08/19 16:00 83 04/08/19 15:00 77 124/44 L Intake and Output (Last 8hrs): Intake & Output 04/08/19 04/08/19 04/08/19 06:59 14:59 22:59 Intake Total 210 200 Balance 210 200 Intake: IV 210 200 - Medications Active Medications: Active Medications Generic Name Dose Route Start Last Admin Trade Name Freq PRN Reason Stop Dose Admin Aspirin 81 mg 04/04/19 10:45 04/08/19 10:16 Aspirin Chewable PO 81 mg DAILY AFSANEH Administration Famotidine 20 mg 04/03/19 22:00 04/08/19 10:55 Pepcid IVP Not Given Q12 AFSANEH Heparin Sodium (Porcine) 5,000 units 04/02/19 14:00 04/08/19 14:59 Heparin SC 5,000 units Q8 AFSANEH Administration Protocol Hydrocortisone Sodium Succinate 25 mg 04/05/19 10:00 04/08/19 10:31 Solu-Cortef IVP 25 mg DAILY AFSANEH Administration Milrinone Lactate/Dextrose 100 mls @ 8.792 mls/hr 04/06/19 05:36 04/08/19 15:00 Primacor 20mg/100ml D5w IV 0.375 mcg/kg/min .[id number] PRN 8.792 mls/hr TITRATE PER MD ORDER Administration Protocol 0.375 MCG/KG/MIN Propofol 1,000 mg in 100 mls @ 2.345 mls/hr 04/06/19 07:35 04/08/19 14:59 Diprivan IV 10 mcg/kg/min .Q24H PRN 4.689 mls/hr TITRATE PER MD ORDER Administration Protocol 5 MCG/KG/MIN Dexmedetomidine HCl 400 mcg in 100 mls @ 3.908 mls/hr 04/06/19 10:12 04/08/19 04:00 Precedex 400mcg/100ml IV 0 mcg/kg/hr .Q24H PRN 0 mls/hr Agitation Titration Protocol 0.2 MCG/KG/HR Linezolid 600 mg in 300 mls @ 200 mls/hr 04/08/19 10:00 04/08/19 10:31 Zyvox 600mg/300ml D5w IVPB 04/16/19 10:01 200 mls/hr Q12 AFSANEH Administration Protocol Lactulose 10 gm 04/08/19 14:00 04/08/19 15:11 Enulose PO Not Given BID AFSANEH Lisinopril 2.5 mg 04/05/19 10:00 04/08/19 10:56 Zestril PO Not Given DAILY AFSANEH Metoprolol Tartrate 25 mg 04/06/19 10:00 04/08/19 10:54 Lopressor PO Not Given BID AFSANEH Verapamil HCl 2.5 mg 04/06/19 06:51 Verapamil Inj IVP Q6H PRN Systolic Blood Pressure - Patient Studies Lab Studies: Microbiology Studies 04/05/19 07:55 Blood Culture - Preliminary Blood NO GROWTH AFTER 3 DAYS 04/05/19 08:15 Blood Culture - Preliminary Blood NO GROWTH AFTER 3 DAYS Lab Studies 04/08/19 04/08/19 04/08/19 Range/Units 05:30 05:30 05:00 WBC 8.7 D (4.5-11.0) 10^3/uL RBC 4.01 (3.5-6.1) 10^6/uL Hgb 11.1 L (14.0-18.0) g/dL Hct 36.2 L (42.0-52.0) % MCV 90.3 (80.0-105.0) fl MCH 27.7 (25.0-35.0) pg MCHC 30.7 L (31.0-37.0) g/dl RDW 15.5 H (11.5-14.5) % Plt Count 120 (120.0-450.0) 10^3/uL MPV 12.1 H (7.0-11.0) fl Neut % (Auto) 73.6 H (50.0-68.0) % Lymph % (Auto) 16.5 L (22.0-35.0) % [place] % (Auto) 8.6 H (1.0-6.0) % Eos % (Auto) 1.3 L (1.5-5.0) % Baso % (Auto) 0.0 (0.0-3.0) % Lymph # (Auto) 1.4 (1.2-3.4) [place] # (Auto) 0.7 H (0.1-0.6) Eos # (Auto) 0.1 (0.0-0.7) Baso # (Auto) 0.00 (0.0-2.0) K/mm3 Absolute Neuts (auto) 6.37 (1.4-6.5) pCO2 42 (35-45) mm/Hg pO2 165.0 H (80-100) mm/Hg HCO3 33.5 H (21-28) mmol/L ABG pH 7.51 H (7.35-7.45) ABG Total CO2 34.8 H (22-28) mmol.L ABG O2 Saturation 100.0 H (95-98) % ABG O2 Content 15.9 (15-23) ML/dl ABG Base Excess 9.5 H (-2.0-3.0) mmol/L ABG Hemoglobin 11.4 L (11.7-17.4) g/dL ABG Carboxyhemoglobin 2.1 H (0.5-1.5) % POC ABG HHb (Measured) 0 (0-5) % ABG Methemoglobin 1.1 (0.0-3.0) % ABG O2 Capacity 15.9 L (16-24) mL/dl Hgb O2 Saturation 96.8 (95.0-98.0) % FiO2 80.0 % Sodium 146 (132-148) mmol/L Potassium 3.7 (3.6-5.0) mmol/L Chloride 110 H (98-107) mmol/L Carbon Dioxide 35 H (21-33) mmol/L Anion Gap 5 L (10-20) BUN 38 H (7-21) mg/dL Creatinine 0.8 (0.8-1.5) mg/dl Est GFR ( Amer) > 60 Est GFR (Non-Af Amer) > 60 Random Glucose 142 H (70-110) mg/dL Calcium 9.6 (8.4-10.5) mg/dL Phosphorus 2.5 (2.5-4.5) mg/dL Magnesium 2.7 H (1.7-2.2) mg/dL Total Bilirubin 1.9 H (0.2-1.3) mg/dL AST 69 H D (17-59) U/L ALT 161 H (7-56) U/L Alkaline Phosphatase 59 (38-126) U/L Total Protein 4.9 L (5.8-8.3) g/dL Albumin 2.3 L (3.0-4.8) g/dL Globulin 2.6 gm/dL Albumin/Globulin Ratio 0.9 L (1.1-1.8) Laboratory Results - last 24 hr 04/08/19 04/08/19 04/08/19 05:00 05:30 05:30 WBC 8.7 D RBC 4.01 Hgb 11.1 L Hct 36.2 L MCV 90.3 MCH 27.7 MCHC 30.7 L RDW 15.5 H Plt Count 120 MPV 12.1 H Neut % (Auto) 73.6 H Lymph % (Auto) 16.5 L [place] % (Auto) 8.6 H Eos % (Auto) 1.3 L Baso % (Auto) 0.0 Lymph # (Auto) 1.4 [place] # (Auto) 0.7 H Eos # (Auto) 0.1 Baso # (Auto) 0.00 Absolute Neuts (auto) 6.37 pCO2 42 pO2 165.0 H HCO3 33.5 H ABG pH 7.51 H ABG Total CO2 34.8 H ABG O2 Saturation 100.0 H ABG O2 Content 15.9 ABG Base Excess 9.5 H ABG Hemoglobin 11.4 L ABG Carboxyhemoglobin 2.1 H POC ABG HHb (Measured) 0 ABG Methemoglobin 1.1 ABG O2 Capacity 15.9 L Hgb O2 Saturation 96.8 FiO2 80.0 Sodium 146 Potassium 3.7 Chloride 110 H Carbon Dioxide 35 H Anion Gap 5 L BUN 38 H Creatinine 0.8 Est GFR ( Amer) > 60 Est GFR (Non-Af Amer) > 60 Random Glucose 142 H Calcium 9.6 Phosphorus 2.5 Magnesium 2.7 H Total Bilirubin 1.9 H AST 69 H D ALT 161 H Alkaline Phosphatase 59 Total Protein 4.9 L Albumin 2.3 L Globulin 2.6 Albumin/Globulin Ratio 0.9 L Radiology Impressions: Radiology Impressions Chest X-Ray 04/08/19 06:00 IMPRESSION: Endotracheal tube and nasogastric tube in satisfactory position. Resolution of previous right-sided atelectasis Critical Care Progress Note - Nutrition Nutrition: Nutrition Category Date Time Status NPO Diet [DIET] Diets 04/01/19 Breakfast Ordered Addendum Addendum: 04/08/19 16:30 MICU Attending addendum Patient seen and examined with housestaff Agree with resident note above with the follow add/exceptions: 73 male with PMHx systolic CHF, ischemic cardiomyopathy (EF in 2014 10-15%, s/p AICD), COPD and schizophrenia being tx for altered mental status, toxic metabolic encephalopathy and acute liver failure. Liver failure improving based on LFTs and INR trend down. Eito possbile hepatic congestion. Remains intubated, very agitated when weaned off sedation. Unable to extubate at this time. CXR shows white out of right lung I wanted to bronch and attempted to lavage and clear out right lung however family refused to consent because they are currently in talks with [facility] Care team in regards to hospice EEG shows NO seizure activity, does show toxic metabolic encepahlopath Neurology following Cont to monitor in ICU will f/u with pal care and family in regards to his goal of care and review of prior healthcare wishes (documentation) Rest of care as per above resident note Juan Burrell MD MICU Attending
--- NOTE | 2019-04-08 10:18 | RAD ---
Date of service: 04/08/2019 HISTORY: tube placements COMPARISON: 04/07/2019 TECHNIQUE: 1 view obtained. FINDINGS: LUNGS: No active pulmonary disease. PLEURA: No significant pleural effusion identified, no pneumothorax apparent. CARDIOVASCULAR: Aortic calcification Moderate cardiomegaly. Mild vascular congestion OSSEOUS STRUCTURES: No significant abnormalities. VISUALIZED UPPER ABDOMEN: Normal. OTHER FINDINGS: None. IMPRESSION: Endotracheal tube and nasogastric tube in satisfactory position. Resolution of previous right-sided atelectasis
[2019-04-08] MEDS: Linezolid 600 mg in D5W 300 ml 600 MG/300 ML BAG IVPB SCH ×2 (10:31→21:25)
--- NOTE | 2019-04-08 13:33 | CP.PCM.PN ---
<Shannen Cesar - Last Filed: 04/08/19 13:33> Subjective - Date & Time of Evaluation Date of Evaluation: 04/08/19 Time of Evaluation: 09:00 - Subjective Subjective: PGY 5 GI Follow-up Pt seen and examined bedside still non-responsive no overnight events no BM overnight ROS: could not be conducted, 2/2 AMS Objective - Vital Signs/Intake and Output Vital Signs (last 24 hours): Temp Pulse Resp BP Pulse Ox 98.2 F 59 L 20 101/49 L 90 L 04/05/19 18:20 04/08/19 06:21 04/06/19 07:18 04/08/19 06:00 04/06/19 07:18 Intake and Output: 04/08/19 04/08/19 06:59 18:59 Intake Total 210 Balance 210 - Medications Medications: Current Medications Aspirin (Aspirin Chewable) 81 mg PO DAILY [facility] Last Admin: 04/08/19 10:16 Dose: 81 mg Famotidine (Pepcid) 20 mg IVP Q12 AFSANE[facility] Last Admin: 04/08/19 10:55 Dose: Not Given Heparin Sodium (Porcine) (Heparin) 5,000 units SC Q8 AFSANEH; Protocol Last Admin: 04/08/19 05:12 Dose: 5,000 units Hydrocortisone Sodium Succinate (Solu-Cortef) 25 mg IVP DAILY [facility] Last Admin: 04/08/19 10:31 Dose: 25 mg Milrinone Lactate/Dextrose (Primacor 20mg/100ml D5w) 100 mls @ 8.792 mls/hr IV .[id number] PRN; Protocol PRN Reason: TITRATE PER MD ORDER Last Admin: 04/08/19 02:30 Dose: 0.375 mcg/kg/min, 8.792 mls/hr Propofol (Diprivan) 1,000 mg in 100 mls @ 2.345 mls/hr IV .Q24H PRN; Protocol PRN Reason: TITRATE PER MD ORDER Last Admin: 04/08/19 03:18 Dose: 10 mcg/kg/min, 4.689 mls/hr Dexmedetomidine HCl (Precedex 400mcg/100ml) 400 mcg in 100 mls @ 3.908 mls/hr IV .Q24H PRN; Protocol PRN Reason: Agitation Last Titration: 04/08/19 04:00 Dose: 0 mcg/kg/hr, 0 mls/hr Linezolid (Zyvox 600mg/300ml D5w) 600 mg in 300 mls @ 200 mls/hr IVPB Q12 [facility]; Protocol Stop: 04/16/19 10:01 Last Admin: 04/08/19 10:31 Dose: 200 mls/hr Lisinopril (Zestril) 2.5 mg PO DAILY [facility] Last Admin: 04/08/19 10:56 Dose: Not Given Metoprolol Tartrate (Lopressor) 25 mg PO BID [facility] Last Admin: 04/08/19 10:54 Dose: Not Given Verapamil HCl (Verapamil Inj) 2.5 mg IVP Q6H PRN PRN Reason: Systolic Blood Pressure - Labs Labs: 04/08/19 05:30 04/08/19 05:30 PT 12.2 SECONDS (9.4-12.5) 04/06/19 08:15 INR 1.08 04/06/19 08:15 APTT 36.5 Seconds (26.9-38.3) 04/06/19 08:15 - Constitutional Appears: No Acute Distress, Chronically Ill - Head Exam Head Exam: ATRAUMATIC, NORMOCEPHALIC - Eye Exam Eye Exam: Normal appearance - ENT Exam ENT Exam: Mucous Membranes Moist, Normal Exam - Neck Exam Neck Exam: Normal Inspection - Respiratory Exam Respiratory Exam: Clear to Ausculation Bilateral, NORMAL BREATHING PATTERN. absent: Decreased Breath Sounds, Rales, Wheezes, Respiratory Distress - GI/Abdominal Exam GI & Abdominal Exam: Distended, Soft, Normal Bowel Sounds. absent: Firm, Guarding, Rigid, Tenderness, Organomegaly, Rebound - Extremities Exam Extremities Exam: absent: Joint Swelling, Pedal Edema - Neurological Exam Neurological Exam: Altered - Psychiatric Exam Additional comments: cannot assess - Skin Additional comments: juandiced Assessment and Plan - Assessment and Plan (Free Text) Assessment: Patient is a 73 year old male with a PMHx significant for ischemic cardiomyopathy (EF in 2013 10-15%, elevated RVSP 45, status post AICD), Parkinson's disease, COPD and schizophrenia who was admitted for evaluation and treatment of altered mental status. - Acute liver injury/Elevated Liver Enzymes- likely 2/2 ischemia and drug- induced, (lfts plateauing) - Acute encephalopathy - Acute CVA - Systolic congestive heart failure - GO - Continue to monitor LFTs - famotidine 20mg IV q12 - As per records- after discussion of case with [facility] Hepatology team - Dr Posada there are no plans for transfer in the setting of rapidly improving LFTs and coagulopathy -Daily MELD labs including: CMP and INR -start lactulose for 2-3 Bm daily d/w, Dr. Bailey. <Kathie Bailey V - Last Filed: 04/09/19 07:01> Objective - Vital Signs/Intake and Output Vital Signs (last 24 hours): Temp Pulse Resp BP Pulse Ox 98.2 F 81 20 123/67 100 04/05/19 18:20 04/09/19 03:10 04/06/19 07:18 04/09/19 03:00 04/09/19 03:10 Intake and Output: 04/09/19 04/09/19 06:59 18:59 Intake Total 200 Balance 200 - Medications Medications: Current Medications Aspirin (Aspirin Chewable) 81 mg PO DAILY [facility] Last Admin: 04/08/19 10:16 Dose: 81 mg Famotidine (Pepcid) 20 mg IVP Q12 [facility] Last Admin: 04/08/19 21:26 Dose: 20 mg Heparin Sodium (Porcine) (Heparin) 5,000 units SC Q8 AFSANEH; Protocol Last Admin: 04/09/19 05:11 Dose: 5,000 units Hydrocortisone Sodium Succinate (Solu-Cortef) 25 mg IVP DAILY [facility] Last Admin: 04/08/19 10:31 Dose: 25 mg Milrinone Lactate/Dextrose (Primacor 20mg/100ml D5w) 100 mls @ 8.792 mls/hr IV .[id number] PRN; Protocol PRN Reason: TITRATE PER MD ORDER Last Admin: 04/09/19 02:24 Dose: 0.375 mcg/kg/min, 8.792 mls/hr Propofol (Diprivan) 1,000 mg in 100 mls @ 2.345 mls/hr IV .Q24H PRN; Protocol PRN Reason: TITRATE PER MD ORDER Last Admin: 04/09/19 02:25 Dose: 5 mcg/kg/min, 2.345 mls/hr Dexmedetomidine HCl (Precedex 400mcg/100ml) 400 mcg in 100 mls @ 3.908 mls/hr IV .Q24H PRN; Protocol PRN Reason: Agitation Last Titration: 04/08/19 04:00 Dose: 0 mcg/kg/hr, 0 mls/hr Linezolid (Zyvox 600mg/300ml D5w) 600 mg in 300 mls @ 200 mls/hr IVPB Q12 [facility]FS[facility]; Protocol Stop: 04/16/19 10:01 Last Admin: 04/08/19 21:25 Dose: 200 mls/hr Lactulose (Enulose) 10 gm PO BID [facility] Last Admin: 04/08/19 18:34 Dose: Not Given Lisinopril (Zestril) 2.5 mg PO DAILY [facility] Last Admin: 04/08/19 10:56 Dose: Not Given Metoprolol Tartrate (Lopressor) 25 mg PO BID [facility] Last Admin: 04/08/19 18:33 Dose: 25 mg Verapamil HCl (Verapamil Inj) 2.5 mg IVP Q6H PRN PRN Reason: Systolic Blood Pressure - Labs Labs: 04/08/19 05:30 04/08/19 05:30 PT 12.2 SECONDS (9.4-12.5) 04/06/19 08:15 INR 1.08 04/06/19 08:15 APTT 36.5 Seconds (26.9-38.3) 04/06/19 08:15 Attending/Attestation - Attestation I have personally seen and examined this patient.: Yes I have fully participated in the care of the patient.: Yes I have reviewed all pertinent clinical information, including history, physical exam and plan: Yes Notes (Text): This is a delayed addendum to the GI progress report dictated by the fellow. The patient was seen and evaluated with the GI fellow earlier. Discussed with the ICU staff. Patient still remains on vent. No bowel movements noted. Can restart lactulose. Family is planning about comfort care 04/09/19 07:00
--- NOTE | 2019-04-08 17:55 | PN ---
DATE: 04/08/[address] Hall. SUBJECTIVE: The patient remains on the ventilator, on IV milrinone for hemodynamic support. PHYSICAL EXAMINATION: VITAL SIGNS: Blood pressure 110/55, heart rate is in the 70s. NECK: Negative JVD. LUNGS: Decreased breath sounds. HEART: S1 and S2. EXTREMITIES: Without edema. LABORATORY DATA: Hemoglobin is 11.1, BUN and creatinine are 38 and 0.8. IMPRESSION: 1. Respiratory failure. 2. End-stage dilated cardiomyopathy. 3. History of coronary artery bypass surgery. 4. Liver failure. 5. Coronary artery disease. 6. Right heart failure. Given these findings, the patient is currently DNR. Will continue his IV inotropic therapy. His prognosis is poor. Amrit Jones MD
--- NOTE | 2019-04-09 00:17 | PN ---
DATE: 04/08/2019 SUBJECTIVE: The patient was seen in bed 1, ICU. The patient is intubated and sedated on propofol. He is extremely tachycardic today with heart rate between 115 and 120. He is not using respirator. He stated he is restraint also against endotracheal tube. His pupils are fixed but not dilated. His Babinski is upgoing. He has episodes of decerebrate posturing. PHYSICAL EXAMINATION: GENERAL: He is using abdominal breathing. HEART: Tachycardic. CHEST: Clear. EXTREMITIES: No cyanosis, clubbing, or edema. IMPRESSION: A 73-year-old white male with severe low ejection fraction and cardiomyopathy with change in mental status, confused and disorientation, respiratory failure, tachyarrhythmia, history of schizophrenia, recent history of CVI in the brainstem. Prognosis is extremely poor. PLAN: Plan is to continue current treatment. Consider trach and LTAC. Hugo Martinez MD
[2019-04-09] MEDS: Milrinone 20mg/100ml D5W 100 ML IV PRN (02:24)
[2019-04-09] MEDS: Propofol 10 mg/ml 1,000 MG/100 ML VIAL IV PRN (02:25)
--- NOTE | 2019-04-09 07:12 | CP.CCUPN ---
<Tony Uribe - Last Filed: 04/09/19 13:17> CCU Subjective - Physician Review Subjective (Free Text): Tony Uribe PGY-1 Critical Care Progress Note Patient seen and evaluated at bedside. No acute events reported overnight. Patient currently on Milrinone and Propofol drips. Patient remains on mechanical ventilation. Further ROS unobtainable 2/2 clinical condition. CCU Objective - Vital Signs / Intake & Output Vital Signs (Last 4 hours): Vital Signs Pulse Pulse Ox 04/09/19 03:10 81 100 Intake and Output (Last 8hrs): Intake & Output 04/08/19 04/09/19 04/09/19 22:59 06:59 14:59 Intake Total 820 180 Output Total 500 Balance 320 180 Intake: IV 820 180 Left Internal Jugular 800 Output: Urine 500 Urethral (Eric) 500 - Physical Exam Head: Positive for: Atraumatic, Normocephalic Pupils: Positive for: PERRL Mouth: Positive for: Dry, Other (ETT in place). Negative for: Normal Teeth Nose (External): Positive for: Other (NGT in place in L nares) Neck: Positive for: Normal Range of Motion, Other (L IJ in place) Respiratory/Chest: Positive for: Decreased Breath Sounds, Rales. Negative for: Respiratory Distress, Accessory Muscle Use Cardiovascular: Positive for: Regular Rate and Rhythm, Normal S1, S2 Abdomen: Positive for: Normal Bowel Sounds. Negative for: Tenderness, Distention Genitourinary Male: Positive for: Other (Eric in place) Upper Extremity: Positive for: Normal Inspection Lower Extremity: Positive for: Normal Inspection Skin: Positive for: Warm, Dry, Normal Color Psychiatric: Negative for: Alert, Oriented x 3, Anxious, Agitated - Medications Active Medications: Active Medications Generic Name Dose Route Start Last Admin Trade Name Freq PRN Reason Stop Dose Admin Aspirin 81 mg 04/04/19 10:45 04/08/19 10:16 Aspirin Chewable PO 81 mg DAILY AFSANE[facility] Administration Famotidine 20 mg 04/03/19 22:00 04/08/19 21:26 Pepcid IVP 20 mg Q12 AFSANEH Administration Heparin Sodium (Porcine) 5,000 units 04/02/19 14:00 04/09/19 05:11 Heparin SC 5,000 units Q8 AFSANEH Administration Protocol Hydrocortisone Sodium Succinate 25 mg 04/05/19 10:00 04/08/19 10:31 Solu-Cortef IVP 25 mg DAILY AFS[facility] Administration Milrinone Lactate/Dextrose 100 mls @ 8.792 mls/hr 04/06/19 05:36 04/09/19 02:24 Primacor 20mg/100ml D5w IV 0.375 mcg/kg/min .[id number] PRN 8.792 mls/hr TITRATE PER MD ORDER Administration Protocol 0.375 MCG/KG/MIN Propofol 1,000 mg in 100 mls @ 2.345 mls/hr 04/06/19 07:35 04/09/19 02:25 Diprivan IV 5 mcg/kg/min .Q24H PRN 2.345 mls/hr TITRATE PER MD ORDER Administration Protocol 5 MCG/KG/MIN Dexmedetomidine HCl 400 mcg in 100 mls @ 3.908 mls/hr 04/06/19 10:12 04/08/19 04:00 Precedex 400mcg/100ml IV 0 mcg/kg/hr .Q24H PRN 0 mls/hr Agitation Titration Protocol 0.2 MCG/KG/HR Linezolid 600 mg in 300 mls @ 200 mls/hr 04/08/19 10:00 04/08/19 21:25 Zyvox 600mg/300ml D5w IVPB 04/16/19 10:01 200 mls/hr Q12 AFSANEH Administration Protocol Lactulose 10 gm 04/08/19 14:00 04/08/19 18:34 Enulose PO Not Given BID AFSANE[facility] Lisinopril 2.5 mg 04/05/19 10:00 04/08/19 10:56 Zestril PO Not Given DAILY [facility] Metoprolol Tartrate 25 mg 04/06/19 10:00 04/08/19 18:33 Lopressor PO 25 mg BID AFSANE[facility] Administration Verapamil HCl 2.5 mg 04/06/19 06:51 Verapamil Inj IVP Q6H PRN Systolic Blood Pressure - Patient Studies Lab Studies: Microbiology Studies 04/05/19 07:55 Blood Culture - Preliminary Blood NO GROWTH AFTER 3 DAYS 04/05/19 08:15 Blood Culture - Preliminary Blood NO GROWTH AFTER 3 DAYS Lab Studies 04/08/19 Range/Units 08:00 Procalcitonin 0.07 L (0.19-0.49) NG/ML Laboratory Results - last 24 hr 04/08/19 08:00 Procalcitonin 0.07 L Radiology Impressions: Radiology Impressions Chest X-Ray 04/08/19 06:00 IMPRESSION: Endotracheal tube and nasogastric tube in satisfactory position. Resolution of previous right-sided atelectasis Review of Systems - Review of Systems Systems not reviewed;Unavailable: Intubated Critical Care Progress Note - Nutrition Nutrition: Nutrition Category Date Time Status NPO Diet [DIET] Diets 04/01/19 Breakfast Ordered Assessment/Plan - Assessment and Plan (Free Text) Assessment: 73 yo male with PMHx significant for ischemic cardiomyopathy (EF 9%, elevated RVSP 45, status post AICD), COPD and schizophrenia who was brought in by ambulance for altered mental status. Currently in ICU for multi system organ failure and respiratory distress and sustained toxic metabolic encephalopathy. Neuro: -Sustained AMS in setting of toxic metabolic encephalopathy -04/04/[address] head showed small 4 mm lacunar infarct, Neuro on board -04/05/19 24 hour vEEG completed, no evidence of seizures or status, severe cortical disturbance -GCS 3T, agitation noted, continue Propofol and Precedex drip -Possible overdose of Ambien as etiology of AMS, benzos in Utox -Monitor neuro status. -Neuro on consult - Dr. Gibbons Cardio: -L IJ access, L sided dual lead AICD AV paced -04/03/19 Echo: LVEF 9%, dilated IVC -Continue stress dose steroids at 25 mg daily -Continue Milrinone drip -Continue Verapamil 2.5 mg IVP q6h PRN with holding parameters and Lopressor 25 mg BID -Lasix 40 mg IVP daily -proBNP>40,000, EF 15% -Maintain MAP>65. -Monitor for S/S of HD compromise. -Cardiology on Consult - Dr. Taylor - recs appreciated Pulm: -PRVC 80/04/05/450 -04/08/19 CXR shows resolution of R sided consolidation -04/08 ABG shows sustained metabolic alkalosis -Maintain O2 saturation >92%. -O2 NC PRN -Vent: protective lung ventilation strategy, aspiration precautions -Elevate bed to 30 degrees GI: -NPO, tube feeding -Lactulose for constipation per GI -Pepcid IVP daily -Completed 3 doses of NAC on 04/02/19, improving LFTs; INR improved -possibility of congestive hepatopathy 2/2 congestive heart failure -04/01/19 Abd U/S shows Cholelithiasis. Diffuse gallbladder wall thickening is likely secondary to systemic disease. 2. Chronic renal parenchymal disease. 3. Diffuse increased echogenicity in the liver with coarse echotexture may reflect hepatic steatosis however parenchymal infectious/ inflammatory etiologies cannot be entirely excluded. -GI on consult - Dr. Bailey - further recs appreciated. [facility] in contact /Nephro: -GO likely 2/2 congestive nephropathy -Good urine output through Eric -Continue monitoring. -Replete electrolytes as needed. -Maintain euvolemia. Endocrinology: -Random glucose: 142 -Hgb a1c 6.4 -TSH 0.39, T4 6.9 -Maintain euglycemia. Heme/Onc: -H/H stable -No signs of HD compromise. -Continue monitoring H/H ID: -Continue on Linezolid per ID -CMV IgG positive -Negative toxo, RPR, TB, Leptospira for etiology of sustained AMS -BCx neg after 5 days, UCx negative -Repeat bcx neg after 3 days, repeat urine cx neg -MRSA in new sputum cx -Procalcitonin 0.55 -Monitor for signs and symptoms of infection. -ID on consult - Dr. Gavin - recs appreciated DVT prophylaxis: Heparin SC GI prophylaxis: Pepcid Code status: DNR as confirmed by POA sister Criss Garza Dispo: Palliative on board- family POA signed terminal extubation and DNR/DNI form. Defibrillator to be magnetized. Family interest in hospice. Primary not ified. Patient seen, case reviewed and plan approved by Dr. Goldie Burrell. Tony Uribe, PGY-1 <Juan Burrell - Last Filed: 04/09/19 15:58> CCU Objective - Vital Signs / Intake & Output Vital Signs (Last 4 hours): Vital Signs Temp Pulse Resp BP Pulse Ox 04/09/19 15:00 82 04/09/19 14:50 95 04/09/19 14:40 94 L 04/09/19 14:30 82 24 97 04/09/19 14:20 79 17 97 04/09/19 14:10 80 17 97 04/09/19 14:00 99 F 78 16 105/58 L 96 04/09/19 13:50 82 18 92 L 04/09/19 13:40 84 17 87 L 04/09/19 13:30 76 20 92 L 04/09/19 13:20 75 19 92 L 04/09/19 13:10 79 21 94 L 04/09/19 13:00 75 20 98/54 L 92 L 04/09/19 12:50 82 22 92 L 04/09/19 12:40 82 89 L 04/09/19 12:30 74 20 91 L 04/09/19 12:20 81 15 92 L 04/09/19 12:10 78 25 H 89 L 04/09/19 12:00 98.6 F 81 23 106/60 87 L Intake and Output (Last 8hrs): Intake & Output 04/09/19 04/09/19 04/09/19 06:59 14:59 22:59 Intake Total 312 80 100 Output Total 500 500 Balance -188 80 -400 Intake: IV 312 80 100 Left Internal Jugular 28 100 primacor 104 Output: Urine 500 500 Urethral (Eirc) 500 500 - Patient Studies Lab Studies: Microbiology Studies 04/05/19 07:55 Blood Culture - Preliminary Blood NO GROWTH AFTER 4 DAYS 04/05/19 08:15 Blood Culture - Preliminary Blood NO GROWTH AFTER 4 DAYS Lab Studies 04/08/19 Range/Units 08:00 Procalcitonin 0.07 L (0.19-0.49) NG/ML Laboratory Results - last 24 hr 04/08/19 08:00 Procalcitonin 0.07 L EKG/Cardiology Studies: Cardiology / EKG Studies 04/09/19 PACE INTERROGATION REQUEST Urgent Comment: terminally extubated. Reason For Exam: Please turn off Defirillator , Pt is DNR and PERFORMING PHYSICIAN/PROVIDER:: Joanna Hall Critical Care Progress Note - Nutrition Nutrition: Nutrition Category Date Time Status NPO Diet [DIET] Diets 04/01/19 Breakfast Ordered Addendum Addendum: 04/09/19 15:57 MICU Attending addendum Patient seen and examined with housestaff Agree with resident note above with the follow add/exceptions: 73 male with PMHx systolic CHF, ischemic cardiomyopathy (EF in 2014 10-15%, s/p AICD), COPD and schizophrenia being tx for altered mental status, toxic metabolic encephalopathy and acute liver failure. Liver failure improving based on LFTs and INR trend down. Eito possbile hepatic congestion. Remains intubated, very agitated when weaned off sedation. Unable to extubate at this time. CXR shows white out of right lung I wanted to bronch and attempted to lavage and clear out right lung however family refused to consent because they are currently in talks with [facility] Care team in regards to hospice EEG shows NO seizure activity, does show toxic metabolic encepahlopath Neurology following plan for extubation and transition to hospice today Rest of care as per above resident note Juan Burrell MD MICU Attending
--- NOTE | 2019-04-09 07:43 | PN ---
DATE: 04/08/2019 SUBJECTIVE: The patient is seen earlier this morning in 128, bed 1. Remains intubated on a ventilator, and he had no fevers last night. There has been no diarrhea reported. OBJECTIVE: VITAL SIGNS: On exam, temperature is 98, blood pressure is 101/40, respiratory rate of 18. HEENT: Unremarkable. NECK: Supple. LUNGS: Have decreased breath sounds. HEART: Normal S1, S2. ABDOMEN: Soft, nontender. LABORATORY EXAMINATION: Reveals the patient's white count is 8.7, hemoglobin of 11, BUN of 38, creatinine of 0.8. LFTs are elevated but improving. Procalcitonin is 0.07. Microbiology, MRSA from the sputum sensitive to vancomycin, Bactrim, tetracycline, rifampin, resistant to clindamycin, is sensitive to linezolid. Review of orders reveals the patient's linezolid was discontinued by Pharmacy. Review of the MAR reveals the patient is on Solu-Cortef. ASSESSMENT AND PLAN: This is a 73-year-old male, seen earlier today in 128, bed 1 with multiorgan failure, initially admitted with acute liver failure. In the admitting chest x-ray on the , the patient had no pneumonia, just venous congestion. On the x-ray, the patient also had no infiltrates; , still no infiltrates on the chest x-ray. However, on the , four days after admission, the patient did have pneumonia. Now with severe sepsis, respiratory failure, intubated on a ventilator with methicillin-resistant Staphylococcus aureus, pneumonia, healthcare-associated pneumonia, altered mental status, acute liver failure, acute kidney injury on top of chronic kidney injury, and acute congestive heart failure which is systolic congestive heart failure on top of chronic systolic congestive heart failure in the setting of patient with a history of coronary artery disease, history of coronary bypass graft, now with severe sepsis, respiratory failure, methicillin-resistant staphylococcus aureus, pneumonia, on Zyvox. We will restart the Zyvox at 600 mg IV every 12 hours. The patient was on vancomycin, and initially, the Zyvox was discontinued by Pharmacy on the . We will continue with the Zyvox. Overall prognosis is poor. The patient's last procalcitonin on was 0.007. We will also repeat a procalcitonin today and restart the Zyvox. Fredy Gavin MD [facility] # [id number]
[2019-04-09] MEDS: Linezolid 600 mg in D5W 300 ml 600 MG/300 ML BAG IVPB SCH (09:02)
[2019-04-09] MEDS ORDERED: Morphine 2 mg/ml ISec IVP PRN (10:41)
[2019-04-09] MEDS ORDERED: Morphine PCA 1 mg/ml (30ml) 30 ML IV PRN (10:43)
--- NOTE | 2019-04-09 10:53 | CP.PCM.PN ---
<Roe Hicks - Last Filed: 04/09/19 14:49> Subjective - Date & Time of Evaluation Date of Evaluation: 04/09/19 Time of Evaluation: 09:05 - Subjective Subjective: Infectious disease progress note: Patient seen and examined at bedside. Pt is sedated and intubated. No fevers. Plan for possible terminal extubation today. 12 point ROS unobtainable 2/2 intubation Objective - Vital Signs/Intake and Output Vital Signs (last 24 hours): Temp Pulse Resp BP Pulse Ox 98.2 F 79 20 103/55 L 96 04/05/19 18:20 04/09/19 10:40 04/06/19 07:18 04/09/19 10:00 04/09/19 10:40 Intake and Output: 04/09/19 04/09/19 06:59 18:59 Intake Total 332 Output Total 500 Balance -168 - Medications Medications: Current Medications Aspirin (Aspirin Chewable) 81 mg PO DAILY [facility] Last Admin: 04/09/19 09:04 Dose: 81 mg Famotidine (Pepcid) 20 mg IVP Q12 [facility] Last Admin: 04/09/19 09:04 Dose: 20 mg Heparin Sodium (Porcine) (Heparin) 5,000 units SC Q8 [facility]; Protocol Last Admin: 04/09/19 05:11 Dose: 5,000 units Hydrocortisone Sodium Succinate (Solu-Cortef) 25 mg IVP DAILY [facility] Last Admin: 04/09/19 09:05 Dose: 25 mg Milrinone Lactate/Dextrose (Primacor 20mg/100ml D5w) 100 mls @ 8.792 mls/hr IV .[id number] PRN; Protocol PRN Reason: TITRATE PER MD ORDER Last Admin: 04/09/19 02:24 Dose: 0.375 mcg/kg/min, 8.792 mls/hr Propofol (Diprivan) 1,000 mg in 100 mls @ 2.345 mls/hr IV .Q24H PRN; Protocol PRN Reason: TITRATE PER MD ORDER Last Admin: 04/09/19 02:25 Dose: 5 mcg/kg/min, 2.345 mls/hr Dexmedetomidine HCl (Precedex 400mcg/100ml) 400 mcg in 100 mls @ 3.908 mls/hr IV .Q24H PRN; Protocol PRN Reason: Agitation Last Titration: 04/08/19 04:00 Dose: 0 mcg/kg/hr, 0 mls/hr Linezolid (Zyvox 600mg/300ml D5w) 600 mg in 300 mls @ 200 mls/hr IVPB Q12 [facility]; Protocol Stop: 04/16/19 10:01 Last Admin: 04/09/19 09:02 Dose: 200 mls/hr Morphine Sulfate (Morphine Structured Cabling Technician 1 Mg/Ml) 30 mls @ 1 mls/hr IV PRN PRN; Protocol PRN Reason: SQL REPORT ANALYST PER MD ORDER Lactulose (Enulose) 10 gm PO BID [facility] Last Admin: 04/08/19 18:34 Dose: Not Given Lisinopril (Zestril) 2.5 mg PO DAILY [facility] Last Admin: 04/09/19 09:05 Dose: Not Given Lorazepam (Ativan) 1 mg IVP Q1H PRN; Protocol PRN Reason: Agitation Metoprolol Tartrate (Lopressor) 25 mg PO BID [facility] Last Admin: 04/09/19 09:04 Dose: Not Given Morphine Sulfate (Morphine) 2 mg IVP Q1H PRN PRN Reason: Pain, severe (8-10) Verapamil HCl (Verapamil Inj) 2.5 mg IVP Q6H PRN PRN Reason: Systolic Blood Pressure - Labs Labs: 04/08/19 05:30 04/08/19 05:30 PT 12.2 SECONDS (9.4-12.5) 04/06/19 08:15 INR 1.08 04/06/19 08:15 APTT 36.5 Seconds (26.9-38.3) 04/06/19 08:15 - Constitutional Appears: No Acute Distress - Eye Exam Eye Exam: PERRL - Respiratory Exam Respiratory Exam: Clear to Ausculation Bilateral. absent: Wheezes - Cardiovascular Exam Cardiovascular Exam: REGULAR RHYTHM, +S1, +S2 - GI/Abdominal Exam GI & Abdominal Exam: Soft - Extremities Exam Extremities Exam: absent: Calf Tenderness, Pedal Edema - Psychiatric Exam Psychiatric exam: Agitated - Skin Skin Exam: Dry, Warm Assessment and Plan - Assessment and Plan (Free Text) Assessment: SIRS with multiorgan failure unclear etiology Respiratory failure requiring ventilatory support HCAP with MRSA Altered mental status Acute liver failure Acute on chronic kidney injury Acute on chronic heart failure with systolic dysfunction 10 to 15% Coronary artery disease status post CABG Hypertension Parkinson's disease COPD Schizophrenia Cont with zyvox for pneumonia on CXR Repeat blood cx - neg Sputum cx with MRSA F/u acute hepatitis work up: CMV, TB, Toxoplasma, Syphlis, leptospirosis - neg thus far Continued management in the intensive care unit Acute liver failure - appears to be resolving Continue to monitor for any changes Lines: Left internal jugular Case and plan to be reviewed and discussed with Dr. Gavin. <Fredy Gavin - Last Filed: 04/09/19 14:50> Objective - Vital Signs/Intake and Output Vital Signs (last 24 hours): Temp Pulse Resp BP Pulse Ox 98.6 F 84 17 98/54 L 87 L 04/09/19 12:00 04/09/19 13:40 04/09/19 13:40 04/09/19 13:00 04/09/19 13:40 Intake and Output: 04/09/19 04/09/19 06:59 18:59 Intake Total 332 80 Output Total 500 Balance -168 80 - Labs Labs: 04/08/19 05:30 04/08/19 05:30 PT 12.2 SECONDS (9.4-12.5) 04/06/19 08:15 INR 1.08 04/06/19 08:15 APTT 36.5 Seconds (26.9-38.3) 04/06/19 08:15 Attending/Attestation - Attestation I have personally seen and examined this patient.: Yes I have fully participated in the care of the patient.: Yes I have reviewed all pertinent clinical information, including history, physical exam and plan: Yes
--- NOTE | 2019-04-09 10:54 | PCM.PPROG ---
History of Present Illness - History of Present Illness History of Present Illness: Sedated, intubated, no acute overnight occurrences Physical Exam - Constitutional Appears: Chronically Ill - Eye Exam Eye Exam: Normal appearance - ENT Exam ENT Exam: Mucous Membranes Moist - Respiratory Exam Respiratory Exam: Decreased Breath Sounds Additional comments: intubated - Cardiovascular Exam Cardiovascular Exam: Tachycardia - GI/Abdominal Exam GI & Abdominal Exam: Hypoactive Bowel Sounds, Soft - Neurological Exam Neurological exam: Altered - Skin Skin Exam: Dry, Pallor Palliative Care Assessment - Modified MRC Dyspnea Scale Modified MRC Dyspnea Scale: Too breathless to leave the house,or breathless dressing or undressing Grade: 5 - Chris Scale Sensory Perception: Completely Limited Moisture: Constantly Moist Activity: Bedfast Mobility: Completely Immobile Nutrition: Very Poor Friction & Shear: Problem Total Score - Skin Risk Assessment: 6 - Psychosocial Distress Outcome: Referred to protective services social worker - Goals Treatment Goal(s): Alleviate symptoms, Improve quality of life End of life care discussed: Yes - Plan Interdisciplinary involved: sorting cows worker, Physician Assessment & Plan - Assessment and Plan (Free Text) Assessment: 73 year old male with a PMHx significant for ischemic cardiomyopathy, EF 10- 15%, AICD, Parkinson's disease, COPD and schizophrenia who was admitted with altered mental status,GO,ALI,CHF. . Criss Hernándezer patients POA/sister and I spoke via phone yesterday.We discussed ramifications of terminal extubation. Dr Hameed and I met Criss Garza this morning. Goals of care revisited. Criss wants to terminally extubate and place on hospice care. Her request is in accordance with wishes specified in the patients's Advance Directive. Consents signed for terminal extubation/ DNR/DNI. Psychosocial support provided. Dr Martinez notified and in agreement with family's wishes Time spent with family in goals of care and end of life counseling, 30 minutes Plan: DNR/DNI Extubate Hospice evaluation Morphine 10 mg at time of extubation. Morphine as needed for comfort Ativan as needed for agitation
--- NOTE | 2019-04-09 11:13 | PN ---
DATE: 04/09/2019 SUBJECTIVE: A 73-year-old white male was seen in the bed 1, ICU. The patient is intubated and sedated, much improved this morning. PHYSICAL EXAMINATION: VITAL SIGNS: His heart rate is down to 70 to 81 and sinus, blood pressure 123/67, temperature is 98.2. HEENT: The patient's pupils are nonfixed and he does follow on commands. ABDOMEN: His abdomen is soft. CHEST: Clear to auscultation. HEART: Regular sinus rhythm. EXTREMITIES: Without cyanosis, clubbing, or edema. The patient has no decerebrate posturing today. The patient has history of congestive cardiomyopathy and new onset brainstem infarct, schizophrenia, bipolar, severe congestive cardiomyopathy with low ejection fraction and Parkinson's disease. Hugo Martinez MD
--- NOTE | 2019-04-09 12:43 | CP.PCM.PCO ---
Physician Communication Note - Physician Communication Note Physician Communication Note: pt s/p term extubation, discussed with palliative manpower development manager. hospice
[2019-04-09 15:16] VITALS: TEMP 99
[2019-04-09 15:17] VITALS: BP 105/58; PULSE 82; RESP 24; O2SAT 95
--- NOTE | 2019-04-09 16:09 | PN ---
DATE: 04/09/2019 REASON FOR CONSULTATION AND FOLLOWUP: Cardiac evaluation, admitted with respiratory failure and multiorgan dysfunction. SUBJECTIVE: The patient remained on vent; on vasopressors. OBJECTIVE: GENERAL: Family decision to make the patient DNR/DNI and terminal extubation. VITAL SIGNS: Temperature afebrile, heart rate 80, and blood pressure 106/60. HEENT: PERRLA intact. NECK: Supple. No carotid bruits or thyromegaly. CHEST: Clear to auscultation. HEART: S1 and S2 regular. ABDOMEN: Soft. EXTREMITIES: Clubbing and cyanosis, negative. LABORATORY DATA: Blood workup as follows; WBC 8.3, hemoglobin 11.0, hematocrit 36.2, and platelet count 120. Chemistry shows sodium 140, potassium 3.7, chloride 110, carbon dioxide 35, anion gap of 5, BUN 30, and creatinine 0.8. IMPRESSION AND PLAN: A 73-year-old male, with past medical history significant for coronary artery disease, status post coronary artery bypass graft many years ago, status post ventricular tachycardia in the past 6 to 7 years ago, status post percutaneous transluminal coronary angioplasty of left anterior descending artery, history of ischemic cardiomyopathy, ejection fraction 15%, and history of automatic implantable cardioverter-defibrillator, who admitted with altered mental status, requiring intubation, respiratory failure, and multiorgan dysfunction. Family wanted to make do not resuscitate/do not intubate and terminal extubation. Right-sided failure. The patient is currently on vasopressor. Discussed with the patient's sister and the [id number], Tai on telephone [phone], want to be terminally extubated. So order was written for automatic implantable cardioverter-defibrillator interrogation and turn off the internal defibrillator. The patient is in the process of being terminally extubated. Tressa Bonner is on the case and close followup. Further recommendation depending upon the hospital course. Most likely, the patient will be terminally extubated this afternoon. We will try to update Dr. Martinez in the office. Joanna Hall MD [facility]
--- NOTE | 2019-04-10 23:01 | DS ---
HISTORY OF PRESENT ILLNESS: He was discharge from the bed 1, ICU to hospice care in hospital. The patient has been admitted with respiratory failure, change in mental status, history of recent brainstem infarct, history of respiratory failure on mechanical ventilation and long history of congestive cardiomyopathy, COPD and schizoaffective bipolar disorder. The patient in discussions with the family and the patient was terminally extubated; however, he did well post-extubation and he was able to be sent to the floor for hospice care. FINAL DISCHARGE DIAGNOSES: The patient with the change of mental status acute cerebrovascular accident, schizoaffective bipolar disorder, congestive cardiomyopathy, acute systolic and diastolic heart failure and chronic obstructive pulmonary disease. Hugo Martinez MD
== END 2019-04-09 13:58 | disposition hospice, inpatient (51) | DRG 441 ==
LOC: ED 10:18 → ERH 15:55 → ICU 23:20
PROVIDERS: ADMIT Internal Medicine Nephrology; ATTEND Internal Medicine
PROC: 0BH17EZ Insertion of Endotracheal Airway into Trachea, Via Natural or Artificial Opening (ICD-10-PCS; principal; 2019-04-01)
PROC: 5A1955Z Respiratory Ventilation, Greater than 96 Consecutive Hours (ICD-10-PCS; 2019-04-01)
PROC: 05HN33Z Insertion of Infusion Device into Left Internal Jugular Vein, Percutaneous Approach (ICD-10-PCS; 2019-04-01)
PROC: B544ZZA Ultrasonography of Left Jugular Veins, Guidance (ICD-10-PCS; 2019-04-01)
DX: K72.00 Acute and subacute hepatic failure without coma (principal); J96.00 Acute respiratory failure, unspecified whether with hypoxia or hypercapnia; I50.23 Acute on chronic systolic (congestive) heart failure; I63.81 Other cerebral infarction due to occlusion or stenosis of small artery; G92 Toxic encephalopathy; J18.9 Pneumonia, unspecified organism; R65.20 Severe sepsis without septic shock; I13.0 Hypertensive heart and chronic kidney disease with heart failure and stage 1 through stage 4 chronic kidney disease, or unspecified chronic kidney disease; R57.9 Shock, unspecified; N17.9 Acute kidney failure, unspecified; E87.2 Acidosis; E87.4 Mixed disorder of acid-base balance; I47.2 Ventricular tachycardia; I42.0 Dilated cardiomyopathy; E87.0 Hyperosmolality and hypernatremia; J44.0 Chronic obstructive pulmonary disease with (acute) lower respiratory infection; J98.11 Atelectasis; R18.8 Other ascites; T42.6X4A Poisoning by other antiepileptic and sedative-hypnotic drugs, undetermined, initial encounter; G20 Parkinson's disease; Z79.899 Other long term (current) drug therapy; Z79.02 Long term (current) use of antithrombotics/antiplatelets; Z95.1 Presence of aortocoronary bypass graft; Z95.5 Presence of coronary angioplasty implant and graft; I25.10 Atherosclerotic heart disease of native coronary artery without angina pectoris; Z86.79 Personal history of other diseases of the circulatory system; J44.9 Chronic obstructive pulmonary disease, unspecified; K80.20 Calculus of gallbladder without cholecystitis without obstruction; S00.03XA Contusion of scalp, initial encounter; Z95.810 Presence of automatic (implantable) cardiac defibrillator; I25.5 Ischemic cardiomyopathy; Z87.891 Personal history of nicotine dependence; N18.9 Chronic kidney disease, unspecified; F10.10 Alcohol abuse, uncomplicated; E87.6 Hypokalemia; R74.8 Abnormal levels of other serum enzymes; K71.9 Toxic liver disease, unspecified; I08.1 Rheumatic disorders of both mitral and tricuspid valves; I48.0 Paroxysmal atrial fibrillation; I50.82 Biventricular heart failure; I73.9 Peripheral vascular disease, unspecified; J98.4 Other disorders of lung; K59.00 Constipation, unspecified; K74.60 Unspecified cirrhosis of liver; Y95 Nosocomial condition; Z51.5 Encounter for palliative care; Z66 Do not resuscitate; Z86.73 Personal history of transient ischemic attack (TIA), and cerebral infarction without residual deficits; F25.0 Schizoaffective disorder, bipolar type

== ENCOUNTER 2019-04-09 14:02 | Inpatient (IN) | payer OTHER ==
[2019-04-09 14:38] VITALS: BMI 25.8
[2019-04-09] MEDS ORDERED: Morphine PCA 1 mg/ml (30ml) 30 ML IV PRN (14:38)
[2019-04-09] MEDS: Morphine 2 mg/ml ISec IVP PRN (22:34)
[2019-04-10] MEDS ORDERED: Morphine PCA 1 mg/ml (30ml) 30 ML IV PRN (10:11)
[2019-04-10] MEDS ORDERED: Morphine 2 mg/ml ISec IVP STA (10:11)
--- NOTE | 2019-04-10 14:37 | HP ---
DATE OF EXAM: 04/10/2019 HISTORY OF PRESENT ILLNESS: Patient was discharged from [facility], he was seen in hospice in bed 578. He was terminally extubated yesterday after a long course in the intensive care unit with respiratory and cardiac failure, and change in mental status. Patient in review of his living will, the patient did not want to be intubated. A long discussion with the patient's sister with palliative care allowed patient to be terminally extubated, he was extubated and is doing remarkably well this following morning. He is awake, he is responsive, his temperature is 97.9, his blood pressure is 106/78 and this morning, he will start taking liquids is as tolerated. We will continue his outpatient medications for his congestive cardiomyopathy and possible psych consult. We will follow the patient closely in the next 24 to 48 hours to see if he is suitable for at home hospice or possible other subacute rehabs. PAST MEDICAL HISTORY: Consistent with congestive cardiomyopathy, bipolar schizoaffective disorder, mild Parkinson's disease, drug-induced COPD. On last admission he had brainstem infarct. FAMILY HISTORY: Contributory only for lung cancer in his sister and tobacco abuse in most of the family. He has no travel history. PAST SURGICAL HISTORY: He has no surgical history that is noted at this point. REVIEW OF SYSTEMS: Today is limited due to the patient's inability to fully communicate. However, review system is within normal limits at this point. PHYSICAL EXAMINATION: GENERAL: He is a well developed thin male, comfortable, in no respiratory distress. VITAL SIGNS: Stated previously. CHEST: Shows some decreased breath sounds, but is clear. CARDIAC: Regular sinus rhythm with controlled ventricular response. ABDOMEN: Soft. Bowel sounds normoactive. EXTREMITIES: Without cyanosis, clubbing, or edema. IMPRESSION: Hospice. Patient was recently terminally extubated, history of congestive cardiomyopathy, history of bipolar schizoaffective disorder, history of chronic obstructive pulmonary disease, doing remarkably well the following morning. PLAN: . Start liquid diet. Possible initiation and some physical therapy and reinstitution of some of his cardiac medications at this point since the patient is doing well. Hugo Martinez MD
[2019-04-11] MEDS: DiphenhydrAMINE 50 mg/ml Inj IVP PRN ×2 (05:39→16:03)
--- NOTE | 2019-04-11 11:21 | PN ---
DATE: 04/11/2019 SUBJECTIVE: A 73-year-old white male status post respiratory failure, change in mental status, status post CVI. The patient had been on hospice for the last 24 to 48 hours. However, he is arousable. He is awake. He is communicative. The patient was seen with Tressa Bonner this morning, together we have decided that we will give this patient another day before putting him on full hospice protocol. He is awake. He is alert. He is not complaining of pain. He has no shortness of breath. He is not in any distress at this point. He does have some cool extremities and some ischemic changes of his feet. He was on pressors, particularly norepinephrine for a little period of time in the ICU. PHYSICAL EXAMINATION: VITAL SIGNS: He does run a very low blood pressure on a normal basis anywhere from 92-95/60, the patient has been in low grade temperature of 100, his blood pressure is 120/83 today. His pulse is 86. CHEST: Shows some decreased breath sounds with some rhonchi. HEART: Regular sinus rhythm. ABDOMEN: Soft. EXTREMITIES: Cool to touch. There is some mild ischemic changes of the distal toes on both feet. PLAN: Start heparin prophylaxis for DVT. Continue his cardiac medications. Try and him a little further and reassess his need for hospice in the next 24 to 48 hours. Hugo Martinez MD
--- NOTE | 2019-04-11 13:27 | PCM.PPROG ---
History of Present Illness - History of Present Illness History of Present Illness: Lethargic, responds to simple commands. Mild dsypnea,accessory muscle use Physical Exam - Constitutional Appears: Chronically Ill - Eye Exam Eye Exam: Normal appearance, PERRL - ENT Exam ENT Exam: Mucous Membranes Moist - Respiratory Exam Respiratory Exam: Decreased Breath Sounds Additional comments: dyspnea on exertion - Cardiovascular Exam Cardiovascular Exam: REGULAR RHYTHM, +S1, +S2 - GI/Abdominal Exam GI & Abdominal Exam: Normal Bowel Sounds, Soft - Extremities Exam Extremities exam: Positive for: full ROM, pedal pulses present - Back Exam Back exam: NORMAL INSPECTION - Neurological Exam Neurological exam: Altered - Skin Skin Exam: Dry, Pallor Palliative Care Assessment - Modified MRC Dyspnea Scale Modified MRC Dyspnea Scale: Too breathless to leave the house,or breathless dressing or undressing Grade: 5 - Pain Scale Pain Score: 0 - Pain Description Pain Behavior: Moaning, Restlessness - Chris Scale Sensory Perception: Very Limited Moisture: Occasionally Moist Activity: Bedfast Mobility: Very Limited Nutrition: Very Poor Friction & Shear: Problem Total Score - Skin Risk Assessment: 10 Palliative Care - Goals Treatment Goal(s): Alleviate symptoms, Improve quality of life End of life care discussed: Yes - Plan Interdisciplinary involved: Nurse, bilingual social worker, music manager, Physician Assessment & Plan - Assessment and Plan (Free Text) Assessment: 73 year old male with a PMHx significant for ischemic cardiomyopathy, EF 10- 15%, AICD, Parkinson's disease, COPD and schizophrenia who was admitted with altered mental status,GO,ALI,CHF. The patient was terminally extubated and placed on hospice services for pain,dyspnea and symptom management. He is restless, with accessory muscle use and dyspnea on exertion. He is able to take thickened liquids.He answers simple yes and no questions, otherwise altered Plan: Goals of care Morphine 2 mg IVP as needed for pain Ativan 1 mg IVP, Thorazine for agitation /restlessness Taking thickened liquids Benadryl for upper airway congestion
--- NOTE | 2019-04-11 13:45 | CON ---
DATE: 04/11/2019 CONSULTATION NOTE HISTORY OF PRESENT ILLNESS: The patient is a 73-year-old male with a reported history of mental illness, most likely it is schizophrenia spectrum disorder. The patient is currently in Home [facility]osp[facility] and the patient is DNR and DNI. Psychiatric consult was called for advice because the patient has history of mental illness. This fiction and nonfiction prose writer attempted to speak to the patient. The patient presented to be alert, seems to be a poor historian, seems to be generally weak. The patient knows that he is in the hospital. As per report, the patient got Benadryl over night time because of restless behavior. The patient was not able to fully participate in interview because of generalized weakness and the patient presented to be disengaged and very slow with responses. This fiction and nonfiction prose writer reviewed the previous history. PAST HISTORY: Previous history indicated that the patient has history of schizophrenia, paranoid-type. The patient was seen by Dr. Sher, psychiatrist, in 2013. PAST MEDICATIONS: The patient was on two antipsychotic medications, Thorazine, as well as Risperdal, in the past. Going back to the patient's presentation at the present moment, vital signs are reviewed. Temperature is 100, pulse is 86, respirations 24, oxygen saturation is 94. CURRENT MEDICATIONS: Medications reviewed. The patient was on Tylenol, Lipitor, Coreg, Benadryl, heparin, Ativan 1 mg IV push every 4 hours as needed. The patient is on morphine and based on the report, the patient did not get any Benadryl, but most likely our nurse was confused and she was talking about Ativan. LABORATORY DATA: Labs were reviewed. Microbiology reviewed. As per Dr. Martinez, the patient was recently extubated and the patient has history of bipolar schizoaffective disorder. MENTAL STATUS EXAM: As this fiction and nonfiction prose writer described above. The patient presented to be weak and alert. The patient knows that he is in the hospital. The patient reported that he is doing okay; other than that, the patient was not able to participate in interview. IMPRESSION: As per history, schizoaffective disorder versus bipolar disorder. At the present moment, the patient is in hospice care. PLAN: In case of agitation, the patient has Ativan IV push. In case of restlessness and psychosis, this fiction and nonfiction prose writer can suggest Thorazine as needed for psychosis and agitation; it will be as needed. There are no acute psychiatric issues going on. This fiction and nonfiction prose writer will sign off. Thank you very much for letting me participate in the care of your patient. Yaritza Goyal MD [facility]
[2019-04-11] MEDS: Morphine 2 mg/ml ISec IVP PRN (18:03)
--- NOTE | 2019-04-12 09:48 | PN ---
DATE: 04/12/2019 SUBJECTIVE: A 73-year-old white male seen this morning being fed by his aide, tolerating a full liquid diet with some choking and some coughing, but swallowing well enough to finish his entire tray. The patient is awake. He is alert. He is slow to respond, but he denies any pain or discomfort. The patient had no incidents overnight. PHYSICAL EXAMINATION: VITAL SIGNS: He is afebrile today. Temperature is 98, blood pressure 115/75, and his heart rate is 81. CHEST: Shows some rhonchi bilaterally. ABDOMEN: Soft. HEART: Regular sinus rhythm. EXTREMITIES: Without cyanosis, clubbing, or edema. PLAN: Increase the thickness of his feedings. Continue current medications. Physical therapy, occupational therapy, and possibly subacute rehab. Hugo Martinez MD
[2019-04-12] MEDS: Morphine 2 mg/ml ISec IVP PRN (10:06)
[2019-04-12] MEDS: Albuterol-Ipratrop 3 mg / 0.5 (3 ml) UD IH SCH ×2 (13:21→20:55)
--- NOTE | 2019-04-12 14:18 | PCM.PPROG ---
History of Present Illness - History of Present Illness History of Present Illness: Dyspnea, accessory muscle use Physical Exam - Constitutional Appears: Cachectic, Chronically Ill - Eye Exam Eye Exam: Normal appearance, PERRL - ENT Exam ENT Exam: Mucous Membranes Dry - Respiratory Exam Respiratory Exam: Accessory Muscle Use, Decreased Breath Sounds, Rhonchi - Cardiovascular Exam Cardiovascular Exam: +S1, +S2 - GI/Abdominal Exam GI & Abdominal Exam: Hypoactive Bowel Sounds, Soft - Extremities Exam Extremities exam: Positive for: pedal edema Additional comments: feet L>R mottled - Neurological Exam Neurological exam: Altered - Skin Skin Exam: Dry, Pallor Palliative Care Assessment - Modified MRC Dyspnea Scale Modified MRC Dyspnea Scale: Too breathless to leave the house,or breathless dressing or undressing Grade: 5 - Pain Description Pain Behavior: Restlessness - Chris Scale Sensory Perception: Completely Limited Moisture: Occasionally Moist Activity: Bedfast Mobility: Completely Immobile Nutrition: Very Poor Friction & Shear: Problem Total Score - Skin Risk Assessment: 8 - Psychosocial Distress Patient screened for psychosocial distress: Yes Outcome: Referred to social service technician - Goals Treatment Goal(s): Alleviate symptoms, Improve quality of life End of life care discussed: Yes - Plan Interdisciplinary involved: Nurse, marble worker, partner alliance manager, Physician Discharge planning: Hospice Assessment & Plan - Assessment and Plan (Free Text) Assessment: 73 year old male with a PMHx significant for ischemic cardiomyopathy, EF 10- 15%, AICD, Parkinson's disease, COPD and schizophrenia who was admitted with altered mental status,GO,ALI,CHF. The patient was terminally extubated and placed on hospice services for pain,dyspnea and symptom management. He is restless, with accessory muscle use, dyspnea. He is able to take thickened liquids when offered. Plan: Goals of care Morphine 2 mg IVP now, and as needed for pain Ativan 1 mg IVP, Thorazine for agitation /restlessness Taking thickened liquids Benadryl for upper airway congestion
[2019-04-12] MEDS ORDERED: Morphine 2 mg/ml ISec IVP STA (16:52)
[2019-04-12] MEDS: Morphine PCA 1 mg/ml (30ml) 30 ML IV PRN (17:12)
[2019-04-13] MEDS: Albuterol-Ipratrop 3 mg / 0.5 (3 ml) UD IH SCH ×4 (01:18→19:32)
--- NOTE | 2019-04-13 11:25 | CP.PCM.PN ---
<Sky Cavanaugh - Last Filed: 04/13/19 11:22> Subjective - Date & Time of Evaluation Date of Evaluation: 04/13/19 Time of Evaluation: 11:00 - Subjective Subjective: Sky Cavanaugh D.O. PGY-3, Internal Medicine Resident, Dr. Jose's Service, Progress Note 73-year-old male with a past medical history of heart failure with decreased ejection fraction approximately 10 to 15%, status post AICD, Parkinson's disease, COPD, schizophrenia currently in hospice. Patient was seen and examined at bedside. Mildly restless. Mildly dyspneic. Objective - Vital Signs/Intake and Output Vital Signs (last 24 hours): Temp Pulse Resp BP Pulse Ox 97.8 F 72 20 98/62 L 93 L 04/13/19 06:00 04/13/19 06:00 04/13/19 06:00 04/13/19 06:00 04/13/19 06:00 - Medications Medications: Current Medications Acetaminophen (Tylenol 650 Mg Supp) 650 mg RC Q4H PRN PRN Reason: Fever >100.4 F Last Admin: 04/11/19 05:39 Dose: 650 mg Albuterol/Ipratropium (Duoneb 3 Mg/0.5 Mg (3 Ml) Ud) 3 ml IH [id number] [facility] Last Admin: 04/13/19 07:49 Dose: 3 ml Atorvastatin Calcium (Lipitor) 20 mg PO DIN [facility] Last Admin: 04/12/19 17:20 Dose: Not Given Carvedilol (Coreg) 3.125 mg PO BID [facility] Last Admin: 04/13/19 10:25 Dose: Not Given Chlorpromazine (Thorazine) 10 mg PO BID PRN; Protocol PRN Reason: psychosis, agitation Diphenhydramine HCl (Benadryl) 50 mg IVP Q4H PRN PRN Reason: upper airway congestion Last Admin: 04/11/19 16:03 Dose: 50 mg Morphine Sulfate (Morphine Senior Radiation Therapist 1 Mg/Ml) 30 mls @ 1 mls/hr IV PRN PRN; Protocol PRN Reason: LINING MAKER PER MD ORDER Last Admin: 04/12/19 17:12 Dose: 1 mg/hr, 1 mls/hr Lorazepam (Ativan) 1 mg IVP Q4H PRN; Protocol PRN Reason: Anxiety Last Admin: 04/12/19 14:18 Dose: 1 mg Scopolamine (Transderm-Scop) 1 patch TD Q3D [facility] Last Admin: 04/12/19 17:44 Dose: 1 patch - Constitutional Appears: Chronically Ill - Head Exam Head Exam: ATRAUMATIC - Eye Exam Eye Exam: EOMI - ENT Exam ENT Exam: Mucous Membranes Dry - Neck Exam Neck Exam: Normal Inspection - Respiratory Exam Respiratory Exam: absent: Rhonchi, Wheezes - Cardiovascular Exam Cardiovascular Exam: +S1, +S2 - GI/Abdominal Exam GI & Abdominal Exam: Soft - Extremities Exam Additional comments: mottling - Neurological Exam Neurological Exam: Awake - Skin Skin Exam: Dry Assessment and Plan - Assessment and Plan (Free Text) Assessment: 73-year-old male with a past medical history of heart failure with decreased ejection fraction approximately 10 to 15%, status post AICD, Parkinson's disease, COPD, schizophrenia currently in hospice. Plan: 1. End-stage heart failure on hospice 2. Parkinson's disease 3. COPD 4. Schizophrenia Hospice/palliative care team is following. Was started on morphine continuous infusion yesterday. Was also having some secretions so is currently on scopolamine patch. Hospice team managing. Patient has started being too lethargic to take his medications he has not taken his atorvastatin or carvedilol. Continue breathing treatments for his COPD. On PRN Lorazepam for anxiety. Optimize comfort. We will continue to follow patient. Patient was seen and examined and case to be discussed with physician at length <Clif Jose - Last Filed: 04/13/19 12:52> Objective - Vital Signs/Intake and Output Vital Signs (last 24 hours): Temp Pulse Resp BP Pulse Ox 97.8 F 72 20 98/62 L 93 L 04/13/19 06:00 04/13/19 06:00 04/13/19 06:00 04/13/19 06:00 04/13/19 06:00 - Medications Medications: Current Medications Acetaminophen (Tylenol 650 Mg Supp) 650 mg RC Q4H PRN PRN Reason: Fever >100.4 F Last Admin: 04/11/19 05:39 Dose: 650 mg Albuterol/Ipratropium (Duoneb 3 Mg/0.5 Mg (3 Ml) Ud) 3 ml IH [id number] [facility] Last Admin: 04/13/19 07:49 Dose: 3 ml Atorvastatin Calcium (Lipitor) 20 mg PO DIN [facility] Last Admin: 04/12/19 17:20 Dose: Not Given Carvedilol (Coreg) 3.125 mg PO BID [facility] Last Admin: 04/13/19 10:25 Dose: Not Given Chlorpromazine (Thorazine) 10 mg PO BID PRN; Protocol PRN Reason: psychosis, agitation Diphenhydramine HCl (Benadryl) 50 mg IVP Q4H PRN PRN Reason: upper airway congestion Last Admin: 04/11/19 16:03 Dose: 50 mg Morphine Sulfate (Morphine Senior Radiation Therapist 1 Mg/Ml) 30 mls @ 1 mls/hr IV PRN PRN; Protocol PRN Reason: LINING MAKER PER MD ORDER Last Admin: 04/12/19 17:12 Dose: 1 mg/hr, 1 mls/hr Lorazepam (Ativan) 1 mg IVP Q4H PRN; Protocol PRN Reason: Anxiety Last Admin: 04/12/19 14:18 Dose: 1 mg Scopolamine (Transderm-Scop) 1 patch TD Q3D [facility] Last Admin: 04/12/19 17:44 Dose: 1 patch Assessment and Plan - Assessment and Plan (Free Text) Plan: Pt seen and examined by me. I have reviewed the note of the medical care manager and I agree with it. I have discussed the assessment and plan with the resident. I have reviewed the medications and the last labs.
--- NOTE | 2019-04-13 16:09 | PN ---
DATE: 04/13/2019 SUBJECTIVE: The patient was seen and examined. I do agree with a note of the medical laboratory scientist. I was involved in the plan of care. The patient has end-stage heart failure. He is currently on hospice. The patient is on morphine drip. He has Parkinson's disease and COPD. He has a history of schizophrenia. He is getting lorazepam for his anxiety. I did speak to the aide at the bedside, the patient has been washed. He is currently comfortable. The patient is on liquid diet, but not able to eat. He is currently under hospital services. He has DNR/DNI. He is also on scopolamine patch. Clif Jose MD
[2019-04-13 22:25] VITALS: BP 103/66; PULSE 86; RESP 18; TEMP 98.4; O2SAT 95
[2019-04-13] MEDS: Morphine PCA 1 mg/ml (30ml) 30 ML IV PRN (22:27)
[2019-04-14] MEDS: Albuterol-Ipratrop 3 mg / 0.5 (3 ml) UD IH SCH ×2 (01:27→10:08)
--- NOTE | 2019-04-14 08:19 | CP.PCM.PRO ---
Pronouncement of Note - Clinical Findings Physical Exam: No Response Verbal/Painful Stimuli, Absent Peripheral Puls es{Carotid & Femoral}, Absent Heart & Breath Sounds, No Pupillary Light Reflex, No Corneal Reflex, Pupils Fixed & Dilated, Absence of Vital Signs - Pronouncement Time Time of Pronouncement of : 07:15 - Notifications Pronouncement Notifications: Family Notified (attempted multiple times at [phone] and file number [phone], no voicemail available), Atending Notified Animal Therapist Notified: No - Autopsy Autopsy Requested: No [place] [id number]
--- NOTE | 2019-04-14 12:24 | CP.PCM.DIS ---
<Sky Cavanaugh - Last Filed: 04/14/19 12:20> Provider - Provider Date of Admission: 04/09/19 14:02 Attending physician: Hugo Martinez MD Primary care physician: Hugo Martinez MD Consults: 04/11/19 08:14 Physician Consult Routine Comment: Consulting Provider: Yaritza Goyal Consulting Physician: Yaritza Goyal Reason for Consult: long h/o schizo/bipolar 04/11/19 10:20 Palliative Care Consult Routine Comment: Consulting Provider: Tressa Bonner Physician Instructions: Reason For Exam: Palliative Care Time Spent in preparation of Discharge (in minutes): 35 Diagnosis - Discharge Diagnosis (1) Status: Acute (2) CHF (congestive heart failure) Status: Chronic Hospital Course - Hospital Course Hospital Course: Sky Cavanaugh D.O. PGY-3, Internal Medicine Resident, Dr. Jose's Service, Discharge Summary 73-year-old male with a past medical history of heart failure with decreased ejection fraction approximately 10 to 15%, status post AICD, Parkinson's disease, COPD, schizophrenia who was being monitored in hospice. Patient was receiving morphine for pain control. Patient was also on scopolamine for secretions. Receiving lorazepam as needed for anxiety. Patient was seen and evaluated this morning and found to have no breath sounds or heart sounds. Corneal reflexes absent. Discussed with PCP who had entered the room with examiner. Patient's declared at 0715. Attempted multiple phone calls to patient's next of kin Criss Garza at [phone] well as [phone]. Unable to leave a voicemail as voicemail not available. Attending physician was notified. ERDS initiated. Discussed with nursing staff. - Date & Time of H&P Date of H&P: 04/14/19 Time of H&P: 07:30 Discharge Exam - Head Exam Head Exam: ATRAUMATIC - Eye Exam Eye Exam: absent: EOMI, PERRL - ENT Exam ENT Exam: Mucous Membranes Dry - Respiratory Exam Respiratory Exam: absent: NORMAL BREATHING PATTERN - Cardiovascular Exam Cardiovascular Exam: absent: RRR - Neurological Exam Additional comments: no corneal reflex - Skin Additional comments: cold, mottled Discharge Plan - Follow Up Plan Condition: Disposition: WITH WITHOUT AUTOPSY Instructions: Heart Failure (DC), Heart Failure (GEN), Pacemaker (DC), Pacemaker (GEN), Pulmonary Edema (DC), Pulmonary Edema (GEN), Ascites (DC), Ascites (GEN) Referrals: Hugo Martinez MD [Primary Care Provider] - <Clif Jose - Last Filed: 04/14/19 16:39> Provider - Provider Date of Admission: 04/09/19 14:02 Attending physician: Hugo Martinez MD Primary care physician: Hugo Martinez MD Consults: 04/11/19 08:14 Physician Consult Routine Comment: Consulting Provider: Yaritza Goyal Consulting Physician: Yaritza Goyal Reason for Consult: long h/o schizo/bipolar 04/11/19 10:20 Palliative Care Consult Routine Comment: Consulting Provider: Tressa Bonner Physician Instructions: Reason For Exam: Palliative Care Hospital Course - Hospital Course Hospital Course: Pt seen and examined by me. I have reviewed the note of the medical office secretary and I agree with it. I have discussed the assessment and plan with the resident. I have reviewed the medications and the last labs.
--- NOTE | 2019-04-14 21:02 | DS ---
HOSPITAL COURSE: The patient was seen and examined. I do agree with the note of the medical data entry clerk. I was involved in the plan of care. The patient had been on hospice services. The patient has Parkinson's and COPD. He has schizophrenia. He had . The patient has ischemic cardiomyopathy with EF of 10-15%. The patient had acute kidney injury. He also was terminally extubated. He was placed on a morphine drip. The patient was pronounced. The family was called, but not contacted. Multiple attempts were made to contact the family and were able to leave messages. I did let Dr. Martinez know that the patient as well as told him that we were unable to contact the patient's family with multiple attempts. DISCHARGE DIAGNOSES: 1. Respiratory failure, status post terminal extubation. 2. Ischemic cardiomyopathy with the ejection fraction of 10-15%. 3. Automatic implantable cardioverter-defibrillator. 4. Parkinson's disease. 5. Chronic obstructive pulmonary disease. 6. Schizophrenia. 7. Acute kidney injury. 8. Acute liver injury. Clif Jose MD
== END 2019-04-14 14:28 | DRG 291 ==
LOC: ICU 14:02 → 5RSO 16:34
PROVIDERS: ADMIT Internal Medicine; ATTEND Internal Medicine
DX: I50.84 End stage heart failure (principal); K72.00 Acute and subacute hepatic failure without coma; N17.9 Acute kidney failure, unspecified; F20.0 Paranoid schizophrenia; I42.0 Dilated cardiomyopathy; I25.5 Ischemic cardiomyopathy; Z66 Do not resuscitate; Z51.5 Encounter for palliative care; G20 Parkinson's disease; J44.9 Chronic obstructive pulmonary disease, unspecified; F25.0 Schizoaffective disorder, bipolar type; Z95.810 Presence of automatic (implantable) cardiac defibrillator; Z86.73 Personal history of transient ischemic attack (TIA), and cerebral infarction without residual deficits